=== PATIENT | female | born 1935 | race Caucasian/White ===

== ENCOUNTER 2016-06-12 06:33 | Day surgery (SDC) | payer OTHER, MEDICARE ==
[2016-05-31 13:48] LABS: BASO % 0.4 %; BASO ABS # 0.03 K/uL (0-0.2); COMPLETE YES; EOS % 3.1 %; HEMATOCRIT 34.7 % (37-47); IG% 0.1 %; LYMPH % 22.5 %; LYMPH ABS # 1.58 K/uL (1.2-3.4); MEAN CELL VOLUME 95.1 fL (80-100); MEAN CORPUSCULAR HEMOGLOBIN 30.7 pg (25-34); MEAN CORPUSCULAR HGB CONC 32.3 g/dl (32-36); MEAN PLATELET VOLUME 10.1 fL (7.4-10.4); MONO % 8.8 %; NEUT % 65.1 %; PLATELET COUNT 309 K/uL (130-400); RED BLOOD COUNT 3.65 M/uL (4.2-5.4); WHITE BLOOD COUNT 7.02 K/uL (4.8-10.8)
[2016-05-31 13:53] LABS: URINE APPEARANCE CLOUDY (CLEAR); URINE BILIRUBIN NEG (NEG); URINE COLOR YELLOW; URINE EPITHELIAL CELL AUTO >30 /lpf (0-5); URINE NITRITE NEG (NEG); UROBILINOGEN NEG (NEG)
[2016-05-31 13:59] LABS: MANUAL MICROSCOPIC REQUIRED? NO; REVIEW REQ? YES
[2016-05-31 14:22] LABS: BLOOD UREA NITROGEN 17 mg/dl (7-18); BUN/CREATININE RATIO 12.8 (10-20); CALCIUM 8.7 mg/dl (8.5-10.1); CARBON DIOXIDE 27 mmol/L (21-32); CHLORIDE 104 mmol/L (98-107); GLUCOSE 247 mg/dl (70-99); POTASSIUM 4.9 mmol/L (3.5-5.1); SODIUM 140 mmol/L (136-145)
[2016-06-06 15:55] VITALS: BMI 37.0
[~2016-06-12] VITALS: Ht 160 cm; Wt 96.4 kg
[~2016-06-12 06:33] MED LIST: ADVIN10/60 INH; ALT10 PO; ATOR-26 PO; CIPROFLOXACIN / D5W 400 MG IV SCH; CLOP1TAB15 PO; CYAN1TAB18 PO; DOCU-94 PO; DTRSR4 PO; GABA-112 PO; IBUP-1450 PO; INSDGI SC; LXP/10 PO; METO-551 PO; MONT1TAB3 PO; NVLG INJ; POLY335019 PO; RSTOPS OP; SODIUM CHLORIDE 0.9% 1000ML 1,000 ML IV SCH; ZNTT/150 PO
--- NOTE | 2016-06-12 07:13 | History & Physical Bridge Note ---
H&P Re-Evaluation Bridge Note: I have examined the patient, reviewed the History & Physical and in the interval since the performance of the History & Physical I have noted the following changes of clinical significance: No changes noted
[2016-06-12 07:15] VITALS: BP 168/69; PULSE 67; TEMP 36.4; O2SAT 98; Ht 160 cm; Wt 96.4 kg
[2016-06-12] MEDS ORDERED: ONDANSETRON INJ 2 MG/ML 2 ML VIAL ONE ×2 (07:22→10:15)
[2016-06-12] MEDS ORDERED: FENTANYL CITRATE INJ 50 MCG/1 ML 2 ML VIAL ONE ×2 (07:22→09:12)
[2016-06-12] MEDS ORDERED: LIDOCAINE HCL 2% 2 ML VIAL (20MG/ML) ONE (07:22)
[2016-06-12] MEDS ORDERED: PROPOFOL IV EMULSION 10 MG/ML 20 ML VIAL IV ONE (07:22)
[2016-06-12] MEDS ORDERED: EpHEDrine SULFATE 50MG/5ML SYR ONE (08:52)
[2016-06-12] MEDS ORDERED: OXYC1TAB3 PO (09:45)
[2016-06-12] MEDS ORDERED: CIPR-255 PO (09:45)
--- NOTE | 2016-06-12 09:45 | DIAGNOSTIC IMAGING REPORT ---
Stent placement RETROGRADE INCLUDES [facility] CLINICAL HISTORY: LEFT LASER LITHOTRIPSY STENT stent placement. Laser lithotripsy. TECHNIQUE: Image intensifier COMPARISON STUDY: None FINDINGS: Intraoperative films demonstrate retrograde cannulation of the left ureter followed by laser lithotripsy. These images are utilized for intraoperative surgical planning purposes IMPRESSION: Left upper urinary tracts laser lithotripsy and stent placement Electronically signed by: Phillip Marion M.D. 06/12/2016 9:43 AM Dictated Date/Time: 06/12/2016 9:42 AM
--- NOTE | 2016-06-12 09:47 | Discharge Instructions ---
Discharge Instructions Admission Reason for Admission: Stones Discharge Discharge Diagnosis / Problem: L ureteral stone s/p laser litho Discharge Goals Goal(s): Decrease discomfort, Improve function, Improve disease control, Therapeutic intervention Activity Recommendations Activity Limitations: per Instructions/Follow-up section Lifting Limitations: gradually increase as tolerated Exercise/Sports Limitations: rest today, gradually increase as tolerated May Resume Sexual Activity: when tolerated Shower/Bathe: no limitations Driving or Machine Use: per baseline . Instructions / Follow-Up Instructions / Follow-Up Follow-up in office as planned with [facility] Xray before visit for stent removal Discharge Diet Recommended Diet: Regular Diet (good fluid intake, resume prior diet) Procedures Procedures Performed: Cystoscopy, left ureteral stent exchange, left retrograde pyelography, flexible ureterscopy, laser lithotripsy, left basket stone extraction. Pending Studies Studies pending at discharge: yes List of pending studies: Culture, stone analysis Medical Emergencies . Who to Call and When: Medical Emergencies: If at any time you feel your situation is an emergency, please call 911 immediately. . Non-Emergent Contact Non-Emergency issues call your: Urologist Call Non-Emergent contact if: you have a fever, temperature is above 101, your pain is not controlled, your pain is worsening, your pain is unusual for you, your pain is concerning you, you have any medication questions . . "Provider Documentation" section prepared by Chino Smith. VTE Core Measure Inpt VTE Proph given/why not?: SCD's [place] Drug Monitoring Program Search Results: patient reviewed within database, no issues identified
--- NOTE | 2016-06-12 09:49 | [facility] Post Operative Brief Note ---
Immediate Operative Summary Operative Date Jun 12, 2016. Pre-Operative Diagnosis Left upper ureteral stone, recurrent UTI, indwelling stent Post-Operative Diagnosis Same Procedure(s) Performed Cystoscopy, left ureteral stent exchange, left retrograde pyelography, flexible ureterscopy, laser lithotripsy, left basket stone extraction. Surgeon Dr. Mely Smith District Recruiter Surgeon(s) None Estimated Blood Loss 5 ml Findings Stone fragmented and extracted, no ureteral injury or residual stone, cloudy urine noted Specimens left renal stone for chemical anlysis Bladder urine for C&S Drains 6 fr 26 cm JJ ureteral stent, left Anesthesia [facility] Complication(s) None Disposition Recovery Room / PACU
[2016-06-12] MEDS ORDERED: OXYCODONE/ACETAMINOPHEN 5-325 TAB PO PRN (10:00)
[2016-06-12] MEDS ORDERED: KETOROLAC TROMETHAMINE 30 MG/ML VIAL ONE (10:19)
[2016-06-12] MEDS ORDERED: VASOPRESSIN 20 UNIT/ML VIAL ONE (10:21)
[2016-06-12] MEDS ORDERED: EpHEDrine SULFATE INJ 50 MG/ML AMP IV PRN (10:30)
[2016-06-12] MEDS ORDERED: FENTANYL CITRATE INJ 50 MCG/1 ML 2 ML VIAL IV PRN (10:30)
[2016-06-12] MEDS ORDERED: ONDANSETRON INJ 2 MG/ML 2 ML VIAL IV PRN (10:30)
[2016-06-12] MEDS ORDERED: ATROPINE SULFATE 0.1 MG/ML 5ML SYR IV PRN (10:30)
[2016-06-12] MEDS ORDERED: LABETALOL HCL IV 5 MG/ML 20ML IV PRN (10:30)
[2016-06-12] MEDS ORDERED: MEPERIDINE HCL 25 MG/ML CARP IV PRN (10:30)
[2016-06-12] MEDS ORDERED: HYDROmorphone INJ 1 MG/ML SYR IV PRN (10:30)
--- NOTE | 2016-06-12 10:30 | Anesthesiology Progress Note ---
Anesthesia Post Op Note Date & Time Jun 12, 2016 at 10:31 Vital Signs Pain Intensity: 0 Vital Signs Past 12 Hours Date Time Temp Pulse Resp B/P Pulse Ox O2 Delivery O2 Flow Rate FiO2 06/12/16 09:47 36.1 84 18 162/95 97 Mask 10 06/12/16 07:15 36.4 67 20 168/69 98 Room Air Notes Mental Status: alert / awake / arousable, participated in evaluation Pt Amnestic to Procedure: Yes Nausea / Vomiting: adequately controlled Pain: adequately controlled Airway Patency, RR, SpO2: stable & adequate BP & HR: stable & adequate Hydration State: stable & adequate Anesthetic Complications: no major complications apparent
[2016-06-12] MEDS ORDERED: CONRAY 30% 150ML BOTTLE INSTIL ONE (10:46)
--- NOTE | 2016-06-12 10:47 | OPERATIVE REPORT ---
DATE OF OPERATION: 06/12/2016 PREOPERATIVE DIAGNOSIS: Left upper ureteral stone with indwelling stent, history of urinary tract infection. POSTOPERATIVE DIAGNOSIS: Same. PROCEDURE: Cystoscopy, left ureteral stent exchange, left retrograde pyelography with flexible ureteroscopy, laser lithotripsy and stone extraction. SURGEON: Dr. Chino Smith. AIR CARGO AGENT: None. ANESTHESIA: General anesthesia with laryngeal mask. COMPLICATIONS: None. SPECIMENS SENT TO PATHOLOGY: Bladder urine for culture and sensitivity, left upper ureteral and renal stone fragments for chemical analysis. DRAINS LEFT IN PLACE: Include a 6-Bulgarian 26 cm soft left ureteral double-J stent. FINDINGS: Stone retropulsed into the kidney, fragmented and extracted with no evidence of residual stone fragments or ureteral injury, good stent position on fluoroscopy. ESTIMATED BLOOD LOSS: Minimal. COMPLICATIONS: None. BRIEF HISTORY: Ms. Schultz is a pleasant 80-year-old female here today with her family, with a history of stone disease and urinary tract infection. She underwent acute stenting as an inpatient approximately 2 months ago and was not cleared for shockwave lithotripsy at the outpatient surgical center. She is therefore being brought to the hospital for endoscopic management of her stone. Please see H\T\P for further details. Preoperative urine culture demonstrated contamination with no uropathogens noted. Preoperative coverage with ciprofloxacin provided. Consent reviewed with the family in the chart prior to OR today. PROCEDURE: The patient was properly identified and brought to the operative suite. After identification of appropriate consent on the chart, general anesthesia with laryngeal mask was initiated. The patient was prepped and draped in a standard fashion for this procedure. realtime court reporter-out procedure was followed. A 22-Bulgarian rigid cystoscope was passed into the bladder under direct visualization and the bladder was generously irrigated with cloudy urine being removed and sent for culture and sensitivity. Stent was grasped and brought out to the level of the meatus and followed by a sensor tip wire which was kept as a safety wire until the end of the case. Open ended catheter was passed over the wire first and gentle retrograde pyelography was performed, opacifying the collecting system for anatomic landmarks. After the safety wire was in place, it was followed by a second sensor tip working wire. A 1214, 35 cm ureteral access sheath was advanced up to the level of the mid ureter without resistance or difficulties. This was followed by a fiberoptic ureteroscope. Inflammation and some stenosis of the proximal ureter consistent with the stone location on excellence leader imaging was noted. Using a 200 micron laser fiber, the stone was fragmented into several smaller pieces to allow for basket extraction. Open open-ended basket was used to remove these without excessive resistance at the level of the proximal ureter. After the stone fragments were basketed free, a complete pyeloscopy was repeated demonstrating no further stone fragments or other abnormalities within the kidney. Again, stenosis in the proximal ureter was noted without evidence of injury, ureteral perforation or laceration. Complete exit ureteroscopy was performed including removal of the access sheath demonstrating no occult ureteral injury behind the access sheath. After this was complete, the cystoscope was backloaded over the safety wire and a 6-Bulgarian 26 cm double-J stent was advanced with a full coil present visually within the bladder and a full coil present at the level of the renal pelvis. Hydronephrotic drip was appreciated. Bladder was drained and cystoscope was removed, anesthesia was reversed and the patient was transferred to recovery room in stable condition. FOLLOWUP CARE: The patient will be discharged home with a prescription for ciprofloxacin and narcotic pain medication. She has been tolerating her stent well in the past per her family and no bladder antispasmodics will be provided. Outpatient appointment with [facility] and cysto stent removal is confirmed. The patient is instructed to contact our service should she note any fevers, chills, nausea, vomiting or other significant difficulties in the postoperative period. I attest to the content of the Intraoperative Record and any orders documented therein. Any exceptio ns are noted below.
[2016-06-12 10:50] VITALS: BP 151/87; PULSE 78; TEMP 36.4; O2SAT 93
[2016-06-12 11:10] VITALS: BP 151/70; PULSE 76; O2SAT 94
[2016-06-12 11:50] VITALS: BP 132/73; PULSE 82; TEMP 36.5; O2SAT 97
[2016-06-22] MEDS ORDERED: DFL100 PO (11:24)
[2016-06-22] MEDS ORDERED: INSDGI SC (11:24)
[2016-06-22] MEDS ORDERED: MGNO400 PO (11:24)
[2016-06-22] MEDS ORDERED: CEFU1TAB35 PO (11:24)
[2016-10-08] MEDS ORDERED: RAMI10CA PO (11:59)
[2016-10-08] MEDS ORDERED: CYCL0.052 OP (11:59)
[2016-10-08] MEDS ORDERED: LEVO75TA5 PO (13:33)
[2016-10-08] MEDS ORDERED: NTRGSL/4 UT (13:43)
[2016-10-08] MEDS ORDERED: CYAN1CAP3 PO (13:48)
[2016-10-08] MEDS ORDERED: METO50TA16 PO (13:50)
== END 2016-06-12 11:55 | disposition home or self-care (01) ==
LOC: C.ACU 06:33
PROVIDERS: ATTEND Urology
DX: Z46.6 Encounter for fitting and adjustment of urinary device (principal); N20.1 Calculus of ureter; Z87.440 Personal history of urinary (tract) infections; N39.0 Urinary tract infection, site not specified; R35.0 Frequency of micturition; J45.909 Unspecified asthma, uncomplicated; R15.9 Full incontinence of feces; E11.65 Type 2 diabetes mellitus with hyperglycemia; K21.9 Gastro-esophageal reflux disease without esophagitis; K44.9 Diaphragmatic hernia without obstruction or gangrene; E78.5 Hyperlipidemia, unspecified; E03.9 Hypothyroidism, unspecified; F03.90 Unspecified dementia, unspecified severity, without behavioral disturbance, psychotic disturbance, mood disturbance, and anxiety; G45.9 Transient cerebral ischemic attack, unspecified

== ENCOUNTER 2016-06-17 09:36 | Inpatient (IN) | payer OTHER, MEDICARE ==
[~2016-06-17] VITALS: Ht 160 cm; Wt 97.0 kg
[~2016-06-17 09:36] MED LIST changes: +CIPR-255 PO; -CIPROFLOXACIN / D5W 400 MG IV SCH; +OXYC1TAB3 PO; -SODIUM CHLORIDE 0.9% 1000ML 1,000 ML IV SCH
[2016-06-17] MEDS ORDERED: SODIUM CHLORIDE 0.9% 1000ML 1,000 ML IV ONE (10:15)
[2016-06-17 10:21] LABS: HEMATOCRIT 33.5 % (37-47); MEAN CELL VOLUME 92.5 fL (80-100); MEAN CORPUSCULAR HEMOGLOBIN 31.2 pg (25-34); MEAN CORPUSCULAR HGB CONC 33.7 g/dl (32-36); MEAN PLATELET VOLUME 9.7 fL (7.4-10.4); PLATELET COUNT 217 K/uL (130-400); RED BLOOD COUNT 3.62 M/uL (4.2-5.4); WHITE BLOOD COUNT 12.12 K/uL (4.8-10.8)
[2016-06-17 10:30] LABS: BUN/CREATININE RATIO 13.8 (10-20); CALCIUM 8.2 mg/dl (8.5-10.1); CREATININE 1.4 mg/dl (0.60-1.20); POTASSIUM 3.6 mmol/L (3.5-5.1)
[2016-06-17 10:33] LABS: ALB/GLOB RATIO 0.6 (0.9-2)
[2016-06-17 10:38] LABS: PROTHROMBIN TIME (PATIENT) 10.8 SECONDS (9.0-12.0)
--- NOTE | 2016-06-17 10:43 | DIAGNOSTIC IMAGING REPORT ---
SINGLE VIEW CHEST CLINICAL HISTORY: Generalized weakness. FINDINGS: An AP, portable, upright chest radiograph is compared to study dated 04/12/2016 and correlated with chest CT dated 05/31/2015. The examination is degraded by portable technique, apical lordotic positioning, large body habitus, and patient rotation. The heart is enlarged and there is atherosclerotic calcification of the thoracic aorta. The pulmonary vasculature is noncongested. A hiatal hernia is again noted. There is chronic elevation of the right hemidiaphragm with associated atelectasis. Linear atelectasis is noted in the left lower lung. There is no airspace consolidation typical for pneumonia or pleural effusion. No pneumothorax is seen. The bony thorax is grossly intact. Fusion hardware is noted in the lumbar spine. Postoperative changes seen in the right proximal humerus. IMPRESSION: 1. Chronic parenchymal changes as above with no acute cardiopulmonary abnormality. 2. Cardiomegaly and hiatal hernia. Electronically signed by: Ender Grimaldo M.D. 06/17/2016 10:41 AM Dictated Date/Time: 06/17/2016 10:39 AM
[2016-06-17 10:48] LABS: BASO % 0.2 %; BASO ABS # 0.02 K/uL (0-0.2); COMPLETE YES; EOS % 0.2 %; IG% 0.4 %; LYMPH % 8.5 %; LYMPH ABS # 1.03 K/uL (1.2-3.4); MONO % 9.4 %; NEUT % 81.3 %
--- NOTE | 2016-06-17 10:50 | EMERGENCY ROOM VISIT NOTE ---
History Report prepared by Galo: Dawn Suh Under the Supervision of: Dr. Ronak Sutton M.D. First contact with patient: 09:46 Chief Complaint: NAUSEA Stated Complaint: NAUSEA,WEAKNESS,VOMITING, POST OP 2/6 Nursing Triage Summary: Had a kidney stone "blasted" on sunday. Eating little, "has never seemed to come out of the funk of the anesthesia." Complaining of pain on left flank. Confusion. Vomiting clear liquid. Took a percocet at 0830 History of Present Illness The patient is a 80 year old female who presents to the Emergency Room with complaints of persistent nausea that began Sunday. The patient's daughter notes that that the patient was evaluated in the hospital in April for a kidney infection, which also revealed a large kidney stone in her left kidney. She states that the patient had a stent placed in her left kidney at this time. The patient's daughter states that the patient had lithotripsy on the left kidney on Sunday, and was first felt well enough to get out of bed yesterday. She reports that patient has been very confused since Sunday. The patient's daughter states that the patient vomited this morning and began complaining of "pain up in." The daughter reports that the patient has had adequate fluid intake, but minimal food intake. She states that the patient's blood glucose has been running between 200-300 mg/dL this week. The daughter also states that the patient has been taking Percocet which relieves the pain and ciprofloxacin for an infection. The daughter reports the patient also fell out of bed on Sunday onto her left shoulder causing persistent shoulder pain. Source of History: patient, family (daughter) Onset: Sunday Position: other (global) Quality: other (nausea) Timing: other (persistent) Modifying Factors (Relieving): other (Percocet) Associated Symptoms: + vomiting Note: Associated Symptoms: confusion, pain up in, elevated blood glucose levels. Review of Systems All systems have been listed, reviewed, and are negative other than those previously mentioned. Please see Additional Medical History Sheet. 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 (14) SIRS (systemic inflammatory response syndrome) (15) SPINAL STENOSIS-LUMBAR (16) TIA (transient ischemic attack) Surgical Problems: (1) H/O: hysterectomy (2) History of back surgery (3) History of cataract surgery (4) History of renal stent (5) Hx of cholecystectomy Family History Cancer Diabetes mellitus Gallbladder disease Heart disease Kidney disease Kidney stones Social History Smoking Status: Former Smoker Alcohol Use: none Drug Use: none Marital Status: Housing Status: lives with family Occupation Status: retired Current/Historical Medications Scheduled Atorvastatin (Lipitor), 80 MG PO HS Ciprofloxacin Hcl (Cipro), 500 MG PO BID Clopidogrel (Plavix), 75 MG PO QAM Cyclosporine (Ophth) (Restasis), 1 DROP OP BID Escitalopram Oxalate (Lexapro), 10 MG PO QAM Fluticasone Prop/Salmeterol (Advair Diskus 100/50 60 Dose), 1 PUFF INH BID Gabapentin (Neurontin), 100 MG PO BID Insulin Aspart (Novolog), INJ ACHS Insulin Glargine (Lantus), 20 SC AMPM Levothyroxine Sodium (Levothyroxine Sodium), 75 MCG PO QAM Metoprolol Tartrate (Lopressor), 50 MG PO BID Multiple Vitamin (Multi Vitamin Daily), 1 TAB PO QAM Nitroglycerin (Nitrostat), 0.4 MG UT PRN Ramipril (Ramipril), 1 CAP PO DAILY Tolterodine Tartrate (Detrol LA), 1 CAP PO DAILY Scheduled PRN Docusate Sodium (Colace), 1 CAP PO for Constipation Hydrocortisone (Topical) (Hydrocortisone), 1 APPLN TOP BID PRN for PRN Oxycodone Immediate Rel Tab (Roxicodone Ir), 5 MG PO Q4H PRN for Severe Pain Allergies Coded Allergies: Latex1 -Allergic Contact Dermititis (Verified Allergy, Mild, RASH, 06/17/16 ) Adhesives (Verified Allergy, Unknown, RASH, 06/17/16) Codeine (Verified Adverse Reaction, Unknown, N&V, 06/17/16) Morphine (Verified Adverse Reaction, Unknown, N&V, 06/17/16) Physical Exam Vital Signs Date Time Temp Pulse Resp B/P Pulse Ox O2 Delivery O2 Flow Rate FiO2 06/17/16 12:45 75 18 170/104 98 Room Air 06/17/16 10:54 96 Nasal Cannula 2.0 06/17/16 10:50 89 Room Air 06/17/16 10:35 80 18 179/96 93 Room Air 06/17/16 10:13 84 06/17/16 09:39 36.4 94 18 110/67 93 Room Air Physical Exam GENERAL: Patient appears miserable. SKIN: No erythema, pallor, cyanosis or rash HEENT: Normal head, pupils equal, reactive to light and accommodation. Neck: Without adenopathy, no neck vein distention. LUNGS: Clear to auscultation. No wheezes, no rales, no rhonchi. HEART: No murmurs. No gallops. No rubs ABDOMEN: Obese. No masses, no rebound, no hepatomegaly or splenomegaly. EXTREMITIES: Full range of motion in shoulders, proximal humerus and clavicle are nontender NEUROLOGIC: Cranial nerves II-XII within normal limits. No gross motor sensory function deficits. Medical Decision & Procedures ER Provider Diagnostic Interpretation: X ray results are stated below per my interpretation and the radiologist's interpretation. SINGLE VIEW CHEST CLINICAL HISTORY: Generalized weakness. FINDINGS: An AP, portable, upright chest radiograph is compared to study dated 04/12/2016 and correlated with chest CT dated 05/31/2015. The examination is degraded by portable technique, apical lordotic positioning, large body habitus, and patient rotation. The heart is enlarged and there is atherosclerotic calcification of the thoracic aorta. The pulmonary vasculature is noncongested. A hiatal hernia is again noted. There is chronic elevation of the right hemidiaphragm with associated atelectasis. Linear atelectasis is noted in the left lower lung. There is no airspace consolidation typical for pneumonia or pleural effusion. No pneumothorax is seen. The bony thorax is grossly intact. Fusion hardware is noted in the lumbar spine. Postoperative changes seen in the right proximal humerus. IMPRESSION: 1. Chronic parenchymal changes as above with no acute cardiopulmonary abnormality. 2. Cardiomegaly and hiatal hernia. Electronically signed by: Ender Grimaldo M.D. 06/17/2016 10:41 AM Laboratory Results 06/17/16 09:52 Red Blood Count 3.62, Mean Corpuscular Volume 92.5, Mean Corpuscular Hemoglobin 31.2, Mean Corpuscular Hemoglobin Concent 33.7, Mean Platelet Volume 9.7, Neutrophils (%) (Auto) 81.3, Lymphocytes (%) (Auto) 8.5, Monocytes (%) (Auto) 9.4, Eosinophils (%) (Auto) 0.2, Basophils (%) (Auto) 0.2, Neutrophils # (Auto) 9.85, Lymphocytes # (Auto) 1.03, Monocytes # (Auto) 1.14, Eosinophils # (Auto) 0.03, Basophils # (Auto) 0.02 06/17/16 09:52 Test 06/17/16 09:52 06/17/16 10:11 06/17/16 10:30 White Blood Count 12.12 K/uL (4.8-10.8) Red Blood Count 3.62 M/uL (4.2-5.4) Hemoglobin 11.3 g/dL (12.0-16.0) Hematocrit 33.5 % (37-47) Mean Corpuscular Volume 92.5 fL (80-100) Mean Corpuscular Hemoglobin 31.2 pg (25-34) Mean Corpuscular Hemoglobin Concent 33.7 g/dl (32-36) Platelet Count 217 K/uL (130-400) Mean Platelet Volume 9.7 fL (7.4-10.4) Neutrophils (%) (Auto) 81.3 % Lymphocytes (%) (Auto) 8.5 % Monocytes (%) (Auto) 9.4 % Eosinophils (%) (Auto) 0.2 % Basophils (%) (Auto) 0.2 % Neutrophils # (Auto) 9.85 K/uL (1.4-6.5) Lymphocytes # (Auto) 1.03 K/uL (1.2-3.4) Monocytes # (Auto) 1.14 K/uL (0.11-0.59) Eosinophils # (Auto) 0.03 K/uL (0-0.5) Basophils # (Auto) 0.02 K/uL (0-0.2) RDW Standard Deviation 48.9 fL (36.4-46.3) RDW Coefficient of Variation 14.5 % (11.5-14.5) Immature Granulocyte % (Auto) 0.4 % Immature Granulocyte # (Auto) 0.05 K/uL (0.00-0.02) Prothrombin Time 10.8 SECONDS (9.0-12.0) Prothromb Time International Ratio 1.0 (0.9-1.1) Anion Gap 11.0 mmol/L (3-11) Est Creatinine Clear Calc Drug Dose 36.1 ml/min Estimated GFR () 41.3 Estimated GFR (Non- 35.6 BUN/Creatinine Ratio 13.8 (10-20) Calcium Level 8.2 mg/dl (8.5-10.1) Total Bilirubin 0.6 mg/dl (0.2-1) Aspartate Amino Transf (AST/SGOT) 50 U/L (15-37) Alanine Aminotransferase (ALT/SGPT) 53 U/L (12-78) Alkaline Phosphatase 153 U/L (45-117) Total Protein 6.9 gm/dl (6.4-8.2) Albumin 2.6 gm/dl (3.4-5.0) Globulin 4.3 gm/dl (2.5-4.0) Albumin/Globulin Ratio 0.6 (0.9-2) Bedside Lactic Acid Venous 1.79 mmol/L (0.90-1.70) Urine Color YELLOW Urine Appearance TURBID (CLEAR) Urine pH 5.5 (4.5-7.5) Urine Specific [place] 1.016 (1.000-1.030) Urine Protein 4+ (NEG) Urine Glucose (UA) 1+ (NEG) Urine Ketones TRACE (NEG) Urine Occult Blood 3+ (NEG) Urine Nitrite NEG (NEG) Urine Bilirubin NEG (NEG) Urine Urobilinogen NEG (NEG) Urine Leukocyte Esterase LARGE (NEG) Urine WBC (Auto) >30 /hpf (0-5) Urine RBC (Auto) 5-10 /hpf (0-4) Urine Hyaline Casts (Auto) /lpf (0-5) Urine Epithelial Cells (Auto) 10-20 /lpf (0-5) Urine Bacteria (Auto) NEG (NEG) Urine Pathogenic Casts /lpf (0) Urine Yeast (Auto) BUDDING (NONE PRSENT) Laboratory results as stated above per my review. Medications Administered Medications (Trade) Dose Ordered Sig/Pio Route Start Time Stop Time Status Last Admin Dose Admin Sodium Chloride 1,000 ml @ 1,000 mls/hr Q1H ONCE IV 06/17/16 10:15 06/17/16 11:14 DC 06/17/16 10:15 1,000 MLS/HR Trimethoprim/ Sulfamethoxazole/ Dextrose (Septra 80/16MG/ Ml Inj/D5W 500ml) 525 ml @ 333 mls/hr 1230 IV 06/17/16 12:30 06/17/16 14:05 DC 06/17/16 12:52 333 MLS/HR ED Course 0948: Past medical records reviewed. The patient was evaluated in room B11. A complete history and physical examination was performed. 1015: Sodium Chloride 1000 ml @ 1000 mls/hr IV. 1211: I reevaluated the patient and she is resting comfortably. I discussed the exam findings with her and I discussed the treatment plan. She verbalized complete understanding and agreement. She will be evaluated for further treatment. 1221: I discussed the patients case with KAY Zapata. He is going to evaluate the patient for further treatment. Medical Decision Nurses notes reviewed. Medical history sheet reviewed. Differential diagnosis includes but is not limited to: s/p lithotripsy, kidney stones, UTI, sepsis. The patient had lithotripsy earlier this week. The patient now feels weak and has significant pain. A full workup ensued including multiple labs. Please see above. The patient has significant white cells in her urine consistent with UTI/pyelonephritis. In light of her renal calculi and infection the patient will require admission. I discussed care with the patient and the patient's daughter and with the hospitalist. Consults Time Called: 1218 Consulting Physician: KAY Zapata Returned Call: 1221 I discussed the patients case with KAY Zapata. He is going to evaluate the patient for further treatment. Impression Primary Impression: Urinary tract infection Additional Impression: Kidney stone Scribe Attestation The scribe's documentation has been prepared under my direction and personally reviewed by me in its entirety. I confirm that the note above accurately reflects all work, treatment, procedures, and medical decision making performed by me. Departure Information Dispostion Being Evaluated By Hospitalist Referrals Sae Arthur M.D. (PCP) Problem Qualifiers
[2016-06-17 10:52] LABS: URINE APPEARANCE TURBID (CLEAR); URINE BILIRUBIN NEG (NEG); URINE COLOR YELLOW; URINE NITRITE NEG (NEG); URINE PH 5.5 (4.5-7.5); URINE SPECIFIC GRAVITY 1.016 (1.000-1.030); UROBILINOGEN NEG (NEG); ZZURINE CULT IF INDIC CATH YES
[2016-06-17 10:55] LABS: MANUAL MICROSCOPIC REQUIRED? NO; REVIEW REQ? YES
[2016-06-17] MEDS ORDERED: DTRSR4 PO (11:59)
[2016-06-17] MEDS ORDERED: SULFA IV SCH (12:30)
[2016-06-17] MEDS ORDERED: DEXTROSE 5% IV SCH (12:30)
[2016-06-17] MEDS ORDERED: TRIMETH IV SCH (12:30)
[2016-06-17] MEDS ORDERED: ACETAMINOPHEN 325 MG TAB PO PRN (13:30)
[2016-06-17] MEDS ORDERED: ONDANSETRON INJ 2 MG/ML 2 ML VIAL IV PRN (13:30)
[2016-06-17] MEDS ORDERED: PIPERACILL/TAZOBAC CONSULT ACTIVE PRN (14:00)
--- NOTE | 2016-06-17 14:20 | DIAGNOSTIC IMAGING REPORT ---
LEFT SHOULDER 3 VIEWS CLINICAL HISTORY: Fall with left arm pain. FINDINGS: 3 views of the left shoulder are obtained. No prior studies are available for comparison at the time of dictation. The skeletal structures are osteopenic. No fracture or dislocation is identified. Arthritic change is present at the glenohumeral and acromioclavicular joints. Sclerotic degenerative change is noted in the greater tuberosity of the humeral head. The overlying soft tissues are within normal limits. The heart appears enlarged. Partially imaged left lung parenchyma appears clear. IMPRESSION: Osteopenia and arthritic change as above. No fracture or dislocation is seen in the left shoulder. Electronically signed by: Ender Grimaldo M.D. 06/17/2016 2:19 PM Dictated Date/Time: 06/17/2016 2:17 PM
[2016-06-17 15:00] VITALS: BP 143/71; PULSE 71; TEMP 36.5; O2SAT 98
[2016-06-17] MEDS ORDERED: PIPERACILL/TAZOBAC IV 3.375 GM in DEXTROSE 5% 100ML IV SCH (15:30)
[2016-06-17 15:41] VITALS: BP 133/67; PULSE 68; TEMP 36.5; O2SAT 96
--- NOTE | 2016-06-17 15:45 | History and Physical ---
History & Physical Date & Time of Service: Jun 17, 2016 at 15:30 Chief Complaint: Acute Kidney Injury, Uti Primary Care Physician: Sae Arthur M.D. 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 According to patient and family, she has been confused and lethargic ever since 06/12 (5 days ago). Her appetite has been diminished, generalized aches, low grade temperatures and today she started vomiting. She has been compliant with the Cipro that was prescribed to treat possible UTI. She and family have not noticed any kidney stones that have passed. She has been making urine but less amounts. No hematuria, no dark discoloration. No chest pain or dyspnea or coughing. She admits to a lower abdominal pain but she feels that it comes on prior to moving bowels and improves with moving her bowels. In the ED her vitals were stable, she had signs of UTI on UA, mild leukocytosis and her Cr was elevated at 1.4 compared to prior baseline values closer to 0.8- 0.9. Admission was requested for the confusion and UTI with recent lithotripsy. Past records show that her urine culture from 04/06/16 grew E coli that was pacheco sensitive. Several other urine cultures taken since that time have shown multiple bacteria but all with insignificant numbers. Past Medical/Surgical History Medical Problems: (1) ASTHMA W/O STATUS ASTH, ACT EXACERBATION OR UNSPEC Status: Chronic (2) CHR LYMPHOCYT THYROIDIT Status: Chronic (3) CORON ATHEROSCLER NOS TYPE VESSEL, [place] OR GRAFT Status: Chronic (4) DIAB KOKI WO COMPL, TYPE I [JUVENILE TYPE], NOT UNCNTRLD Status: Chronic (5) DIAB W OPHTHAL MANIFEST TYPE II,OR NOS/NOT UNCONTR Status: Chronic (6) HYPERTENSION NOS Status: Chronic (7) HYPOTHYROIDISM NOS Status: Chronic (8) LUMBOSACRAL SPONDYLOSIS Status: Chronic (9) OBESITY, NOS Status: Chronic (10) OSTEOARTHROS NOS-UNSPEC Status: Chronic (11) POSTLAMINECT SYND-LUMBAR Status: Chronic (12) SPINAL STENOSIS-LUMBAR Status: Chronic (13) TIA (transient ischemic attack) Status: Resolved Surgical Problems: (1) H/O: hysterectomy Status: Resolved (2) History of back surgery Status: Resolved (3) History of cataract surgery Status: Resolved (4) Hx of cholecystectomy Status: Resolved Family History Cancer Diabetes mellitus Gallbladder disease Heart disease Kidney disease Kidney stones Social History Smoking Status: Former Smoker Drug Use: none Marital Status: Housing status: lives with family Occupational Status: retired Immunizations History of Influenza Vaccine: Yes Influenza Vaccine Date: Jun 16, 2011 History of Tetanus Vaccine?: utd Tetanus Immunization Date: Jan 22, 2001 History of Pneumococcal: Yes Pneumococcal Date: Jun 16, 2003 History of Hepatitis B Vaccine: Unknown Multi-Drug Resistant Organisms History of MDRO: No Allergies Coded Allergies: Latex1 -Allergic Contact Dermititis (Verified Allergy, Mild, RASH, 06/17/16 ) Adhesives (Verified Allergy, Unknown, RASH, 06/17/16) Codeine (Verified Adverse Reaction, Unknown, N&V, 06/17/16) Morphine (Verified Adverse Reaction, Unknown, N&V, 06/17/16) Home Medications Scheduled Atorvastatin (Lipitor), 80 MG PO HS Ciprofloxacin Hcl (Cipro), 500 MG PO BID Clopidogrel (Plavix), 75 MG PO QAM Cyclosporine (Ophth) (Restasis), 1 DROP OP BID Escitalopram Oxalate (Lexapro), 10 MG PO QAM Fluticasone Prop/Salmeterol (Advair Diskus 100/50 60 Dose), 1 PUFF INH BID Gabapentin (Neurontin), 100 MG PO BID Insulin Aspart (Novolog), INJ ACHS Insulin Glargine (Lantus), 20 SC AMPM Levothyroxine Sodium (Levothyroxine Sodium), 75 MCG PO QAM Metoprolol Tartrate (Lopressor), 50 MG PO BID Multiple Vitamin (Multi Vitamin Daily), 1 TAB PO QAM Nitroglycerin (Nitrostat), 0.4 MG UT PRN Ramipril (Ramipril), 1 CAP PO DAILY Tolterodine Tartrate (Detrol LA), 1 CAP PO DAILY Scheduled PRN Docusate Sodium (Colace), 1 CAP PO for Constipation Hydrocortisone (Topical) (Hydrocortisone), 1 APPLN TOP BID PRN for PRN Oxycodone Immediate Rel Tab (Roxicodone Ir), 5 MG PO Q4H PRN for Severe Pain Review of Systems Constitutional: + fatigue, + fever, + sweats, + weakness, No chills, No weight loss Eyes: No diplopia, No discharge, No eye pain, No problem reported, No redness, No worsening of vision ENT: No dental problems, No hearing loss, No nasal symptoms, No problem reported, No sore throat, No tinnitus, No trouble swallowing, No unusual epistaxis Respiratory: No cough, No dyspnea at rest, No dyspnea on exertion, No hemoptysis, No problem reported, No shortness of breath, No sputum, No wheezing Cardiovascular: No PND, No chest pain, No claudication, No edema, No orthopnea , No palpitations, No problem reported Abdomen: + nausea, + pain (relieved with bowel movement), + vomiting, No GI bleeding, No constipation, No diarrhea, No problem reported Musculoskeletal: + joint pain (left shoulder, fell out of bed two days ago), No calf pain, No muscle pain, No problem reported, No swelling Genitourinary - Female: No dysuria, No hematuria, No urinary frequency, No urinary retention, No urinary urgency Neurologic: + weakness, No balance problems, No memory loss, No numbness/ tingling, No paralysis, No problem reported, No vertigo Psychiatric: No anhedonism, No anxiety, No depression symptoms, No insomnia, No problem reported, No substance abuse Endocrine: No excessive thirst, No excessive urination, No fatigue, No problem reported Hematologic / Lymphatic: No abnormal bleeding/bruising, No clotting problems, No night sweats, No problem reported, No swollen lymph nodes Allergic / Immunologic: No environmental allergies, No food allergies, No frequent infections, No hives, No pet sensitivities, No poor healing, No problem reported, No prolonged convalescence, No seasonal allergies Physical Exam Vital Signs Date Time Temp Pulse Resp B/P Pulse Ox O2 Delivery O2 Flow Rate FiO2 06/17/16 14:56 72 18 160/68 95 Nasal Cannula 2.0 06/17/16 14:46 70 18 190/91 98 06/17/16 12:45 75 18 170/104 98 Room Air 06/17/16 10:54 96 Nasal Cannula 2.0 06/17/16 10:50 89 Room Air 06/17/16 10:35 80 18 179/96 93 Room Air 06/17/16 10:13 84 06/17/16 09:39 36.4 94 18 110/67 93 Room Air General Appearance: WD/WN, no apparent distress Head: normocephalic, atraumatic Eyes: normal inspection, EOMI, sclerae normal ENT: normal ENT inspection, hearing grossly normal, pharynx normal Neck: supple, no adenopathy, no JVD, trachea midline Respiratory/Chest: chest non-tender, lungs clear, normal breath sounds, no respiratory distress, no accessory muscle use Cardiovascular: regular rate, rhythm, no edema, no gallop, no JVD, no murmur, normal peripheral pulses Abdomen/GI: normal bowel sounds, non tender, soft, no organomegaly Back: normal inspection, no CVA tenderness, no muscle spasm, normal range of motion Extremities/Musculoskelatal: normal inspection, no calf tenderness, normal capillary refill, no pedal edema, normal range of motion Neurologic/Psych: small piece cutter II-XII nml as tested, alert, normal mood/affect, normal reflexes, + motor weakness (generalized) Skin: normal color, warm/dry, no rash Diagnostics Laboratory Results Results Past 24 Hours Test 06/17/16 09:52 06/17/16 10:11 06/17/16 10:30 Range/Units White Blood Count 12.12 4.8-10.8 K/uL Red Blood Count 3.62 4.2-5.4 M/uL Hemoglobin 11.3 12.0-16.0 g/dL Hematocrit 33.5 37-47 % Mean Corpuscular Volume 92.5 80-100 fL Mean Corpuscular Hemoglobin 31.2 25-34 pg Mean Corpuscular Hemoglobin Concent 33.7 32-36 g/dl Platelet Count 217 130-400 K/uL Mean Platelet Volume 9.7 7.4-10.4 fL Neutrophils (%) (Auto) 81.3 % Lymphocytes (%) (Auto) 8.5 % Monocytes (%) (Auto) 9.4 % Eosinophils (%) (Auto) 0.2 % Basophils (%) (Auto) 0.2 % Neutrophils # (Auto) 9.85 1.4-6.5 K/uL Lymphocytes # (Auto) 1.03 1.2-3.4 K/uL Monocytes # (Auto) 1.14 0.11-0.59 K/uL Eosinophils # (Auto) 0.03 0-0.5 K/uL Basophils # (Auto) 0.02 0-0.2 K/uL RDW Standard Deviation 48.9 36.4-46.3 fL RDW Coefficient of Variation 14.5 11.5-14.5 % Immature Granulocyte % (Auto) 0.4 % Immature Granulocyte # (Auto) 0.05 0.00-0.02 K/uL Prothrombin Time 10.8 9.0-12.0 SECONDS Prothromb Time International Ratio 1.0 0.9-1.1 Sodium Level 138 136-145 mmol/L Potassium Level 3.6 3.5-5.1 mmol/L Chloride Level 103 98-107 mmol/L Carbon Dioxide Level 24 21-32 mmol/L Anion Gap 11.0 3-11 mmol/L Blood Urea Nitrogen 19 7-18 mg/dl Creatinine 1.40 0.60-1.20 mg/dl Est Creatinine Clear Calc Drug Dose 36.1 ml/min Estimated GFR () 41.3 Estimated GFR (Non- 35.6 BUN/Creatinine Ratio 13.8 10-20 Random Glucose 213 70-99 mg/dl Calcium Level 8.2 8.5-10.1 mg/dl Total Bilirubin 0.6 0.2-1 mg/dl Aspartate Amino Transf (AST/SGOT) 50 15-37 U/L Alanine Aminotransferase (ALT/SGPT) 53 12-78 U/L Alkaline Phosphatase 153 45-117 U/L Total Protein 6.9 6.4-8.2 gm/dl Albumin 2.6 3.4-5.0 gm/dl Globulin 4.3 2.5-4.0 gm/dl Albumin/Globulin Ratio 0.6 0.9-2 Bedside Lactic Acid Venous 1.79 0.90-1.70 mmol/L Urine Color YELLOW Urine Appearance TURBID CLEAR Urine pH 5.5 4.5-7.5 Urine Specific [place] 1.016 1.000-1.030 Urine Protein 4+ NEG Urine Glucose (UA) 1+ NEG Urine Ketones TRACE NEG Urine Occult Blood 3+ NEG Urine Nitrite NEG NEG Urine Bilirubin NEG NEG Urine Urobilinogen NEG NEG Urine Leukocyte Esterase LARGE NEG Urine WBC (Auto) >30 0-5 /hpf Urine RBC (Auto) 5-10 0-4 /hpf Urine Hyaline Casts (Auto) 0-5 /lpf Urine Epithelial Cells (Auto) 10-20 0-5 /lpf Urine Bacteria (Auto) NEG NEG Urine Pathogenic Casts 0 /lpf Urine Yeast (Auto) BUDDING NONE PRSENT Microbiology Results 06/17/16 Blood Culture, Received Pending 06/17/16 Blood Culture, Received Pending 06/17/16 Urine Culture, Received Pending Diagnostic Radiology Shoulder x-ray: no fractures CXR normal Impression Assessment and Plan 80 yo female with recent history of emphysematous pyelonephritis and renal stones, recent lithotripsy 5 days ago, now with lethargy, confusion, low grade temperatures, vomiting - UTI, possible pyelonephritis: certainly there are signs of UTI on UA and generalized signs of infection, vitals stable, mild leukocytosis no signs of sepsis, admit to medical floor treat with Zosyn IV, she was taking Cipro prior to admission urine and blood cultures, check CT without contrast to assess renal stone and look for signs of pyelonephritis, emphysematous? consult urology due to recent lithotripsy ans stent placement - SERGIO on CKD: Cr up to 1.4, will give NSS and hold nephrotoxins, repeat labs in the AM, follow UO - H/o TIA: continue Plavix - Metabolic encephalopathy: certainly confusion is likely related to concurrent UTI and SERGIO, look for it to improve with treatment check CT head to r/o intracranial pathology - Left shoulder pain from fall: no fractures on x-ray - DM, insulin dependent: recently with hyperglycemia, will use Lantus 20 units BID and Novolog coverage, diabetic diet - Asthma: lungs clear, no wheezing, continue maintenance inhalers - DVT prophylaxis: heparin SC Level of Care Med/Surg Advanced Directives Existing Advance Directive: Yes Existing Power of Funeral Home Assistant: Yes Resuscitation Status FULL RESUSCITATION VTE Prophylaxis VTE Risk Assessment Done? Y/N: Yes Risk Level: High Given or contraindicated: Unfractionated heparin SQ Additional Copies To Sae Arthur M.D.
[2016-06-17] MEDS: RESTASIS - ORDER AWAITING ACTION SCH ×2 (16:00→21:26)
[2016-06-17 16:38] VITALS: BP 143/71; PULSE 71; TEMP 36.5; O2SAT 97; Ht 160 cm; Wt 97.0 kg
--- NOTE | 2016-06-17 17:34 | DIAGNOSTIC IMAGING REPORT ---
CT SCAN OF THE BRAIN WITHOUT IV CONTRAST CLINICAL HISTORY: Change in mental status. COMPARISON STUDY: CT of the brain dated 02/26/2015. TECHNIQUE: Unenhanced axial CT scan of the brain is performed from the vertex to the skull base. 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 There are age-related involutional changes noting moderate patchy subcortical and periventricular microangiopathic change. Small chronic lacunar infarcts are identified in the basal ganglia. There is no hemorrhage, mass effect, or evidence of acute territorial ischemia by CT criteria. Holden-white matter is preserved. No extra-axial fluid collection is seen. Ventricles, sulci, cisterns: Prominent secondary to involutional change. Intracranial vasculature: There is atherosclerotic calcification of the cavernous carotid and vertebral arteries. Calvarium: Unremarkable. Sinuses and mastoids: The visualized paranasal sinuses are clear. The mastoid air cells are well pneumatized. Orbits: The bony orbits are grossly intact. There are bilateral ocular lens implants. IMPRESSION: Senescent changes and remote infarcts as above. There is no hemorrhage, mass effect, or evidence of acute territorial ischemia by CT criteria. Electronically signed by: Ender Grimaldo M.D. 06/17/2016 5:32 PM Dictated Date/Time: 06/17/2016 5:29 PM
--- NOTE | 2016-06-17 17:46 | DIAGNOSTIC IMAGING REPORT ---
CT SCAN OF THE ABDOMEN AND PELVIS WITHOUT IV CONTRAST CLINICAL HISTORY: Change in mental status. Generalized abdominal pain. COMPARISON STUDY: Abdominal CT dated 04/10/2016. Chest CT dated 05/31/2015. TECHNIQUE: CT scan of the abdomen and pelvis is performed from the lung bases to the proximal femora. Images are reviewed in the axial, sagittal, and coronal planes. IV contrast was not administered for this examination as per the referring clinician. Note that the examination was performed in suboptimal fashion without oral and IV contrast. The examination is also degraded by large body habitus and streak artifact from the body wall abutting the CT gantry. Automated dose control exposure was utilized. CT DOSE: 1826.14 mGy.cm FINDINGS: Lung bases: The heart is heart is enlarged and there is a moderate pericardial effusion. The coronary arteries and mitral annulus are densely calcified. There is diminished attenuation of the cardiac blood pool as compared to the myocardium suggesting anemia. The pulmonary trunk is dilated suggesting pulmonary artery hypertension. There are trace pleural effusions with dependent atelectasis. There are numerous pulmonary nodules identified measuring up to 6 mm. The largest is in the lingula as seen on image #15. These are better characterized on the 05/31/[address] A moderate hiatal hernia is observed. Liver: The unenhanced liver is normal in size, contour, and attenuation. There is mild central intrahepatic biliary ductal dilatation. Gallbladder: Not identified and presumed surgically absent. Spleen: Normal in size and attenuation. Pancreas: The unenhanced pancreas is atrophic and grossly unremarkable. Adrenal glands: Unremarkable. Kidneys: The unenhanced kidneys demonstrate cortical atrophy. A left ureteral stent is new from previous and appears to be in appropriate position. There is mild to moderate left-sided hydroureteronephrosis with associated left-sided perinephric and periureteric stranding. No calculi are identified in the left ureter along the course of the stent. A punctate nonobstructing calculus is present in the left lower pole. No right renal calculi are identified and there is no right-sided hydronephrosis. There is no gas within the renal collecting system. Abdominal vasculature: The abdominal aorta is normal in course and caliber noting advanced atherosclerotic calcification. Bowel: There is no bowel obstruction. There is mild to moderate colonic fecal retention. There is moderate to advanced sigmoid diverticulosis without CT evidence of acute diverticulitis. A duodenal diverticulum is noted. The appendix is not clearly identified. Peritoneum: There is no intraperitoneal free air or abdominal ascites. Lymphadenopathy: None. Pelvic viscera: Small foci of gas are present within the bladder lumen. The bladder is otherwise normal in appearance. The uterus is surgically absent. No adnexal lesion is seen. Skeletal structures: The skeletal structures are osteopenic. There is lumbosacral spondylosis. Postoperative changes from laminectomy and posterior fusion are seen from T12 through L5. There has been hardware removal at L4 and L5. No lytic or blastic lesions are seen. IMPRESSION: 1. Suboptimal examination without oral and IV contrast. The examination is also degraded by streak artifact. 2. A left ureteral stent is new from previous. No stone is identified in the left ureter or along the course of the stent. 3. There is mild to moderate left-sided hydronephrosis, with associated left-sided perinephric and periureteric stranding. This could be related to stent dysfunction and/or superimposed urinary tract infection. Clinical correlation will be required and follow-up with urology is recommended. 4. An additional punctate nonobstructing calculus is noted in the left kidney. No right renal calculi are identified. 5. Foci of gas within the bladder lumen may be related to instrumentation. Correlation with clinical findings and urinalysis will be required. The bladder is otherwise normal as imaged. 6. Cardiomegaly with a moderate pericardial effusion. The pericardial effusion is unchanged from previous. 7. There are trace pleural effusions with dependent atelectasis. These have decreased in size from prior studies. 8. There is moderate diverticulosis of the left colon without CT evidence of acute diverticulitis. 9. Pulmonary nodules are identified and measure up to 6 mm. These were better characterized on the 05/31/[address] 10. Moderate hiatal hernia. 11. Additional changes as above. Electronically signed by: Ender Grimaldo M.D. 06/17/2016 5:45 PM Dictated Date/Time: 06/17/2016 5:28 PM
[2016-06-17] MEDS: NSS + 20MEQ KCL 1000ML 1,000 ML IV SCH (18:21)
[2016-06-17] MEDS: INSULIN ASPART 100 UNITS/ML 3 ML PEN SC SCH ×2 (18:33→21:24)
[2016-06-17] MEDS ORDERED: PIPERACILL/TAZOBAC IV 3.375 GM in DEXTROSE 5% 100ML 100 ML IV SCH (20:00)
--- NOTE | 2016-06-17 20:08 | Urology Consultation ---
History General Date of Service: Jun 17, 2016. Primary Care Physician: Sae Arthur M.D. History of Present Illness Patient is a 80-year-old white female who was admitted to the ER with increasing confusion. She underwent ureteroscopy with laser lithotripsy and stent placement on June 12. According to the notes she has had some confusion ever since along with a decrease in appetite is also had some nausea and vomiting earlier today. She denies any flank pain. She also tells me she' s had no fevers or chills although she is somewhat confused are not sure how accurate her information is Laboratory Last Vital Signs Documentation Date Time Temp Pulse Resp B/P Pulse Ox O2 Delivery O2 Flow Rate FiO2 06/17/16 16:38 36.5 71 18 143/71 06/17/16 15:41 96 Room Air 06/17/16 15:00 2.0 Last 24 Hours Test 06/17/16 09:52 06/17/16 10:11 06/17/16 10:30 06/17/16 16:41 White Blood Count 12.12 K/uL Red Blood Count 3.62 M/uL Hemoglobin 11.3 g/dL Hematocrit 33.5 % Mean Corpuscular Volume 92.5 fL Mean Corpuscular Hemoglobin 31.2 pg Mean Corpuscular Hemoglobin Concent 33.7 g/dl Platelet Count 217 K/uL Mean Platelet Volume 9.7 fL Neutrophils (%) (Auto) 81.3 % Lymphocytes (%) (Auto) 8.5 % Monocytes (%) (Auto) 9.4 % Eosinophils (%) (Auto) 0.2 % Basophils (%) (Auto) 0.2 % Neutrophils # (Auto) 9.85 K/uL Lymphocytes # (Auto) 1.03 K/uL Monocytes # (Auto) 1.14 K/uL Eosinophils # (Auto) 0.03 K/uL Basophils # (Auto) 0.02 K/uL RDW Standard Deviation 48.9 fL RDW Coefficient of Variation 14.5 % Immature Granulocyte % (Auto) 0.4 % Immature Granulocyte # (Auto) 0.05 K/uL Prothrombin Time 10.8 SECONDS Prothromb Time International Ratio 1.0 Sodium Level 138 mmol/L Potassium Level 3.6 mmol/L Chloride Level 103 mmol/L Carbon Dioxide Level 24 mmol/L Anion Gap 11.0 mmol/L Blood Urea Nitrogen 19 mg/dl Creatinine 1.40 mg/dl Est Creatinine Clear Calc Drug Dose 36.1 ml/min Estimated GFR () 41.3 Estimated GFR (Non- 35.6 BUN/Creatinine Ratio 13.8 Random Glucose 213 mg/dl Calcium Level 8.2 mg/dl Total Bilirubin 0.6 mg/dl Aspartate Amino Transf (AST/SGOT) 50 U/L Alanine Aminotransferase (ALT/SGPT) 53 U/L Alkaline Phosphatase 153 U/L Total Protein 6.9 gm/dl Albumin 2.6 gm/dl Globulin 4.3 gm/dl Albumin/Globulin Ratio 0.6 Bedside Lactic Acid Venous 1.79 mmol/L Urine Color YELLOW Urine Appearance TURBID Urine pH 5.5 Urine Specific [place] 1.016 Urine Protein 4+ Urine Glucose (UA) 1+ Urine Ketones TRACE Urine Occult Blood 3+ Urine Nitrite NEG Urine Bilirubin NEG Urine Urobilinogen NEG Urine Leukocyte Esterase LARGE Urine WBC (Auto) >30 /hpf Urine RBC (Auto) 5-10 /hpf Urine Hyaline Casts (Auto) /lpf Urine Epithelial Cells (Auto) 10-20 /lpf Urine Bacteria (Auto) NEG Urine Pathogenic Casts /lpf Urine Yeast (Auto) BUDDING Bedside Glucose 214 mg/dl Problem List Medical Problems: (1) Dehydration Status: Acute (2) Hypocalcemia Status: Acute (3) Hypokalemia Status: Acute (4) Hypomagnesemia Status: Acute (5) Kidney stone Status: Acute (6) Prolonged Q-T interval on ECG Status: Acute (7) Urinary tract infection Status: Acute Past History asthma, CVA/TIA/stroke, diabetes, hypertension, hypothyroidism, osteoarthritis, other Past Surgical History: cholecystectomy, hysterectomy, spinal surgery, other Family History Cancer Diabetes mellitus Gallbladder disease Heart disease Kidney disease Kidney stones Social History Hx Tobacco Use In Past Year?: No Smoking: other Drug use: none Marital status: Housing status: lives with family Occupation status: retired Immunizations History of Influenza Vaccine: Yes Influenza Vaccine Date: Jun 16, 2011 History of Tetanus Vaccine?: utd Tetanus Immunization Date: Jan 22, 2001 History of Pneumococcal: Yes Pneumococcal Date: Jun 16, 2003 History of Hepatitis B Vaccine: Unknown History of MDRO No Allergies Coded Allergies: Latex1 -Allergic Contact Dermititis (Verified Allergy, Mild, RASH, 06/17/16 ) Adhesives (Verified Allergy, Unknown, RASH, 06/17/16) Codeine (Verified Adverse Reaction, Unknown, N&V, 06/17/16) Morphine (Verified Adverse Reaction, Unknown, N&V, 06/17/16) Medications Home Medications: Home Meds and Scripts Medications Dose Route/Sig Max Daily Dose Days Date Category Dose Instructions Ramipril 10 Mg Cap 1 Cap PO DAILY 90 06/17/16 Reported Detrol LA (Tolterodine Tartrate) 4 Mg Capcr 1 Cap PO DAILY 90 06/17/16 Reported Restasis (Cyclosporine (Ophth)) 0.05 % Emu 1 Drop OP BID 06/17/16 Reported Roxicodone Ir (Oxycodone HCl) 5 Mg Tab 5 Mg PO Q4H PRN 06/12/16 Rx Cipro (Ciprofloxacin Hcl) 500 Mg Tab 500 Mg PO BID 06/12/16 Rx Nitrostat (Nitroglycerin) 0.4 Mg Tab 0.4 Mg UT PRN 04/27/16 Reported Plavix (Clopidogrel Bisulfate) 75 Mg Tab 75 Mg PO QAM 04/27/16 Reported Novolog (Insulin Aspart) 100 Units/Ml Inj INJ ACHS 04/27/16 Reported SLIDING SCALE Lantus (Insulin Glargine) 100 Unit/Ml Inj 20 SC AMPM 04/27/16 Reported Lopressor (Metoprolol Tartrate) 50 Mg Tab 50 Mg PO BID 04/27/16 Reported Levothyroxine Sodium 75 Mcg Tab 75 Mcg PO QAM 90 04/27/16 Reported Lipitor (Atorvastatin Calcium) 80 Mg Tab 80 Mg PO HS 04/27/16 Reported Hydrocortisone (Hydrocortisone (Topical)) 2.5 % Lot 1 Appln TOP BID PRN 10 04/06/16 Reported Lexapro (Escitalopram Oxalate) 10 Mg Tab 10 Mg PO QAM 02/26/15 Reported Colace (Docusate Sodium) 100 Mg Cap 1 Cap PO PRN 30 02/26/15 Reported Multi Vitamin Daily (Multiple Vitamin) 1 Tab Tab 1 Tab PO QAM 06/08/14 Reported Neurontin (Gabapentin) 100 Mg Cap 100 Mg PO BID 06/08/14 Reported Advair Diskus 100/50 60 Dose (Fluticasone Prop/Salmeterol) 1 Ea Aerp 1 Puff INH BID 06/08/14 Reported Inpatient Medications: Current Inpatient Medications Medications (Trade) Dose Ordered Sig/Pio Route Start Time Stop Time Status Last Admin Dose Admin Acetaminophen (Tylenol Tab) 650 mg Q4H PRN PO 06/17/16 13:30 07/17/16 13:29 Ondansetron HCl 4 mg 4 mg Q6H PRN IV 06/17/16 13:30 07/17/16 13:29 Potassium Chloride/Sodium Chloride (Nss + 20meq KCl 1000ml) 1,000 ml @ 100 mls/hr Q10H IV 06/17/16 15:45 07/17/16 15:44 06/17/16 18:21 100 MLS/HR Atorvastatin Calcium (Lipitor Tab) 80 mg HS PO 06/17/16 21:00 07/17/16 20:59 Clopidogrel Bisulfate (plAVix TAB) 75 mg QAM PO 06/18/16 09:00 07/18/16 08:59 Escitalopram Oxalate (Lexapro Tab) 10 mg QAM PO 06/18/16 09:00 07/18/16 08:59 Salmeterol Xinafoate/ Fluticasone (Advair Diskus 100/50 Inh) 1 puff BID INH 06/17/16 21:00 07/17/16 20:59 Gabapentin (Neurontin Cap) 100 mg BID PO 06/17/16 21:00 07/17/16 20:59 Insulin Glargine (Lantus Solostar Pen) 20 unit BID SC 06/17/16 21:00 07/17/16 20:59 Levothyroxine Sodium (Synthroid Tab) 75 mcg DAILYBB PO 06/18/16 06:00 07/18/16 08:59 Metoprolol Tartrate (Lopressor Tab) 50 mg BID PO 06/17/16 21:00 07/17/16 20:59 Miscellaneous Information (Order Awaiting Action) 1 ea QS N/A 06/17/16 16:00 07/17/16 15:59 Miscellaneous Information (Order Awaiting Action) 1 ea QS N/A 06/17/16 16:00 07/17/16 15:59 Insulin Aspart (novoLOG ASPART) SLIDING SCALE G... ACHS SC 06/17/16 17:15 07/17/16 15:59 06/17/16 18:33 5 UNITS Piperacillin Sod/ Tazobactam Sod 1 ea 1 ea UD PRN N/A 06/17/16 14:00 07/17/16 13:59 Piperacillin Sod/ Tazobactam Sod/ Dextrose (Zosyn Iv/D5 100ml) 115 ml @ 28.75 mls/ hr Q8H IV 06/18/16 02:00 06/27/16 13:59 Review of Systems Review of Systems Additional Comments: Review of systems were evaluated from her ER an admission evaluation paperwork Physical Exam Vital Signs: Vital Signs Past 12 Hours Date Time Temp Pulse Resp B/P Pulse Ox O2 Delivery O2 Flow Rate FiO2 06/17/16 16:38 36.5 71 18 143/71 06/17/16 15:41 36.5 68 18 133/67 96 Room Air 06/17/16 15:00 36.5 71 18 143/71 98 Nasal Cannula 2.0 06/17/16 14:56 72 18 160/68 95 Nasal Cannula 2.0 06/17/16 14:46 70 18 190/91 98 06/17/16 12:45 75 18 170/104 98 Room Air 06/17/16 10:54 96 Nasal Cannula 2.0 06/17/16 10:50 89 Room Air 06/17/16 10:35 80 18 179/96 93 Room Air 06/17/16 10:13 84 06/17/16 09:39 36.4 94 18 110/67 93 Room Air Physical Exam: General Appearance: WD/WN, no apparent distress ENT: hearing grossly normal Respiratory/Chest: chest non-tender, lungs clear, normal breath sounds, no respiratory distress, no accessory muscle use Cardiovascular: regular rate, rhythm Gastrointestinal: Abdomen: normal abdomen Assessment & Plan Assessment & Plan Assessment #1 possible urinary tract infection with change in mental status\ I reviewed the patient's CT that she had stent appears to be in good position I do not see any stones along the course of the stent. She does have a punctate stone in the kidney itself Urine culture and blood cultures are pending Patient does not appear to be septic as she is not febrile she is not tachycardic and her blood pressure is stable At this point I would just continue her on broad-spectrum IV antibiotics pending the culture results along with gentle hydration.
[2016-06-17 21:17] VITALS: BP 150/79; PULSE 73
[2016-06-17] MEDS: FLUTICASONE/SALMETEROL 100/50 (ADVAIR) 14 PUFF/1 INHALER INH SCH (21:19)
[2016-06-17] MEDS: METOPROLOL TARTRATE 50 MG TAB PO SCH (21:19)
[2016-06-17] MEDS: GABAPENTIN 100 MG CAP PO SCH (21:20)
[2016-06-17] MEDS: ATORVASTATIN 40 MG TAB PO SCH (21:20)
[2016-06-17] MEDS: INSULIN GLARGINE SOLOSTAR 100 UNITS/ML 3 ML PEN SC SCH (21:23)
[2016-06-17 23:16] VITALS: BP 154/85; PULSE 68; TEMP 36.7; O2SAT 97
[2016-06-18] MEDS: NSS + 20MEQ KCL 1000ML 1,000 ML IV SCH ×3 (01:37→21:17)
[2016-06-18] MEDS: PIPERACILL/TAZOBAC IV 3.375 GM in DEXTROSE 5% 100ML 100 ML IV SCH ×3 (01:38→18:31)
[2016-06-18] MEDS: LEVOTHYROXINE 75 MCG TAB PO SCH (05:46)
[2016-06-18 06:33] LABS: BASO % 0.3 %; BASO ABS # 0.04 K/uL (0-0.2); COMPLETE YES; EOS % 0.8 %; HEMATOCRIT 29.8 % (37-47); IG% 0.8 %; LYMPH % 12.8 %; LYMPH ABS # 1.53 K/uL (1.2-3.4); MEAN CELL VOLUME 89.5 fL (80-100); MEAN CORPUSCULAR HEMOGLOBIN 30.9 pg (25-34); MEAN CORPUSCULAR HGB CONC 34.6 g/dl (32-36); MEAN PLATELET VOLUME 9.8 fL (7.4-10.4); MONO % 11.3 %; PLATELET COUNT 221 K/uL (130-400); RED BLOOD COUNT 3.33 M/uL (4.2-5.4); WHITE BLOOD COUNT 11.95 K/uL (4.8-10.8)
[2016-06-18 07:11] LABS: BUN/CREATININE RATIO 12.1 (10-20); CALCIUM 7.7 mg/dl (8.5-10.1); MAGNESIUM 1.6 mg/dl (1.8-2.4); POTASSIUM 3.8 mmol/L (3.5-5.1)
[2016-06-18 07:17] VITALS: BP 150/79; PULSE 68; TEMP 36.8; O2SAT 96
[2016-06-18] MEDS: RESTASIS - ORDER AWAITING ACTION SCH (09:01)
[2016-06-18] MEDS: ESCITALOPRAM OXALATE 10 MG TAB PO SCH (09:07)
[2016-06-18] MEDS: FLUTICASONE/SALMETEROL 100/50 (ADVAIR) 14 PUFF/1 INHALER INH SCH ×2 (09:07→21:17)
[2016-06-18] MEDS: GABAPENTIN 100 MG CAP PO SCH ×2 (09:08→21:20)
[2016-06-18] MEDS: CLOPIDOGREL BISULFATE 75 MG TAB PO SCH (09:08)
[2016-06-18] MEDS: MAGNESIUM SULFATE 1GM / D5W 1 GM in PREMIXED IN D5W 100 ML IV SCH ×2 (09:09→11:00)
[2016-06-18 09:11] VITALS: BP 145/82; PULSE 76
[2016-06-18] MEDS: METOPROLOL TARTRATE 50 MG TAB PO SCH ×2 (09:13→21:20)
--- NOTE | 2016-06-18 09:23 | Progress Note ---
Progress Note Patient's afebrile vital signs are stable She has no complaints Urine culture still pending She denies any flank pain Assessment #1 urinary tract infection-continue broad-spectrum antibiotics until sensitivities from the culture are back No need for any urologic intervention at this time
[2016-06-18] MEDS: INSULIN ASPART 100 UNITS/ML 3 ML PEN SC SCH ×4 (09:43→21:29)
[2016-06-18] MEDS: INSULIN GLARGINE SOLOSTAR 100 UNITS/ML 3 ML PEN SC SCH ×2 (09:44→21:29)
--- NOTE | 2016-06-18 12:03 | Progress Note ---
Subjective Date of Service: Jun 18, 2016. Subjective Pt evaluation today including: conversation w/ patient, conversation w/ family (daughter Yi), physical exam, lab review, review of studies, conversation w/ customer sales consultant, review of inpatient medication list Pain: no pain PO Intake: poor appetite Voiding: no voiding problems patient says she is really tired, no appetite still confused, doesn't remember meeting me yesterday knows she is in a hospital, does not know what city or state, cannot name the year she knows her name and her daughter's name updated daughter Yi over phone - CT head and abdomen/pelvis results, labs, plans going forward Problem List Medical Problems: (1) Dehydration Status: Acute (2) Hypocalcemia Status: Acute (3) Hypokalemia Status: Acute (4) Hypomagnesemia Status: Acute (5) Kidney stone Status: Acute (6) Prolonged Q-T interval on ECG Status: Acute (7) Urinary tract infection Status: Acute Review of Systems Constitutional: + fatigue, + weakness Abdomen: + problem reported (poor appetite) Neurologic: + memory loss, + problem reported (confusion) All Other Systems: Reviewed and Negative Medications Current Inpatient Medications Medications (Trade) Dose Ordered Sig/Pio Route Start Time Stop Time Status Last Admin Dose Admin Acetaminophen (Tylenol Tab) 650 mg Q4H PRN PO 06/17/16 13:30 07/17/16 13:29 Ondansetron HCl 4 mg 4 mg Q6H PRN IV 06/17/16 13:30 07/17/16 13:29 Potassium Chloride/Sodium Chloride (Nss + 20meq KCl 1000ml) 1,000 ml @ 100 mls/hr Q10H IV 06/17/16 15:45 07/17/16 15:44 06/18/16 11:41 100 MLS/HR Atorvastatin Calcium (Lipitor Tab) 80 mg HS PO 06/17/16 21:00 07/17/16 20:59 06/17/16 21:20 80 MG Clopidogrel Bisulfate (plAVix TAB) 75 mg QAM PO 06/18/16 09:00 07/18/16 08:59 06/18/16 09:08 75 MG Escitalopram Oxalate (Lexapro Tab) 10 mg QAM PO 06/18/16 09:00 07/18/16 08:59 06/18/16 09:07 10 MG Salmeterol Xinafoate/ Fluticasone (Advair Diskus 100/50 Inh) 1 puff BID INH 06/17/16 21:00 07/17/16 20:59 06/18/16 09:07 1 PUFF Gabapentin (Neurontin Cap) 100 mg BID PO 06/17/16 21:00 07/17/16 20:59 06/18/16 09:08 100 MG Insulin Glargine (Lantus Solostar Pen) 20 unit BID SC 06/17/16 21:00 07/17/16 20:59 06/18/16 09:44 20 UNIT Levothyroxine Sodium (Synthroid Tab) 75 mcg DAILYBB PO 06/18/16 06:00 07/18/16 08:59 06/18/16 05:46 75 MCG Metoprolol Tartrate (Lopressor Tab) 50 mg BID PO 06/17/16 21:00 07/17/16 20:59 06/18/16 09:13 50 MG Miscellaneous Information (Order Awaiting Action) 1 ea QS N/A 06/17/16 16:00 07/17/16 15:59 Miscellaneous Information (Order Awaiting Action) 1 ea QS N/A 06/17/16 16:00 07/17/16 15:59 Insulin Aspart (novoLOG ASPART) SLIDING SCALE G... ACHS SC 06/17/16 17:15 07/17/16 15:59 06/18/16 09:43 2 UNITS Piperacillin Sod/ Tazobactam Sod 1 ea 1 ea UD PRN N/A 06/17/16 14:00 07/17/16 13:59 Piperacillin Sod/ Tazobactam Sod/ Dextrose (Zosyn Iv/D5 100ml) 115 ml @ 28.75 mls/ hr Q8H IV 06/18/16 02:00 06/27/16 13:59 06/18/16 09:48 28.75 MLS/HR Objective Vital Signs Date Time Temp Pulse Resp B/P Pulse Ox O2 Delivery O2 Flow Rate FiO2 06/18/16 09:11 76 145/82 06/18/16 08:00 Room Air 06/18/16 07:17 36.8 68 17 150/79 96 Room Air 2/11/17 23:16 36.7 68 18 154/85 97 Room Air 06/17/16 21:17 73 150/79 06/17/16 20:23 Room Air 06/17/16 16:38 36.5 71 18 143/71 97 Room Air 06/17/16 15:41 36.5 68 18 133/67 96 Room Air 06/17/16 15:00 36.5 71 18 143/71 98 Nasal Cannula 2.0 06/17/16 14:56 72 18 160/68 95 Nasal Cannula 2.0 06/17/16 14:46 70 18 190/91 98 06/17/16 12:45 75 18 170/104 98 Room Air Physical Exam General Appearance: WD/WN, no apparent distress Eyes: normal inspection, EOMI, sclerae normal ENT: normal ENT inspection, hearing grossly normal, pharynx normal Neck: supple, no adenopathy, no JVD, trachea midline Respiratory/Chest: chest non-tender, lungs clear, normal breath sounds, no respiratory distress, no accessory muscle use Cardiovascular: regular rate, rhythm, no edema, no gallop, no JVD, no murmur Abdomen: normal bowel sounds, non tender, soft, no organomegaly Extremities: normal range of motion, non-tender, normal inspection, no pedal edema, no calf tenderness, pelvis stable Neurologic/Psychiatric: crt II-XII nml as tested, alert, normal mood/affect, + motor weakness, + disoriented Skin: normal color, warm/dry, no rash Laboratory Results Last 24 Hours Test 06/17/16 16:41 06/17/16 20:50 06/18/16 05:56 06/18/16 08:01 Bedside Glucose 214 mg/dl 168 mg/dl 128 mg/dl White Blood Count 11.95 K/uL Red Blood Count 3.33 M/uL Hemoglobin 10.3 g/dL Hematocrit 29.8 % Mean Corpuscular Volume 89.5 fL Mean Corpuscular Hemoglobin 30.9 pg Mean Corpuscular Hemoglobin Concent 34.6 g/dl Platelet Count 221 K/uL Mean Platelet Volume 9.8 fL Neutrophils (%) (Auto) 74.0 % Lymphocytes (%) (Auto) 12.8 % Monocytes (%) (Auto) 11.3 % Eosinophils (%) (Auto) 0.8 % Basophils (%) (Auto) 0.3 % Neutrophils # (Auto) 8.84 K/uL Lymphocytes # (Auto) 1.53 K/uL Monocytes # (Auto) 1.35 K/uL Eosinophils # (Auto) 0.10 K/uL Basophils # (Auto) 0.04 K/uL RDW Standard Deviation 47.6 fL RDW Coefficient of Variation 14.4 % Immature Granulocyte % (Auto) 0.8 % Immature Granulocyte # (Auto) 0.09 K/uL Sodium Level 141 mmol/L Potassium Level 3.8 mmol/L Chloride Level 108 mmol/L Carbon Dioxide Level 23 mmol/L Anion Gap 10.0 mmol/L Blood Urea Nitrogen 12 mg/dl Creatinine 1.00 mg/dl Est Creatinine Clear Calc Drug Dose 50.6 ml/min Estimated GFR () 62.1 Estimated GFR (Non- 53.5 BUN/Creatinine Ratio 12.1 Random Glucose 128 mg/dl Calcium Level 7.7 mg/dl Magnesium Level 1.6 mg/dl Test 06/18/16 11:45 Bedside Glucose 182 mg/dl Assessment and Plan 80 yo female with recent history of emphysematous pyelonephritis and renal stones, recent lithotripsy 5 days ago, now with lethargy, confusion, low grade temperatures, vomiting - Left pyelonephritis: evidence on CT (no IV contrast), vitals stable, mild leukocytosis that is improving no signs of sepsis treat with Zosyn IV, she was taking Cipro prior to admission, urine culture no growth thus far, blood cultures pending CT shows that left ureteral stent in good position, no evidence of stone after lithotripsy appreciate urology note, continue antibiotics and fluids - SERGIO on CKD: Cr up to 1.4, will give NSS and hold nephrotoxins, Cr down to 1.0 today, good UO can resume VAUGHN inhibitor tomorrow continue fluids today but hopefully d/c tomorrow if appetite improves - H/o TIA: continue Plavix - Metabolic encephalopathy: certainly confusion is likely related to concurrent UTI and SERGIO, still confused today check CT head - evidence of prior stroke, no signs of new ischemia or bleeding continue fluids and antibiotics, hopefully cognition will improve tomorrow - Left shoulder pain from fall: no fractures on x-ray - DM, insulin dependent: recently with hyperglycemia, will use Lantus 20 units BID and Novolog coverage, diabetic diet - Asthma: lungs clear, no wheezing, continue maintenance inhalers - DVT prophylaxis: heparin SC PT/OT evaluations tomorrow, at baseline she walks with a walker
[2016-06-18 15:18] VITALS: BP 150/86; PULSE 68; TEMP 36.5; O2SAT 96
[2016-06-18 15:30] VITALS: O2SAT 96
[2016-06-18] MEDS ORDERED: HYDROCORTISONE 2.5% CR 30 GM TUBE EXT PRN (18:00)
[2016-06-18] MEDS ORDERED: CycloSPORINE 0.05% 0.4 ML 30 UDV/BOX OPB SCH (21:00)
[2016-06-18 21:13] VITALS: BP 142/61; PULSE 73
[2016-06-18] MEDS: ATORVASTATIN 40 MG TAB PO SCH (21:20)
[2016-06-18] MEDS: CycloSPORINE 0.05% 0.4 ML 30 UDV/BOX OPB SCH (21:21)
[2016-06-18 22:57] VITALS: BP 129/80; PULSE 62; TEMP 36.7; O2SAT 94
[2016-06-19] MEDS: PIPERACILL/TAZOBAC IV 3.375 GM in DEXTROSE 5% 100ML 100 ML IV SCH ×3 (01:47→18:07)
[2016-06-19] MEDS: LEVOTHYROXINE 75 MCG TAB PO SCH (05:55)
[2016-06-19] MEDS: NSS + 20MEQ KCL 1000ML 1,000 ML IV SCH ×2 (05:59→17:09)
[2016-06-19 06:27] LABS: HEMATOCRIT 29.8 % (37-47); MEAN CELL VOLUME 90.3 fL (80-100); MEAN CORPUSCULAR HEMOGLOBIN 30.6 pg (25-34); MEAN CORPUSCULAR HGB CONC 33.9 g/dl (32-36); MEAN PLATELET VOLUME 8.9 fL (7.4-10.4); PLATELET COUNT 252 K/uL (130-400); WHITE BLOOD COUNT 11.47 K/uL (4.8-10.8)
[2016-06-19 06:58] LABS: BASO % 0.3 %; BASO ABS # 0.04 K/uL (0-0.2); COMPLETE YES; ECHINOCYTES 1+; EOS % 1.4 %; IG% 0.3 %; LYMPH % 15.4 %; LYMPH ABS # 1.77 K/uL (1.2-3.4); MONO % 10.1 %; NEUT % 72.5 %
[2016-06-19 07:05] LABS: BUN/CREATININE RATIO 9.3 (10-20); CALCIUM 7.7 mg/dl (8.5-10.1); CREATININE 0.98 mg/dl (0.60-1.20); POTASSIUM 3.6 mmol/L (3.5-5.1)
[2016-06-19 07:52] VITALS: BP 146/84; PULSE 67; TEMP 36.6; O2SAT 97
--- NOTE | 2016-06-19 08:19 | Progress Note ---
Subjective Date of Service: Jun 19, 2016. Subjective Pt evaluation today including: conversation w/ patient, chart review, lab review 80 yo female with worsening confusion s/p left URS on 06-12-16. Pt with baseline dementia. Denies pain today. She cannot remember who did her surgery, and she thinks it is 1972 and she is currently in [place]. White count remains elevated, but stable at 11.47. Cr has normalized. Blood and urine cultures noted to be preliminarily negative. She is currently afebrile. BP is stable. Problem List Medical Problems: (1) Dehydration Status: Acute (2) Hypocalcemia Status: Acute (3) Hypokalemia Status: Acute (4) Hypomagnesemia Status: Acute (5) Kidney stone Status: Acute (6) Prolonged Q-T interval on ECG Status: Acute (7) Urinary tract infection Status: Acute Review of Systems Constitutional: No chills, No fever Respiratory: No shortness of breath Cardiac: No chest pain Abdomen: No nausea, No pain, No vomiting Neurologic: + memory loss Objective Vital Signs Date Time Temp Pulse Resp B/P Pulse Ox O2 Delivery O2 Flow Rate FiO2 06/19/16 07:52 36.6 67 12 146/84 97 Room Air 06/19/16 00:14 Room Air 06/18/16 22:57 36.7 62 18 129/80 94 Room Air 06/18/16 21:13 73 142/61 06/18/16 15:30 96 Room Air 06/18/16 15:18 36.5 68 16 150/86 96 Room Air 06/18/16 09:11 76 145/82 Physical Exam General Appearance: no apparent distress Eyes: normal inspection ENT: hearing grossly normal Neck: no JVD Respiratory/Chest: no respiratory distress, no accessory muscle use Cardiovascular: no JVD Extremities: normal inspection Neurologic/Psychiatric: alert, normal mood/affect, + disoriented Skin: normal color Laboratory Results Last 24 Hours Test 06/18/16 11:45 06/18/16 16:44 06/18/16 20:42 06/19/16 06:05 Bedside Glucose 182 mg/dl 136 mg/dl 179 mg/dl White Blood Count 11.47 K/uL Red Blood Count 3.30 M/uL Hemoglobin 10.1 g/dL Hematocrit 29.8 % Mean Corpuscular Volume 90.3 fL Mean Corpuscular Hemoglobin 30.6 pg Mean Corpuscular Hemoglobin Concent 33.9 g/dl Platelet Count 252 K/uL Mean Platelet Volume 8.9 fL Neutrophils (%) (Auto) 72.5 % Lymphocytes (%) (Auto) 15.4 % Monocytes (%) (Auto) 10.1 % Eosinophils (%) (Auto) 1.4 % Basophils (%) (Auto) 0.3 % Neutrophils # (Auto) 8.30 K/uL Lymphocytes # (Auto) 1.77 K/uL Monocytes # (Auto) 1.16 K/uL Eosinophils # (Auto) 0.16 K/uL Basophils # (Auto) 0.04 K/uL RDW Standard Deviation 48.7 fL RDW Coefficient of Variation 14.6 % Immature Granulocyte % (Auto) 0.3 % Immature Granulocyte # (Auto) 0.04 K/uL Echinocytes 1+ Sodium Level 141 mmol/L Potassium Level 3.6 mmol/L Chloride Level 108 mmol/L Carbon Dioxide Level 22 mmol/L Anion Gap 11.0 mmol/L Blood Urea Nitrogen 9 mg/dl Creatinine 0.98 mg/dl Est Creatinine Clear Calc Drug Dose 51.6 ml/min Estimated GFR () 63.6 Estimated GFR (Non- 54.9 BUN/Creatinine Ratio 9.3 Random Glucose 76 mg/dl Calcium Level 7.7 mg/dl Magnesium Level 2.0 mg/dl Test 06/19/16 07:42 Bedside Glucose 85 mg/dl Assessment and Plan POD #6 s/p left URS Pt with increased confusion. Baseline dementia. ? UTI. Blood and urine cultures preliminarily negative. CT showing ? infection vs stent malfunction. Would recommend continuing IV abx for now. Consider consulting neurology and/or ID for worsening dementia. Will continue to follow along with primary service at this time.
[2016-06-19 08:20] VITALS: O2SAT 97
[2016-06-19] MEDS: METOPROLOL TARTRATE 50 MG TAB PO SCH ×2 (09:00→20:59)
[2016-06-19 09:26] VITALS: BP 100/54; PULSE 71
[2016-06-19] MEDS: FLUTICASONE/SALMETEROL 100/50 (ADVAIR) 14 PUFF/1 INHALER INH SCH ×2 (09:28→20:59)
[2016-06-19] MEDS: GABAPENTIN 100 MG CAP PO SCH ×2 (09:29→20:59)
[2016-06-19] MEDS: CLOPIDOGREL BISULFATE 75 MG TAB PO SCH (09:29)
[2016-06-19] MEDS: ESCITALOPRAM OXALATE 10 MG TAB PO SCH (09:29)
[2016-06-19] MEDS: CycloSPORINE 0.05% 0.4 ML 30 UDV/BOX OPB SCH ×2 (09:29→20:59)
[2016-06-19] MEDS: INSULIN ASPART 100 UNITS/ML 3 ML PEN SC SCH ×4 (09:31→20:52)
[2016-06-19] MEDS: INSULIN GLARGINE SOLOSTAR 100 UNITS/ML 3 ML PEN SC SCH ×2 (09:31→20:58)
--- NOTE | 2016-06-19 10:07 | Progress Note ---
Subjective Date of Service: Jun 19, 2016. Subjective Pt evaluation today including: conversation w/ patient, conversation w/ family , physical exam, chart review, lab review, review of studies, conversation w/ j2ee consultant, review of inpatient medication list Looks tired, chronically ill-looking, but awake and alert and orientated, to name, bd, and place,, patient know son and daughter's name Report not eating well, otherwise no other complaint Problem List Medical Problems: (1) Dehydration Status: Acute (2) Hypocalcemia Status: Acute (3) Hypokalemia Status: Acute (4) Hypomagnesemia Status: Acute (5) Kidney stone Status: Acute (6) Prolonged Q-T interval on ECG Status: Acute (7) Urinary tract infection Status: Acute Review of Systems Constitutional: + fatigue, + weakness, No chills, No fever, No problem reported , No sweats, No weight loss Eyes: No diplopia, No discharge, No eye pain, No redness, No worsening of vision ENT: No dental problems, No hearing loss, No nasal symptoms, No sore throat, No tinnitus, No trouble swallowing, No unusual epistaxis Respiratory: No cough, No dyspnea at rest, No dyspnea on exertion, No hemoptysis, No shortness of breath, No sputum, No wheezing Cardiac: No PND, No chest pain, No claudication, No edema, No orthopnea, No palpitations Abdomen: + problem reported (no appetite), No constipation, No diarrhea, No nausea, No pain, No vomiting Musculoskeletal: No calf pain, No joint pain, No muscle pain, No swelling Female : No abnormal vaginal bleeding, No dysuria, No hematuria, No incontinence, No urinary frequency, No vaginal discharge Neurologic: No balance problems, No memory loss, No numbness/tingling, No paralysis, No vertigo, No weakness Psychiatric: No anhedonism, No anxiety, No depression symptoms, No insomnia, No substance abuse Heme: No abnormal bleeding/bruising, No clotting problems, No night sweats, No swollen lymph nodes Endo: + fatigue, No excessive thirst, No excessive urination Skin: No bleeding, No color change, No itch, No new/changing skin lesions, No rash Objective Vital Signs Date Time Temp Pulse Resp B/P Pulse Ox O2 Delivery O2 Flow Rate FiO2 06/19/16 09:26 71 100/54 06/19/16 08:20 97 Room Air 06/19/16 07:52 36.6 67 12 146/84 97 Room Air 06/19/16 00:14 Room Air 06/18/16 22:57 36.7 62 18 129/80 94 Room Air 06/18/16 21:13 73 142/61 06/18/16 15:30 96 Room Air 06/18/16 15:18 36.5 68 16 150/86 96 Room Air Physical Exam General Appearance: WD/WN, no apparent distress, + obese, + pertinent finding ( frail) Eyes: normal inspection, PERRL, EOMI, sclerae normal ENT: normal ENT inspection, hearing grossly normal, pharynx normal Neck: supple, no adenopathy, thyroid normal, no JVD, no carotid bruits, trachea midline Respiratory/Chest: chest non-tender, normal breath sounds, no respiratory distress, no accessory muscle use, + decreased breath sounds Cardiovascular: regular rate, rhythm, no edema, no gallop, no JVD, no murmur Abdomen: normal bowel sounds, non tender, soft, no organomegaly, no pulsatile mass Extremities: normal range of motion, non-tender, normal inspection, no pedal edema, no calf tenderness, normal capillary refill, pelvis stable Neurologic/Psychiatric: [employer] II-XII nml as tested, no motor/sensory deficits, alert, normal mood/affect, oriented x 3 Skin: normal color, warm/dry, no rash Lymphatic: no adenopathy Laboratory Results Last 24 Hours Test 06/18/16 11:45 06/18/16 16:44 06/18/16 20:42 06/19/16 06:05 Bedside Glucose 182 mg/dl 136 mg/dl 179 mg/dl White Blood Count 11.47 K/uL Red Blood Count 3.30 M/uL Hemoglobin 10.1 g/dL Hematocrit 29.8 % Mean Corpuscular Volume 90.3 fL Mean Corpuscular Hemoglobin 30.6 pg Mean Corpuscular Hemoglobin Concent 33.9 g/dl Platelet Count 252 K/uL Mean Platelet Volume 8.9 fL Neutrophils (%) (Auto) 72.5 % Lymphocytes (%) (Auto) 15.4 % Monocytes (%) (Auto) 10.1 % Eosinophils (%) (Auto) 1.4 % Basophils (%) (Auto) 0.3 % Neutrophils # (Auto) 8.30 K/uL Lymphocytes # (Auto) 1.77 K/uL Monocytes # (Auto) 1.16 K/uL Eosinophils # (Auto) 0.16 K/uL Basophils # (Auto) 0.04 K/uL RDW Standard Deviation 48.7 fL RDW Coefficient of Variation 14.6 % Immature Granulocyte % (Auto) 0.3 % Immature Granulocyte # (Auto) 0.04 K/uL Echinocytes 1+ Sodium Level 141 mmol/L Potassium Level 3.6 mmol/L Chloride Level 108 mmol/L Carbon Dioxide Level 22 mmol/L Anion Gap 11.0 mmol/L Blood Urea Nitrogen 9 mg/dl Creatinine 0.98 mg/dl Est Creatinine Clear Calc Drug Dose 51.6 ml/min Estimated GFR () 63.6 Estimated GFR (Non- 54.9 BUN/Creatinine Ratio 9.3 Random Glucose 76 mg/dl Calcium Level 7.7 mg/dl Magnesium Level 2.0 mg/dl Test 06/19/16 07:42 Bedside Glucose 85 mg/dl Assessment and Plan 80 yo female with recent history of emphysematous pyelonephritis and renal stones, recent lithotripsy 5 days ago prior to admission was admitted on 2016, with lethargy, confusion, low grade temperatures, vomiting, has been improving - UTI, possible pyelonephritis: Continue stable and improving there are signs of UTI on UA and generalized signs of infection, vitals stable, mild leukocytosis no signs of sepsis, treat with Zosyn IV, she was taking Cipro prior to admission urine and blood cultures has no gross up to today consult urology due to recent lithotripsy ans stent placement, input appreciated - SERGIO on CKD: Resolved , Cr up to 1.4, will give NSS and hold nephrotoxins, - H/o TIA: Stable continue Plavix - Metabolic encephalopathy: Was confusion is likely related to concurrent UTI and SERGIO, look for it to improve with treatment Today's awake and alert and orientated 3, believe is in her baseline CT head was done on 06/17/2016 has r/o intracranial pathology - Left shoulder pain from fall: no fractures on x-ray, stable - DM, insulin dependent: recently with hyperglycemia, will use Lantus 20 units BID and Novolog coverage, diabetic diet, continue, HbA1c ordered - Asthma: lungs clear, no wheezing, continue maintenance inhalers - DVT prophylaxis: heparin SC Will have PT OT, rn field case manager for discharge plan, talked to patient's daughter, Celine, who is power of estate attorney as well, recommend a rehabilitation or care home if needed, daughter feel patient possible doing better at home with family support, I agreed, we'll continue current care possible discharge to home in 1-2 days Abdominal and pelvic CT studies which was done 2 days ago results in below: 1. Suboptimal examination without oral and IV contrast. The examination is also degraded by streak artifact. 2. A left ureteral stent is new from previous. No stone is identified in the left ureter or along the course of the stent. 3. There is mild to moderate left-sided hydronephrosis, with associated left-sided perinephric and periureteric stranding. This could be related to stent dysfunction and/or superimposed urinary tract infection. Clinical correlation will be required and follow-up with urology is recommended. 4. An additional punctate nonobstructing calculus is noted in the left kidney. No right renal calculi are identified. 5. Foci of gas within the bladder lumen may be related to instrumentation. Correlation with clinical findings and urinalysis will be required. The bladder is otherwise normal as imaged. 6. Cardiomegaly with a moderate pericardial effusion. The pericardial effusion is unchanged from previous. 7. There are trace pleural effusions with dependent atelectasis. These have decreased in size from prior studies. 8. There is moderate diverticulosis of the left colon without CT evidence of acute diverticulitis. 9. Pulmonary nodules are identified and measure up to 6 mm. These were better characterized on the 05/31/[address] 10. Moderate hiatal hernia. 11. Additional changes as above. Continued [facility] stay due to: multiple IV medications needed Discharge planning: home
--- NOTE | 2016-06-19 12:38 | Clinical Documentation Query ---
LENNOX Erickson : CLINICAL DOCUMENTATION QUERY Patient is a 80 year old female admitted with UTI, possible pyelonephritis, metabolic encephalopathy, and SERGIO. Patient recently underwent ureteral stenting and subsequent lithotripsy. Since her procedure on 06/12, noted to be confused, lethargic, with diminished appetite, generalized aches and low grade temperatures with vomiting starting the day of admission. As clinically appropriate and able, please clarify as suggested below. Thank you. In your clinical opinion is this patient being managed for: ( x) UTI possible secondary to urolithiasis, preceding ureteral stent and lithotripsy VERSUS ( ) UTI secondary to ureteroscopy and/or ureteral stent ( ) Other explanation of clinical findings (Please Explain) ( ) Unable to determine (Please Define) ( ) Need to Discuss ( ) Not Agree The medical record reflects the following clinical findings, treatment, and risk factors. Clinical Indicators: As above Treatment: IV Zosyn, cultures, urology consultation Risk Factors: Age, gender, urologic procedures Please clarify and document your clinical opinion in the progress notes and discharge summary. Terms such as "probable", "suspected", "likely", "questionable", "possible", or "still to be ruled out" are acceptable. IF IN AGREEMENT, YOU MUST DOCUMENT ABOVE DIAGNOSTIC STATEMENT IN DAILY PROGRESS NOTES AND DISCHARGE SUMMARY. This document is not part of the patient's record. Thank You, Bam Simms RN [phone]
[2016-06-19 15:10] VITALS: BP 163/82; PULSE 70; TEMP 36.5; O2SAT 98
[2016-06-19] MEDS: ATORVASTATIN 40 MG TAB PO SCH (20:59)
[2016-06-19 21:04] VITALS: BP 138/81; PULSE 80
[2016-06-19 23:25] VITALS: BP 163/78; PULSE 70; TEMP 36.7; O2SAT 96
[2016-06-20] MEDS: PIPERACILL/TAZOBAC IV 3.375 GM in DEXTROSE 5% 100ML 100 ML IV SCH (02:17)
[2016-06-20] MEDS: NSS + 20MEQ KCL 1000ML 1,000 ML IV SCH (02:18)
[2016-06-20] MEDS: LEVOTHYROXINE 75 MCG TAB PO SCH (05:49)
[2016-06-20 07:21] VITALS: BP 153/82; PULSE 63; TEMP 36.9; O2SAT 98
[2016-06-20 07:35] LABS: CALCIUM 7.7 mg/dl (8.5-10.1); MAGNESIUM 1.7 mg/dl (1.8-2.4); POTASSIUM 3.7 mmol/L (3.5-5.1)
[2016-06-20 07:46] LABS: BUN/CREATININE RATIO 5.7 (10-20); CREATININE 0.89 mg/dl (0.60-1.20)
[2016-06-20 08:13] LABS: ESTIMATED AVERAGE GLUCOSE 174 mg/dl; HA1C FLAG Normal (Normal)
[2016-06-20] MEDS: FLUTICASONE/SALMETEROL 100/50 (ADVAIR) 14 PUFF/1 INHALER INH SCH ×2 (09:14→21:23)
[2016-06-20] MEDS: ESCITALOPRAM OXALATE 10 MG TAB PO SCH (09:15)
[2016-06-20] MEDS: GABAPENTIN 100 MG CAP PO SCH ×2 (09:15→21:28)
[2016-06-20] MEDS: CLOPIDOGREL BISULFATE 75 MG TAB PO SCH (09:15)
[2016-06-20] MEDS: METOPROLOL TARTRATE 50 MG TAB PO SCH ×2 (09:15→21:27)
[2016-06-20] MEDS: CycloSPORINE 0.05% 0.4 ML 30 UDV/BOX OPB SCH ×2 (09:15→21:24)
[2016-06-20] MEDS: INSULIN ASPART 100 UNITS/ML 3 ML PEN SC SCH ×4 (09:25→21:29)
[2016-06-20] MEDS: INSULIN GLARGINE SOLOSTAR 100 UNITS/ML 3 ML PEN SC SCH ×2 (09:26→21:28)
[2016-06-20 09:31] VITALS: BP 159/84; PULSE 69
[2016-06-20] MEDS ORDERED: MAGNESIUM SULFATE 1GM / D5W 1 GM in PREMIXED IN D5W 100 ML IV ONE (09:45)
[2016-06-20] MEDS ORDERED: CIPROFLOXACIN 500 MG TAB PO SCH (10:00)
--- NOTE | 2016-06-20 10:17 | Progress Note ---
Subjective Date of Service: Jun 20, 2016. Subjective Pt evaluation today including: conversation w/ patient, conversation w/ family , physical exam, chart review, lab review, review of studies, review of inpatient medication list Doing well, reported to no complaining, eating /voiding, no constipation Problem List Medical Problems: (1) Dehydration Status: Acute (2) Hypocalcemia Status: Acute (3) Hypokalemia Status: Acute (4) Hypomagnesemia Status: Acute (5) Kidney stone Status: Acute (6) Prolonged Q-T interval on ECG Status: Acute (7) Urinary tract infection Status: Acute Review of Systems Constitutional: + fatigue, + weakness, No chills, No fever, No problem reported , No sweats Eyes: No diplopia, No discharge, No eye pain, No redness, No worsening of vision ENT: No dental problems, No hearing loss, No nasal symptoms, No sore throat, No tinnitus, No trouble swallowing, No unusual epistaxis Respiratory: No cough, No dyspnea at rest, No dyspnea on exertion, No hemoptysis, No shortness of breath, No sputum, No wheezing Cardiac: No PND, No chest pain, No claudication, No edema, No orthopnea, No palpitations Abdomen: No constipation, No diarrhea, No nausea, No pain, No vomiting Musculoskeletal: No calf pain, No joint pain, No muscle pain, No swelling Female : No abnormal vaginal bleeding, No dysuria, No hematuria, No incontinence, No urinary frequency, No vaginal discharge Neurologic: No balance problems, No memory loss, No numbness/tingling, No paralysis, No vertigo, No weakness Psychiatric: No anhedonism, No anxiety, No depression symptoms, No insomnia, No substance abuse Heme: No abnormal bleeding/bruising, No clotting problems, No night sweats, No swollen lymph nodes Endo: No excessive thirst, No excessive urination, No fatigue Skin: No bleeding, No color change, No itch, No new/changing skin lesions, No rash Objective Vital Signs Date Time Temp Pulse Resp B/P Pulse Ox O2 Delivery O2 Flow Rate FiO2 06/20/16 09:31 69 159/84 06/20/16 07:21 36.9 63 16 153/82 98 Room Air 06/20/16 00:47 Room Air 06/19/16 23:25 36.7 70 16 163/78 96 Room Air 06/19/16 21:04 80 138/81 06/19/16 15:25 Room Air 06/19/16 15:10 36.5 70 16 163/82 98 Room Air Physical Exam General Appearance: WD/WN, no apparent distress, + obese, + pertinent finding ( looks tired, but is looks better and more interactive than yesterday) Eyes: normal inspection, PERRL, EOMI, sclerae normal ENT: normal ENT inspection, hearing grossly normal, pharynx normal Neck: supple, no adenopathy, thyroid normal, no JVD, no carotid bruits, trachea midline Respiratory/Chest: chest non-tender, normal breath sounds, no respiratory distress, no accessory muscle use, + decreased breath sounds Cardiovascular: regular rate, rhythm, no edema, no gallop, no JVD, no murmur Abdomen: normal bowel sounds, non tender, soft, no organomegaly, no pulsatile mass Extremities: normal range of motion, non-tender, normal inspection, no pedal edema, no calf tenderness, normal capillary refill, pelvis stable Neurologic/Psychiatric: 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, no motor/sensory deficits, alert, normal mood/affect, oriented x 3 Skin: normal color, warm/dry, no rash Lymphatic: no adenopathy Laboratory Results Last 24 Hours Test 06/19/16 11:58 06/19/16 16:50 06/19/16 20:40 06/20/16 07:00 Bedside Glucose 141 mg/dl 129 mg/dl 117 mg/dl Sodium Level 142 mmol/L Potassium Level 3.7 mmol/L Chloride Level 110 mmol/L Carbon Dioxide Level 22 mmol/L Anion Gap 10.0 mmol/L Blood Urea Nitrogen 5 mg/dl Creatinine 0.89 mg/dl Est Creatinine Clear Calc Drug Dose 56.8 ml/min Estimated GFR () 71.4 Estimated GFR (Non- 61.6 BUN/Creatinine Ratio 5.7 Random Glucose 81 mg/dl Estimated Average Glucose 174 mg/dl Hemoglobin A1c 7.7 % Calcium Level 7.7 mg/dl Magnesium Level 1.7 mg/dl Test 06/20/16 07:55 Bedside Glucose 82 mg/dl Assessment and Plan 80 yo female with recent history of emphysematous pyelonephritis and renal stones, recent lithotripsy 5 days ago prior to admission was admitted on 2016, with lethargy, confusion, low grade temperatures, vomiting, has been improving - UTI, possible pyelonephritis: Continue stable and improving - YEAST NOT ROMERO ALBICANS UTI there are signs of UTI on UA and generalized signs of infection, vitals stable, mild leukocytosis no signs of sepsis, Was treat with Zosyn IV, she was taking Cipro prior to admission, possible Ceftin will be better choice for her urine and blood cultures has no gross up to today consult urology due to recent lithotripsy ans stent placement, input appreciated Has started Diflucan for yeast UTI - SERGIO on CKD: Resolved , Cr up to 1.4 to 0.89 today, restart to ACEI for hypertension - Accelerated hypertension, restart ACEI for hypertension - H/o TIA: Stable continue Plavix - Metabolic encephalopathy: Was confusion is likely related to concurrent UTI and SERGIO, look for it to improve with treatment Has been awake and alert and orientated 3, believe is in her baseline, continue to be stable and improving CT head was done on 06/17/2016 has r/o intracranial pathology - Left shoulder pain from fall: no fractures on x-ray, stable - DM, insulin dependent: recently with hyperglycemia, will use Lantus 20 units BID and Novolog coverage, diabetic diet, continue, HbA1c ordered - Asthma: lungs clear, no wheezing, continue maintenance inhalers - DVT prophylaxis: heparin SC PT recs: "Pt will likely be able to return home with home with 24/7 family support when medically stable" yesterday talked to patient's daughter, Celine, who is power of erisa attorney as well, recommend a rehabilitation or [facility] if needed, daughter feel patient possible doing better at home with family support, I agreed, we'll continue current care possible discharge to home in 1-2 days today, I called to [facility], message left to call me back . Abdominal and pelvic CT studies which was done 2 days ago results in below: 1. Suboptimal examination without oral and IV contrast. The examination is also degraded by streak artifact. 2. A left ureteral stent is new from previous. No stone is identified in the left ureter or along the course of the stent. 3. There is mild to moderate left-sided hydronephrosis, with associated left-sided perinephric and periureteric stranding. This could be related to stent dysfunction and/or superimposed urinary tract infection. Clinical correlation will be required and follow-up with urology is recommended. 4. An additional punctate nonobstructing calculus is noted in the left kidney. No right renal calculi are identified. 5. Foci of gas within the bladder lumen may be related to instrumentation. Correlation with clinical findings and urinalysis will be required. The bladder is otherwise normal as imaged. 6. Cardiomegaly with a moderate pericardial effusion. The pericardial effusion is unchanged from previous. 7. There are trace pleural effusions with dependent atelectasis. These have decreased in size from prior studies. 8. There is moderate diverticulosis of the left colon without CT evidence of acute diverticulitis. 9. Pulmonary nodules are identified and measure up to 6 mm. These were better characterized on the 05/31/[address] 10. Moderate hiatal hernia. 11. Additional changes as above. Continued [facility] stay due to: multiple IV medications needed Discharge planning: home
[2016-06-20 15:40] VITALS: BP 136/78; PULSE 71; TEMP 36.6; O2SAT 96
--- NOTE | 2016-06-20 16:14 | Progress Note ---
Subjective Date of Service: Jun 20, 2016. Subjective Pt evaluation today including: chart review, lab review 80 yo female with mental status changes s/p stent placement. UC&S now final growing yeast, not senthil albicans. Diflucan has been initiated. Problem List Medical Problems: (1) Dehydration Status: Acute (2) Hypocalcemia Status: Acute (3) Hypokalemia Status: Acute (4) Hypomagnesemia Status: Acute (5) Kidney stone Status: Acute (6) Prolonged Q-T interval on ECG Status: Acute (7) Urinary tract infection Status: Acute Review of Systems Pt sleeping this afternoon and not disturbed. Objective Vital Signs Date Time Temp Pulse Resp B/P Pulse Ox O2 Delivery O2 Flow Rate FiO2 06/20/16 09:31 69 159/84 06/20/16 09:00 Room Air 06/20/16 07:21 36.9 63 16 153/82 98 Room Air 06/20/16 00:47 Room Air 06/19/16 23:25 36.7 70 16 163/78 96 Room Air 06/19/16 21:04 80 138/81 Physical Exam General Appearance: no apparent distress Neck: no JVD Respiratory/Chest: no respiratory distress, no accessory muscle use Cardiovascular: no JVD Extremities: normal inspection Neurologic/Psychiatric: + pertinent finding (pt sleeping) Skin: normal color Laboratory Results Last 24 Hours Test 06/19/16 16:50 06/19/16 20:40 06/20/16 07:00 06/20/16 07:55 Bedside Glucose 129 mg/dl 117 mg/dl 82 mg/dl Sodium Level 142 mmol/L Potassium Level 3.7 mmol/L Chloride Level 110 mmol/L Carbon Dioxide Level 22 mmol/L Anion Gap 10.0 mmol/L Blood Urea Nitrogen 5 mg/dl Creatinine 0.89 mg/dl Est Creatinine Clear Calc Drug Dose 56.8 ml/min Estimated GFR () 71.4 Estimated GFR (Non- 61.6 BUN/Creatinine Ratio 5.7 Random Glucose 81 mg/dl Estimated Average Glucose 174 mg/dl Hemoglobin A1c 7.7 % Calcium Level 7.7 mg/dl Magnesium Level 1.7 mg/dl Test 06/20/16 12:12 Bedside Glucose 132 mg/dl Assessment and Plan POD #8 s/p left URS Recommend continuing Diflucan for 10 days of therapy. Would not remove stent until she has been adequately treated. Consider consulting neurology and/or ID for worsening dementia. Will continue to follow along with primary service at this time. Continued [facility] stay due to: multiple IV medications needed Discharge planning: home
[2016-06-20] MEDS: CEFUROXIME AXETIL 500 MG TAB PO SCH (21:25)
[2016-06-20] MEDS: ATORVASTATIN 40 MG TAB PO SCH (21:26)
[2016-06-20] MEDS: MAGNESIUM OXIDE 400 MG TAB PO SCH (21:27)
[2016-06-20 21:35] VITALS: BP 164/75; PULSE 78
[2016-06-20 23:37] VITALS: BP 160/81; PULSE 71; TEMP 37; O2SAT 95
[2016-06-21] VITALS (8 sets, daily range): BP systolic 121–166; BP diastolic 58–80; PULSE 68–79; TEMP 36.4–37.3; O2SAT 94–97
[2016-06-21] MEDS: LEVOTHYROXINE 75 MCG TAB PO SCH (05:42)
--- NOTE | 2016-06-21 07:42 | Progress Note ---
Subjective Date of Service: Jun 21, 2016. Subjective Pt evaluation today including: conversation w/ patient, chart review Voiding: no voiding problems 80 yo female s/p stent placement with stent growing yeast. Pt resting comfortably this morning. I did awaken her. She reports she feels tired. Denies any pain, nausea, dysuria, or hematuria. Problem List Medical Problems: (1) Dehydration Status: Acute (2) Hypocalcemia Status: Acute (3) Hypokalemia Status: Acute (4) Hypomagnesemia Status: Acute (5) Kidney stone Status: Acute (6) Prolonged Q-T interval on ECG Status: Acute (7) Urinary tract infection Status: Acute Review of Systems Constitutional: No chills, No fever Respiratory: No shortness of breath Cardiac: No chest pain Female : No dysuria, No hematuria Heme: No abnormal bleeding/bruising Objective Vital Signs Date Time Temp Pulse Resp B/P Pulse Ox O2 Delivery O2 Flow Rate FiO2 06/20/16 23:37 37.0 71 16 160/81 95 Room Air 06/20/16 23:28 Room Air 06/20/16 21:35 78 164/75 06/20/16 15:40 36.6 71 18 136/78 96 Room Air 06/20/16 15:35 Room Air 06/20/16 09:31 69 159/84 06/20/16 09:00 Room Air Physical Exam General Appearance: no apparent distress, + obese Eyes: normal inspection ENT: hearing grossly normal Neck: no JVD Respiratory/Chest: no respiratory distress, no accessory muscle use Cardiovascular: no JVD Extremities: normal inspection Neurologic/Psychiatric: alert, normal mood/affect Skin: normal color Laboratory Results Last 24 Hours Test 06/20/16 07:55 06/20/16 12:12 06/20/16 17:07 06/20/16 21:09 Bedside Glucose 82 mg/dl 132 mg/dl 165 mg/dl 174 mg/dl Assessment and Plan POD #9 s/p left URS Recommend continuing Diflucan for 10 days of therapy. Discussed with Dr. Smith this morning; recommend the pt have stent removed while on Diflucan. Prefer to remove early next week. Will arrange. No further management at this time. Consider consulting neurology and/or ID for worsening dementia. Recall PRN issues. Continued [facility] stay due to: multiple IV medications needed Discharge planning: home
[2016-06-21] MEDS: CycloSPORINE 0.05% 0.4 ML 30 UDV/BOX OPB SCH ×2 (09:10→21:35)
[2016-06-21] MEDS: FLUTICASONE/SALMETEROL 100/50 (ADVAIR) 14 PUFF/1 INHALER INH SCH ×2 (09:10→21:35)
[2016-06-21] MEDS: FLUCONAZOLE 100 MG TAB PO SCH (09:11)
[2016-06-21] MEDS: CEFUROXIME AXETIL 500 MG TAB PO SCH ×2 (09:11→21:36)
[2016-06-21] MEDS: TOLTERODINE TARTRATE LA 4 MG CAPCR PO SCH (09:11)
[2016-06-21] MEDS: ENALAPRIL MALEATE 10 MG TAB PO SCH (09:11)
[2016-06-21] MEDS: CLOPIDOGREL BISULFATE 75 MG TAB PO SCH (09:12)
[2016-06-21] MEDS: MAGNESIUM OXIDE 400 MG TAB PO SCH ×2 (09:12→21:35)
[2016-06-21] MEDS: GABAPENTIN 100 MG CAP PO SCH ×2 (09:13→21:36)
[2016-06-21] MEDS: INSULIN ASPART 100 UNITS/ML 3 ML PEN SC SCH ×4 (09:20→21:32)
[2016-06-21] MEDS: ESCITALOPRAM OXALATE 10 MG TAB PO SCH (10:32)
[2016-06-21] MEDS: INSULIN GLARGINE SOLOSTAR 100 UNITS/ML 3 ML PEN SC SCH ×2 (10:32→21:33)
[2016-06-21] MEDS: METOPROLOL TARTRATE 50 MG TAB PO SCH ×2 (10:33→21:35)
--- NOTE | 2016-06-21 14:45 | Progress Note ---
Subjective Date of Service: Jun 21, 2016. Subjective Pt evaluation today including: conversation w/ patient, conversation w/ family , chart review, lab review, review of studies, review of inpatient medication list Nurse reported this morning was having hypoglycemic episodes blood glucose at 59 , has been eating drinking fairly, this morning Lantus was hold, When I see her she was awake and alert, orientated, pleasant and conversational , no other complaint, report eating okay Problem List Medical Problems: (1) Dehydration Status: Acute (2) Hypocalcemia Status: Acute (3) Hypokalemia Status: Acute (4) Hypomagnesemia Status: Acute (5) Kidney stone Status: Acute (6) Prolonged Q-T interval on ECG Status: Acute (7) Urinary tract infection Status: Acute Review of Systems Constitutional: No chills, No fatigue, No fever, No problem reported, No sweats , No weakness, No weight loss Eyes: No diplopia, No discharge, No eye pain, No redness, No worsening of vision ENT: No dental problems, No hearing loss, No nasal symptoms, No sore throat, No tinnitus, No trouble swallowing, No unusual epistaxis Respiratory: No cough, No dyspnea at rest, No dyspnea on exertion, No hemoptysis, No shortness of breath, No sputum, No wheezing Cardiac: No PND, No chest pain, No claudication, No edema, No orthopnea, No palpitations Abdomen: No constipation, No diarrhea, No nausea, No pain, No vomiting Musculoskeletal: No calf pain, No joint pain, No muscle pain, No swelling Female : No abnormal vaginal bleeding, No dysuria, No hematuria, No incontinence, No urinary frequency, No vaginal discharge Neurologic: No balance problems, No memory loss, No numbness/tingling, No paralysis, No vertigo, No weakness Psychiatric: No anhedonism, No anxiety, No depression symptoms, No insomnia, No substance abuse Heme: No abnormal bleeding/bruising, No clotting problems, No night sweats, No swollen lymph nodes Endo: No excessive thirst, No excessive urination, No fatigue Skin: No bleeding, No color change, No itch, No new/changing skin lesions, No rash Objective Vital Signs Date Time Temp Pulse Resp B/P Pulse Ox O2 Delivery O2 Flow Rate FiO2 06/21/16 12:25 36.6 70 21 164/73 97 Room Air 06/21/16 10:53 76 06/21/16 10:33 75 149/80 06/21/16 10:10 97 Room Air 06/21/16 08:36 36.4 70 18 166/73 97 Room Air 06/21/16 08:00 Room Air 06/20/16 23:37 37.0 71 16 160/81 95 Room Air 06/20/16 23:28 Room Air 06/20/16 21:35 78 164/75 06/20/16 15:40 36.6 71 18 136/78 96 Room Air 06/20/16 15:35 Room Air Physical Exam General Appearance: WD/WN, no apparent distress Eyes: normal inspection, PERRL, EOMI, sclerae normal ENT: normal ENT inspection, hearing grossly normal, pharynx normal Neck: supple, no adenopathy, thyroid normal, no JVD, no carotid bruits, trachea midline Respiratory/Chest: chest non-tender, lungs clear, normal breath sounds, no respiratory distress, no accessory muscle use Cardiovascular: regular rate, rhythm, no edema, no gallop, no JVD, no murmur Abdomen: normal bowel sounds, non tender, soft, no organomegaly, no pulsatile mass Extremities: normal range of motion, non-tender, normal inspection, no pedal edema, no calf tenderness, normal capillary refill, pelvis stable Neurologic/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, no motor/sensory deficits, alert, normal mood/affect, oriented x 3 Skin: normal color, warm/dry, no rash Lymphatic: no adenopathy Laboratory Results Last 24 Hours Test 06/20/16 17:07 06/20/16 21:09 06/21/16 07:53 06/21/16 08:22 Bedside Glucose 165 mg/dl 174 mg/dl 59 mg/dl 78 mg/dl Test 06/21/16 11:40 Bedside Glucose 176 mg/dl Assessment and Plan 80 yo female with recent history of emphysematous pyelonephritis and renal stones, recent lithotripsy 5 days ago prior to admission was admitted on 2016, with lethargy, confusion, low grade temperatures, vomiting, has been improving - UTI, possible pyelonephritis: Continue stable and improving - YEAST NOT ROMERO ALBICANS UTI there are signs of UTI on UA and generalized signs of infection, vitals stable, mild leukocytosis no signs of sepsis, Was treat with Zosyn IV, she was taking Cipro prior to admission, possible Ceftin will be better choice for her, antibiotic 4/ 10 days because of possible pyelonephritis, continue Ceftin consult urology due to recent lithotripsy ans stent placement, input appreciated Will continue Diflucan for total 10 days, Urology on the case, per note, Dr. Smith recommend the pt have stent removed while on Diflucan. Prefer to remove early next week. Urology will arrange. No follow-up appointment - Hypoglycemic episodes with uncontrolled DM, insulin dependent: HbA1c was 7.7 will decrease to Lantus to 10 units subcutaneous twice a day - SERGIO on CKD: Resolved , Cr up to 1.4 to 0.89 today, restart to ACEI for hypertension - Accelerated hypertension, still high, has restart ed ACEI for hypertension - H/o TIA: Stable continue Plavix - Metabolic encephalopathy: Was confusion is likely related to concurrent UTI and SERGIO, look for it to improve with treatment Has been awake and alert and orientated 3, believe is in her baseline, continue to be stable and improving CT head was done on 06/17/2016 has r/o intracranial pathology - Left shoulder pain from fall: no fractures on x-ray, stable - Asthma: lungs clear, no wheezing, continue maintenance inhalers - DVT prophylaxis: heparin SC PT recs: "Pt will likely be able to return home with home with 24/7 family support when medically stable" yesterday talked to patient's daughter, Celine, who is power of admitted attorneys as well, recommend a rehabilitation or intermediate if needed, daughter feel patient possible doing better at home with family support, I agreed, we'll continue current care Planning to discharge tomorrow Abdominal and pelvic CT studies which was done 2 days ago results in below: 1. Suboptimal examination without oral and IV contrast. The examination is also degraded by streak artifact. 2. A left ureteral stent is new from previous. No stone is identified in the left ureter or along the course of the stent. 3. There is mild to moderate left-sided hydronephrosis, with associated left-sided perinephric and periureteric stranding. This could be related to stent dysfunction and/or superimposed urinary tract infection. Clinical correlation will be required and follow-up with urology is recommended. 4. An additional punctate nonobstructing calculus is noted in the left kidney. No right renal calculi are identified. 5. Foci of gas within the bladder lumen may be related to instrumentation. Correlation with clinical findings and urinalysis will be required. The bladder is otherwise normal as imaged. 6. Cardiomegaly with a moderate pericardial effusion. The pericardial effusion is unchanged from previous. 7. There are trace pleural effusions with dependent atelectasis. These have decreased in size from prior studies. 8. There is moderate diverticulosis of the left colon without CT evidence of acute diverticulitis. 9. Pulmonary nodules are identified and measure up to 6 mm. These were better characterized on the 05/31/[address] 10. Moderate hiatal hernia. 11. Additional changes as above. Continued [facility] stay due to: multiple IV medications needed Discharge planning: home
[2016-06-21] MEDS: ATORVASTATIN 40 MG TAB PO SCH (21:36)
[2016-06-22] MEDS: LEVOTHYROXINE 75 MCG TAB PO SCH (05:39)
[2016-06-22 07:20] VITALS: BP 137/76; PULSE 71; TEMP 36.8; O2SAT 94
[2016-06-22] MEDS: FLUTICASONE/SALMETEROL 100/50 (ADVAIR) 14 PUFF/1 INHALER INH SCH (08:50)
[2016-06-22] MEDS: ENALAPRIL MALEATE 10 MG TAB PO SCH (08:50)
[2016-06-22] MEDS: CLOPIDOGREL BISULFATE 75 MG TAB PO SCH (08:50)
[2016-06-22] MEDS: ESCITALOPRAM OXALATE 10 MG TAB PO SCH (08:50)
[2016-06-22] MEDS: METOPROLOL TARTRATE 50 MG TAB PO SCH (08:50)
[2016-06-22] MEDS: GABAPENTIN 100 MG CAP PO SCH (08:51)
[2016-06-22] MEDS: TOLTERODINE TARTRATE LA 4 MG CAPCR PO SCH (08:51)
[2016-06-22] MEDS: FLUCONAZOLE 100 MG TAB PO SCH (08:51)
[2016-06-22] MEDS: CEFUROXIME AXETIL 500 MG TAB PO SCH (08:51)
[2016-06-22] MEDS: MAGNESIUM OXIDE 400 MG TAB PO SCH (08:52)
[2016-06-22] MEDS: CycloSPORINE 0.05% 0.4 ML 30 UDV/BOX OPB SCH (08:52)
[2016-06-22] MEDS: INSULIN ASPART 100 UNITS/ML 3 ML PEN SC SCH ×2 (09:04→13:42)
[2016-06-22] MEDS: INSULIN GLARGINE SOLOSTAR 100 UNITS/ML 3 ML PEN SC SCH (09:05)
[2016-06-22] MEDS ORDERED: MGNO400 PO (11:24)
[2016-06-22] MEDS ORDERED: DFL100 PO (11:24)
[2016-06-22] MEDS ORDERED: CEFU1TAB35 PO (11:24)
[2016-06-22] MEDS ORDERED: INSDGI SC (11:24)
--- NOTE | 2016-06-22 11:25 | Discharge Instructions ---
Discharge Instructions Admission Reason for Admission: Acute Kidney Injury, Uti Discharge Discharge Diagnosis / Problem: UTI, possible pyelonephritis, yeast UTI Discharge Goals Goal(s): Decrease discomfort, Improve function, Increase independence, Improve disease control, Improve nutritional status, Learn about illness, Diagnostic testing, Therapeutic intervention, Prevent Disease Progression, Specific goals Activity Recommendations Activity Limitations: resume your previous activity (fall precaution) . Instructions / Follow-Up Instructions / Follow-Up you have possible pyelonephritis: you have YEAST UTI, You need to continue antibiotics as instructed You need to follow up with Dr. Smith he recommend you have stent removed while on Diflucan. Prefer to remove early next week. Urology will arrange. You have Hypoglycemic episodes with uncontrolled DM, insulin dependent: HbA1c was 7.7 I have decreased to Lantus to 10 units subcutaneous twice a day, you need to follow-up with PCP to adjust insulin dose You need to be home with 27/11 family support I talked to your daughter about this, you need to call to your primary care physician if have any questions or if you need any help - you need to follow up with your primary care physician in 1 week, - take medication as instructed, never overdose or any misuse, or take with alcohol, because misuse of medicine may cause organ damage or , call your primary care physician if have questions of medicaitons. - call your primary care physician OR go to local emergency room if has any fever/chill, chest pain, shortness of breathing, nausea/vomiting/abdominal pain , facial droop/slurry speech/local weakness, or if has any questions. - fall precaution - diet as instructed - you need to follow up with your subspecialist - you should understand that it is important to follow up the above instruction , and "not following the above instruction" may cause delayed or missed care of your medical conditions which may cause permanent organ damage and even . Current Hospital Diet Patient's current hospital diet: Diabetes Type 2 Diet, AHA Diet (Heart Healthy) Discharge Diet Recommended Diet: Diabetes Type 2 Diet Pending Studies Studies pending at discharge: no Laboratory Results Hemoglobin A1c Test 06/20/16 07:00 Range/Units Estimated Average Glucose 174 mg/dl Hemoglobin A1c 7.7 H 4.5-5.6 % Medical Emergencies . Who to Call and When: Medical Emergencies: If at any time you feel your situation is an emergency, please call 911 immediately. . Non-Emergent Contact Non-Emergency issues call your: Primary Care Provider, Urologist . . "Provider Documentation" section prepared by Jefferson Courtney. VTE Core Measure Inpt VTE Proph given/why not?: Unfractionated heparin SQ
--- NOTE | 2016-06-22 11:51 | Progress Note ---
Subjective Date of Service: Jun 22, 2016. Subjective Pt evaluation today including: conversation w/ patient, physical exam, chart review, lab review, review of studies Pt alert and feeling better . Planning to go home today Problem List Medical Problems: (1) Dehydration Status: Acute (2) Hypocalcemia Status: Acute (3) Hypokalemia Status: Acute (4) Hypomagnesemia Status: Acute (5) Kidney stone Status: Acute (6) Prolonged Q-T interval on ECG Status: Acute (7) Urinary tract infection Status: Acute Objective Vital Signs Date Time Temp Pulse Resp B/P Pulse Ox O2 Delivery O2 Flow Rate FiO2 06/22/16 07:20 36.8 71 16 137/76 94 Room Air 06/21/16 23:24 Room Air 06/21/16 23:00 36.9 72 16 137/58 94 Room Air 06/21/16 20:08 37.3 79 16 121/73 95 Room Air 06/21/16 15:30 36.9 68 16 148/76 97 Room Air 06/21/16 15:25 Room Air 06/21/16 12:25 36.6 70 21 164/73 97 Room Air Laboratory Results Last 24 Hours Test 06/21/16 16:51 06/21/16 20:02 06/22/16 08:14 Bedside Glucose 127 mg/dl 165 mg/dl 131 mg/dl Assessment and Plan pt to be discharged today . She is to stay on diflucan and will have her stent removed in our office jun 28 at 4 pm Continued [facility] stay due to: multiple IV medications needed Discharge planning: home
--- NOTE | 2016-06-22 12:16 | Discharge Summary ---
Discharge Summary Admission Date: Jun 17, 2016 at 13:33 Discharge Date: Jun 22, 2016 Discharge Disposition: Home with services Principal Diagnosis: possible pyelonephritis: Problems/Secondary Diagnoses: possible pyelonephritis: YEAST UTI, Immunizations: Have You Had Influenza Vaccine: Yes Influenza Vaccine Date: Jun 16, 2011 History of Tetanus Vaccine?: utd Tetanus Immunization Date: Jan 22, 2001 History of Pneumococcal: Yes Pneumococcal Date: Jun 16, 2003 History of Hepatitis B Vaccine: Unknown Procedures: No Consultations: Urologist Medication Reconciliation New Medications: Cefuroxime Axetil (Cefuroxime Axetil) 500 Mg Tab 500 MG PO Q12 for 5 Days, #10 TAB Fluconazole (Fluconazole) 100 Mg Tab 100 MG PO QAM for 7 Days, #7 TAB Magnesium Oxide (Magnesium-Oxide) 400 Mg Tab 400 MG PO BID for 7 Days, #14 TAB Changed Medications: Insulin Glargine (Lantus) 100 Unit/Ml Inj 10 UNIT SC AMPM, #1 VIAL (Changed from: 20 ) this is just med recs Continued Medications: Atorvastatin (Lipitor) 80 Mg Tab 80 MG PO HS, TAB Clopidogrel (Plavix) 75 Mg Tab 75 MG PO QAM, TAB Cyclosporine (Ophth) (Restasis) 0.05 % Emu 1 DROP OP BID, BTL Docusate Sodium (Colace) 100 Mg Cap 1 CAP PO PRN for Constipation for 30 Days, #60 CAP Escitalopram Oxalate (Lexapro) 10 Mg Tab 10 MG PO QAM, TAB Fluticasone Prop/Salmeterol (Advair Diskus 100/50 60 Dose) 1 Ea Aerp 1 PUFF INH BID, #180 Gabapentin (Neurontin) 100 Mg Cap 100 MG PO BID, CAP Hydrocortisone (Topical) (Hydrocortisone) 2.5 % Lot 1 APPLN TOP BID PRN for PRN for 10 Days, #60 ML Insulin Aspart (Novolog) 100 Units/Ml Inj INJ ACHS SLIDING SCALE Levothyroxine Sodium (Levothyroxine Sodium) 75 Mcg Tab 75 MCG PO QAM for 90 Days, #90 TAB 3 Refills Metoprolol Tartrate (Lopressor) 50 Mg Tab 50 MG PO BID, TAB Multiple Vitamin (Multi Vitamin Daily) 1 Tab Tab 1 TAB PO QAM Nitroglycerin (Nitrostat) 0.4 Mg Tab 0.4 MG UT PRN, BTL Oxycodone Immediate Rel Tab (Roxicodone Ir) 5 Mg Tab 5 MG PO Q4H PRN for Severe Pain, #15 TAB Ramipril (Ramipril) 10 Mg Cap 1 CAP PO DAILY for 90 Days, #90 CAP 3 Refills Tolterodine Tartrate (Detrol LA) 4 Mg Capcr 1 CAP PO DAILY for 90 Days, #90 CAP 3 Refills Discontinued Medications: Ciprofloxacin Hcl (Cipro) 500 Mg Tab 500 MG PO BID, #10 TAB Discharge Exam Sitting up to chair, eating drinking, pleasant, blood glucose at 130, no other complaint Review of Systems: Constitutional: + weakness, No chills, No fatigue, No fever, No problem reported, No sweats, No weight loss Eyes: No diplopia, No discharge, No eye pain, No problem reported, No redness, No worsening of vision ENT: No dental problems, No hearing loss, No nasal symptoms, No problem reported, No sore throat, No tinnitus, No trouble swallowing, No unusual epistaxis Respiratory: No cough, No dyspnea at rest, No dyspnea on exertion, No hemoptysis, No problem reported, No shortness of breath, No sputum, No wheezing Cardiovascular: No PND, No chest pain, No claudication, No edema, No orthopnea, No palpitations, No problem reported Abdomen: No GI bleeding, No constipation, No diarrhea, No nausea, No pain, No problem reported, No vomiting Musculoskeletal: No calf pain, No joint pain, No muscle pain, No problem reported, No swelling Genitourinary - Female: No dysmenorrhea, No dysuria, No hematuria, No menorrhagia, No metrorrhagia, No , No problem reported, No rash, No urinary frequency, No urinary incontinence, No urinary retention, No urinary urgency, No vaginal bleeding, No vaginal discharge, No vaginal itching, No vulvodynia Neurologic: No balance problems, No memory loss, No numbness/tingling, No paralysis, No problem reported, No vertigo, No weakness Psychiatric: No anhedonism, No anxiety, No depression symptoms, No insomnia , No problem reported, No substance abuse Endocrine: No excessive thirst, No excessive urination, No fatigue, No problem reported Hematologic / Lymphatic: No abnormal bleeding/bruising, No clotting problems , No night sweats, No problem reported, No swollen lymph nodes Integumentary: No bleeding, No color change, No itch, No new/changing skin lesions, No problem reported, No rash Physical Exam: General Appearance: WD/WN, no apparent distress, + pertinent finding (the same as yesterday) Eyes: normal inspection, PERRL ENT: normal ENT inspection, hearing grossly normal Neck: supple, no adenopathy, thyroid normal Respiratory/Chest: chest non-tender, normal breath sounds, no respiratory distress, no accessory muscle use, + decreased breath sounds Cardiovascular: regular rate, rhythm, no edema, no gallop, no JVD, no murmur Abdomen / GI: normal bowel sounds, non tender, soft, no organomegaly, no pulsatile mass Extremities: normal inspection, no calf tenderness, normal capillary refill Neurologic/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, no motor/sensory deficits , alert, normal mood/affect, normal reflexes Skin: normal color, warm/dry Hospital Course 80 yo female with recent history of emphysematous, pyelonephritis and renal stones, recent lithotripsy 5 days ago prior to admission was admitted on 2016, with lethargy, confusion, low grade temperatures, vomiting, has been improving - UTI, pyelonephritis: Continue stable and improving - YEAST NOT ROMERO ALBICANS UTI there are signs of UTI on UA and generalized signs of infection, vitals stable, mild leukocytosis no signs of sepsis, Was treat with Zosyn IV, she was taking Cipro prior to admission, possible Ceftin will be better choice for her, antibiotic 5/ 10 days because of possible pyelonephritis, continue Ceftin, to complete for course of antibiotic treatment consult urology due to recent lithotripsy and stent placement, input appreciated Will continue Diflucan for total 10 days, Urology on the case, per note, Dr. Smith recommend the pt have stent removed while on Diflucan. Prefer to remove early next week. Urology has arrange on of the appointment - Hypoglycemic episodes with uncontrolled DM, insulin dependent: HbA1c was 7.7 will decrease to Lantus to 10 units subcutaneous twice a day, blood glucose in the range of 130 to 150 so far, PCP please adjust the insulin dose - SERGIO on CKD: Resolved , Cr up to 1.4 to 0.89 today, restart to ACEI for hypertension - Accelerated hypertension, still high, has restart ed ACEI for hypertension, PCP please follow up - H/o TIA: Stable continue Plavix - Metabolic encephalopathy: Was confusion is likely related to concurrent UTI and SERGIO, look for it to improve with treatment Has been awake and alert and orientated 3, believe is in her baseline, continue to be stable and improving CT head was done on 06/17/2016 has r/o intracranial pathology - Left shoulder pain from fall: no fractures on x-ray, stable - Asthma: lungs clear, no wheezing, continue maintenance inhalers - DVT prophylaxis: heparin SC Physical therapist recs: "Pt will likely be able to return home with home with 27/11 family support when medically stable" yesterday talked to patient's daughter, Celine, who is power of poolroom table attendant as well, recommend a rehabilitation or long-term if needed, daughter feel patient possible doing better at home with family support, I agreed, we'll continue current care Planning to discharge today Abdominal and pelvic CT studies which was done 2 days ago results in below: 1. Suboptimal examination without oral and IV contrast. The examination is also degraded by streak artifact. 2. A left ureteral stent is new from previous. No stone is identified in the left ureter or along the course of the stent. 3. There is mild to moderate left-sided hydronephrosis, with associated left-sided perinephric and periureteric stranding. This could be related to stent dysfunction and/or superimposed urinary tract infection. Clinical correlation will be required and follow-up with urology is recommended. 4. An additional punctate nonobstructing calculus is noted in the left kidney. No right renal calculi are identified. 5. Foci of gas within the bladder lumen may be related to instrumentation. Correlation with clinical findings and urinalysis will be required. The bladder is otherwise normal as imaged. 6. Cardiomegaly with a moderate pericardial effusion. The pericardial effusion is unchanged from previous. 7. There are trace pleural effusions with dependent atelectasis. These have decreased in size from prior studies. 8. There is moderate diverticulosis of the left colon without CT evidence of acute diverticulitis. 9. Pulmonary nodules are identified and measure up to 6 mm. These were better characterized on the 05/31/[address] 10. Moderate hiatal hernia. 11. Additional changes as above. Instructions / Follow-Up you have possible pyelonephritis: you have YEAST UTI, You need to continue antibiotics as instructed You need to follow up with Dr. Smith he recommend you have stent removed while on Diflucan. Prefer to remove early next week. Urology will arrange. You have Hypoglycemic episodes with uncontrolled DM, insulin dependent: HbA1c was 7.7 I have decreased to Lantus to 10 units subcutaneous twice a day, you need to follow-up with PCP to adjust insulin dose You need to be home with 27/11 family support I talked to your daughter about this, you need to call to your primary care physician if have any questions or if you need any help - you need to follow up with your primary care physician in 1 week, - take medication as instructed, never overdose or any misuse, or take with alcohol, because misuse of medicine may cause organ damage or , call your primary care physician if have questions of medicaitons. - call your primary care physician OR go to local emergency room if has any fever/chill, chest pain, shortness of breathing, nausea/vomiting/abdominal pain , facial droop/slurry speech/local weakness, or if has any questions. - fall precaution - diet as instructed - you need to follow up with your subspecialist - you should understand that it is important to follow up the above instruction , and "not following the above instruction" may cause delayed or missed care of your medical conditions which may cause permanent organ damage and even . Total Time Spent: Greater than 30 minutes This includes examination of the patient, discharge planning, medication reconciliation, and communication with other providers. Discharge Instructions Please refer to the electronic Patient Visit Report (Discharge Instructions) for additional information. Additional Copies To Sae Arthur M.D.
[2016-06-22 14:11] VITALS: BP 137/76; PULSE 71; TEMP 36.8; O2SAT 94
[2016-10-08] MEDS ORDERED: CYCL0.052 OP (11:59)
[2016-10-08] MEDS ORDERED: RAMI10CA PO (11:59)
[2016-10-08] MEDS ORDERED: LEVO75TA5 PO (13:33)
[2016-10-08] MEDS ORDERED: NTRGSL/4 UT (13:43)
[2016-10-08] MEDS ORDERED: CYAN1CAP3 PO (13:48)
[2016-10-08] MEDS ORDERED: METO50TA16 PO (13:50)
== END 2016-06-22 15:25 | disposition home health service (06) | DRG 682 ==
LOC: ENRESERVDT → ENRESERVTM → C.EDB 09:38 → C.MSW 13:33
PROVIDERS: ADMIT Internal Medicine; ATTEND Hospitalist
DX: N17.9 Acute kidney failure, unspecified (principal); N12 Tubulo-interstitial nephritis, not specified as acute or chronic; G93.41 Metabolic encephalopathy; B37.49 Other urogenital candidiasis; I31.3 Pericardial effusion (noninflammatory); R11.2 Nausea with vomiting, unspecified; J45.909 Unspecified asthma, uncomplicated; E06.3 Autoimmune thyroiditis; E10.39 Type 1 diabetes mellitus with other diabetic ophthalmic complication; E66.9 Obesity, unspecified; Z86.73 Personal history of transient ischemic attack (TIA), and cerebral infarction without residual deficits; I25.10 Atherosclerotic heart disease of native coronary artery without angina pectoris; E03.9 Hypothyroidism, unspecified; M48.06 Spinal stenosis, lumbar region; Z83.3 Family history of diabetes mellitus; Z87.891 Personal history of nicotine dependence; Z91.040 Latex allergy status; N18.9 Chronic kidney disease, unspecified; E10.65 Type 1 diabetes mellitus with hyperglycemia; E10.649 Type 1 diabetes mellitus with hypoglycemia without coma; N13.2 Hydronephrosis with renal and ureteral calculous obstruction; E86.0 Dehydration; I12.9 Hypertensive chronic kidney disease with stage 1 through stage 4 chronic kidney disease, or unspecified chronic kidney disease; E83.51 Hypocalcemia; E83.42 Hypomagnesemia; E87.6 Hypokalemia; F03.90 Unspecified dementia, unspecified severity, without behavioral disturbance, psychotic disturbance, mood disturbance, and anxiety; E10.21 Type 1 diabetes mellitus with diabetic nephropathy

== ENCOUNTER → 2016-06-30 | Outpatient (CLI) | payer OTHER, MEDICARE ==
[~2016-06-30] MED LIST changes: +ADVIN25/60 INH; -ALT10 PO; +ASPEC81 PO; +ASPI81TA28 PO; +ATOR-24 PO; +CEFU1TAB35 PO; -CIPR-255 PO; +CPR500 PO; +CYAN1CAP3 PO; -CYAN1TAB18 PO; +CYCL0.052 OP; +DFL100 PO; +DIAZ5TAB3 PO; +HYDR2.5L TOP; -IBUP-1450 PO; +INSDGIPEN SC; +LEVO75TA5 PO; +LPT40 PO; +LSX20 PO; +LXP10 PO; +METO50TA16 PO; +MGNO400 PO; -MONT1TAB3 PO; +MONT1TAB5 PO; +MULT-884 PO; +NRN100 PO; +NTRGSL/4 UT; +NVLGI/PEN SC; +ONDA4TAB10 SL; +PLV75 PO; -POLY335019 PO; +POTA-65 PO; +POTA20TA16 PO; +RAMI10CA PO; -RSTOPS OP; +SNG10 PO; +SULF800T23 PO; +TOLT1CAP3 PO; +VNTHFA/IN INH
--- NOTE | 2016-06-30 08:27 | DIAGNOSTIC IMAGING REPORT ---
KUB CLINICAL HISTORY: NEPHROLITHIASIS nephrocalcinosis COMPARISON STUDY: 04/11/2016 FINDINGS: Left ureteral stent in good position calcification previous described adjacent to the stent is not appreciated. Visibility of the renal shadows, mild due to overlying bowel content. Several pelvic vascular calcifications are unchanged. Nonobstructive bowel pattern. IMPRESSION: 1. Left ureteral stent in good position. 2. A 4 mm calcification previously described adjacent to the proximal stent is not seen currently. Electronically signed by: Phillip Marion M.D. 06/30/2016 8:25 AM Dictated Date/Time: 06/30/2016 8:24 AM
== END | disposition home or self-care (01) ==
LOC: C.RAD 07:49
PROVIDERS: ATTEND Urology
DX: N20.0 Calculus of kidney (principal)

== ENCOUNTER 2016-07-06 19:27 | Inpatient (IN) | payer OTHER, MEDICARE ==
[~2016-07-06] VITALS: Ht 167.6 cm; Wt 96.7 kg
[~2016-07-06 19:27] MED LIST changes: -ADVIN25/60 INH; -ASPEC81 PO; -ASPI81TA28 PO; -ATOR-24 PO; -CPR500 PO; -CYAN1CAP3 PO; -CYCL0.052 OP; -DIAZ5TAB3 PO; -HYDR2.5L TOP; -INSDGIPEN SC; -LEVO75TA5 PO; -LPT40 PO; -LSX20 PO; -LXP10 PO; -METO50TA16 PO; -MONT1TAB5 PO; -MULT-884 PO; -NRN100 PO; -NTRGSL/4 UT; -NVLGI/PEN SC; -ONDA4TAB10 SL; -PLV75 PO; -POTA-65 PO; -POTA20TA16 PO; -RAMI10CA PO; -SNG10 PO; -SULF800T23 PO; -TOLT1CAP3 PO; -VNTHFA/IN INH; -ZNTT/150 PO
[2016-07-06 20:19] LABS: BASO % 0.4 %; BASO ABS # 0.03 K/uL (0-0.2); COMPLETE YES; EOS % 2.2 %; HEMATOCRIT 34.7 % (37-47); IG% 0.4 %; LYMPH % 34.8 %; MEAN CELL VOLUME 94.3 fL (80-100); MEAN CORPUSCULAR HEMOGLOBIN 31.3 pg (25-34); MEAN CORPUSCULAR HGB CONC 33.1 g/dl (32-36); MEAN PLATELET VOLUME 9.7 fL (7.4-10.4); MONO % 10.1 %; NEUT % 52.1 %; PLATELET COUNT 364 K/uL (130-400); RED BLOOD COUNT 3.68 M/uL (4.2-5.4); WHITE BLOOD COUNT 7.76 K/uL (4.8-10.8)
[2016-07-06 20:27] LABS: BUN/CREATININE RATIO 16.6 (10-20); CALCIUM 8.3 mg/dl (8.5-10.1); CREATININE 1.2 mg/dl (0.60-1.20); POTASSIUM 4.4 mmol/L (3.5-5.1)
[2016-07-06 20:41] LABS: ALB/GLOB RATIO 0.7 (0.9-2); CKMB/CK RATIO 1.9 (0-3.0); THYROID STIMULATING HORMONE 4.75 uIu/ml (0.300-4.500)
--- NOTE | 2016-07-06 21:02 | DIAGNOSTIC IMAGING REPORT ---
SINGLE VIEW CHEST CLINICAL HISTORY: Generalized weakness. Confusion. FINDINGS: An AP, portable, upright chest radiograph is compared to study dated 06/17/2016 and correlated with chest CT dated 05/31/2015. The examination is degraded by portable technique, apical lordotic positioning, large body habitus, and patient rotation. The heart is enlarged and there is atherosclerotic calcification of the thoracic aorta. The pulmonary vasculature is noncongested. A hiatal hernia is again noted. There are low lung volumes with chronic elevation of the right hemidiaphragm and associated atelectasis. Linear atelectasis versus scar is noted in the left lower lung. There is no airspace consolidation typical for pneumonia or large pleural effusion. No pneumothorax is seen. The bony thorax is grossly intact. Fusion hardware is partially imaged in the lumbar spine. Posterior matter deformity and postoperative change is seen in the right proximal humerus. IMPRESSION: 1. Low lung volumes and chronic parenchymal changes as above. No acute cardiopulmonary abnormality is seen. There has been no significant change from 06/17/2016. 2. Cardiomegaly and hiatal hernia. Electronically signed by: Ender Grimaldo M.D. 07/06/2016 9:00 PM Dictated Date/Time: 07/06/2016 8:59 PM
[2016-07-06] MEDS ORDERED: INSDGI SC (21:08)
[2016-07-06] MEDS ORDERED: SODIUM CHLORIDE 0.9% 250ML 250 ML IV STA (21:20)
[2016-07-06] MEDS ORDERED: SODIUM CHLORIDE 0.9% 1000ML 1,000 ML IV STA (21:20)
--- NOTE | 2016-07-06 21:33 | EMERGENCY ROOM VISIT NOTE ---
History First contact with patient: 21:15 Chief Complaint: WEAKNESS Stated Complaint: CONFUSED/WEAKNESS Nursing Triage Summary: patient brought in by ems patient at daughter's house and had change in mental status with no control of right hand patient BSG 77 given juice,BSG 83,then BSG 102 patient reports decrease in insulin,patient blood glucose going up lately patient reports hx of diabetes and stroke History of Present Illness The patient is a 80 year old female who presents to the Emergency Room with complaints of confusion and weakness. The patient has been feeling weaker, generalized weakness, for about one week's timeframe. There has been no fever or coughing or congestion. No sore throat or chest pain. She's not had vomiting or diarrhea. Today, she was eating when she had some difficulty with function of her right arm. Her family states that she was slurring her words and confused and not herself. This whole episode lasted for about one hour and has since resolved, the patient now is back to baseline. She did present by ambulance. The patient has a history of stroke, the family was concerned that she had had a stroke today. The patient's episode occurred a few hours ago, she almost choked on her food when she began to slur her words. Review of Systems ROS: Please see HPI. At least 10 systems in total were reviewed and otherwise negative. 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 (16) SIRS (systemic inflammatory response syndrome) (17) SPINAL STENOSIS-LUMBAR (18) TIA (transient ischemic attack) Surgical Problems: (1) H/O: hysterectomy (2) History of back surgery (3) History of cataract surgery (4) History of renal stent (5) Hx of cholecystectomy Family History Cancer Diabetes mellitus Gallbladder disease Heart disease Kidney disease Kidney stones Social History Smoking Status: Never Smoker Alcohol Use: none Drug Use: none Marital Status: Housing Status: lives with family Occupation Status: retired Current/Historical Medications Scheduled Atorvastatin (Lipitor), 80 MG PO HS Clopidogrel (Plavix), 75 MG PO QAM Cyclosporine (Ophth) (Restasis), 1 DROP OP BID Escitalopram Oxalate (Lexapro), 10 MG PO QAM Fluticasone Prop/Salmeterol (Advair Diskus 100/50 60 Dose), 1 PUFF INH BID Gabapentin (Neurontin), 100 MG PO BID Insulin Aspart (Novolog), INJ ACHS Insulin Glargine (Lantus), 20 SC AMPM Levothyroxine Sodium (Levothyroxine Sodium), 75 MCG PO QAM Magnesium Oxide (Magnesium-Oxide), 400 MG PO BID Multiple Vitamin (Multi Vitamin Daily), 1 TAB PO QAM Nitroglycerin (Nitrostat), 0.4 MG UT PRN Ramipril (Ramipril), 1 CAP PO DAILY Tolterodine Tartrate (Detrol LA), 1 CAP PO DAILY Scheduled PRN Docusate Sodium (Colace), 1 CAP PO for Constipation Hydrocortisone (Topical) (Hydrocortisone), 1 APPLN TOP BID PRN for PRN Allergies Coded Allergies: Latex1 -Allergic Contact Dermititis (Verified Allergy, Mild, RASH, 06/17/16 ) Adhesives (Verified Allergy, Unknown, RASH, 06/17/16) Codeine (Verified Adverse Reaction, Unknown, N&V, 06/17/16) Morphine (Verified Adverse Reaction, Unknown, N&V, 06/17/16) Physical Exam Vital Signs Date Time Temp Pulse Resp B/P Pulse Ox O2 Delivery O2 Flow Rate FiO2 07/07/16 00:23 36.6 61 18 126/81 97 07/07/16 00:08 61 18 126/81 97 Room Air 07/06/16 22:57 67 18 97 07/06/16 22:27 71 13 07/06/16 22:15 126/71 07/06/16 22:15 72 16 126/71 98 Room Air 07/06/16 21:27 71 12 98 07/06/16 20:57 70 12 98 07/06/16 20:27 70 17 98 07/06/16 19:57 73 18 07/06/16 19:38 74 07/06/16 19:37 36.6 75 18 133/67 97 Room Air 07/06/16 19:32 133/67 Physical Exam GENERAL: Patient is in no acute distress. HEENT: No acute trauma, normocephalic atraumatic, mucous membranes dry, no nasal congestion, no scleral icterus. NECK: No stridor, no adenopathy, no meningismus, trachea is midline. LUNGS: Clear to auscultation bilaterally, no wheeze, no rhonchi, breath sounds equal. HEART: Without murmurs gallops or rubs, regular rate and rhythm. ABDOMEN: Soft, nontender, bowel sounds positive, no hernias, no peritonitis. EXTREMITIES: No cyanosis or edema, full range of motion of all the joints without pain or difficulty, no signs for acute trauma. NEUROLOGIC: Oriented x 3, no acute motor or sensory deficits, no focal weakness. No pronator drift or cerebellar deficits. No speech slurring. No facial droop. SKIN: No rash, no jaundice, no diaphoresis. Medical Decision & Procedures ER Provider Diagnostic Interpretation: EKG shows a normal sinus rhythm with a rate of 68. There is no acute ischemia, there is no ectopy. Chest x-ray: IMPRESSION: 1. Low lung volumes and chronic parenchymal changes as above. No acute cardiopulmonary abnormality is seen. There has been no significant change from 06/17/2016. 2. Cardiomegaly and hiatal hernia. Brain CT: IMPRESSION: Senescent changes and remote infarcts as above. There is no hemorrhage, mass effect, or evidence of acute territorial ischemia by CT criteria. There has been no significant change from 06/17/2016 Laboratory Results 07/06/16 19:04 Red Blood Count 3.68, Mean Corpuscular Volume 94.3, Mean Corpuscular Hemoglobin 31.3, Mean Corpuscular Hemoglobin Concent 33.1, Mean Platelet Volume 9.7, Neutrophils (%) (Auto) 52.1, Lymphocytes (%) (Auto) 34.8, Monocytes (%) (Auto) 10.1, Eosinophils (%) (Auto) 2.2, Basophils (%) (Auto) 0.4, Neutrophils # (Auto ) 4.05, Lymphocytes # (Auto) 2.70, Monocytes # (Auto) 0.78, Eosinophils # (Auto ) 0.17, Basophils # (Auto) 0.03 07/06/16 19:04 Test 07/06/16 19:04 07/06/16 19:55 07/06/16 22:26 White Blood Count 7.76 K/uL (4.8-10.8) Red Blood Count 3.68 M/uL (4.2-5.4) Hemoglobin 11.5 g/dL (12.0-16.0) Hematocrit 34.7 % (37-47) Mean Corpuscular Volume 94.3 fL (80-100) Mean Corpuscular Hemoglobin 31.3 pg (25-34) Mean Corpuscular Hemoglobin Concent 33.1 g/dl (32-36) Platelet Count 364 K/uL (130-400) Mean Platelet Volume 9.7 fL (7.4-10.4) Neutrophils (%) (Auto) 52.1 % Lymphocytes (%) (Auto) 34.8 % Monocytes (%) (Auto) 10.1 % Eosinophils (%) (Auto) 2.2 % Basophils (%) (Auto) 0.4 % Neutrophils # (Auto) 4.05 K/uL (1.4-6.5) Lymphocytes # (Auto) 2.70 K/uL (1.2-3.4) Monocytes # (Auto) 0.78 K/uL (0.11-0.59) Eosinophils # (Auto) 0.17 K/uL (0-0.5) Basophils # (Auto) 0.03 K/uL (0-0.2) RDW Standard Deviation 50.9 fL (36.4-46.3) RDW Coefficient of Variation 14.9 % (11.5-14.5) Immature Granulocyte % (Auto) 0.4 % Immature Granulocyte # (Auto) 0.03 K/uL (0.00-0.02) Anion Gap 10.0 mmol/L (3-11) Est Creatinine Clear Calc Drug Dose 46.0 ml/min Estimated GFR () 49.8 Estimated GFR (Non- 43.0 BUN/Creatinine Ratio 16.6 (10-20) Calcium Level 8.3 mg/dl (8.5-10.1) Total Bilirubin 0.2 mg/dl (0.2-1) Aspartate Amino Transf (AST/SGOT) 13 U/L (15-37) Alanine Aminotransferase (ALT/SGPT) 22 U/L (12-78) Alkaline Phosphatase 107 U/L (45-117) Total Creatine Kinase 43 U/L (26-192) Creatine Kinase MB 0.8 ng/ml (0.5-3.6) Creatine Kinase MB Ratio 1.9 (0-3.0) Troponin I 0.058 ng/ml (0-0.045) Total Protein 7.6 gm/dl (6.4-8.2) Albumin 3.2 gm/dl (3.4-5.0) Globulin 4.4 gm/dl (2.5-4.0) Albumin/Globulin Ratio 0.7 (0.9-2) Thyroid Stimulating Hormone (TSH) 4.750 uIu/ml (0.300-4.500) Bedside Glucose 132 mg/dl (70-90) Urine Color YELLOW Urine Appearance CLEAR (CLEAR) Urine pH 5.0 (4.5-7.5) Urine Specific [place] 1.018 (1.000-1.030) Urine Protein NEG (NEG) Urine Glucose (UA) TRACE (NEG) Urine Ketones TRACE (NEG) Urine Occult Blood NEG (NEG) Urine Nitrite NEG (NEG) Urine Bilirubin NEG (NEG) Urine Urobilinogen NEG (NEG) Urine Leukocyte Esterase SMALL (NEG) Urine WBC (Auto) 10-30 /hpf (0-5) Urine RBC (Auto) 0-4 /hpf (0-4) Urine Hyaline Casts (Auto) 5-10 /lpf (0-5) Urine Epithelial Cells (Auto) >30 /lpf (0-5) Urine Bacteria (Auto) NEG (NEG) Urine Renal Epithelial Cells 0-5 /lpf (0-5) Medications Administered Medications (Trade) Dose Ordered Sig/Pio Route Start Time Stop Time Status Last Admin Dose Admin Sodium Chloride 250 ml @ 999 mls/hr Q16M STAT IV 07/06/16 21:20 07/06/16 21:35 DC 07/06/16 22:18 999 MLS/HR Sodium Chloride (Nss 1000ml) 1,000 ml @ 125 mls/hr Q8H STAT IV 07/06/16 21:20 07/07/16 05:19 07/06/16 22:47 125 MLS/HR Medical Decision The patient presents with strokelike symptoms which have resolved. Differential diagnosis includes TIA, CVA, intracranial bleeding, UTI, infection , dehydration, electrolyte imbalance and anemia. Dysrhythmia was considered possible as well. There is no leukocytosis or concerning anemia. No significant electrolyte abnormality, kidney failure or hepatitis. EKG shows a normal sinus rhythm, no acute ischemia. Cardiac enzyme testing times one does show a very mild elevation to the cardiac troponin-this may be consistent with cardiac injury or strain, the patient has had some elevated troponin values in the past. Chest x- ray does not show pneumonia or CHF. Brain CT shows no acute bleed or mass effect. Urinalysis shows contamination, no obvious infection. On my exam, the patient had no focal neurologic deficits. There was no speech slur, she was resting comfortably. The patient received IV saline, she has done well in the emergency room. She has had no recurrence of symptoms. Given her history, given her confusion and deficits earlier, admission/observation was felt warranted. Further workup is required. The patient appears to have suffered a TIA. I did speak with the family, I talked with case management. The on-call hospitalist was consulted. Impression Primary Impression: TIA (transient ischemic attack) Additional Impression: Stroke-like symptoms Departure Information Dispostion Being Evaluated By Hospitalist (Dr. Suresh) Referrals Sae Arthur M.D. (PCP) Patient Instructions My [facility] Problem Qualifiers
--- NOTE | 2016-07-06 21:49 | DIAGNOSTIC IMAGING REPORT ---
CT SCAN OF THE BRAIN WITHOUT IV CONTRAST CLINICAL HISTORY: Change in mental status. COMPARISON STUDY: CT of the brain dated 06/17/16. TECHNIQUE: Unenhanced axial CT scan of the brain is performed from the vertex to the skull base. CT DOSE: 537.48 mGy.cm FINDINGS: Brain parenchyma: There are chronic bifrontal and right occipital infarcts. There are age-related involutional changes noting moderate to advanced subcortical and periventricular microangiopathic change. Small chronic lacunar infarcts are identified in the basal ganglia and the cerebellar hemispheres. There is no hemorrhage, mass effect, or evidence of acute territorial ischemia by CT criteria. Holden-white matter is preserved. No extra-axial fluid collection is seen. Ventricles, sulci, cisterns: Prominent secondary to involutional change. Intracranial vasculature: There is atherosclerotic calcification of the cavernous carotid and vertebral arteries. Calvarium: Unremarkable. Sinuses and mastoids: Trace mucosal thickening is present in the sphenoid sinuses. The remaining visualized paranasal sinuses are clear. The mastoid air cells are well pneumatized. Orbits: The bony orbits are grossly intact. There are bilateral ocular lens implants. IMPRESSION: Senescent changes and remote infarcts as above. There is no hemorrhage, mass effect, or evidence of acute territorial ischemia by CT criteria. There has been no significant change from 06/17/2016. Electronically signed by: Ender Grimaldo M.D. 07/06/2016 9:48 PM Dictated Date/Time: 07/06/2016 9:45 PM
[2016-07-06 23:00] LABS: URINE APPEARANCE CLEAR (CLEAR); URINE BILIRUBIN NEG (NEG); URINE COLOR YELLOW; URINE EPITHELIAL CELL AUTO >30 /lpf (0-5); URINE NITRITE NEG (NEG); URINE SPECIFIC GRAVITY 1.018 (1.000-1.030); UROBILINOGEN NEG (NEG)
[2016-07-06 23:03] LABS: MANUAL MICROSCOPIC REQUIRED? NO; REVIEW REQ? YES
[2016-07-07] VITALS (8 sets, daily range): BP systolic 110–157; BP diastolic 50–84; PULSE 68–94; TEMP 36.4–36.8; O2SAT 94–99; BMI 33.8
[2016-07-07] MEDS ORDERED: NITROGLYCERIN 0.4 MG SL PER TAB CHARGE UT SCH
[2016-07-07] MEDS ORDERED: ACETAMINOPHEN 325 MG TAB PO PRN
[2016-07-07] MEDS ORDERED: DOCUSATE SODIUM 100 MG CAP PO PRN
[2016-07-07] MEDS ORDERED: HYDROCORTISONE 2.5% CR 30 GM TUBE EXT PRN
[2016-07-07] MEDS ORDERED: DEXTROSE 50% 50 ML SYR IV PRN
[2016-07-07] MEDS ORDERED: GLUCOSE 10 TABS/TUBE PO PRN
[2016-07-07] MEDS ORDERED: GLUCAGON FOR INJ 1 MG VIAL SQ PRN
[2016-07-07] MEDS ORDERED: GLUCOSE 40% GEL 15 GM TUBE PO PRN
--- NOTE | 2016-07-07 00:38 | History and Physical ---
History & Physical Date & Time of Service: Jul 06, 2016 at 22:53 Chief Complaint: Confused/Weakness Primary Care Physician: Sae Arthur M.D. History of Present Illness Source: patient, family, clinic records, hospital records Mrs Schultz is a pleasant 80 year old female with Hx of CVA, diabetes and hypertension who at around 6:15pm had sudden onset confusion, right limb weakness and stiffness and slurring of speech.She apparently was well the day leading up to this event although she had been sweating profusely while wearing an outdoor jacket in the car. She remembers sitting down for her meal and then is unsure exactly what happened next. As per her daughter who was there at that time she notes her right arm was stiff and she was unable to lift up her fork to her mouth, she was slurring her words and unable to follow commands. The patient also notes blurring of her vision (no curtain or vision loss) at that time. Her speech and right arm were improving when the ambulance arrived approximately half an hour later and then by the time she arrived in the ER they had resolved. Of note she is also having some vertigo which is still present but improving at the time I saw her. She notes this is a chronic intermittent issue but is unsure of a formal diagnosis of this and is unsure when her last episode was. She currently denies any extremity or leg weakness, her family feel her speech has completely resolved. She has walked a short distance from the commode to bed and reports no problems with this. In the ER she received a CT head which did not show anything acute and was given IV fluids. No neurological pathology was noted on examination. 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 (15) Pericardial Effusion (16) Pyelonephritis (17) Vocal cord paralysis Surgical Problems: (1) H/O: hysterectomy (2) History of back surgery (3) History of cataract surgery (4) Hx of cholecystectomy Family History Cancer Diabetes mellitus Gallbladder disease Heart disease Kidney disease Kidney stones Social History Smoking Status: Never Smoker Drug Use: none Marital Status: Housing status: lives with family Occupational Status: retired Immunizations History of Influenza Vaccine: Yes Influenza Vaccine Date: Jun 16, 2011 History of Tetanus Vaccine?: utd Tetanus Immunization Date: Jan 22, 2001 History of Pneumococcal: Yes Pneumococcal Date: Jun 16, 2003 History of Hepatitis B Vaccine: Unknown Multi-Drug Resistant Organisms History of MDRO: No Allergies Coded Allergies: Latex1 -Allergic Contact Dermititis (Verified Allergy, Mild, RASH, 06/17/16 ) Adhesives (Verified Allergy, Unknown, RASH, 06/17/16) Codeine (Verified Adverse Reaction, Unknown, N&V, 06/17/16) Morphine (Verified Adverse Reaction, Unknown, N&V, 06/17/16) Home Medications Scheduled Atorvastatin (Lipitor), 80 MG PO HS Clopidogrel (Plavix), 75 MG PO QAM Cyclosporine (Ophth) (Restasis), 1 DROP OP BID Escitalopram Oxalate (Lexapro), 10 MG PO QAM Fluticasone Prop/Salmeterol (Advair Diskus 100/50 60 Dose), 1 PUFF INH BID Gabapentin (Neurontin), 100 MG PO BID Insulin Aspart (Novolog), INJ ACHS Insulin Glargine (Lantus), 20 SC AMPM Levothyroxine Sodium (Levothyroxine Sodium), 75 MCG PO QAM Magnesium Oxide (Magnesium-Oxide), 400 MG PO BID Multiple Vitamin (Multi Vitamin Daily), 1 TAB PO QAM Nitroglycerin (Nitrostat), 0.4 MG UT PRN Ramipril (Ramipril), 1 CAP PO DAILY Tolterodine Tartrate (Detrol LA), 1 CAP PO DAILY Scheduled PRN Docusate Sodium (Colace), 1 CAP PO for Constipation Hydrocortisone (Topical) (Hydrocortisone), 1 APPLN TOP BID PRN for PRN Review of Systems Constitutional: No chills, No fever, No sweats, No weight loss Eyes: + worsening of vision (blurring of vision during episode now resolved) ENT: No hearing loss Respiratory: No cough, No dyspnea at rest, No dyspnea on exertion, No hemoptysis, No shortness of breath, No sputum, No wheezing Cardiovascular: No PND, No chest pain, No claudication, No edema, No orthopnea , No palpitations Abdomen: + nausea (mild with vertigo), No constipation, No diarrhea, No pain, No vomiting Musculoskeletal: No joint pain, No muscle pain Genitourinary - Female: + urinary incontinence, No dysuria, No urinary frequency, No urinary retention, No urinary urgency Neurologic: + vertigo (as per HPI), + weakness (right arm during episode now resolved), No balance problems, No memory loss, No numbness/tingling, No paralysis Endocrine: No excessive thirst, No excessive urination Hematologic / Lymphatic: No abnormal bleeding/bruising Integumentary: No itch, No rash Physical Exam Vital Signs Date Time Temp Pulse Resp B/P Pulse Ox O2 Delivery O2 Flow Rate FiO2 07/06/16 22:15 72 16 126/71 98 Room Air 07/06/16 19:38 74 07/06/16 19:37 36.6 75 18 133/67 97 Room Air General Appearance: no apparent distress, + obese Head: normocephalic, atraumatic Eyes: normal inspection, PERRL, EOMI ENT: normal ENT inspection, hearing grossly normal, pharynx normal Neck: supple, no adenopathy, thyroid normal, no JVD, trachea midline, + pertinent finding (carotid bruits b/l) Respiratory/Chest: chest non-tender, lungs clear, no respiratory distress, no accessory muscle use, + decreased breath sounds (throughout, poor inspiratory effort) Cardiovascular: regular rate, rhythm, no JVD, no murmur, normal peripheral pulses Abdomen/GI: normal bowel sounds, non tender, soft Back: no CVA tenderness Extremities/Musculoskelatal: no calf tenderness, + pedal edema (trace b/l equal ) Neurologic/Psych: security team lead II-XII nml as tested, no motor/sensory deficits (no pronator drift, upper and lower limb power 5/5 throughout but has more trouble entacting directions on her left side, left sided past pointing present, no numbness/tingling, downgoing plantars b/l), alert, normal mood/affect, normal reflexes, + abnormal cerebellar tests (left sided past pointing positive), + disoriented (orientated to place and person, not time, unable to tell me her date of (likely due to time as appears tired ; 11:30pm)), + pertinent finding (speech testing within normal limits, no dysphonia, dysarthria or dysphasia) Skin: normal color, warm/dry, no rash Diagnostics Laboratory Results Results Past 24 Hours Test 07/06/16 19:04 07/06/16 19:55 07/06/16 22:26 Range/Units White Blood Count 7.76 4.8-10.8 K/uL Red Blood Count 3.68 4.2-5.4 M/uL Hemoglobin 11.5 12.0-16.0 g/dL Hematocrit 34.7 37-47 % Mean Corpuscular Volume 94.3 80-100 fL Mean Corpuscular Hemoglobin 31.3 25-34 pg Mean Corpuscular Hemoglobin Concent 33.1 32-36 g/dl Platelet Count 364 130-400 K/uL Mean Platelet Volume 9.7 7.4-10.4 fL Neutrophils (%) (Auto) 52.1 % Lymphocytes (%) (Auto) 34.8 % Monocytes (%) (Auto) 10.1 % Eosinophils (%) (Auto) 2.2 % Basophils (%) (Auto) 0.4 % Neutrophils # (Auto) 4.05 1.4-6.5 K/uL Lymphocytes # (Auto) 2.70 1.2-3.4 K/uL Monocytes # (Auto) 0.78 0.11-0.59 K/uL Eosinophils # (Auto) 0.17 0-0.5 K/uL Basophils # (Auto) 0.03 0-0.2 K/uL RDW Standard Deviation 50.9 36.4-46.3 fL RDW Coefficient of Variation 14.9 11.5-14.5 % Immature Granulocyte % (Auto) 0.4 % Immature Granulocyte # (Auto) 0.03 0.00-0.02 K/uL Sodium Level 141 136-145 mmol/L Potassium Level 4.4 3.5-5.1 mmol/L Chloride Level 106 98-107 mmol/L Carbon Dioxide Level 25 21-32 mmol/L Anion Gap 10.0 3-11 mmol/L Blood Urea Nitrogen 20 7-18 mg/dl Creatinine 1.20 0.60-1.20 mg/dl Est Creatinine Clear Calc Drug Dose 46.0 ml/min Estimated GFR () 49.8 Estimated GFR (Non- 43.0 BUN/Creatinine Ratio 16.6 10-20 Random Glucose 117 70-99 mg/dl Calcium Level 8.3 8.5-10.1 mg/dl Total Bilirubin 0.2 0.2-1 mg/dl Aspartate Amino Transf (AST/SGOT) 13 15-37 U/L Alanine Aminotransferase (ALT/SGPT) 22 12-78 U/L Alkaline Phosphatase 107 45-117 U/L Total Creatine Kinase 43 26-192 U/L Creatine Kinase MB 0.8 0.5-3.6 ng/ml Creatine Kinase MB Ratio 1.9 0-3.0 Troponin I 0.058 0-0.045 ng/ml Total Protein 7.6 6.4-8.2 gm/dl Albumin 3.2 3.4-5.0 gm/dl Globulin 4.4 2.5-4.0 gm/dl Albumin/Globulin Ratio 0.7 0.9-2 Thyroid Stimulating Hormone (TSH) 4.750 0.300-4.500 uIu/ml Bedside Glucose 132 70-90 mg/dl Microbiology Results 07/06/16 Blood Culture, Received Pending 07/06/16 Blood Culture, Received Pending 07/06/16 Urine Culture, Received Pending Diagnostic Radiology CT SCAN OF THE BRAIN WITHOUT IV CONTRAST CLINICAL HISTORY: Change in mental status. COMPARISON STUDY: CT of the brain dated 06/17/16. TECHNIQUE: Unenhanced axial CT scan of the brain is performed from the vertex to the skull base. CT DOSE: 537.48 mGy.cm FINDINGS: Brain parenchyma: There are chronic bifrontal and right occipital infarcts. There are age-related involutional changes noting moderate to advanced subcortical and periventricular microangiopathic change. Small chronic lacunar infarcts are identified in the basal ganglia and the cerebellar hemispheres. There is no hemorrhage, mass effect, or evidence of acute territorial ischemia by CT criteria. Holden-white matter is preserved. No extra-axial fluid collection is seen. Ventricles, sulci, cisterns: Prominent secondary to involutional change. Intracranial vasculature: There is atherosclerotic calcification of the cavernous carotid and vertebral arteries. Calvarium: Unremarkable. Sinuses and mastoids: Trace mucosal thickening is present in the sphenoid sinuses. The remaining visualized paranasal sinuses are clear. The mastoid air cells are well pneumatized. Orbits: The bony orbits are grossly intact. There are bilateral ocular lens implants. IMPRESSION: Senescent changes and remote infarcts as above. There is no hemorrhage, mass effect, or evidence of acute territorial ischemia by CT criteria. There has been no significant change from 06/17/2016. Electronically signed by: Ender Grimaldo M.D. 07/06/2016 9:48 PM Dictated Date/Time: 07/06/2016 9:45 PM SINGLE VIEW CHEST CLINICAL HISTORY: Generalized weakness. Confusion. FINDINGS: An AP, portable, upright chest radiograph is compared to study dated 06/17/2016 and correlated with chest CT dated 05/31/2015. The examination is degraded by portable technique, apical lordotic positioning, large body habitus, and patient rotation. The heart is enlarged and there is atherosclerotic calcification of the thoracic aorta. The pulmonary vasculature is noncongested. A hiatal hernia is again noted. There are low lung volumes with chronic elevation of the right hemidiaphragm and associated atelectasis. Linear atelectasis versus scar is noted in the left lower lung. There is no airspace consolidation typical for pneumonia or large pleural effusion. No pneumothorax is seen. The bony thorax is grossly intact. Fusion hardware is partially imaged in the lumbar spine. Posterior matter deformity and postoperative change is seen in the right proximal humerus. IMPRESSION: 1. Low lung volumes and chronic parenchymal changes as above. No acute cardiopulmonary abnormality is seen. There has been no significant change from 06/17/2016. 2. Cardiomegaly and hiatal hernia. Electronically signed by: Ender Grimaldo M.D. 07/06/2016 9:00 PM Dictated Date/Time: 07/06/2016 8:59 PM Normal EKG Impression Assessment and Plan 71 yo female with PMHx of T2DM, HTN and multiple CVAs and TIAs presents to the ER with an episode of altered mental state, right arm weakness and slurred speech. Her BSG at that time was 77 therefore I suspect this was not a hypoglycemia episode although the EMS notes no stroke symptoms and mild diaphoresis. Given her risk factors and history from the family appears likely this episode was a TIA. TIA - ABCD2 score of 5. 2 day stroke risk 4.1%, 7 day stroke risk 5.9%, 90 day stroke risk 9.8%. - Carotid Doppler - last one in 2014 showed no hemodynamic compromise but carotid plaques present, will repeat to assess progression - recent echo in Dec was without contrast, however I will defer to neurology whether repeating this would be deemed beneficial - Add ASA to Plavix and atorvastatin - Consult neurology (previously seen by Dr Beaulieu and Dr Hayes (no outpatient follow up notes seen however) - nursing swallow eval to assess for pills taking - speech consult in the morning - Brain MRI tomorrow. - PT/OT/Discharge planning T2DM - Q6H BSGs while NPO except meds - Usually takes lantus 20 units BID, will reduce this to 17 units BID given lower BSGs and concern for hypoglycemia before admission - Usually just has correction factor for novolog (recently needing large doses; 18 units/meal as per her daughter). Will convert her over to carb coverage with tight control given TIA but not critically unwell aim glucose 110-140, Hypertension - On ramipril 10 mg at home. Daughter to bring in medication tomorrow morning, otherwise we can substitute it for lisinopril. Miscellaneous - Chronic medical issues Asthma - continue advair, albuterol PRN Hypothyroidism - continue levothyroxine, TSH high, added free T4 Chronic Pain - continue gabapentin Vocal cord paralysis - speech consult as above for swallowing VTE Prophylaxis Lovenox 40 mg SQ daily SCDs, TEDs Code DNR as discussed with the patient and family Disposition - telemetry to assess for arrhythmias Level of Care Telemetry Advanced Directives Existing Advance Directive: Yes Existing Living Will: Yes Existing Power of Sap Bods Developer: Yes (son and daughter) Resuscitation Status DO NOT RESUSCITATE VTE Prophylaxis Given or contraindicated: Unfractionated heparin SQ, T.E.D. Stockings, SCD's Resident Tracking Resident Involvement: Resident Care Provided Care Provided: Adult Hospital Medicine
[2016-07-07] MEDS ORDERED: ASPIRIN 81 MG CHEW PO STA (02:41)
[2016-07-07] MEDS ORDERED: MECLIZINE HCL 12.5 MG TAB PO STA (02:49)
[2016-07-07] MEDS ORDERED: INSULIN GLARGINE SOLOSTAR 100 UNITS/ML 3 ML PEN SC ONE (03:00)
[2016-07-07] MEDS ORDERED: INSULIN GLARGINE SOLOSTAR 100 UNITS/ML 3 ML PEN SC STA (03:39)
[2016-07-07] MEDS ORDERED: INSULIN ASPART 100 UNITS/ML 3 ML PEN SC SCH (06:00)
[2016-07-07] MEDS: LEVOTHYROXINE 75 MCG TAB PO SCH (06:12)
--- NOTE | 2016-07-07 07:04 | DIAGNOSTIC IMAGING REPORT ---
ULTRASOUND OF THE CAROTID ARTERIES CLINICAL HISTORY: TIA, high risk for stroke COMPARISON STUDY: 02/26/2015 TECHNIQUE: Real-time, grayscale, and color Doppler sonography of the carotid arteries was performed. Imaging reviewed in the transverse and longitudinal planes. NASCET criteria was utilized for stenosis calcification. FINDINGS: There is extensive shadowing atherosclerotic plaque present bilaterally, but most pronounced at the level of the right carotid bulb.. The peak systolic velocity within the right internal carotid artery is 78 cm/sec. The systolic velocity ratio of right internal to common carotid artery is 1.8. The peak systolic velocity within the left internal carotid artery is 84 cm/sec. The systolic velocity ratio left internal to common carotid artery is 1.2. Antegrade flow is seen in the vertebral arteries. The external carotid arteries are patent. Blood pressure in the right arm measured 157 mm/Hg. Blood pressure in the left arm measured 128 mm/Hg. IMPRESSION: 1. Study limited secondary to extensive shadowing atheromatous plaque 2. No evidence of hemodynamically significant stenosis by velocity criteria 3. Differential subclavian systolic pressures measure 157 mmHg in the right and 120 mmHg on the left. Electronically signed by: Isaac Gan M.D. 07/07/2016 7:03 AM Dictated Date/Time: 07/07/2016 7:00 AM
[2016-07-07 07:42] LABS: HEMATOCRIT 32.3 % (37-47); MEAN CELL VOLUME 94.2 fL (80-100); MEAN CORPUSCULAR HEMOGLOBIN 30.3 pg (25-34); MEAN CORPUSCULAR HGB CONC 32.2 g/dl (32-36); MEAN PLATELET VOLUME 9.3 fL (7.4-10.4); PLATELET COUNT 281 K/uL (130-400); RED BLOOD COUNT 3.43 M/uL (4.2-5.4); WHITE BLOOD COUNT 6.49 K/uL (4.8-10.8)
[2016-07-07 07:51] LABS: PROTHROMBIN TIME (PATIENT) 10.8 SECONDS (9.0-12.0)
[2016-07-07] MEDS: FLUTICASONE/SALMETEROL 100/50 (ADVAIR) 14 PUFF/1 INHALER INH SCH ×2 (07:52→20:41)
[2016-07-07] MEDS: ESCITALOPRAM OXALATE 10 MG TAB PO SCH (07:53)
[2016-07-07] MEDS: ASPIRIN 81 MG ECTAB PO SCH (07:53)
[2016-07-07] MEDS: TOLTERODINE TARTRATE LA 4 MG CAPCR PO SCH (07:53)
[2016-07-07] MEDS: MAGNESIUM OXIDE 400 MG TAB PO SCH ×2 (07:54→20:44)
[2016-07-07] MEDS: MULTIVITAMIN TAB PO SCH (07:54)
[2016-07-07] MEDS: ENOXAPARIN 40 MG/0.4 ML SYR SQ SCH (07:55)
[2016-07-07] MEDS: GABAPENTIN 100 MG CAP PO SCH ×2 (07:55→20:44)
[2016-07-07] MEDS: CLOPIDOGREL BISULFATE 75 MG TAB PO SCH (07:55)
[2016-07-07] MEDS ORDERED: INFLUENZA ADMINISTRATION CHARGE ONE (08:00)
[2016-07-07] MEDS ORDERED: INFLUENZA VIRUS QUAD VACCINE 0.5 ML SYR IM. ONE (08:00)
[2016-07-07 08:10] LABS: BUN/CREATININE RATIO 17.8 (10-20); CALCIUM 8.2 mg/dl (8.5-10.1)
--- NOTE | 2016-07-07 08:11 | Medical Student: [facility] ---
Med Student History & Physical Date & Time of Service: Jul 07, 2016 at 08:02 Chief Complaint: At High Risk For Stroke,Diabetes Mellitus,Tia Primary Care Physician: Sae Arthur M.D. History of Present Illness Source: patient, hospital records Pt is 80 yo female with a history of CVA, HTN and DM who presented to the ED vis EMS yesterday following an episode of AMS, slurred speech, weakness of the right arm and episode of trouble swallowing with some choking, Pt does not recall the incident but does remember being in the ED and notes that her daughter was the one that called the ambulance. Per ED and hospitalist records sxs were beginning to resolve in the ambulance and were fully resolved upon ED physician examination. She was admitted for further work-up, Pt currently denies chest pain, shortness of breath, numbness, weakness or trouble swallowing. She notes that she is "feeling better than yesterday" and states she has not experienced any new episodes of AMS or FND since admission.There has been no evidence of atrial fibrillation while monitored on telemetry. Past Medical/Surgical History Medical Problems: (1) Dehydration Status: Acute (2) Hypocalcemia Status: Acute (3) Hypokalemia Status: Acute (4) Hypomagnesemia Status: Acute (5) Kidney stone Status: Acute (6) Prolonged Q-T interval on ECG Status: Acute (7) Stroke-like symptoms Status: Acute (8) TIA (transient ischemic attack) Status: Acute Social History Smoking Status: Unknown if Ever Smoked Drug Use: none Marital Status: Housing status: lives with family Occupational Status: retired Immunizations History of Influenza Vaccine: Yes Influenza Vaccine Date: Jun 16, 2011 History of Tetanus Vaccine?: utd Tetanus Immunization Date: Jan 22, 2001 History of Pneumococcal: Yes Pneumococcal Date: Jun 16, 2003 History of Hepatitis B Vaccine: Unknown Allergies Coded Allergies: Latex1 -Allergic Contact Dermititis (Verified Allergy, Mild, RASH, 06/17/16 ) Adhesives (Verified Allergy, Unknown, RASH, 06/17/16) Codeine (Verified Adverse Reaction, Unknown, N&V, 06/17/16) Morphine (Verified Adverse Reaction, Unknown, N&V, 06/17/16) Medications Atorvastatin (Lipitor), 80 MG PO HS Clopidogrel (Plavix), 75 MG PO QAM Cyclosporine (Ophth) (Restasis), 1 DROP OP BID Docusate Sodium (Colace), 1 CAP PO for Constipation Escitalopram Oxalate (Lexapro), 10 MG PO QAM Fluticasone Prop/Salmeterol (Advair Diskus 100/50 60 Dose), 1 PUFF INH BID Gabapentin (Neurontin), 100 MG PO BID Hydrocortisone (Topical) (Hydrocortisone), 1 APPLN TOP BID PRN for PRN Insulin Aspart (Novolog), INJ ACHS Insulin Glargine (Lantus), 20 SC AMPM Levothyroxine Sodium (Levothyroxine Sodium), 75 MCG PO QAM Magnesium Oxide (Magnesium-Oxide), 400 MG PO BID Multiple Vitamin (Multi Vitamin Daily), 1 TAB PO QAM Nitroglycerin (Nitrostat), 0.4 MG UT PRN Ramipril (Ramipril), 1 CAP PO DAILY Tolterodine Tartrate (Detrol LA), 1 CAP PO DAILY Review of Systems Constitutional: No weakness Eyes: No diplopia, No worsening of vision ENT: No hearing loss, No trouble swallowing Respiratory: No cough, No shortness of breath Cardiovascular: No chest pain, No palpitations Abdomen: No diarrhea, No nausea, No vomiting Neurologic: No numbness/tingling, No vertigo Physical Exam Vital Signs (24 Hours) Date Time Temp Pulse Resp B/P Pulse Ox O2 Delivery O2 Flow Rate FiO2 07/07/16 03:30 Room Air 07/07/16 03:30 36.6 70 15 110/77 94 Room Air 07/07/16 01:30 36.6 68 18 136/75 99 Room Air 07/07/16 00:23 36.6 61 18 126/81 97 07/07/16 00:08 61 18 126/81 97 Room Air 07/06/16 22:57 67 18 97 07/06/16 22:27 71 13 07/06/16 22:15 126/71 07/06/16 22:15 72 16 126/71 98 Room Air 07/06/16 21:27 71 12 98 07/06/16 20:57 70 12 98 07/06/16 20:27 70 17 98 07/06/16 19:57 73 18 07/06/16 19:38 74 07/06/16 19:37 36.6 75 18 133/67 97 Room Air 07/06/16 19:32 133/67 General Appearance: WD/WN, no apparent distress Head: normocephalic, atraumatic Neck: no carotid bruits Respiratory/Chest: lungs clear, normal breath sounds Cardiovascular: regular rate, rhythm, no JVD, no murmur Neurologic/Psych: alert, normal mood/affect, oriented x 3, + pertinent finding (poor historian, slow to respond to questions, avoids answering some questions) Neuro Exam cont'd: summer clerk I: not tested II: 20/200 vision bilaterally. Pupils equal, round and reactive to light. III, IV, : EOM intact, no nystagmus V: sensation intact bilaterally in V1, V2, V3. VII: facial movements symmetric without droop. VIII: hearing grossly intact. IX, X: soft palate raises symmetrically XI: SCM strength intact. normal strength with shoulder shrug XII: Normal strength, tongue midline No ataxia noted on FN and heel to [place] testing. Accuracy is compromised dt vision with left hand FN testing. No pronator drift. Strength is 5/5 bilaterally. Interossei, elbow flexion and extension, should abduction, straight leg raise, plantar flexion and dorsiflexion were tested. Normal sensation in distal upper and lower extremities. Proprioception intact bilateral second fingers and Right first toe. Left first toe exhibited lack of accurate proprioception. Tremor of 2nd right finger noted on proprioception exam. Reflexes 2+ patellar, brachioradialis and biceps bilaterally. Diagnostics Laboratory Results Results Past 24 Hours Test 07/06/16 19:04 07/06/16 19:55 07/06/16 22:26 07/07/16 03:21 Range/Units White Blood Count 7.76 4.8-10.8 K/uL Red Blood Count 3.68 4.2-5.4 M/uL Hemoglobin 11.5 12.0-16.0 g/dL Hematocrit 34.7 37-47 % Mean Corpuscular Volume 94.3 80-100 fL Mean Corpuscular Hemoglobin 31.3 25-34 pg Mean Corpuscular Hemoglobin Concent 33.1 32-36 g/dl Platelet Count 364 130-400 K/uL Mean Platelet Volume 9.7 7.4-10.4 fL Neutrophils (%) (Auto) 52.1 % Lymphocytes (%) (Auto) 34.8 % Monocytes (%) (Auto) 10.1 % Eosinophils (%) (Auto) 2.2 % Basophils (%) (Auto) 0.4 % Neutrophils # (Auto) 4.05 1.4-6.5 K/uL Lymphocytes # (Auto) 2.70 1.2-3.4 K/uL Monocytes # (Auto) 0.78 0.11-0.59 K/uL Eosinophils # (Auto) 0.17 0-0.5 K/uL Basophils # (Auto) 0.03 0-0.2 K/uL RDW Standard Deviation 50.9 36.4-46.3 fL RDW Coefficient of Variation 14.9 11.5-14.5 % Immature Granulocyte % (Auto) 0.4 % Immature Granulocyte # (Auto) 0.03 0.00-0.02 K/uL Sodium Level 141 136-145 mmol/L Potassium Level 4.4 3.5-5.1 mmol/L Chloride Level 106 98-107 mmol/L Carbon Dioxide Level 25 21-32 mmol/L Anion Gap 10.0 3-11 mmol/L Blood Urea Nitrogen 20 7-18 mg/dl Creatinine 1.20 0.60-1.20 mg/dl Est Creatinine Clear Calc Drug Dose 46.0 ml/min Estimated GFR () 49.8 Estimated GFR (Non- 43.0 BUN/Creatinine Ratio 16.6 10-20 Random Glucose 117 70-99 mg/dl Calcium Level 8.3 8.5-10.1 mg/dl Total Bilirubin 0.2 0.2-1 mg/dl Aspartate Amino Transf (AST/SGOT) 13 15-37 U/L Alanine Aminotransferase (ALT/SGPT) 22 12-78 U/L Alkaline Phosphatase 107 45-117 U/L Total Creatine Kinase 43 26-192 U/L Creatine Kinase MB 0.8 0.5-3.6 ng/ml Creatine Kinase MB Ratio 1.9 0-3.0 Troponin I 0.058 0-0.045 ng/ml Total Protein 7.6 6.4-8.2 gm/dl Albumin 3.2 3.4-5.0 gm/dl Globulin 4.4 2.5-4.0 gm/dl Albumin/Globulin Ratio 0.7 0.9-2 Thyroid Stimulating Hormone (TSH) 4.750 0.300-4.500 uIu/ml Free Thyroxine 1.08 0.80-1.60 ng/dl Bedside Glucose 132 119 70-90 mg/dl Urine Color YELLOW Urine Appearance CLEAR CLEAR Urine pH 5.0 4.5-7.5 Urine Specific [place] 1.018 1.000-1.030 Urine Protein NEG NEG Urine Glucose (UA) TRACE NEG Urine Ketones TRACE NEG Urine Occult Blood NEG NEG Urine Nitrite NEG NEG Urine Bilirubin NEG NEG Urine Urobilinogen NEG NEG Urine Leukocyte Esterase SMALL NEG Urine WBC (Auto) 10-30 0-5 /hpf Urine RBC (Auto) 0-4 0-4 /hpf Urine Hyaline Casts (Auto) 5-10 0-5 /lpf Urine Epithelial Cells (Auto) >30 0-5 /lpf Urine Bacteria (Auto) NEG NEG Urine Renal Epithelial Cells 0-5 0-5 /lpf Test 07/07/16 06:24 07/07/16 07:35 Range/Units Bedside Glucose 130 70-90 mg/dl White Blood Count 6.49 4.8-10.8 K/uL Red Blood Count 3.43 4.2-5.4 M/uL Hemoglobin 10.4 12.0-16.0 g/dL Hematocrit 32.3 37-47 % Mean Corpuscular Volume 94.2 80-100 fL Mean Corpuscular Hemoglobin 30.3 25-34 pg Mean Corpuscular Hemoglobin Concent 32.2 32-36 g/dl RDW Standard Deviation 51.3 36.4-46.3 fL RDW Coefficient of Variation 15.1 11.5-14.5 % Platelet Count 281 130-400 K/uL Mean Platelet Volume 9.3 7.4-10.4 fL Prothrombin Time 10.8 9.0-12.0 SECONDS Prothromb Time International Ratio 1.0 0.9-1.1 Activated Partial Thromboplast Time 24.8 21.0-31.0 SECONDS Partial Thromboplastin Ratio 1.0 Microbiology Results 07/06/16 Blood Culture, Received Pending 07/06/16 Blood Culture, Received Pending 07/06/16 Urine Culture, Received Pending Diagnostic Radiology SINGLE VIEW CHEST CLINICAL HISTORY: Generalized weakness. Confusion. FINDINGS: An AP, portable, upright chest radiograph is compared to study dated 06/17/2016 and correlated with chest CT dated 05/31/2015. The examination is degraded by portable technique, apical lordotic positioning, large body habitus, and patient rotation. The heart is enlarged and there is atherosclerotic calcification of the thoracic aorta. The pulmonary vasculature is noncongested. A hiatal hernia is again noted. There are low lung volumes with chronic elevation of the right hemidiaphragm and associated atelectasis. Linear atelectasis versus scar is noted in the left lower lung. There is no airspace consolidation typical for pneumonia or large pleural effusion. No pneumothorax is seen. The bony thorax is grossly intact. Fusion hardware is partially imaged in the lumbar spine. Posterior matter deformity and postoperative change is seen in the right proximal humerus. IMPRESSION: 1. Low lung volumes and chronic parenchymal changes as above. No acute cardiopulmonary abnormality is seen. There has been no significant change from 06/17/2016. 2. Cardiomegaly and hiatal hernia. Electronically signed by: Ender Grimaldo M.D. 07/06/2016 9:[address] SCAN OF THE BRAIN WITHOUT IV CONTRAST CLINICAL HISTORY: Change in mental status. COMPARISON STUDY: CT of the brain dated 06/17/16. TECHNIQUE: Unenhanced axial CT scan of the brain is performed from the vertex to the skull base. CT DOSE: 537.48 mGy.cm FINDINGS: Brain parenchyma: There are chronic bifrontal and right occipital infarcts. There are age-related involutional changes noting moderate to advanced subcortical and periventricular microangiopathic change. Small chronic lacunar infarcts are identified in the basal ganglia and the cerebellar hemispheres. There is no hemorrhage, mass effect, or evidence of acute territorial ischemia by CT criteria. Holden-white matter is preserved. No extra-axial fluid collection is seen. Ventricles, sulci, cisterns: Prominent secondary to involutional change. Intracranial vasculature: There is atherosclerotic calcification of the cavernous carotid and vertebral arteries. Calvarium: Unremarkable. Sinuses and mastoids: Trace mucosal thickening is present in the sphenoid sinuses. The remaining visualized paranasal sinuses are clear. The mastoid air cells are well pneumatized. Orbits: The bony orbits are grossly intact. There are bilateral ocular lens implants. IMPRESSION: Senescent changes and remote infarcts as above. There is no hemorrhage, mass effect, or evidence of acute territorial ischemia by CT criteria. There has been no significant change from 06/17/2016. Electronically signed by: Ender Grimaldo M.D. 07/06/2016 9:48 PM ULTRASOUND OF THE CAROTID ARTERIES CLINICAL HISTORY: TIA, high risk for stroke COMPARISON STUDY: 02/26/2015 TECHNIQUE: Real-time, grayscale, and color Doppler sonography of the carotid arteries was performed. Imaging reviewed in the transverse and longitudinal planes. NASCET criteria was utilized for stenosis calcification. FINDINGS: There is extensive shadowing atherosclerotic plaque present bilaterally, but most pronounced at the level of the right carotid bulb.. The peak systolic velocity within the right internal carotid artery is 78 cm/sec. The systolic velocity ratio of right internal to common carotid artery is 1.8. The peak systolic velocity within the left internal carotid artery is 84 cm/sec. The systolic velocity ratio left internal to common carotid artery is 1.2. Antegrade flow is seen in the vertebral arteries. The external carotid arteries are patent. Blood pressure in the right arm measured 157 mm/Hg. Blood pressure in the left arm measured 128 mm/Hg. IMPRESSION: 1. Study limited secondary to extensive shadowing atheromatous plaque 2. No evidence of hemodynamically significant stenosis by velocity criteria 3. Differential subclavian systolic pressures measure 157 mmHg in the right and 120 mmHg on the left. Electronically signed by: Isaac Gan M.D. 07/07/2016 7:03 AM Impression Assessment and Plan Pt is 80 yo female with PMH of CVA, DM, and HTN who presented yesterday with acute difficulty swallowing, slurred speech, AMS and right hand weakness that resolved within approximately 60 mins. Possible etiologies include TIA vs focal seizure vs hypoglycemia. Acute neurologic changes and AMS * TIA vs focal seizure vs hypoglycemia. * Hypoglycemia unlikely as FND were reported. BS in ED was 77. * Focal seizure is possible etiology as previous CVA in 02/2015 affected right side as well. * TIA is possible etiology as AMS and FND present, and resolved within an hour. Has hx of CVA. * CT Head show no acute intracranial findings - however evidence of previous infarcts and age related changes. * Carotid US - difficult to fully image dt shadowing. * MRI of head - pending. * Recommend the following: * Echocardiogram - to r/o possibility of cardioembolic etiology of sxs. * MRA of head and neck as Carotid US was inconclusive and to further evaluate intracranial vasculature. * EEG to determine if focal seizures present. * Outpt cardiac Holter monitoring to r/u arrhythmia as possible etiology. * Speech therapy to evaluate swallowing. * PT/OT evaluation * Continue to manage risk factors * tight blood pressure control. * tight blood sugar control * continue statin therapy * continue Plavix, add aspirin to mitigate risk in the short term. Neurology attending addendum: Patient was seen and evaluated with medical student. Please see my separate neurology consult note for full evaluation and recommendations. -Susanna Beaulieu, DO Level of Care Telemetry Advanced Directives Existing Advance Directive: Yes Resuscitation Status DO NOT RESUSCITATE DVT Prophylaxis enoxaparin (Lovenox) SQ
--- NOTE | 2016-07-07 08:16 | Medical Student: [facility] ---
Med Student History & Physical Date & Time of Service: Jul 07, 2016 at 08:05 Chief Complaint: At High Risk For Stroke,Diabetes Mellitus,Tia Primary Care Physician: Sae Arthur M.D. History of Present Illness Source: patient, hospital records Mrs. Schultz is a 80yo female who presented to the ED via ambulance on the evening of 07/06/16 after sudden onset of right arm weakness, confusion and slurring of speech. The patient does not remember what happened. Her family reported that this incident occurred during supper time. She was suddenly unable to feed herself or respond to their questions which prompted them to bring her to the ED. By the time of arrival to the ED 1 hour later, the patient's symptoms had resolved. She was given IV fluids in the ED and a CT head was performed which was negative for acute changes. BSG was noted to be 77 in the ED and juice was given which normalized BSG. She has a history of diabetes on insulin, coronary artery disease and CVA a little over 1 year ago which presented with similar right upper extremity weakness, confusion and slurring of speech. Extensive workup was negative for a definitive cause and she was placed on plavix at that time. Today, Mrs. Schultz reports feeling better, though "not fully herself." She denies any subsequent confusion or focal neurologic deficits since yesterday. She is on telemetry with no afib overnight. Denies cp, sob, headache, dizziness, numbness, weakness or slurred speech. Past Medical/Surgical History Medical Problems: (1) Dehydration Status: Acute (2) Hypocalcemia Status: Acute (3) Hypokalemia Status: Acute (4) Hypomagnesemia Status: Acute (5) Kidney stone Status: Acute (6) Prolonged Q-T interval on ECG Status: Acute (7) Stroke-like symptoms Status: Acute (8) TIA (transient ischemic attack) Status: Acute Family History Family history of cancer, diabetes mellitus, coronary artery disease Social History She lives with her daughter in [place]. 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 Smoking Status: Never Smoker Smokeless Tobacco Use: No Alcohol Use: occasionally Drug Use: none Marital Status: Housing status: lives with family Occupational Status: retired Immunizations History of Influenza Vaccine: Yes Influenza Vaccine Date: Jun 16, 2011 History of Tetanus Vaccine?: utd Tetanus Immunization Date: Jan 22, 2001 History of Pneumococcal: Yes Pneumococcal Date: Jun 16, 2003 History of Hepatitis B Vaccine: Unknown Allergies Coded Allergies: Latex1 -Allergic Contact Dermititis (Verified Allergy, Mild, RASH, 06/17/16 ) Adhesives (Verified Allergy, Unknown, RASH, 06/17/16) Codeine (Verified Adverse Reaction, Unknown, N&V, 06/17/16) Morphine (Verified Adverse Reaction, Unknown, N&V, 06/17/16) Medications Atorvastatin (Lipitor), 80 MG PO HS Clopidogrel (Plavix), 75 MG PO QAM Cyclosporine (Ophth) (Restasis), 1 DROP OP BID Docusate Sodium (Colace), 1 CAP PO for Constipation Escitalopram Oxalate (Lexapro), 10 MG PO QAM Fluticasone Prop/Salmeterol (Advair Diskus 100/50 60 Dose), 1 PUFF INH BID Gabapentin (Neurontin), 100 MG PO BID Hydrocortisone (Topical) (Hydrocortisone), 1 APPLN TOP BID PRN for PRN Insulin Aspart (Novolog), INJ ACHS Insulin Glargine (Lantus), 20 SC AMPM Levothyroxine Sodium (Levothyroxine Sodium), 75 MCG PO QAM Magnesium Oxide (Magnesium-Oxide), 400 MG PO BID Multiple Vitamin (Multi Vitamin Daily), 1 TAB PO QAM Nitroglycerin (Nitrostat), 0.4 MG UT PRN Ramipril (Ramipril), 1 CAP PO DAILY Tolterodine Tartrate (Detrol LA), 1 CAP PO DAILY Review of Systems Constitutional: No chills, No fever, No weakness Eyes: No diplopia, No worsening of vision ENT: No sore throat, No tinnitus, No trouble swallowing Respiratory: No shortness of breath, No wheezing Cardiovascular: No chest pain, No palpitations Abdomen: No constipation, No diarrhea, No nausea, No pain, No vomiting Musculoskeletal: No calf pain, No swelling Genitourinary - Female: No dysuria, No hematuria Neurologic: No numbness/tingling, No paralysis, No weakness Physical Exam Vital Signs (24 Hours) Date Time Temp Pulse Resp B/P Pulse Ox O2 Delivery O2 Flow Rate FiO2 07/07/16 03:30 Room Air 07/07/16 03:30 36.6 70 15 110/77 94 Room Air 07/07/16 01:30 36.6 68 18 136/75 99 Room Air 07/07/16 00:23 36.6 61 18 126/81 97 07/07/16 00:08 61 18 126/81 97 Room Air 07/06/16 22:57 67 18 97 07/06/16 22:27 71 13 07/06/16 22:15 126/71 07/06/16 22:15 72 16 126/71 98 Room Air 07/06/16 21:27 71 12 98 07/06/16 20:57 70 12 98 07/06/16 20:27 70 17 98 07/06/16 19:57 73 18 07/06/16 19:38 74 07/06/16 19:37 36.6 75 18 133/67 97 Room Air 07/06/16 19:32 133/67 General Appearance: WD/WN, + obese, + pertinent finding (anxious, globally hypoactive with movement, slow to respond to some questions though overall cooperative, signs of poor historian or residual AMS) Head: normocephalic, atraumatic Eyes: normal inspection, PERRL, EOMI ENT: normal ENT inspection, hearing grossly normal, pharynx normal Neck: supple, no adenopathy, no carotid bruits Respiratory/Chest: lungs clear, normal breath sounds, no respiratory distress, no accessory muscle use Cardiovascular: regular rate, rhythm, no gallop, no JVD, no murmur, normal peripheral pulses Abdomen/GI: normal bowel sounds, non tender, soft, no organomegaly Extremities/Musculoskelatal: normal inspection, no calf tenderness Neurologic/Psych: alert, oriented x 3 crystal gazer I: not tested II: PERRLA, vision is quite poor only able to read largest letter on Snellen card, visual saavedra globally reduced--most likely to poor vision III, IV, : EOMI, no nystagmus V: sensation at V1, V2, V3 intact bilaterally VII: facial movements symmetrical and with appropriate strength, no facial droop , no slurring of speech VIII: hearing grossly intact bilaterally IX, X: palate elevates symmetrically in the midline, no uvular deviation XI: 5/5 strength in the SCM, 5/5 shoulder shrug XII: tongue protrudes in the midline Sensation: normal sensation BUE and BLE. Decreased proprioception in left great toe. Proprioception intact bilateral 2nd fingers and right great toe. Strength: 5/5 bilaterally in the interossei, biceps, triceps, deltoids, hip flexors, in foot plantar flexion and dorsiflexion. Quadriceps strength not tested as patient did not want to get out of bed. Reflexes 2+ patellar, brachioradialis, biceps bilaterally. Achilles reflex not tested. Babinski is downgoing bilaterally. Cerebellar: fine resting tremor right 2nd finger that disappears with activity. Slow but deliberate finger to nose, heel to [place] and rapid alternating movements with no ataxia. Likely due to poor vision than cerebellar deficit. No pronator drift. Proprioception intact bilateral second fingers and Right first toe. Left first toe exhibited lack of accurate proprioception. Tremor of 2nd right finger noted on proprioception exam. Diagnostics Laboratory Results Results Past 24 Hours Test 07/06/16 19:04 07/06/16 19:55 07/06/16 22:26 07/07/16 03:21 Range/Units White Blood Count 7.76 4.8-10.8 K/uL Red Blood Count 3.68 4.2-5.4 M/uL Hemoglobin 11.5 12.0-16.0 g/dL Hematocrit 34.7 37-47 % Mean Corpuscular Volume 94.3 80-100 fL Mean Corpuscular Hemoglobin 31.3 25-34 pg Mean Corpuscular Hemoglobin Concent 33.1 32-36 g/dl Platelet Count 364 130-400 K/uL Mean Platelet Volume 9.7 7.4-10.4 fL Neutrophils (%) (Auto) 52.1 % Lymphocytes (%) (Auto) 34.8 % Monocytes (%) (Auto) 10.1 % Eosinophils (%) (Auto) 2.2 % Basophils (%) (Auto) 0.4 % Neutrophils # (Auto) 4.05 1.4-6.5 K/uL Lymphocytes # (Auto) 2.70 1.2-3.4 K/uL Monocytes # (Auto) 0.78 0.11-0.59 K/uL Eosinophils # (Auto) 0.17 0-0.5 K/uL Basophils # (Auto) 0.03 0-0.2 K/uL RDW Standard Deviation 50.9 36.4-46.3 fL RDW Coefficient of Variation 14.9 11.5-14.5 % Immature Granulocyte % (Auto) 0.4 % Immature Granulocyte # (Auto) 0.03 0.00-0.02 K/uL Sodium Level 141 136-145 mmol/L Potassium Level 4.4 3.5-5.1 mmol/L Chloride Level 106 98-107 mmol/L Carbon Dioxide Level 25 21-32 mmol/L Anion Gap 10.0 3-11 mmol/L Blood Urea Nitrogen 20 7-18 mg/dl Creatinine 1.20 0.60-1.20 mg/dl Est Creatinine Clear Calc Drug Dose 46.0 ml/min Estimated GFR () 49.8 Estimated GFR (Non- 43.0 BUN/Creatinine Ratio 16.6 10-20 Random Glucose 117 70-99 mg/dl Calcium Level 8.3 8.5-10.1 mg/dl Total Bilirubin 0.2 0.2-1 mg/dl Aspartate Amino Transf (AST/SGOT) 13 15-37 U/L Alanine Aminotransferase (ALT/SGPT) 22 12-78 U/L Alkaline Phosphatase 107 45-117 U/L Total Creatine Kinase 43 26-192 U/L Creatine Kinase MB 0.8 0.5-3.6 ng/ml Creatine Kinase MB Ratio 1.9 0-3.0 Troponin I 0.058 0-0.045 ng/ml Total Protein 7.6 6.4-8.2 gm/dl Albumin 3.2 3.4-5.0 gm/dl Globulin 4.4 2.5-4.0 gm/dl Albumin/Globulin Ratio 0.7 0.9-2 Thyroid Stimulating Hormone (TSH) 4.750 0.300-4.500 uIu/ml Free Thyroxine 1.08 0.80-1.60 ng/dl Bedside Glucose 132 119 70-90 mg/dl Urine Color YELLOW Urine Appearance CLEAR CLEAR Urine pH 5.0 4.5-7.5 Urine Specific [place] 1.018 1.000-1.030 Urine Protein NEG NEG Urine Glucose (UA) TRACE NEG Urine Ketones TRACE NEG Urine Occult Blood NEG NEG Urine Nitrite NEG NEG Urine Bilirubin NEG NEG Urine Urobilinogen NEG NEG Urine Leukocyte Esterase SMALL NEG Urine WBC (Auto) 10-30 0-5 /hpf Urine RBC (Auto) 0-4 0-4 /hpf Urine Hyaline Casts (Auto) 5-10 0-5 /lpf Urine Epithelial Cells (Auto) >30 0-5 /lpf Urine Bacteria (Auto) NEG NEG Urine Renal Epithelial Cells 0-5 0-5 /lpf Test 07/07/16 06:24 07/07/16 07:35 Range/Units Bedside Glucose 130 70-90 mg/dl White Blood Count 6.49 4.8-10.8 K/uL Red Blood Count 3.43 4.2-5.4 M/uL Hemoglobin 10.4 12.0-16.0 g/dL Hematocrit 32.3 37-47 % Mean Corpuscular Volume 94.2 80-100 fL Mean Corpuscular Hemoglobin 30.3 25-34 pg Mean Corpuscular Hemoglobin Concent 32.2 32-36 g/dl RDW Standard Deviation 51.3 36.4-46.3 fL RDW Coefficient of Variation 15.1 11.5-14.5 % Platelet Count 281 130-400 K/uL Mean Platelet Volume 9.3 7.4-10.4 fL Prothrombin Time 10.8 9.0-12.0 SECONDS Prothromb Time International Ratio 1.0 0.9-1.1 Activated Partial Thromboplast Time 24.8 21.0-31.0 SECONDS Partial Thromboplastin Ratio 1.0 Microbiology Results 07/06/16 Blood Culture, Received Pending 07/06/16 Blood Culture, Received Pending 07/06/16 Urine Culture, Received Pending Diagnostic Radiology SINGLE VIEW CHEST CLINICAL HISTORY: Generalized weakness. Confusion. FINDINGS: An AP, portable, upright chest radiograph is compared to study dated 06/17/2016 and correlated with chest CT dated 05/31/2015. The examination is degraded by portable technique, apical lordotic positioning, large body habitus, and patient rotation. The heart is enlarged and there is atherosclerotic calcification of the thoracic aorta. The pulmonary vasculature is noncongested. A hiatal hernia is again noted. There are low lung volumes with chronic elevation of the right hemidiaphragm and associated atelectasis. Linear atelectasis versus scar is noted in the left lower lung. There is no airspace consolidation typical for pneumonia or large pleural effusion. No pneumothorax is seen. The bony thorax is grossly intact. Fusion hardware is partially imaged in the lumbar spine. Posterior matter deformity and postoperative change is seen in the right proximal humerus. IMPRESSION: 1. Low lung volumes and chronic parenchymal changes as above. No acute cardiopulmonary abnormality is seen. There has been no significant change from 06/17/2016. 2. Cardiomegaly and hiatal hernia. Electronically signed by: Ender Grimaldo M.D. 07/06/2016 9:[address] SCAN OF THE BRAIN WITHOUT IV CONTRAST CLINICAL HISTORY: Change in mental status. COMPARISON STUDY: CT of the brain dated 06/17/16. TECHNIQUE: Unenhanced axial CT scan of the brain is performed from the vertex to the skull base. CT DOSE: 537.48 mGy.cm FINDINGS: Brain parenchyma: There are chronic bifrontal and right occipital infarcts. There are age-related involutional changes noting moderate to advanced subcortical and periventricular microangiopathic change. Small chronic lacunar infarcts are identified in the basal ganglia and the cerebellar hemispheres. There is no hemorrhage, mass effect, or evidence of acute territorial ischemia by CT criteria. Holden-white matter is preserved. No extra-axial fluid collection is seen. Ventricles, sulci, cisterns: Prominent secondary to involutional change. Intracranial vasculature: There is atherosclerotic calcification of the cavernous carotid and vertebral arteries. Calvarium: Unremarkable. Sinuses and mastoids: Trace mucosal thickening is present in the sphenoid sinuses. The remaining visualized paranasal sinuses are clear. The mastoid air cells are well pneumatized. Orbits: The bony orbits are grossly intact. There are bilateral ocular lens implants. IMPRESSION: Senescent changes and remote infarcts as above. There is no hemorrhage, mass effect, or evidence of acute territorial ischemia by CT criteria. There has been no significant change from 06/17/2016. Electronically signed by: Ender Grimaldo M.D. 07/06/2016 9:48 PM ULTRASOUND OF THE CAROTID ARTERIES CLINICAL HISTORY: TIA, high risk for stroke COMPARISON STUDY: 02/26/2015 TECHNIQUE: Real-time, grayscale, and color Doppler sonography of the carotid arteries was performed. Imaging reviewed in the transverse and longitudinal planes. NASCET criteria was utilized for stenosis calcification. FINDINGS: There is extensive shadowing atherosclerotic plaque present bilaterally, but most pronounced at the level of the right carotid bulb.. The peak systolic velocity within the right internal carotid artery is 78 cm/sec. The systolic velocity ratio of right internal to common carotid artery is 1.8. The peak systolic velocity within the left internal carotid artery is 84 cm/sec. The systolic velocity ratio left internal to common carotid artery is 1.2. Antegrade flow is seen in the vertebral arteries. The external carotid arteries are patent. Blood pressure in the right arm measured 157 mm/Hg. Blood pressure in the left arm measured 128 mm/Hg. IMPRESSION: 1. Study limited secondary to extensive shadowing atheromatous plaque 2. No evidence of hemodynamically significant stenosis by velocity criteria 3. Differential subclavian systolic pressures measure 157 mmHg in the right and 120 mmHg on the left. Electronically signed by: Isaac Gan M.D. 07/07/2016 7:03 AM Impression Assessment and Plan Assessment: This is a 80yo female with a history of CVA, DM and CAD who presented to the ED on 07/06/16 with AMS, right arm weakness and slurred speech which resolved in about 60 minutes. Today she is returned to baseline. Possible etiologies include TIA, CVA, focal seizure, hypoglycemia and UTI. ABCD2 score: 5 points with 2-day risk 4.1%, 7-day risk 5.9%, 90-day risk 9.8% Plan: AMS and acute neurologic symptoms: TIA, CVA, focal seizure, UTI and hypoglycemia are all possible. * UTI is possible as patient had trace leukocyte esterase on UA. Patient denies dysuria or constitutional symptoms. * Hypoglycemia is less likely as BSG was 77 in ED and there was FND during this episode. * Focal seizure is possible as patient had a previous CVA on the same (right) side in 2014. * CVA is possible though initial CT in ED was negative for acute changes. However, there were signs of previous infarcts. No afib on telemetry overnight. Carotid doppler reported difficult study due to shadowing. * TIA is most likely at this point given the brief (1 hour) duration of her symptoms and lack of evidence for CVA on imaging thus far. Recommendations: Brain MRI--pending Echocardiogram to r/o cardioembolic source--pending EEG to look for focal seizure activity given hx of CVA on same side of brain MRA of head and neck to further characterize the nature of her arteries, especially given inconclusive carotid doppler study PT/OT evaluation Speech therapy to evaluation dysphagia Continued management of CVA risk factors: * Tight blood sugar and blood pressure control. Patient will need review of medications and lantus insulin. * Add PO aspirin in addition to patient's plavix * Continue atorvastatin 80mg Cardiology f/u as outpatient for placement of Holter monitor to r/o arrhythmias Neurology attending addendum: Patient was seen and evaluated with medical student. Please see my separate neurology consult note for full evaluation and recommendations. -Susanna Beaulieu, DO Level of Care Telemetry Advanced Directives Existing Advance Directive: Yes Resuscitation Status DO NOT RESUSCITATE DVT Prophylaxis enoxaparin (Lovenox) SQ Social Service Consult None Apply
[2016-07-07 08:23] LABS: ALB/GLOB RATIO 0.7 (0.9-2); CHOLESTEROL/HDL RATIO 2.1
[2016-07-07] MEDS ORDERED: INSULIN GLARGINE SOLOSTAR 100 UNITS/ML 3 ML PEN SC SCH (09:00)
[2016-07-07 09:30] LABS: ESTIMATED AVERAGE GLUCOSE 180 mg/dl; HA1C FLAG Normal (Normal)
--- NOTE | 2016-07-07 09:32 | Neurology Consultation ---
Neurology Consultation Date of Consultation: Jul 07, 2016. Attending Physician: Freddy Suresh MD Primary Care Physician: Sae Arthur M.D. Reason for Consultation: Consultation for TIA History of Present Illness Source: patient, hospital records This is a 80-year-old right-handed female who presents with acute episode of confusion, and reports of right upper extremity weakness, stiffness, and slurred speech. Reportedly similar to her "stroke" in 2014. Upon review of records from that time, the patient was seen by myself and Dr. Hayes in hospital consultation. Her TIA/stroke workup was unremarkable and it was believed that her acute encephalopathy was likely secondary to UTI and hospital delirium with no signs of acute stroke. Of focal deficits of right upper extremity weakness and facial droop had been seen in the past and was likely indicative of old stroke symptoms made worse by UTI. At that time the patient also did have a EFRAIN that was unremarkable except for some aortic valve calcified plaque. The patient was switched to Plavix for secondary stroke prevention. This morning the patient reports that she doesn't quite feel right in the head, but otherwise has difficulty giving her own history in detail. History is somewhat limited due to her mental status. When I saw her in 2014 I did note residual cognitive deficits and mixed aphasia. Patient reports that she had a headache yesterday but denies any headache today. She also reports feeling lightheaded yesterday like she might pass out. Patient denies any new numbness or weakness. Denies any new loss of vision. Family is not present this morning to confirm history. According to previous notes family believes that she was back to her baseline upon admission. Most of her cholesterol panel is pending, but total cholesterol did come back at 99, and triglycerides is 113. LDL and HDL are pending. Hemoglobin A1c is pending. Ultrasound of the carotids had some technical difficulty MRI of the brain is pending Past Medical/Surgical History Medical Problems: (1) Dehydration Status: Acute (2) Hypocalcemia Status: Acute (3) Hypokalemia Status: Acute (4) Hypomagnesemia Status: Acute (5) Kidney stone Status: Acute (6) Prolonged Q-T interval on ECG Status: Acute (7) Stroke-like symptoms Status: Acute (8) TIA (transient ischemic attack) Status: Acute Hypertension Diabetes, on insulin Hypothyroidism with a chronic lymphocytic thyroiditis. She is post-left thyroidectomy for a large goiter in February 2011 Chronic lumbar spondylosis resulting in spinal stenosis post 4 lumbar spine procedures as listed above Coronary artery disease Asthma Osteoarthritis Diabetic foot ulcer of the left third toe requiring hyperbaric oxygen treatment , 2014 Previous evidence of multiple ischemic territory strokes on MRI in 2014 with a history of right facial droop and arm weakness, and residual cognitive (likely vascular dementia) and mixed aphasia. Post-tonsillectomy, hysterectomy, cataract surgery, cholecystectomy, and right knee arthroscopically for torn medial meniscus Patient had a right laser cordotomy for vocal cord paralysis in November 2011 Family History Patient's mother age 77 of heart problems. Patient's father somewhere in his 70s for heart problems as well Social History Remote history of smoking. No alcohol use. Lives with her daughter. Smoking Status: Former smoker Drug Use: none Marital Status: Housing Status: lives with family Occupation Status: retired Allergies Coded Allergies: Latex1 -Allergic Contact Dermititis (Verified Allergy, Mild, RASH, 06/17/16 ) Adhesives (Verified Allergy, Unknown, RASH, 06/17/16) Codeine (Verified Adverse Reaction, Unknown, N&V, 06/17/16) Morphine (Verified Adverse Reaction, Unknown, N&V, 06/17/16) Current Inpatient Medications Current Inpatient Medications Medications (Trade) Dose Ordered Sig/Pio Route Start Time Stop Time Status Last Admin Dose Admin Acetaminophen (Tylenol Tab) 650 mg Q4H PRN PO 07/07/16 00:00 08/06/16 00:00 Glucose (Glucose 40% Gel) 15-30 GRAMS 15 GRAMS... UD PRN PO 07/07/16 00:00 08/06/16 00:00 Glucose (Glucose Chew Tab) 4-8 Tablets 4 Tabl... UD PRN PO 07/07/16 00:00 08/06/16 00:00 Dextrose (Dextrose 50% 50ML Syringe) 25-50ML OF 50% DW IV FOR... UD PRN IV 07/07/16 00:00 08/06/16 00:00 Glucagon (Glucagon Inj) 1 mg UD PRN SQ 07/07/16 00:00 08/06/16 00:00 Atorvastatin Calcium (Lipitor Tab) 80 mg HS PO 07/07/16 21:00 08/06/16 20:59 Clopidogrel Bisulfate (plAVix TAB) 75 mg QAM PO 07/07/16 09:00 08/06/16 08:59 07/07/16 07:55 75 MG Docusate Sodium (coLACE CAP) 100 mg BID PRN PO 07/07/16 00:00 08/06/16 00:00 Escitalopram Oxalate (Lexapro Tab) 10 mg QAM PO 07/07/16 09:00 08/06/16 08:59 07/07/16 07:53 10 MG Salmeterol Xinafoate/ Fluticasone (Advair Diskus 100/50 Inh) 1 puff BID INH 07/07/16 09:00 08/06/16 08:59 07/07/16 07:52 1 PUFF Gabapentin (Neurontin Cap) 100 mg BID PO 07/07/16 09:00 08/06/16 08:59 07/07/16 07:55 100 MG Levothyroxine Sodium (Synthroid Tab) 75 mcg DAILYBB PO 07/07/16 06:00 08/06/16 05:59 07/07/16 06:12 75 MCG Magnesium Oxide (Mag-Ox Tab) 400 mg BID PO 07/07/16 09:00 08/06/16 08:59 07/07/16 07:54 400 MG Multivitamins (Multivitamin Tab) 1 tab QAM PO 07/07/16 09:00 08/06/16 08:59 07/07/16 07:54 1 TAB Nitroglycerin (Nitrostat Tab) 0.4 mg PRN UT 07/07/16 00:00 08/06/16 00:00 Tolterodine Tartrate (Detrol LA Cap) 4 mg DAILY PO 07/07/16 09:00 08/06/16 08:59 07/07/16 07:53 4 MG Miscellaneous Information (Order Awaiting Action) 1 ea QS N/A 07/07/16 08:00 08/06/16 07:59 Hydrocortisone (Hydrocortisone 2.5% Crm) 1 appln BID PRN EXT 07/07/16 00:00 08/06/16 00:00 Insulin Aspart (novoLOG ASPART) SLIDING SCALE G... Q6H SC 07/07/16 06:00 08/06/16 05:59 Aspirin (Ecotrin Tab) 81 mg QAM PO 07/07/16 09:00 08/06/16 08:59 07/07/16 07:53 81 MG Enoxaparin Sodium (Lovenox Inj) 40 mg QAM SQ 07/07/16 09:00 08/06/16 08:59 07/07/16 07:55 40 MG Insulin Glargine (Lantus Solostar Pen) 17 unit BID SC 07/07/16 21:00 08/06/16 20:59 Review of Systems Complete review of systems is otherwise negative except for the above noted in history of present illness Physical Exam Vital Signs (Past 24 Hrs): Date Time Temp Pulse Resp B/P Pulse Ox O2 Delivery O2 Flow Rate FiO2 07/07/16 08:00 Room Air 07/07/16 08:00 36.7 68 18 138/76 99 Room Air 07/07/16 03:30 Room Air 07/07/16 03:30 36.6 70 15 110/77 94 Room Air 07/07/16 01:30 36.6 68 18 136/75 99 Room Air 07/07/16 00:23 36.6 61 18 126/81 97 07/07/16 00:08 61 18 126/81 97 Room Air 07/06/16 22:57 67 18 97 07/06/16 22:27 71 13 07/06/16 22:15 126/71 07/06/16 22:15 72 16 126/71 98 Room Air 07/06/16 21:27 71 12 98 07/06/16 20:57 70 12 98 07/06/16 20:27 70 17 98 07/06/16 19:57 73 18 07/06/16 19:38 74 07/06/16 19:37 36.6 75 18 133/67 97 Room Air 07/06/16 19:32 133/67 Gen.: Patient is alert and oriented in no acute distress lying in bed Heart: Regular rate and rhythm Extremities: No gross deformities or rashes noted Neurological examination: Mental status: Patient is alert and oriented to person and place. Attention concentration normal for the situation. History of limited Speech is fluent without any dysarthria or aphasia noted. Speech is sparse and patient appears mildly confused. Cranial nerves: Funduscopic examination was difficult to visualize but no papilledema seen. Visual field testing was inconsistent with counting, but grossly appeared to be intact. Pupils equally round and reactive to light. Extraocular muscles intact without nystagmus. No facial asymmetry noted. Facial sensation intact. Tongue midline. Good palatal elevation. Good shoulder shrug bilaterally. Hearing grossly intact voice. Strength: 5/5 both proximal and distal in all extremities .Tone is normal. Sensation: Grossly intact to light touch in all extremities. No sensory extinction Deep tendon reflexes: +1 in bilateral biceps and patellar. Toes are downgoing to plantar stimulation bilaterally Coordination: Patient has good finger to nose without dysmetria Station within the bed is normal. Laboratory Results Past 24 Hours: 07/07/16 07:35 07/07/16 07:35 Test 07/06/16 19:04 07/06/16 22:26 07/07/16 06:24 07/07/16 07:35 Immature Granulocyte % (Auto) 0.4 % White Blood Count 7.76 K/uL (4.8-10.8) Red Blood Count 3.68 M/uL (4.2-5.4) 3.43 M/uL (4.2-5.4) Hemoglobin 11.5 g/dL (12.0-16.0) Hematocrit 34.7 % (37-47) Mean Corpuscular Volume 94.3 fL (80-100) 94.2 fL (80-100) Mean Corpuscular Hemoglobin 31.3 pg (25-34) 30.3 pg (25-34) Mean Corpuscular Hemoglobin Concent 33.1 g/dl (32-36) 32.2 g/dl (32-36) Platelet Count 364 K/uL (130-400) Mean Platelet Volume 9.7 fL (7.4-10.4) 9.3 fL (7.4-10.4) Neutrophils (%) (Auto) 52.1 % Lymphocytes (%) (Auto) 34.8 % Monocytes (%) (Auto) 10.1 % Eosinophils (%) (Auto) 2.2 % Basophils (%) (Auto) 0.4 % Neutrophils # (Auto) 4.05 K/uL (1.4-6.5) Lymphocytes # (Auto) 2.70 K/uL (1.2-3.4) Monocytes # (Auto) 0.78 K/uL (0.11-0.59) Eosinophils # (Auto) 0.17 K/uL (0-0.5) Basophils # (Auto) 0.03 K/uL (0-0.2) Immature Granulocyte # (Auto) 0.03 K/uL (0.00-0.02) Total Creatine Kinase 43 U/L (26-192) Creatine Kinase MB 0.8 ng/ml (0.5-3.6) Creatine Kinase MB Ratio 1.9 (0-3.0) Thyroid Stimulating Hormone (TSH) 4.750 uIu/ml (0.300-4.500) Free Thyroxine 1.08 ng/dl (0.80-1.60) Urine Color YELLOW Urine Appearance CLEAR (CLEAR) Urine pH 5.0 (4.5-7.5) Urine Specific [place] 1.018 (1.000-1.030) Urine Protein NEG (NEG) Urine Glucose (UA) TRACE (NEG) Urine Ketones TRACE (NEG) Urine Occult Blood NEG (NEG) Urine Nitrite NEG (NEG) Urine Bilirubin NEG (NEG) Urine Urobilinogen NEG (NEG) Urine Leukocyte Esterase SMALL (NEG) Urine WBC (Auto) 10-30 /hpf (0-5) Urine RBC (Auto) 0-4 /hpf (0-4) Urine Hyaline Casts (Auto) 5-10 /lpf (0-5) Urine Epithelial Cells (Auto) >30 /lpf (0-5) Urine Bacteria (Auto) NEG (NEG) Urine Renal Epithelial Cells 0-5 /lpf (0-5) Bedside Glucose 130 mg/dl (70-90) RDW Standard Deviation 51.3 fL (36.4-46.3) RDW Coefficient of Variation 15.1 % (11.5-14.5) Prothrombin Time 10.8 SECONDS (9.0-12.0) Prothromb Time International Ratio 1.0 (0.9-1.1) Activated Partial Thromboplast Time 24.8 SECONDS (21.0-31.0) Partial Thromboplastin Ratio 1.0 Anion Gap 10.0 mmol/L (3-11) Est Creatinine Clear Calc Drug Dose 52.9 ml/min Estimated GFR () 62.1 Estimated GFR (Non- 53.5 BUN/Creatinine Ratio 17.8 (10-20) Calcium Level 8.2 mg/dl (8.5-10.1) Total Bilirubin 0.4 mg/dl (0.2-1) Aspartate Amino Transf (AST/SGOT) 12 U/L (15-37) Alanine Aminotransferase (ALT/SGPT) 18 U/L (12-78) Alkaline Phosphatase 100 U/L (45-117) Troponin I 0.064 ng/ml (0-0.045) Total Protein 6.7 gm/dl (6.4-8.2) Albumin 2.8 gm/dl (3.4-5.0) Globulin 3.9 gm/dl (2.5-4.0) Albumin/Globulin Ratio 0.7 (0.9-2) Triglycerides Level 113 mg/dl (0-150) Cholesterol Level 99 mg/dl (0-200) HDL Cholesterol 47 mg/dl LDL Cholesterol, Calculated 29 mg/dl VLDL Cholesterol, Calculated 23 mg/dl Cholesterol/HDL Ratio 2.1 Impression 80-year-old female who presents with reported episodes of acute confusion, right upper extremity weakness and stiffening, slurred speech, reportedly similar to her episode in 2015 which was felt to be acute encephalopathy/ delirium secondary to UTI. Differential diagnosis for current episode includes new ischemic stroke versus focal seizure versus acute encephalopathy from other medical causes (like metabolic derangements, infection or dehydration). Known stroke risk factor includes multi ischemic territory strokes in the past ( with residual history of right facial and upper extremity weakness, vascular dementia, mixed aphasia), diabetes on insulin, and hypertension. Although the patient is on a statin currently it is not clear to me if she has primary dyslipidemia versus being on a statin for stroke and heart attack prevention. Plan Since there is a concern for possible TIA, recommend a repeat TIA/stroke workup. Agree with addition of aspirin to Plavix for now I have added on MRA of the head and neck to rule out critical stenosis in addition to the patient's already ordered MRI of the brain I have ordered echocardiogram for further TIA/stroke workup for cardioembolic sources of stroke Follow-up hemoglobin A1c and lipid profile for stroke risk factor modifications I've ordered an EEG for further evaluation of possible seizure etiology to acute encephalopathy Agree with speech therapy. In addition patient also needs PT and OT ordered. permissive hypertension for now. Avoid dehydration Neurological recommendations for stroke risk factor modifications: Total cholesterol goal 100-200, and LDL goal less than 100 (avoid lowering total cholesterol less than 100 as this can increase risk for intracranial hemorrhage.) Hemoglobin A1c goal less than 7 Encourage regular cardiovascular exercise at least 30 minutes 3 times per week Patient will need follow-up in neurology clinic in approximately 1 month. If Hospital workup is unremarkable, may need to consider a Holter monitor as an outpatient for further evaluation of cardiac arrhythmias versus A. fib. Thank you for allowing me to participate in this patient's care. If there is any questions or concerns, feel free to call/page me
--- NOTE | 2016-07-07 11:07 | EEG Procedure Note ---
EEG Procedure Note Date of Service Jul 07, 2016. Start / End Times Start Time: 9:30 AM End Time: 9:51 AM Referring Physician Susanna Beaulieu History This is a 80-year-old female who presents with acute encephalopathy and reports of slurred speech and right upper extremity weakness. EEG for further evaluation of possible seizure etiology. Home Medication List Scheduled Atorvastatin (Lipitor), 80 MG PO HS Clopidogrel (Plavix), 75 MG PO QAM Cyclosporine (Ophth) (Restasis), 1 DROP OP BID Escitalopram Oxalate (Lexapro), 10 MG PO QAM Fluticasone Prop/Salmeterol (Advair Diskus 100/50 60 Dose), 1 PUFF INH BID Gabapentin (Neurontin), 100 MG PO BID Insulin Aspart (Novolog), INJ ACHS Insulin Glargine (Lantus), 20 SC AMPM Levothyroxine Sodium (Levothyroxine Sodium), 75 MCG PO QAM Magnesium Oxide (Magnesium-Oxide), 400 MG PO BID Multiple Vitamin (Multi Vitamin Daily), 1 TAB PO QAM Nitroglycerin (Nitrostat), 0.4 MG UT PRN Ramipril (Ramipril), 1 CAP PO DAILY Tolterodine Tartrate (Detrol LA), 1 CAP PO DAILY Scheduled PRN Docusate Sodium (Colace), 1 CAP PO for Constipation Hydrocortisone (Topical) (Hydrocortisone), 1 APPLN TOP BID PRN for PRN Inpatient Medication List Current Inpatient Medications Medications (Trade) Dose Ordered Sig/Pio Route Start Time Stop Time Status Last Admin Dose Admin Acetaminophen (Tylenol Tab) 650 mg Q4H PRN PO 07/07/16 00:00 08/06/16 00:00 Glucose (Glucose 40% Gel) 15-30 GRAMS 15 GRAMS... UD PRN PO 07/07/16 00:00 08/06/16 00:00 Glucose (Glucose Chew Tab) 4-8 Tablets 4 Tabl... UD PRN PO 07/07/16 00:00 08/06/16 00:00 Dextrose (Dextrose 50% 50ML Syringe) 25-50ML OF 50% DW IV FOR... UD PRN IV 07/07/16 00:00 08/06/16 00:00 Glucagon (Glucagon Inj) 1 mg UD PRN SQ 07/07/16 00:00 08/06/16 00:00 Atorvastatin Calcium (Lipitor Tab) 80 mg HS PO 07/07/16 21:00 08/06/16 20:59 Clopidogrel Bisulfate (plAVix TAB) 75 mg QAM PO 07/07/16 09:00 08/06/16 08:59 07/07/16 07:55 75 MG Docusate Sodium (coLACE CAP) 100 mg BID PRN PO 07/07/16 00:00 08/06/16 00:00 Escitalopram Oxalate (Lexapro Tab) 10 mg QAM PO 07/07/16 09:00 08/06/16 08:59 07/07/16 07:53 10 MG Salmeterol Xinafoate/ Fluticasone (Advair Diskus 100/50 Inh) 1 puff BID INH 07/07/16 09:00 08/06/16 08:59 07/07/16 07:52 1 PUFF Gabapentin (Neurontin Cap) 100 mg BID PO 07/07/16 09:00 08/06/16 08:59 07/07/16 07:55 100 MG Levothyroxine Sodium (Synthroid Tab) 75 mcg DAILYBB PO 07/07/16 06:00 08/06/16 05:59 07/07/16 06:12 75 MCG Magnesium Oxide (Mag-Ox Tab) 400 mg BID PO 07/07/16 09:00 08/06/16 08:59 07/07/16 07:54 400 MG Multivitamins (Multivitamin Tab) 1 tab QAM PO 07/07/16 09:00 08/06/16 08:59 07/07/16 07:54 1 TAB Nitroglycerin (Nitrostat Tab) 0.4 mg PRN UT 07/07/16 00:00 08/06/16 00:00 Tolterodine Tartrate (Detrol LA Cap) 4 mg DAILY PO 07/07/16 09:00 08/06/16 08:59 07/07/16 07:53 4 MG Miscellaneous Information (Order Awaiting Action) 1 ea QS N/A 07/07/16 08:00 08/06/16 07:59 Hydrocortisone (Hydrocortisone 2.5% Crm) 1 appln BID PRN EXT 07/07/16 00:00 08/06/16 00:00 Insulin Aspart (novoLOG ASPART) SLIDING SCALE G... Q6H SC 07/07/16 06:00 08/06/16 05:59 Aspirin (Ecotrin Tab) 81 mg QAM PO 07/07/16 09:00 08/06/16 08:59 07/07/16 07:53 81 MG Enoxaparin Sodium (Lovenox Inj) 40 mg QAM SQ 07/07/16 09:00 08/06/16 08:59 07/07/16 07:55 40 MG Insulin Glargine (Lantus Solostar Pen) 17 unit BID SC 07/07/16 21:00 08/06/16 20:59 Description This is a 21 electrode EEG with a single channel dedicated to limited EKG. The electrodes were placed in accordance with the International 10-20 system. At the start of the recording the patient was in an awake state. Background was poorly organized with a poorly formed anterior to posterior gradient. Background was composed of symmetric moderate amplitude predominantly 6-7 Hz theta frequencies with intermixed alpha and beta frequencies. Hyperventilation was not done. Intermittent photic stimulation at various frequencies produced no abnormalities. Sleep was indicated by symmetric sleep spindles. Interpretation This is an abnormal routine EEG secondary to mild to moderate background disorganization and slowing. There was no electrographic seizures or epileptiform discharges. Clinical Correlation This EEG indicates a mild to moderate diffuse encephalopathy of nonspecific etiology.
[2016-07-07] MEDS ORDERED: NURSING VERBAL MED ORDER ONE (11:15)
[2016-07-07] MEDS: INSULIN ASPART 100 UNITS/ML 3 ML PEN SC SCH ×3 (12:13→20:40)
[2016-07-07] MEDS ORDERED: GADAVIST IV PRN (16:45)
--- NOTE | 2016-07-07 16:45 | DIAGNOSTIC IMAGING REPORT ---
MR ANGIOGRAM OF THE BRAIN CLINICAL HISTORY: Transient ischemic attack. COMPARISON STUDY: MRI of the brain performed concurrently on 07/07/2016. TECHNIQUE: 3-D [id number] MR angiography of the intracranial circulation is performed. 3-D tumble views are created and assessed. IV contrast was not administered for this examination. The examination is modestly degraded by motion artifact. FINDINGS: There is origin of the right posterior cerebral artery. The right A1 segment is diminutive. The internal carotid arteries are widely patent bilaterally, as are the anterior and middle cerebral arteries. The vertebrobasilar system and posterior cerebral arteries are widely patent. The left vertebral artery is dominant. There is no aneurysm, high-grade stenosis, or focal vessel cutoff seen throughout the intracranial circulation. Chronic bilateral infarcts are noted. IMPRESSION: Unremarkable MR angiogram of the brain. Electronically signed by: Ender Grimaldo M.D. 07/07/2016 4:43 PM Dictated Date/Time: 07/07/2016 4:41 PM
--- NOTE | 2016-07-07 17:03 | DIAGNOSTIC IMAGING REPORT ---
MRI OF THE BRAIN WITHOUT AND WITH IV CONTRAST CLINICAL HISTORY: TIA, ?new infarcts mental status change COMPARISON STUDY: No previous studies for comparison. TECHNIQUE: Utilizing a 1.5 [place] magnet and dedicated coil, multiplanar, multiecho imaging of the brain was performed pre and postcontrast administration. IV administration of 10.5 mL of Gadavist contrast was uneventful. FINDINGS: 1. No evidence for an acute ischemic event. Generalized cerebellar as well as cerebral atrophy. Multifocal old parenchymal infarct. Considerable chronic small vessel change of aging. No significant postcontrast enhancement. IMPRESSION: 1. No acute ischemic process. 2. Considerable chronic small vessel change, multiple old infarcts bilaterally. Electronically signed by: Phillip Marion M.D. 07/07/2016 5:02 PM Dictated Date/Time: 07/07/2016 5:00 PM
--- NOTE | 2016-07-07 17:06 | DIAGNOSTIC IMAGING REPORT ---
NECK MRA HISTORY: Mental status change TIA TECHNIQUE: [id number] and gadolinium-enhanced MRA of the neck was performed both before and after the intravenous administration of contrast. All measurements were calculated based on NASCET criteria. COMPARISON STUDY: None. FINDINGS: The aortic arch and proximal great vessels are widely patent. R significant plaque formation throughout the carotid systems bilaterally. A significant and/or high-grade stenotic process is not seen. Vertebral basilar system shows no significant stenotic process. IMPRESSION: 1. Considerable atherosclerotic change throughout the carotid and to lesser extent vertebral basilar systems. 2. No evidence for significant or high-grade stenotic process. Electronically signed by: Phillip Marion M.D. 07/07/2016 5:05 PM Dictated Date/Time: 07/07/2016 5:03 PM
--- NOTE | 2016-07-07 17:38 | Family Medicine Progress Note ---
Progress Note Date of Service Jul 07, 2016. Subjective Pt evaluation today including: conversation w/ patient, physical exam, lab review Pain: Denies Patient was seen at the bedside. She was resting comfortably on the bed. She was able to tell where she is, which hospital, her full name and date of . Couldn't the month or the year. She couldn't recall the event from yesterday. She denied any weakness or numbness of the extremities. Denies SOB, chest pain, headache, dizziness, lightheadedness, nausea, vomiting, dysphagia, slurred speech or any other additional complaints. Later in the afternoon when I visited her again, her daughter was present in the room. She states that at home she usually waxes and weans. Whenever there is big gathering of people, she gets confused. Constitutional: No fever, No weakness, No weight loss Respiratory: No cough, No dyspnea at rest, No dyspnea on exertion, No shortness of breath, No sputum, No wheezing Cardiovascular: No chest pain, No edema Abdomen: No diarrhea, No nausea, No pain, No vomiting Female : No dysuria Neurologic: + memory loss (she couldn't recall the event from yesterday), No numbness/tingling, No paralysis, No vertigo, No weakness Skin: No rash Medications Current Inpatient Medications Medications (Trade) Dose Ordered Sig/Pio Route Start Time Stop Time Status Last Admin Dose Admin Acetaminophen (Tylenol Tab) 650 mg Q4H PRN PO 07/07/16 00:00 08/06/16 00:00 Glucose (Glucose 40% Gel) 15-30 GRAMS 15 GRAMS... UD PRN PO 07/07/16 00:00 08/06/16 00:00 Glucose (Glucose Chew Tab) 4-8 Tablets 4 Tabl... UD PRN PO 07/07/16 00:00 08/06/16 00:00 Dextrose (Dextrose 50% 50ML Syringe) 25-50ML OF 50% DW IV FOR... UD PRN IV 07/07/16 00:00 08/06/16 00:00 Glucagon (Glucagon Inj) 1 mg UD PRN SQ 07/07/16 00:00 08/06/16 00:00 Atorvastatin Calcium (Lipitor Tab) 80 mg HS PO 07/07/16 21:00 08/06/16 20:59 Clopidogrel Bisulfate (plAVix TAB) 75 mg QAM PO 07/07/16 09:00 08/06/16 08:59 07/07/16 07:55 75 MG Docusate Sodium (coLACE CAP) 100 mg BID PRN PO 07/07/16 00:00 08/06/16 00:00 Escitalopram Oxalate (Lexapro Tab) 10 mg QAM PO 07/07/16 09:00 08/06/16 08:59 07/07/16 07:53 10 MG Salmeterol Xinafoate/ Fluticasone (Advair Diskus 100/50 Inh) 1 puff BID INH 07/07/16 09:00 08/06/16 08:59 07/07/16 07:52 1 PUFF Gabapentin (Neurontin Cap) 100 mg BID PO 07/07/16 09:00 08/06/16 08:59 07/07/16 07:55 100 MG Levothyroxine Sodium (Synthroid Tab) 75 mcg DAILYBB PO 07/07/16 06:00 08/06/16 05:59 07/07/16 06:12 75 MCG Magnesium Oxide (Mag-Ox Tab) 400 mg BID PO 07/07/16 09:00 08/06/16 08:59 07/07/16 07:54 400 MG Multivitamins (Multivitamin Tab) 1 tab QAM PO 07/07/16 09:00 08/06/16 08:59 07/07/16 07:54 1 TAB Nitroglycerin (Nitrostat Tab) 0.4 mg PRN UT 07/07/16 00:00 08/06/16 00:00 Tolterodine Tartrate (Detrol LA Cap) 4 mg DAILY PO 07/07/16 09:00 08/06/16 08:59 07/07/16 07:53 4 MG Hydrocortisone (Hydrocortisone 2.5% Crm) 1 appln BID PRN EXT 07/07/16 00:00 08/06/16 00:00 Aspirin (Ecotrin Tab) 81 mg QAM PO 07/07/16 09:00 08/06/16 08:59 07/07/16 07:53 81 MG Enoxaparin Sodium (Lovenox Inj) 40 mg QAM SQ 07/07/16 09:00 08/06/16 08:59 07/07/16 07:55 40 MG Insulin Glargine (Lantus Solostar Pen) 17 unit BID SC 07/07/16 21:00 08/06/16 20:59 Insulin Aspart (novoLOG ASPART) SLIDING SCALE G... ACHS SC 07/07/16 11:30 08/06/16 11:29 07/07/16 12:13 3 UNITS Cyclosporine (Restasis) 1 drops BID OP 07/07/16 21:00 08/06/16 20:59 Gadobutrol (Gadavist) 9.5 mmol UD PRN IV 07/07/16 16:45 07/11/16 16:44 UNV Objective Vital Signs Date Time Temp Pulse Resp B/P Pulse Ox O2 Delivery O2 Flow Rate FiO2 07/07/16 15:05 71 98 07/07/16 12:00 Room Air 07/07/16 11:47 36.4 72 16 149/83 97 Room Air 07/07/16 08:00 Room Air 07/07/16 08:00 36.7 68 18 138/76 99 Room Air 07/07/16 03:30 Room Air 07/07/16 03:30 36.6 70 15 110/77 94 Room Air 07/07/16 01:30 36.6 68 18 136/75 99 Room Air 07/07/16 00:23 36.6 61 18 126/81 97 07/07/16 00:08 61 18 126/81 97 Room Air 07/06/16 22:57 67 18 97 07/06/16 22:27 71 13 07/06/16 22:15 126/71 07/06/16 22:15 72 16 126/71 98 Room Air 07/06/16 21:27 71 12 98 07/06/16 20:57 70 12 98 07/06/16 20:27 70 17 98 07/06/16 19:57 73 18 07/06/16 19:38 74 07/06/16 19:37 36.6 75 18 133/67 97 Room Air 07/06/16 19:32 133/67 Physical Exam General Appearance: WD/WN, no apparent distress Neck: supple, trachea midline, + pertinent finding (carotid bruit noted b/l) Respiratory/Chest: chest non-tender, no respiratory distress, no accessory muscle use, + decreased breath sounds Cardiovascular: regular rate, rhythm, no edema, no murmur Abdomen: normal bowel sounds, non tender, soft Extremities: non-tender, no pedal edema, no calf tenderness Neurologic/Psychiatric: alert, normal mood/affect, + pertinent finding ( patient was able to tell where she is, her full name and , couldn't tell the month and year) Skin: normal color, warm/dry Laboratory Results Results Past 24 Hours Test 07/06/16 19:04 07/06/16 19:55 07/06/16 22:26 07/07/16 03:21 Range/Units White Blood Count 7.76 4.8-10.8 K/uL Red Blood Count 3.68 4.2-5.4 M/uL Hemoglobin 11.5 12.0-16.0 g/dL Hematocrit 34.7 37-47 % Mean Corpuscular Volume 94.3 80-100 fL Mean Corpuscular Hemoglobin 31.3 25-34 pg Mean Corpuscular Hemoglobin Concent 33.1 32-36 g/dl Platelet Count 364 130-400 K/uL Mean Platelet Volume 9.7 7.4-10.4 fL Neutrophils (%) (Auto) 52.1 % Lymphocytes (%) (Auto) 34.8 % Monocytes (%) (Auto) 10.1 % Eosinophils (%) (Auto) 2.2 % Basophils (%) (Auto) 0.4 % Neutrophils # (Auto) 4.05 1.4-6.5 K/uL Lymphocytes # (Auto) 2.70 1.2-3.4 K/uL Monocytes # (Auto) 0.78 0.11-0.59 K/uL Eosinophils # (Auto) 0.17 0-0.5 K/uL Basophils # (Auto) 0.03 0-0.2 K/uL RDW Standard Deviation 50.9 36.4-46.3 fL RDW Coefficient of Variation 14.9 11.5-14.5 % Immature Granulocyte % (Auto) 0.4 % Immature Granulocyte # (Auto) 0.03 0.00-0.02 K/uL Sodium Level 141 136-145 mmol/L Potassium Level 4.4 3.5-5.1 mmol/L Chloride Level 106 98-107 mmol/L Carbon Dioxide Level 25 21-32 mmol/L Anion Gap 10.0 3-11 mmol/L Blood Urea Nitrogen 20 7-18 mg/dl Creatinine 1.20 0.60-1.20 mg/dl Est Creatinine Clear Calc Drug Dose 46.0 ml/min Estimated GFR () 49.8 Estimated GFR (Non- 43.0 BUN/Creatinine Ratio 16.6 10-20 Random Glucose 117 70-99 mg/dl Calcium Level 8.3 8.5-10.1 mg/dl Total Bilirubin 0.2 0.2-1 mg/dl Aspartate Amino Transf (AST/SGOT) 13 15-37 U/L Alanine Aminotransferase (ALT/SGPT) 22 12-78 U/L Alkaline Phosphatase 107 45-117 U/L Total Creatine Kinase 43 26-192 U/L Creatine Kinase MB 0.8 0.5-3.6 ng/ml Creatine Kinase MB Ratio 1.9 0-3.0 Troponin I 0.058 0-0.045 ng/ml Total Protein 7.6 6.4-8.2 gm/dl Albumin 3.2 3.4-5.0 gm/dl Globulin 4.4 2.5-4.0 gm/dl Albumin/Globulin Ratio 0.7 0.9-2 Thyroid Stimulating Hormone (TSH) 4.750 0.300-4.500 uIu/ml Free Thyroxine 1.08 0.80-1.60 ng/dl Bedside Glucose 132 119 70-90 mg/dl Urine Color YELLOW Urine Appearance CLEAR CLEAR Urine pH 5.0 4.5-7.5 Urine Specific [place] 1.018 1.000-1.030 Urine Protein NEG NEG Urine Glucose (UA) TRACE NEG Urine Ketones TRACE NEG Urine Occult Blood NEG NEG Urine Nitrite NEG NEG Urine Bilirubin NEG NEG Urine Urobilinogen NEG NEG Urine Leukocyte Esterase SMALL NEG Urine WBC (Auto) 10-30 0-5 /hpf Urine RBC (Auto) 0-4 0-4 /hpf Urine Hyaline Casts (Auto) 5-10 0-5 /lpf Urine Epithelial Cells (Auto) >30 0-5 /lpf Urine Bacteria (Auto) NEG NEG Urine Renal Epithelial Cells 0-5 0-5 /lpf Test 07/07/16 06:24 07/07/16 07:35 07/07/16 11:18 Range/Units Bedside Glucose 130 132 70-90 mg/dl White Blood Count 6.49 4.8-10.8 K/uL Red Blood Count 3.43 4.2-5.4 M/uL Hemoglobin 10.4 12.0-16.0 g/dL Hematocrit 32.3 37-47 % Mean Corpuscular Volume 94.2 80-100 fL Mean Corpuscular Hemoglobin 30.3 25-34 pg Mean Corpuscular Hemoglobin Concent 32.2 32-36 g/dl RDW Standard Deviation 51.3 36.4-46.3 fL RDW Coefficient of Variation 15.1 11.5-14.5 % Platelet Count 281 130-400 K/uL Mean Platelet Volume 9.3 7.4-10.4 fL Prothrombin Time 10.8 9.0-12.0 SECONDS Prothromb Time International Ratio 1.0 0.9-1.1 Activated Partial Thromboplast Time 24.8 21.0-31.0 SECONDS Partial Thromboplastin Ratio 1.0 Sodium Level 141 136-145 mmol/L Potassium Level 4.0 3.5-5.1 mmol/L Chloride Level 106 98-107 mmol/L Carbon Dioxide Level 25 21-32 mmol/L Anion Gap 10.0 3-11 mmol/L Blood Urea Nitrogen 18 7-18 mg/dl Creatinine 1.00 0.60-1.20 mg/dl Est Creatinine Clear Calc Drug Dose 52.9 ml/min Estimated GFR () 62.1 Estimated GFR (Non- 53.5 BUN/Creatinine Ratio 17.8 10-20 Random Glucose 128 70-99 mg/dl Estimated Average Glucose 180 mg/dl Hemoglobin A1c 7.9 4.5-5.6 % Calcium Level 8.2 8.5-10.1 mg/dl Total Bilirubin 0.4 0.2-1 mg/dl Aspartate Amino Transf (AST/SGOT) 12 15-37 U/L Alanine Aminotransferase (ALT/SGPT) 18 12-78 U/L Alkaline Phosphatase 100 45-117 U/L Troponin I 0.064 0-0.045 ng/ml Total Protein 6.7 6.4-8.2 gm/dl Albumin 2.8 3.4-5.0 gm/dl Globulin 3.9 2.5-4.0 gm/dl Albumin/Globulin Ratio 0.7 0.9-2 Triglycerides Level 113 0-150 mg/dl Cholesterol Level 99 0-200 mg/dl HDL Cholesterol 47 mg/dl LDL Cholesterol, Calculated 29 mg/dl VLDL Cholesterol, Calculated 23 mg/dl Cholesterol/HDL Ratio 2.1 Microbiology Results 07/06/16 Blood Culture, Received Pending 07/06/16 Blood Culture, Received Pending 07/06/16 Urine Culture - Preliminary, Resulted NO GROWTH - LESS THAN 1,000 COLONIES/... Assessment and Plan This is a 71yo female with PMHx of T2DM, HTN and multiple CVAs and TIAs presents to the ER with an episode of altered mental state, right arm weakness and slurred speech. 1. Possible TIA - Given her history and multiple episodes of CVAs in the past, this was most likely another episode of TIA. Her BSG at that time was 77 therefore it is not very less it was 2/2 hypoglycemia. - ABCD2 score of 5. 2 day stroke risk 4.1%, 7 day stroke risk 5.9%, 90 day stroke risk 9.8%. - Head CT (07/06): Senescent changes and remote infarcts as above. There is no hemorrhage, mass effect, or evidence of acute territorial ischemia by CT criteria. There has been no significant change from 06/17/2016 - Carotid Doppler - last one in 2014 showed no hemodynamic compromise but carotid plaques present - Repeat Carotid Doppler (07/07) showed: 1) Study limited secondary to extensive shadowing atheromatous plaque 2) No evidence of hemodynamically significant stenosis by velocity criteria 3) Differential subclavian systolic pressures measure 157 mmHg in the right and 120 mmHg on the left. - C/w ASA to Plavix and atorvastatin - Lipid profile is normal, Hgb A1c is high (7.9) - Patient passed the dysphagia test at the bedside - Evaluated by speech and recommended to resume diet (mechanical soft) - Order Brain MRI - pending - PT/OT ordered - Consult neurology and seen by Dr Beaulieu. She recommended a repeat workups for stroke (MRA of head and neck, MRI of the brain, Echo). Ordered EEG for evaluation of possible seizure etiology to acute encephalopathy. Further management will be based on the findings. - Neurology recommendation as follows: 1) Permissive hypertension for now, avoid dehydration 2) Total cholesterol goal 100-200, and LDL goal less than 100 (avoid lowering total cholesterol less than 100 as this can increase risk for intracranial hemorrhage.) 3) Hemoglobin A1c goal less than 7 4) Encourage regular cardiovascular exercise at least 30 minutes 3 times per week - Continue to monitor in tele for any arrhythmias 2. DM type 2 - C/w 17 units of Lantus BID for now and adjust accordingly given concern for hypoglycemia before admission (she usually takes 20 units). Aim glucose 110- 140 - C/w sliding scale with glucose am 110-140, last she needed 3 units. - Continue to monitor glucose (132-->119-->130-->132) 3. Hypertension - Patient's daughter didn't bring in the ramipril 10 mg. - Will start lisinopril 10mg - Continue to monitor her BP 4. Asthma - continue advair, albuterol PRN 5. Hypothyroidism - continue levothyroxine, - TSH high, free T4 is normal 6. Chronic Pain - continue gabapentin 7. Vocal cord paralysis - She was evaluated by speech and recommendation as follows: 1) Continue mechanical soft diet 2) General aspiration precautions: fully upright, straws okay, alternate consistencies during meal 8. DVT Prophylaxis - Lovenox 40 mg SQ daily - SCDs, TEDs 9. Code - DNR as discussed with the patient and family Resident Physician Supervision Note: I was present with Dr. Edwards during the history and exam. I discussed the case with the resident and agree with the findings and plan as documented in the note. Any exceptions or clarifications are listed here: 1. Possible TIA Appreciate neurology input PT and OT consults pending Decrease atorvastatin from 80 mg to 40 mg, with recent recognition that LDL goals of less than 100 can actually provided increased risk for intracranial hemorrhage. 2. Hypertension Recently well-controlled in this setting Continue to monitor 3. Hypothyroidism Await free T4 Documented By: Delroy Becerra
[2016-07-07] MEDS: CycloSPORINE 0.05% 0.4 ML 30 UDV/BOX OP SCH (20:42)
[2016-07-07] MEDS: ATORVASTATIN 40 MG TAB PO SCH (20:45)
[2016-07-07] MEDS: INSULIN GLARGINE SOLOSTAR 100 UNITS/ML 3 ML PEN SC SCH (20:48)
[2016-07-07] MEDS ORDERED: ATORVASTATIN 40 MG TAB PO SCH (21:00)
[2016-07-08] VITALS (7 sets, daily range): BP systolic 104–168; BP diastolic 57–90; PULSE 76–86; TEMP 36.6–36.8; O2SAT 94–98
[2016-07-08] MEDS: LEVOTHYROXINE 75 MCG TAB PO SCH (05:55)
[2016-07-08 06:32] LABS: HEMATOCRIT 33.3 % (37-47); MEAN CORPUSCULAR HEMOGLOBIN 30.4 pg (25-34); MEAN CORPUSCULAR HGB CONC 32.7 g/dl (32-36); MEAN PLATELET VOLUME 9.5 fL (7.4-10.4); PLATELET COUNT 270 K/uL (130-400); RED BLOOD COUNT 3.58 M/uL (4.2-5.4); WHITE BLOOD COUNT 6.68 K/uL (4.8-10.8)
[2016-07-08 07:11] LABS: BUN/CREATININE RATIO 14.6 (10-20); CALCIUM 8.4 mg/dl (8.5-10.1); CREATININE 1.1 mg/dl (0.60-1.20)
[2016-07-08] MEDS: INSULIN ASPART 100 UNITS/ML 3 ML PEN SC SCH ×4 (07:57→20:50)
[2016-07-08] MEDS ORDERED: PERFLUTREN LIPID MICROSPHERE (DEFINITY) IV ONE (09:05)
[2016-07-08] MEDS: ASPIRIN 81 MG ECTAB PO SCH (09:56)
[2016-07-08] MEDS: CLOPIDOGREL BISULFATE 75 MG TAB PO SCH (09:57)
[2016-07-08] MEDS: ESCITALOPRAM OXALATE 10 MG TAB PO SCH (09:57)
[2016-07-08] MEDS: FLUTICASONE/SALMETEROL 100/50 (ADVAIR) 14 PUFF/1 INHALER INH SCH ×2 (09:58→19:37)
[2016-07-08] MEDS: LISINOPRIL 10 MG TAB PO SCH (09:59)
[2016-07-08] MEDS: TOLTERODINE TARTRATE LA 4 MG CAPCR PO SCH (09:59)
[2016-07-08] MEDS: MULTIVITAMIN TAB PO SCH (09:59)
[2016-07-08] MEDS: GABAPENTIN 100 MG CAP PO SCH ×2 (10:00→19:37)
[2016-07-08] MEDS: CycloSPORINE 0.05% 0.4 ML 30 UDV/BOX OP SCH ×2 (10:00→19:38)
[2016-07-08] MEDS: MAGNESIUM OXIDE 400 MG TAB PO SCH ×2 (10:00→19:37)
[2016-07-08] MEDS: ENOXAPARIN 40 MG/0.4 ML SYR SQ SCH (10:01)
[2016-07-08] MEDS: INSULIN GLARGINE SOLOSTAR 100 UNITS/ML 3 ML PEN SC SCH ×2 (10:02→20:00)
--- NOTE | 2016-07-08 12:37 | Neurology Progress Notes ---
Neurology Progress Note Date of Service Jul 08, 2016. Subjective Patient does not have any complaints this morning. Feels mostly back to normal. MRI of the brain report and images reviewed by myself and no acute changes. No acute strokes. Noted old multi-territory strokes. MRA of the head and neck showed atherosclerotic plaques, but no critical stenosis Echocardiogram results are pending Hemoglobin A1c noted to be 7.9 Total cholesterol 99, LDL 29, HDL 47, triglycerides 113 Troponin noted to be mildly elevated Objective Date Time Temp Pulse Resp B/P Pulse Ox O2 Delivery O2 Flow Rate FiO2 07/08/16 11:59 36.8 84 20 120/57 96 Room Air 07/08/16 08:01 36.6 79 20 142/80 94 Room Air 07/08/16 08:00 Room Air 07/08/16 03:51 36.7 80 20 168/90 98 Room Air 07/08/16 03:30 Room Air 07/07/16 23:34 36.8 80 18 157/84 95 Room Air 07/07/16 23:30 Room Air 07/07/16 19:34 36.5 78 18 131/50 98 Room Air 07/07/16 19:30 Room Air 07/07/16 16:00 Room Air 07/07/16 16:00 36.8 94 16 121/79 99 Room Air 07/07/16 15:05 71 98 Last 24 Hours Test 07/07/16 17:23 07/07/16 20:39 07/08/16 05:49 07/08/16 06:49 Bedside Glucose 138 mg/dl 136 mg/dl 150 mg/dl White Blood Count 6.68 K/uL Red Blood Count 3.58 M/uL Hemoglobin 10.9 g/dL Hematocrit 33.3 % Mean Corpuscular Volume 93.0 fL Mean Corpuscular Hemoglobin 30.4 pg Mean Corpuscular Hemoglobin Concent 32.7 g/dl RDW Standard Deviation 51.0 fL RDW Coefficient of Variation 14.9 % Platelet Count 270 K/uL Mean Platelet Volume 9.5 fL Sodium Level 141 mmol/L Potassium Level 4.0 mmol/L Chloride Level 105 mmol/L Carbon Dioxide Level 27 mmol/L Anion Gap 9.0 mmol/L Blood Urea Nitrogen 16 mg/dl Creatinine 1.10 mg/dl Est Creatinine Clear Calc Drug Dose 48.6 ml/min Estimated GFR () 55.3 Estimated GFR (Non- 47.7 BUN/Creatinine Ratio 14.6 Random Glucose 134 mg/dl Calcium Level 8.4 mg/dl Troponin I 0.078 ng/ml Test 07/08/16 11:03 Bedside Glucose 226 mg/dl Exam: Gen.: Patient is alert and oriented in no acute distress lying in bed Heart: Regular rate and rhythm Extremities: No gross deformities or rashes noted Neurological examination: Mental status: Patient is alert and oriented to person and place. Attention concentration normal for the situation. History of limited Speech is fluent without any dysarthria or aphasia noted. Speech is sparse and patient appears mildly confused. Face appears symmetric. Hearing grossly intact Moving all extremities equally and antigravity Station within the bed is normal. Current Inpatient Medications Medications (Trade) Dose Ordered Sig/Pio Route Start Time Stop Time Status Last Admin Dose Admin Acetaminophen (Tylenol Tab) 650 mg Q4H PRN PO 07/07/16 00:00 08/06/16 00:00 Glucose (Glucose 40% Gel) 15-30 GRAMS 15 GRAMS... UD PRN PO 07/07/16 00:00 08/06/16 00:00 Glucose (Glucose Chew Tab) 4-8 Tablets 4 Tabl... UD PRN PO 07/07/16 00:00 08/06/16 00:00 Dextrose (Dextrose 50% 50ML Syringe) 25-50ML OF 50% DW IV FOR... UD PRN IV 07/07/16 00:00 08/06/16 00:00 Glucagon (Glucagon Inj) 1 mg UD PRN SQ 07/07/16 00:00 08/06/16 00:00 Clopidogrel Bisulfate (plAVix TAB) 75 mg QAM PO 07/07/16 09:00 08/06/16 08:59 07/08/16 09:57 75 MG Docusate Sodium (coLACE CAP) 100 mg BID PRN PO 07/07/16 00:00 08/06/16 00:00 Escitalopram Oxalate (Lexapro Tab) 10 mg QAM PO 07/07/16 09:00 08/06/16 08:59 07/08/16 09:57 10 MG Salmeterol Xinafoate/ Fluticasone (Advair Diskus 100/50 Inh) 1 puff BID INH 07/07/16 09:00 08/06/16 08:59 07/08/16 09:58 1 PUFF Gabapentin (Neurontin Cap) 100 mg BID PO 07/07/16 09:00 08/06/16 08:59 07/08/16 10:00 100 MG Levothyroxine Sodium (Synthroid Tab) 75 mcg DAILYBB PO 07/07/16 06:00 08/06/16 05:59 07/08/16 05:55 75 MCG Magnesium Oxide (Mag-Ox Tab) 400 mg BID PO 07/07/16 09:00 08/06/16 08:59 07/08/16 10:00 400 MG Multivitamins (Multivitamin Tab) 1 tab QAM PO 07/07/16 09:00 08/06/16 08:59 07/08/16 09:59 1 TAB Nitroglycerin (Nitrostat Tab) 0.4 mg PRN UT 07/07/16 00:00 08/06/16 00:00 Tolterodine Tartrate (Detrol LA Cap) 4 mg DAILY PO 07/07/16 09:00 08/06/16 08:59 07/08/16 09:59 4 MG Hydrocortisone (Hydrocortisone 2.5% Crm) 1 appln BID PRN EXT 07/07/16 00:00 08/06/16 00:00 Aspirin (Ecotrin Tab) 81 mg QAM PO 07/07/16 09:00 08/06/16 08:59 07/08/16 09:56 81 MG Enoxaparin Sodium (Lovenox Inj) 40 mg QAM SQ 07/07/16 09:00 08/06/16 08:59 07/08/16 10:01 40 MG Insulin Glargine (Lantus Solostar Pen) 17 unit BID SC 07/07/16 21:00 08/06/16 20:59 07/08/16 10:02 17 UNIT Insulin Aspart (novoLOG ASPART) SLIDING SCALE G... ACHS SC 07/07/16 11:30 08/06/16 11:29 07/08/16 12:22 7 UNITS Cyclosporine (Restasis) 1 drops BID OP 07/07/16 21:00 08/06/16 20:59 07/08/16 10:00 1 DROPS Gadobutrol (Gadavist) 9.5 mmol UD PRN IV 07/07/16 16:45 07/11/16 16:44 Lisinopril (Zestril Tab) 10 mg QAM PO 07/08/16 09:00 08/07/16 08:59 07/08/16 09:59 10 MG Atorvastatin Calcium (Lipitor Tab) 40 mg HS PO 07/07/16 21:00 08/06/16 20:59 07/07/16 20:45 40 MG Impression 80-year-old female who presents with reported episodes of acute confusion, right upper extremity weakness and stiffening, slurred speech, reportedly similar to her episode in 2015 which was felt to be acute encephalopathy/ delirium secondary to UTI. Differential diagnosis for current episode includes new ischemic stroke versus focal seizure versus acute encephalopathy from other medical causes (like cardiac, metabolic derangements, infection or dehydration). Known stroke risk factor includes multi ischemic territory strokes in the past ( with residual history of right facial and upper extremity weakness, vascular dementia, mixed aphasia), diabetes on insulin, and hypertension. Although the patient is on a statin currently it is not clear to me if she has primary dyslipidemia versus being on a statin for stroke and heart attack prevention. Plan Continue aspirin to Plavix for now. May consider discontinuation of aspirin as an outpatient. Follow-up echocardiogram results Follow-up PT/OT and speech therapy for discharge planning Recommended normotensive blood pressure Avoid dehydration Neurological recommendations for stroke risk factor modifications: Total cholesterol goal 100-200, and LDL goal less than 100 (avoid lowering total cholesterol less than 100 as this can increase risk for intracranial hemorrhage.) Hemoglobin A1c goal less than 7 Encourage regular cardiovascular exercise at least 30 minutes 3 times per week Troponins per hospitalist Patient will need hospital follow-up in neurology clinic in approximately 1 month. If Hospital workup is unremarkable, may need to consider a Holter monitor as an outpatient for further evaluation of cardiac arrhythmias versus A. fib. No additional neurological recommendations at this time. Thank you for allowing me to participate in this patient's care. If there is any questions or concerns , feel free to call/page me
--- NOTE | 2016-07-08 14:06 | ECHOCARDIOGRAM REPORT ---
*NOTICE TO RECEIVING [employer] This information is strictly Confidential and protected under [place] law. [place] law prohibits you from making any further disclosure of this information unless further disclosure is expressly permitted by the written consent of the person to whom it pertains or is authorized by law. A general authorization for the release of medical or other information is not sufficient for this purpose. Hospital accepts no responsibility if the information is made available to any other person, INCLUDING THE PATIENT. Interpretation Summary * Name: NINI CLAIRE Study Date: 07/08/2016 09:43 AM BP: 142/80 mmHg * Patient Location: C.2T\S\S233\S\1 HR: 79 * : 1935 (M/d/yyyy) Gender: Female Height: 66 in * Age: 80 yrs Ethnicity: [place] Weight: 209 lb * Ordering Physician: Susanna Beaulieu * Performed By: Myranda Smith * * Reason For Study: TIA * BSA: 2.0 m2 * -- Conclusions -- * Left ventricular systolic function is normal. * No regional wall motion abnormalities noted. * Ejection Fraction = 60-65%. * There is moderate concentric left ventricular hypertrophy. * Grade I diastolic dysfunction, (abnormal relaxation pattern). * Small pericardial effusion. Procedure Details * A complete two-dimensional transthoracic echocardiogram was performed (2D, M-mode, Doppler and color flow Doppler). * The study was technically difficult. * There were technical limitations due to patient's inability to cooperate and poor positioning * A contrast injection of Definity was performed to improve assessment of LV function. * Contrast was injected into an intravenous site in the right arm. * One vial of Definity ultrasound contrast was diluted in normal saline to a total volume of 10 ml. A total of '2' ml of solution was administered during imaging. * Lot # [id number] of Definity utilized for procedure. * Expiration date 05/24. * The attending nurse who injected the contrast agent was Ángel Porter RN. Left Ventricle * The left ventricular cavity is small. * There is moderate concentric left ventricular hypertrophy. * Ejection Fraction = 60-65%. * Left ventricular systolic function is normal. * No regional wall motion abnormalities noted. Right Ventricle * The right ventricle is normal in size and function. Atria * The left atrium is moderately dilated. * Right atrium not well visualized. * No ASD detected; PFO is not assessed. Mitral Valve * The mitral valve is grossly normal. * No significant mitral valve stenosis. * Significant mitral regurgitation is absent. Tricuspid Valve * The tricuspid valve is not well visualized, but is grossly normal. * Significant tricuspid regurgitation is absent. Aortic Valve * The aortic valve is not well visualized. * The aortic valve opens well. * No hemodynamically significant valvular aortic stenosis. * There is no significant aortic regurgitation. Pulmonic Valve * The pulmonary valve is not well seen, but the Doppler examination is normal without significant regurgitation or stenosis. Great Vessels * The aortic root is normal size. Pericardium/Pleural * Small pericardial effusion. Great Vessels * IVC not well seen. Left Ventricular Diastolic Function * Grade I diastolic dysfunction, (abnormal relaxation pattern). MMode 2D Measurements and Calculations IVSd 1.3 cm IVSs 1.8 cm LVIDd 3.7 cm LVIDs 2.5 cm LVPWd 1.0 cm LVPWs 1.6 cm IVS/LVPW 1.3 FS 32.9 % EDV(Teich) 57.7 ml ESV(Teich) 21.7 ml EF(Teich) 62.3 % EDV(cubed) 50.2 ml ESV(cubed) 15.1 ml EF(cubed) 69.8 % % IVS thick 34.8 % % LVPW thick 60.6 % LV mass(C)d 139.0 grams LV mass(C)dI 68.2 grams/m\S\2 LV mass(C)s 155.0 grams LV mass(C)sI 76.1 grams/m\S\2 SV(Teich) 35.9 ml SI(Teich) 17.6 ml/m\S\2 SV(cubed) 35.0 ml SI(cubed) 17.2 ml/m\S\2 ACS 0.91 cm asc Aorta Diam 3.4 cm LVOT diam 1.9 cm LVOT area 2.8 cm\S\2 LVAd ap4 24.1 cm\S\2 LVLd ap4 7.0 cm EDV(MOD-sp4) 67.2 ml EDV(sp4-el) 70.7 ml LVAs ap4 12.8 cm\S\2 LVLs ap4 5.6 cm ESV(MOD-sp4) 24.3 ml ESV(sp4-el) 24.7 ml EF(MOD-sp4) 63.8 % EF(sp4-el) 65.0 % SV(MOD-sp4) 42.9 ml SI(MOD-sp4) 21.1 ml/m\S\2 SV(sp4-el) 46.0 ml SI(sp4-el) 22.6 ml/m\S\2 Doppler Measurements and Calculations MV E max price 99.0 cm/sec MV A max price 179.8 cm/sec MV E/A 0.55 MV V2 max 203.2 cm/sec MV max PG 16.5 mmHg MV V2 mean 100.7 cm/sec MV mean PG 5.0 mmHg MV V2 VTI 48.9 cm MV dec time 0.38 sec Ao V2 max 98.5 cm/sec Ao max PG 3.9 mmHg PA V2 max 90.6 cm/sec PA max PG 3.3 mmHg PI end-d price 113.6 cm/sec
--- NOTE | 2016-07-08 15:12 | Family Medicine Progress Note ---
Progress Note Date of Service Jul 08, 2016. Subjective Pt evaluation today including: conversation w/ patient, physical exam, chart review, lab review, review of studies Voiding: no voiding problems Patient is a 80 year old female that presented Th night with a TIA. Patient appears to have underlying dementia and does not respond to questions appropriately. Patient appears alert. Additional Comments: Patient has underlying dementia and is not responsive to questioning. Makes eye contact for brief periods but answers are incomprehensible. Medications Current Inpatient Medications Medications (Trade) Dose Ordered Sig/Pio Route Start Time Stop Time Status Last Admin Dose Admin Acetaminophen (Tylenol Tab) 650 mg Q4H PRN PO 07/07/16 00:00 08/06/16 00:00 Glucose (Glucose 40% Gel) 15-30 GRAMS 15 GRAMS... UD PRN PO 07/07/16 00:00 08/06/16 00:00 Glucose (Glucose Chew Tab) 4-8 Tablets 4 Tabl... UD PRN PO 07/07/16 00:00 08/06/16 00:00 Dextrose (Dextrose 50% 50ML Syringe) 25-50ML OF 50% DW IV FOR... UD PRN IV 07/07/16 00:00 08/06/16 00:00 Glucagon (Glucagon Inj) 1 mg UD PRN SQ 07/07/16 00:00 08/06/16 00:00 Clopidogrel Bisulfate (plAVix TAB) 75 mg QAM PO 07/07/16 09:00 08/06/16 08:59 07/08/16 09:57 75 MG Docusate Sodium (coLACE CAP) 100 mg BID PRN PO 07/07/16 00:00 08/06/16 00:00 Escitalopram Oxalate (Lexapro Tab) 10 mg QAM PO 07/07/16 09:00 08/06/16 08:59 07/08/16 09:57 10 MG Salmeterol Xinafoate/ Fluticasone (Advair Diskus 100/50 Inh) 1 puff BID INH 07/07/16 09:00 08/06/16 08:59 07/08/16 09:58 1 PUFF Gabapentin (Neurontin Cap) 100 mg BID PO 07/07/16 09:00 08/06/16 08:59 07/08/16 10:00 100 MG Levothyroxine Sodium (Synthroid Tab) 75 mcg DAILYBB PO 07/07/16 06:00 08/06/16 05:59 07/08/16 05:55 75 MCG Magnesium Oxide (Mag-Ox Tab) 400 mg BID PO 07/07/16 09:00 08/06/16 08:59 07/08/16 10:00 400 MG Multivitamins (Multivitamin Tab) 1 tab QAM PO 07/07/16 09:00 08/06/16 08:59 07/08/16 09:59 1 TAB Nitroglycerin (Nitrostat Tab) 0.4 mg PRN UT 07/07/16 00:00 08/06/16 00:00 Tolterodine Tartrate (Detrol LA Cap) 4 mg DAILY PO 07/07/16 09:00 08/06/16 08:59 07/08/16 09:59 4 MG Hydrocortisone (Hydrocortisone 2.5% Crm) 1 appln BID PRN EXT 07/07/16 00:00 08/06/16 00:00 Aspirin (Ecotrin Tab) 81 mg QAM PO 07/07/16 09:00 08/06/16 08:59 07/08/16 09:56 81 MG Enoxaparin Sodium (Lovenox Inj) 40 mg QAM SQ 07/07/16 09:00 08/06/16 08:59 07/08/16 10:01 40 MG Insulin Glargine (Lantus Solostar Pen) 17 unit BID SC 07/07/16 21:00 08/06/16 20:59 07/08/16 10:02 17 UNIT Insulin Aspart (novoLOG ASPART) SLIDING SCALE G... ACHS SC 07/07/16 11:30 08/06/16 11:29 07/08/16 12:22 7 UNITS Cyclosporine (Restasis) 1 drops BID OP 07/07/16 21:00 08/06/16 20:59 07/08/16 10:00 1 DROPS Gadobutrol (Gadavist) 9.5 mmol UD PRN IV 07/07/16 16:45 07/11/16 16:44 Lisinopril (Zestril Tab) 10 mg QAM PO 07/08/16 09:00 08/07/16 08:59 07/08/16 09:59 10 MG Atorvastatin Calcium (Lipitor Tab) 40 mg HS PO 07/07/16 21:00 08/06/16 20:59 07/07/16 20:45 40 MG Objective Vital Signs Date Time Temp Pulse Resp B/P Pulse Ox O2 Delivery O2 Flow Rate FiO2 07/08/16 12:00 Room Air 07/08/16 11:59 36.8 84 20 120/57 96 Room Air 07/08/16 08:01 36.6 79 20 142/80 94 Room Air 07/08/16 08:00 Room Air 07/08/16 03:51 36.7 80 20 168/90 98 Room Air 07/08/16 03:30 Room Air 07/07/16 23:34 36.8 80 18 157/84 95 Room Air 07/07/16 23:30 Room Air 07/07/16 19:34 36.5 78 18 131/50 98 Room Air 07/07/16 19:30 Room Air 07/07/16 16:00 Room Air 07/07/16 16:00 36.8 94 16 121/79 99 Room Air 07/07/16 15:05 71 98 Physical Exam Respiratory/Chest: chest non-tender, lungs clear, normal breath sounds Cardiovascular: regular rate, rhythm, no edema, no gallop Abdomen: normal bowel sounds, non tender, soft Neurologic/Psychiatric: alert, + disoriented, + pertinent finding (dementia) Laboratory Results Results Past 24 Hours Test 07/07/16 17:23 07/07/16 20:39 07/08/16 05:49 07/08/16 06:49 Range/Units Bedside Glucose 138 136 150 70-90 mg/dl White Blood Count 6.68 4.8-10.8 K/uL Red Blood Count 3.58 4.2-5.4 M/uL Hemoglobin 10.9 12.0-16.0 g/dL Hematocrit 33.3 37-47 % Mean Corpuscular Volume 93.0 80-100 fL Mean Corpuscular Hemoglobin 30.4 25-34 pg Mean Corpuscular Hemoglobin Concent 32.7 32-36 g/dl RDW Standard Deviation 51.0 36.4-46.3 fL RDW Coefficient of Variation 14.9 11.5-14.5 % Platelet Count 270 130-400 K/uL Mean Platelet Volume 9.5 7.4-10.4 fL Sodium Level 141 136-145 mmol/L Potassium Level 4.0 3.5-5.1 mmol/L Chloride Level 105 98-107 mmol/L Carbon Dioxide Level 27 21-32 mmol/L Anion Gap 9.0 3-11 mmol/L Blood Urea Nitrogen 16 7-18 mg/dl Creatinine 1.10 0.60-1.20 mg/dl Est Creatinine Clear Calc Drug Dose 48.6 ml/min Estimated GFR () 55.3 Estimated GFR (Non- 47.7 BUN/Creatinine Ratio 14.6 10-20 Random Glucose 134 70-99 mg/dl Calcium Level 8.4 8.5-10.1 mg/dl Troponin I 0.078 0-0.045 ng/ml Test 07/08/16 11:03 Range/Units Bedside Glucose 226 70-90 mg/dl Assessment and Plan Patient is a 80 year old female with a pmh of CVA, DM, and HTN that presented to [facility] on 07/06/16 with spontaneous resolution of symptoms 2/2 TIA 1) TIA - Resolved on arrival to ED, previous history of multiple TIAs - Neuro on board - Aspirin + Plavix - Baseline Dementia - Nurse only able to obtain NIH of 1 due to confusion - Head CT: No significant change from 06/17/2016 - Carotid Doppler: No significant stenosis - ECHO - EF 60-65%, LV Systolic Function Normal, No regional wall abnormality, Moderate Concentric LVH, Grade 1 Diastolic Dysfunction, Small Pericardial Effusion - Brain MRI - No acute ischemic process, Considerable chronic small vessel change, multiple old infarcts bilaterally. - Neck MRA - Considerable atherosclerotic change throughout the carotid and to lesser extent vertebral basilar systems, No evidence for significant or high- grade stenotic process. - Head MRA - Unremarkable MR angiogram of the brain - EEG - EEG indicates a mild to moderate diffuse encephalopathy of nonspecific etiology - PT/OT 2) Speech Therapy Consult - Able to tolerate regular diet 3) Hypertension - Lisinopril 10mg 4) Diabetes - Lantus 17 unit BID - Novolog Sliding Scale Coverage 5) Home Medications - HLD - Lipitor 40mg qHS - Depression - Lexapro 10mg qAM - Hypomagnesemia - Mag Oxide 400mg BID - Urinary Incontinence - Detrol 4mg PO Daily - Hypothyroidism - Synthroid 40mg qAM - Chronic Pain - Gabapentin 100mg BID - Asthma - Advair 1 puff BID 6) DVT - Lovenox 40mg SQ qAM 7) Code Status - DNR Resident Physician Supervision Note: I was present with Dr. Byrd during the history and exam. I discussed the case with the resident and agree with the findings and plan as documented in the note. Any exceptions or clarifications are listed here: Family visited for most of the afternoon and patient seems to be at her baseline. Will move to F. Discuss with PT options of inpatient vs home PT. She has been on telemetry for >24 hours without dysrhythmia, so outpatient Holter unlikely to yield new information. Documented By: Delroy Becerra
[2016-07-08] MEDS ORDERED: PHARMACIST DISCHARGE MED REC CONSULT PRN (18:30)
[2016-07-08] MEDS: ATORVASTATIN 40 MG TAB PO SCH (19:38)
[2016-07-09] MEDS: LEVOTHYROXINE 75 MCG TAB PO SCH (05:55)
[2016-07-09] MEDS: INSULIN ASPART 100 UNITS/ML 3 ML PEN SC SCH ×4 (06:30→20:45)
[2016-07-09 07:17] VITALS: BP 107/73; PULSE 80; TEMP 36.7; O2SAT 98
[2016-07-09] MEDS: CycloSPORINE 0.05% 0.4 ML 30 UDV/BOX OP SCH ×2 (08:00→20:32)
[2016-07-09] MEDS: ASPIRIN 81 MG ECTAB PO SCH (08:00)
[2016-07-09] MEDS: FLUTICASONE/SALMETEROL 100/50 (ADVAIR) 14 PUFF/1 INHALER INH SCH ×2 (08:45→20:31)
[2016-07-09] MEDS: TOLTERODINE TARTRATE LA 4 MG CAPCR PO SCH (08:51)
[2016-07-09] MEDS: ESCITALOPRAM OXALATE 10 MG TAB PO SCH (08:51)
[2016-07-09] MEDS: MAGNESIUM OXIDE 400 MG TAB PO SCH ×2 (08:52→20:34)
[2016-07-09] MEDS: MULTIVITAMIN TAB PO SCH (08:52)
[2016-07-09] MEDS: CLOPIDOGREL BISULFATE 75 MG TAB PO SCH (08:52)
[2016-07-09] MEDS: GABAPENTIN 100 MG CAP PO SCH ×2 (08:53→20:34)
[2016-07-09] MEDS: LISINOPRIL 10 MG TAB PO SCH (08:53)
[2016-07-09] MEDS: ENOXAPARIN 40 MG/0.4 ML SYR SQ SCH (08:54)
[2016-07-09] MEDS: INSULIN GLARGINE SOLOSTAR 100 UNITS/ML 3 ML PEN SC SCH ×2 (08:59→20:44)
[2016-07-09 14:55] VITALS: BP 91/61; PULSE 90; TEMP 36.8; O2SAT 96
--- NOTE | 2016-07-09 15:22 | Family Medicine Progress Note ---
Progress Note Date of Service Jul 09, 2016. Subjective Pt evaluation today including: conversation w/ patient, physical exam, chart review, lab review, review of studies Pain: No pain reported this morning Voiding: no voiding problems Patient alert and oriented to person, place, and time this morning. Answering questions appropriately and has no acute complaints overnight. Denies any fevers , chills, nausea, vomiting, or pain. Constitutional: No chills, No fever, No sweats, No weight loss Respiratory: No cough, No shortness of breath, No sputum, No wheezing Cardiovascular: No chest pain, No edema, No orthopnea Abdomen: No nausea, No pain, No vomiting Female : No dysuria Medications Current Inpatient Medications Medications (Trade) Dose Ordered Sig/Pio Route Start Time Stop Time Status Last Admin Dose Admin Acetaminophen (Tylenol Tab) 650 mg Q4H PRN PO 07/07/16 00:00 08/06/16 00:00 Glucose (Glucose 40% Gel) 15-30 GRAMS 15 GRAMS... UD PRN PO 07/07/16 00:00 08/06/16 00:00 Glucose (Glucose Chew Tab) 4-8 Tablets 4 Tabl... UD PRN PO 07/07/16 00:00 08/06/16 00:00 Dextrose (Dextrose 50% 50ML Syringe) 25-50ML OF 50% DW IV FOR... UD PRN IV 07/07/16 00:00 08/06/16 00:00 Glucagon (Glucagon Inj) 1 mg UD PRN SQ 07/07/16 00:00 08/06/16 00:00 Clopidogrel Bisulfate (plAVix TAB) 75 mg QAM PO 07/07/16 09:00 08/06/16 08:59 07/09/16 08:52 75 MG Docusate Sodium (coLACE CAP) 100 mg BID PRN PO 07/07/16 00:00 08/06/16 00:00 Escitalopram Oxalate (Lexapro Tab) 10 mg QAM PO 07/07/16 09:00 08/06/16 08:59 07/09/16 08:51 10 MG Salmeterol Xinafoate/ Fluticasone (Advair Diskus 100/50 Inh) 1 puff BID INH 07/07/16 09:00 08/06/16 08:59 07/09/16 08:45 1 PUFF Gabapentin (Neurontin Cap) 100 mg BID PO 07/07/16 09:00 08/06/16 08:59 07/09/16 08:53 100 MG Levothyroxine Sodium (Synthroid Tab) 75 mcg DAILYBB PO 07/07/16 06:00 08/06/16 05:59 07/09/16 05:55 75 MCG Magnesium Oxide (Mag-Ox Tab) 400 mg BID PO 07/07/16 09:00 08/06/16 08:59 07/09/16 08:52 400 MG Multivitamins (Multivitamin Tab) 1 tab QAM PO 07/07/16 09:00 08/06/16 08:59 07/09/16 08:52 1 TAB Nitroglycerin (Nitrostat Tab) 0.4 mg PRN UT 07/07/16 00:00 08/06/16 00:00 Tolterodine Tartrate (Detrol LA Cap) 4 mg DAILY PO 07/07/16 09:00 08/06/16 08:59 07/09/16 08:51 4 MG Hydrocortisone (Hydrocortisone 2.5% Crm) 1 appln BID PRN EXT 07/07/16 00:00 08/06/16 00:00 Aspirin (Ecotrin Tab) 81 mg QAM PO 07/07/16 09:00 08/06/16 08:59 07/09/16 08:00 81 MG Enoxaparin Sodium (Lovenox Inj) 40 mg QAM SQ 07/07/16 09:00 08/06/16 08:59 07/09/16 08:54 40 MG Insulin Glargine (Lantus Solostar Pen) 17 unit BID SC 07/07/16 21:00 08/06/16 20:59 07/09/16 08:59 17 UNIT Insulin Aspart (novoLOG ASPART) SLIDING SCALE G... ACHS SC 07/07/16 11:30 08/06/16 11:29 07/09/16 11:00 11 UNITS Cyclosporine (Restasis) 1 drops BID OP 07/07/16 21:00 08/06/16 20:59 07/09/16 08:00 1 DROPS Gadobutrol (Gadavist) 9.5 mmol UD PRN IV 07/07/16 16:45 07/11/16 16:44 Lisinopril (Zestril Tab) 10 mg QAM PO 07/08/16 09:00 08/07/16 08:59 07/09/16 08:53 10 MG Atorvastatin Calcium (Lipitor Tab) 40 mg HS PO 07/07/16 21:00 08/06/16 20:59 07/08/16 19:38 40 MG Miscellaneous Information (Pharmacist Discharge Med Rec Consult) 1 ea UD PRN N/A 07/08/16 18:30 08/07/16 18:29 Objective Vital Signs Date Time Temp Pulse Resp B/P Pulse Ox O2 Delivery O2 Flow Rate FiO2 07/09/16 14:55 36.8 90 20 91/61 96 Room Air 07/09/16 08:20 Room Air 07/09/16 07:17 36.7 80 18 107/73 98 Room Air 07/09/16 00:00 Room Air 07/08/16 23:22 36.7 76 16 104/68 95 Room Air 07/08/16 20:00 Room Air 07/08/16 19:29 36.7 82 14 113/65 94 Room Air 07/08/16 19:04 36.8 86 16 95 07/08/16 16:15 Room Air 07/08/16 15:33 36.8 86 16 107/72 95 Room Air Physical Exam General Appearance: WD/WN, no apparent distress Respiratory/Chest: chest non-tender, lungs clear, normal breath sounds Cardiovascular: regular rate, rhythm, no edema, no gallop, no JVD, no murmur Abdomen: normal bowel sounds, non tender, soft Extremities: no pedal edema, no calf tenderness Neurologic/Psychiatric: alert, normal mood/affect, oriented x 3 Skin: no rash Laboratory Results Results Past 24 Hours Test 07/08/16 16:11 07/08/16 20:17 07/09/16 08:43 07/09/16 11:41 Range/Units Bedside Glucose 112 193 155 191 70-90 mg/dl Assessment and Plan Patient is a 80 year old female with a pmh of CVA, DM, and HTN that presented to [facility] on 07/06/16 with spontaneous resolution of symptoms 2/2 TIA 1) TIA - Baseline of dementia with history of waxing and waning as per family. Patient A&O x 3 today and no neurological deficits. - Resolved on arrival to ED, previous history of multiple TIAs - Neuro on board - Aspirin + Plavix - Head CT: No significant change from 06/17/2016 - Carotid Doppler: No significant stenosis - ECHO - EF 60-65%, LV Systolic Function Normal, No regional wall abnormality, Moderate Concentric LVH, Grade 1 Diastolic Dysfunction, Small Pericardial Effusion - Brain MRI - No acute ischemic process, Considerable chronic small vessel change, multiple old infarcts bilaterally. - Neck MRA - Considerable atherosclerotic change throughout the carotid and to lesser extent vertebral basilar systems, No evidence for significant or high- grade stenotic process. - Head MRA - Unremarkable MR angiogram of the brain - EEG - EEG indicates a mild to moderate diffuse encephalopathy of nonspecific etiology - PT/OT - Awaiting evaluation and decision of family to do physical therapy at home or at a SNF. Discuss with case management. 2) Speech Therapy Consult - Able to tolerate regular diet 3) Hypertension - Lisinopril 10mg 4) Diabetes - Lantus 17 unit BID - Novolog Sliding Scale Coverage 5) Home Medications - HLD - Lipitor 40mg qHS - Depression - Lexapro 10mg qAM - Hypomagnesemia - Mag Oxide 400mg BID - Urinary Incontinence - Detrol 4mg PO Daily - Hypothyroidism - Synthroid 40mg qAM - Chronic Pain - Gabapentin 100mg BID - Asthma - Advair 1 puff BID 6) DVT - Lovenox 40mg SQ qAM 7) Code Status - DNR Resident Physician Supervision Note: I was present with Dr. Byrd during the history and exam. I discussed the case with the resident and agree with the findings and plan as documented in the note. Any exceptions or clarifications are listed here: [None] TIA Baseline dementia, I suspect patient is at her baseline now Neurology consult appreciated. Continue aspirin plus Plavix. Reduced atorvastatin from 80 mg to 40 mg as previously discussed. Disposition depends physical therapy consult, inpatient rehabilitation versus home physical therapy. Hypertension: Lisinopril 10mg Diabetes: Lantus + Novolog Sliding Scale Coverage Hypothyroidism: Would continue home dose despite slightly elevated TSH. Depression: Lexapro 10mg qAM Hypomagnesemia: Mag Oxide 400mg BID Urinary Incontinence: Detrol 4mg PO Daily Chronic Pain: Gabapentin 100mg BID Asthma: Advair 1 puff BID
[2016-07-09] MEDS: ATORVASTATIN 40 MG TAB PO SCH (20:39)
[2016-07-09 23:46] VITALS: BP 108/70; PULSE 77; TEMP 36.6; O2SAT 96
[2016-07-10] MEDS: LEVOTHYROXINE 75 MCG TAB PO SCH (06:12)
[2016-07-10 07:21] VITALS: BP 105/66; PULSE 75; TEMP 36.7; O2SAT 95
[2016-07-10 07:29] LABS: HEMATOCRIT 30.7 % (37-47); MEAN CELL VOLUME 93.6 fL (80-100); MEAN CORPUSCULAR HEMOGLOBIN 31.1 pg (25-34); MEAN CORPUSCULAR HGB CONC 33.2 g/dl (32-36); MEAN PLATELET VOLUME 9.7 fL (7.4-10.4); PLATELET COUNT 236 K/uL (130-400); RED BLOOD COUNT 3.28 M/uL (4.2-5.4); WHITE BLOOD COUNT 5.86 K/uL (4.8-10.8)
[2016-07-10 08:00] LABS: BUN/CREATININE RATIO 16.3 (10-20); CALCIUM 8.3 mg/dl (8.5-10.1); CREATININE 1.4 mg/dl (0.60-1.20); POTASSIUM 4.1 mmol/L (3.5-5.1)
[2016-07-10] MEDS: ESCITALOPRAM OXALATE 10 MG TAB PO SCH (08:00)
[2016-07-10] MEDS: ASPIRIN 81 MG ECTAB PO SCH (08:00)
[2016-07-10] MEDS: LISINOPRIL 10 MG TAB PO SCH (08:00)
[2016-07-10] MEDS: MULTIVITAMIN TAB PO SCH (08:00)
[2016-07-10] MEDS: TOLTERODINE TARTRATE LA 4 MG CAPCR PO SCH (08:00)
[2016-07-10] MEDS: CLOPIDOGREL BISULFATE 75 MG TAB PO SCH (08:00)
[2016-07-10] MEDS: GABAPENTIN 100 MG CAP PO SCH (08:00)
[2016-07-10] MEDS: MAGNESIUM OXIDE 400 MG TAB PO SCH (08:00)
[2016-07-10] MEDS: ENOXAPARIN 40 MG/0.4 ML SYR SQ SCH (08:00)
[2016-07-10] MEDS: CycloSPORINE 0.05% 0.4 ML 30 UDV/BOX OP SCH (08:01)
[2016-07-10] MEDS: FLUTICASONE/SALMETEROL 100/50 (ADVAIR) 14 PUFF/1 INHALER INH SCH (08:01)
[2016-07-10] MEDS: INSULIN GLARGINE SOLOSTAR 100 UNITS/ML 3 ML PEN SC SCH (08:41)
[2016-07-10] MEDS: INSULIN ASPART 100 UNITS/ML 3 ML PEN SC SCH (08:41)
[2016-07-10] MEDS ORDERED: ASPEC81 PO (10:58)
[2016-07-10] MEDS ORDERED: LPT40 PO (10:58)
--- NOTE | 2016-07-10 11:05 | Discharge Instructions ---
Discharge Instructions Date of Service Jul 10, 2016. Admission Reason for Admission: At High Risk For Stroke,Diabetes Mellitus,Tia Discharge Discharge Diagnosis / Problem: Transient ischemic attack Discharge Goals Goal(s): Decrease discomfort, Increase independence, Therapeutic intervention Activity Recommendations Activity Limitations: resume your previous activity . Instructions / Follow-Up Instructions / Follow-Up - You were admitted to the hospital for transient ischemic attack. Multiple workups for stroke were performed and they were not significant. Blood culture was negative. Neurology was consulted also. - You will be discharge home with [facility]. - Reduced atorvastatin from 80 mg to 40 mg - Prescribed aspirin 81mg daily, please take it as instructed. Current Hospital Diet Patient's current hospital diet: Diabetes Type 2 Diet, AHA Diet (Heart Healthy) , Renal Diet Discharge Diet Recommended Diet: AHA Diet (Heart Healthy), Diabetes Type 2 Diet Pending Studies Studies pending at discharge: no Laboratory Results Hemoglobin A1c Test 07/07/16 07:35 Range/Units Estimated Average Glucose 180 mg/dl Hemoglobin A1c 7.9 H 4.5-5.6 % Lipid Panel Test 07/07/16 07:35 Range/Units Triglycerides Level 113 0-150 mg/dl Cholesterol Level 99 0-200 mg/dl HDL Cholesterol 47 mg/dl Cholesterol/HDL Ratio 2.1 LDL Cholesterol, Calculated 29 mg/dl Medical Emergencies . Who to Call and When: Medical Emergencies: If at any time you feel your situation is an emergency, please call 911 immediately. . Non-Emergent Contact Non-Emergency issues call your: Primary Care Provider . . "Provider Documentation" section prepared by Ruslan Edwards. VTE Core Measure Inpt VTE Proph given/why not?: Unfractionated heparin SHERLY, T.ECary. Bibiana, SCD 's
[2016-07-10 11:25] VITALS: BP 105/66; PULSE 75; TEMP 36.7; O2SAT 95
[2016-07-10 11:45] VITALS: Ht 167.6 cm; Wt 96.7 kg
--- NOTE | 2016-07-10 12:28 | Pharmacy Progress Note ---
Pharmacist Stroke Counseling Date of Service Jul 10, 2016. Scope Pharmacy has been consulted to provide medication discharge counseling for this patient admitted with ischemic stroke/hemorrhagic stroke/ transient ischemic attack as per the Pharmacist Discharge Counseling for Stroke Patients Protocol. Medications on Discharge New Medications: Aspirin (Aspirin EC Low Dose) 81 Mg Ectab 81 MG PO QAM for 30 Days Atorvastatin (Atorvastatin Calcium) 40 Mg Tab 40 MG PO HS for 30 Days, TAB Continued Medications: Clopidogrel (Plavix) 75 Mg Tab 75 MG PO QAM, TAB Cyclosporine (Ophth) (Restasis) 0.05 % Emu 1 DROP OP BID, BTL Docusate Sodium (Colace) 100 Mg Cap 1 CAP PO PRN for Constipation for 30 Days, #60 CAP Escitalopram Oxalate (Lexapro) 10 Mg Tab 10 MG PO QAM, TAB Fluticasone Prop/Salmeterol (Advair Diskus 100/50 60 Dose) 1 Ea Aerp 1 PUFF INH BID, #180 Gabapentin (Neurontin) 100 Mg Cap 100 MG PO BID, CAP Hydrocortisone (Topical) (Hydrocortisone) 2.5 % Lot 1 APPLN TOP BID PRN for PRN for 10 Days, #60 ML Insulin Aspart (Novolog) 100 Units/Ml Inj INJ ACHS SLIDING SCALE Insulin Glargine (Lantus) 100 Unit/Ml Inj 20 SC AMPM, VIAL Levothyroxine Sodium (Levothyroxine Sodium) 75 Mcg Tab 75 MCG PO QAM for 90 Days, #90 TAB 3 Refills Magnesium Oxide (Magnesium-Oxide) 400 Mg Tab 400 MG PO BID for 7 Days, #14 TAB Multiple Vitamin (Multi Vitamin Daily) 1 Tab Tab 1 TAB PO QAM Nitroglycerin (Nitrostat) 0.4 Mg Tab 0.4 MG UT PRN, BTL Ramipril (Ramipril) 10 Mg Cap 1 CAP PO DAILY for 90 Days, #90 CAP 3 Refills Tolterodine Tartrate (Detrol LA) 4 Mg Capcr 1 CAP PO DAILY for 90 Days, #90 CAP 3 Refills Discontinued Medications: Atorvastatin (Lipitor) 80 Mg Tab 80 MG PO HS, TAB Action The above medications, specifically ones for stroke treatment/prophylaxis, have been reviewed in detail with the patient and/or patient airline security representative(s) prior to discharge. This includes indication, common adverse reactions, drug interactions, and medication administration. Medication counseling has been employed using the teach-back method to ensure understanding. Outcome The patient and/or patient airline security representative(s) have demonstrated understanding of the medications. Please note, they are aware that the pharmacist will call them within 72 hours post-discharge to confirm that the appropriate medications are being taken and answer any further medication related questions the patient might have at that time. Contact information Individual to be contacted: Yi Relationship to patient (if applicable): lubna Phone number: [phone] Best time to call: M-F after 14:30 Thank you for allowing pharmacy to be involved in the care of this patient. Please call [phone] or [phone] with any additional questions
--- NOTE | 2016-07-10 17:28 | Discharge Summary ---
Discharge Summary Date of Service Jul 10, 2016. (Ruslan Edwards MD) Discharge Summary Admission Date: Jul 06, 2016 at 23:53 Discharge Date: Jul 10, 2016 Discharge Disposition: Home with services Principal Diagnosis: Transient ischemic attack Immunizations: Have You Had Influenza Vaccine: Yes Influenza Vaccine Date: Jun 16, 2011 History of Tetanus Vaccine?: utd Tetanus Immunization Date: Jan 22, 2001 History of Pneumococcal: Yes Pneumococcal Date: Jun 16, 2003 History of Hepatitis B Vaccine: Unknown Procedures: Patient Name: NINI CLAIRE Unit Number: [id number] Dictated: 07/07/161640 Transcribed: 07/07/161640 EV Printed Date/Time: [~ rep prt dt]/[~ rep prt tm] [~ rep ct labl] - [~ rep ct ivnm] [facility] [place] [address] Dictated: 07/07/161640 Transcribed: 07/07/161640 EV Printed Date/Time: [~ rep prt dt]/[~ rep prt tm] [~ rep ct labl] - [~ rep ct ivnm] MR ANGIOGRAM OF THE BRAIN CLINICAL HISTORY: Transient ischemic attack. COMPARISON STUDY: MRI of the brain performed concurrently on 07/07/2016. TECHNIQUE: 3-D [id number] MR angiography of the intracranial circulation is performed. 3-D tumble views are created and assessed. IV contrast was not administered for this examination. The examination is modestly degraded by motion artifact. FINDINGS: There is origin of the right posterior cerebral artery. The right A1 segment is diminutive. The internal carotid arteries are widely patent bilaterally, as are the anterior and middle cerebral arteries. The vertebrobasilar system and posterior cerebral arteries are widely patent. The left vertebral artery is dominant. There is no aneurysm, high-grade stenosis, or focal vessel cutoff seen throughout the intracranial circulation. Chronic bilateral infarcts are noted. IMPRESSION: Unremarkable MR angiogram of the brain. Electronically signed by: Ender Grimaldo M.D. 07/07/2016 4:43 PM Dictated Date/Time: 07/07/2016 4:41 PM The status of this report is Signed. Draft = Not yet reviewed or approved by Radiologist. Signed = Reviewed and approved by Radiologist. <AttendingPhy>Freddy Suresh MD</AttendingPhy> <FamilyPhy>Sae Arthur M.D.</ FamilyPhy> <PrimaryPhy>Sae Arthur M.D.</PrimaryPhy> <UnitNumber>[id number]</ UnitNumber> <VisitNumber>[id number]</VisitNumber> <PatientName>NINI CLAIRE</ PatientName> <DateOfBirth>1935</DateOfBirth> <Location>C.2T</Location> < ServiceDate>07/06/16</ServiceDate> <MNE>ESINDI</MNE> <OrderingPhy>Susanna Beaulieu D.O.</OrderingPhy> <OrderingPhyMNE>f rep ord dr johnson</OrderingPhyMNE> < DictatingPhyMNE>f rep dict dr johnson</DictatingPhyMNE> <CCListMNE>f rep ct mne</ CCListMNE> <AdmittingPhyMNE>f pt admit dr johnson</AdmittingPhyMNE> <AttendingPhyMNE >f pt attend dr johnson</AttendingPhyMNE> <ConsultingPhyMNE>f pt consult dr johnson</ConsultingPhyMNE> <FamilyPhyMNE>f pt fam dr johnson</FamilyPhyMNE> <OtherPhyMNE>f pt other dr johnson</OtherPhyMNE> < PrimaryPhyMNE>f pt prim care dr johnson</PrimaryPhyMNE> <ReferringPhyMNE>f pt referring dr johnson</ReferringPhyMNE> Patient Name: NINI CLAIRE Unit Number: [id number] Dictated: 07/07/161702 Transcribed: 07/07/161702 MS Printed Date/Time: [~ rep prt dt]/[~ rep prt tm] [~ rep ct labl] - [~ rep ct ivnm] [facility] Radiology Department [place], [place] [id number] Dictated: 07/07/161702 Transcribed: 07/07/161702 MS Printed Date/Time: [~ rep prt dt]/[~ rep prt tm] [~ rep ct labl] - [~ rep ct ivnm] NECK MRA HISTORY: Mental status change TIA TECHNIQUE: Lbhu-xs-gmqkuc and gadolinium-enhanced MRA of the neck was performed both before and after the intravenous administration of contrast. All measurements were calculated based on NASCET criteria. COMPARISON STUDY: None. FINDINGS: The aortic arch and proximal great vessels are widely patent. R significant plaque formation throughout the carotid systems bilaterally. A significant and/or high-grade stenotic process is not seen. Vertebral basilar system shows no significant stenotic process. IMPRESSION: 1. Considerable atherosclerotic change throughout the carotid and to lesser extent vertebral basilar systems. 2. No evidence for significant or high-grade stenotic process. Electronically signed by: Phillip Marion M.D. 07/07/2016 5:05 PM Dictated Date/Time: 07/07/2016 5:03 PM The status of this report is Signed. Draft = Not yet reviewed or approved by Radiologist. Signed = Reviewed and approved by Radiologist. <AttendingPhy>Freddy Suresh MD</AttendingPhy> <FamilyPhy>Sae Arthur M.D.</ FamilyPhy> <PrimaryPhy>Sae Arthur M.D.</PrimaryPhy> <UnitNumber>[id number]</ UnitNumber> <VisitNumber>[id number]</VisitNumber> <PatientName>NINI CLAIRE</ PatientName> <DateOfBirth>1935</DateOfBirth> <Location>C.2T</Location> < ServiceDate>07/06/16</ServiceDate> <MNE>ESINDI</MNE> <OrderingPhy>Susanna Beaulieu D.O.</OrderingPhy> <OrderingPhyMNE>f rep ord dr johnson</OrderingPhyMNE> < DictatingPhyMNE>f rep dict dr johnson</DictatingPhyMNE> <CCListMNE>f rep ct mne</ CCListMNE> <AdmittingPhyMNE>f pt admit dr johnson</AdmittingPhyMNE> <AttendingPhyMNE >f pt attend dr johnson</AttendingPhyMNE> <ConsultingPhyMNE>f pt consult dr johnson</ConsultingPhyMNE> <FamilyPhyMNE>f pt fam dr johnson</FamilyPhyMNE> <OtherPhyMNE>f pt other dr johnson</OtherPhyMNE> < PrimaryPhyMNE>f pt prim care dr johnson</PrimaryPhyMNE> <ReferringPhyMNE>f pt referring dr johnson</ReferringPhyMNE> Patient Name: NINI CLAIRE Unit Number: [id number] Dictated: 07/07/161699 Transcribed: 07/07/161699 MS Printed Date/Time: [~ rep prt dt]/[~ rep prt tm] [~ rep ct labl] - [~ rep ct ivnm] [facility] Radiology Department [place] [id number] Dictated: 07/07/161699 Transcribed: 07/07/161699 MS Printed Date/Time: [~ rep prt dt]/[~ rep prt tm] [~ rep ct labl] - [~ rep ct ivnm] MRI OF THE BRAIN WITHOUT AND WITH IV CONTRAST CLINICAL HISTORY: TIA, ?new infarcts mental status change COMPARISON STUDY: No previous studies for comparison. TECHNIQUE: Utilizing a 1.5 [place] magnet and dedicated coil, multiplanar, multiecho imaging of the brain was performed pre and postcontrast administration. IV administration of 10.5 mL of Gadavist contrast was uneventful. FINDINGS: 1. No evidence for an acute ischemic event. Generalized cerebellar as well as cerebral atrophy. Multifocal old parenchymal infarct. Considerable chronic small vessel change of aging. No significant postcontrast enhancement. IMPRESSION: 1. No acute ischemic process. 2. Considerable chronic small vessel change, multiple old infarcts bilaterally. Electronically signed by: Phillip Marion M.D. 07/07/2016 5:02 PM Dictated Date/Time: 07/07/2016 5:00 PM The status of this report is Signed. Draft = Not yet reviewed or approved by Radiologist. Signed = Reviewed and approved by Radiologist. <AttendingPhy>Freddy Suresh MD</AttendingPhy> <FamilyPhy>Sae Arthur M.D.</ FamilyPhy> <PrimaryPhy>Sae Arthur M.D.</PrimaryPhy> <UnitNumber>[id number]</ UnitNumber> <VisitNumber>[id number]</VisitNumber> <PatientName>NINI CLAIRE</ PatientName> <DateOfBirth>1935</DateOfBirth> <Location>C.2T</Location> < ServiceDate>07/06/16</ServiceDate> <MNE>ESINDI</MNE> <OrderingPhy>Hemal Beltrán MD</OrderingPhy> <OrderingPhyMNE>f rep ord dr johnson</OrderingPhyMNE> < DictatingPhyMNE>f rep dict dr johnson</DictatingPhyMNE> <CCListMNE>f rep ct mne</ CCListMNE> <AdmittingPhyMNE>f pt admit dr johnson</AdmittingPhyMNE> <AttendingPhyMNE >f pt attend dr johnson</AttendingPhyMNE> <ConsultingPhyMNE>f pt consult dr johnson</ConsultingPhyMNE> <FamilyPhyMNE>f pt fam dr johnson</FamilyPhyMNE> <OtherPhyMNE>f pt other dr johnson</OtherPhyMNE> < PrimaryPhyMNE>f pt prim care dr johnson</PrimaryPhyMNE> <ReferringPhyMNE>f pt referring dr johnson</ReferringPhyMNE> Patient Name: NINI CLAIRE Unit Number: [id number] Dictated: 07/07/16699 Transcribed: 07/07/16699 ARG Printed Date/Time: [~ rep prt dt]/[~ rep prt tm] [~ rep ct labl] - [~ rep ct ivnm] [facility] Radiology Department [place], [place] [id number] Dictated: 07/07/16699 Transcribed: 07/07/16699 ARG Printed Date/Time: [~ rep prt dt]/[~ rep prt tm] [~ rep ct labl] - [~ rep ct ivnm] ULTRASOUND OF THE CAROTID ARTERIES CLINICAL HISTORY: TIA, high risk for stroke COMPARISON STUDY: 02/26/2015 TECHNIQUE: Real-time, grayscale, and color Doppler sonography of the carotid arteries was performed. Imaging reviewed in the transverse and longitudinal planes. NASCET criteria was utilized for stenosis calcification. FINDINGS: There is extensive shadowing atherosclerotic plaque present bilaterally, but most pronounced at the level of the right carotid bulb.. The peak systolic velocity within the right internal carotid artery is 78 cm/sec. The systolic velocity ratio of right internal to common carotid artery is 1.8. The peak systolic velocity within the left internal carotid artery is 84 cm/sec. The systolic velocity ratio left internal to common carotid artery is 1.2. Antegrade flow is seen in the vertebral arteries. The external carotid arteries are patent. Blood pressure in the right arm measured 157 mm/Hg. Blood pressure in the left arm measured 128 mm/Hg. IMPRESSION: 1. Study limited secondary to extensive shadowing atheromatous plaque 2. No evidence of hemodynamically significant stenosis by velocity criteria 3. Differential subclavian systolic pressures measure 157 mmHg in the right and 120 mmHg on the left. Electronically signed by: Isaac Gan M.D. 07/07/2016 7:03 AM Dictated Date/Time: 07/07/2016 7:00 AM The status of this report is Signed. Draft = Not yet reviewed or approved by Radiologist. Signed = Reviewed and approved by Radiologist. <AttendingPhy>Freddy Suresh MD</AttendingPhy> <FamilyPhy>Sae Arthur M.D.</ FamilyPhy> <PrimaryPhy>Sae Arthur M.D.</PrimaryPhy> <UnitNumber>[id number]</ UnitNumber> <VisitNumber>[id number]</VisitNumber> <PatientName>NINI CLAIRE</ PatientName> <DateOfBirth>1935</DateOfBirth> <Location>C.2T</Location> < ServiceDate>07/06/16</ServiceDate> <MNE>ESINDI</MNE> <OrderingPhy>Hemal Beltrán MD</OrderingPhy> <OrderingPhyMNE>f rep ord dr johnson</OrderingPhyMNE> < DictatingPhyMNE>f rep dict dr johnson</DictatingPhyMNE> <CCListMNE>f rep ct mne</ CCListMNE> <AdmittingPhyMNE>f pt admit dr johnson</AdmittingPhyMNE> <AttendingPhyMNE >f pt attend dr johnson</AttendingPhyMNE> <ConsultingPhyMNE>f pt consult dr johnson</ConsultingPhyMNE> <FamilyPhyMNE>f pt fam dr johnson</FamilyPhyMNE> <OtherPhyMNE>f pt other dr johnson</OtherPhyMNE> < PrimaryPhyMNE>f pt prim care dr johnson</PrimaryPhyMNE> <ReferringPhyMNE>f pt referring dr johnson</ReferringPhyMNE> Patient Name: NINI CLAIRE Unit Number: [id number] Dictated: 07/06/162144 Transcribed: 07/06/162144 EV Printed Date/Time: [~ rep prt dt]/[~ rep prt tm] [~ rep ct labl] - [~ rep ct ivnm] [facility] [place] [address] Dictated: 07/06/162144 Transcribed: 07/06/162144 EV Printed Date/Time: [~ rep prt dt]/[~ rep prt tm] [~ rep ct labl] - [~ rep ct ivnm] CT SCAN OF THE BRAIN WITHOUT IV CONTRAST CLINICAL HISTORY: Change in mental status. COMPARISON STUDY: CT of the brain dated 06/17/16. TECHNIQUE: Unenhanced axial CT scan of the brain is performed from the vertex to the skull base. CT DOSE: 537.48 mGy.cm FINDINGS: Brain parenchyma: There are chronic bifrontal and right occipital infarcts. There are age-related involutional changes noting moderate to advanced subcortical and periventricular microangiopathic change. Small chronic lacunar infarcts are identified in the basal ganglia and the cerebellar hemispheres. There is no hemorrhage, mass effect, or evidence of acute territorial ischemia by CT criteria. Holden-white matter is preserved. No extra-axial fluid collection is seen. Ventricles, sulci, cisterns: Prominent secondary to involutional change. Intracranial vasculature: There is atherosclerotic calcification of the cavernous carotid and vertebral arteries. Calvarium: Unremarkable. Sinuses and mastoids: Trace mucosal thickening is present in the sphenoid sinuses. The remaining visualized paranasal sinuses are clear. The mastoid air cells are well pneumatized. Orbits: The bony orbits are grossly intact. There are bilateral ocular lens implants. IMPRESSION: Senescent changes and remote infarcts as above. There is no hemorrhage, mass effect, or evidence of acute territorial ischemia by CT criteria. There has been no significant change from 06/17/2016. Electronically signed by: Ender Grimaldo M.D. 07/06/2016 9:48 PM Dictated Date/Time: 07/06/2016 9:45 PM The status of this report is Signed. Draft = Not yet reviewed or approved by Radiologist. Signed = Reviewed and approved by Radiologist. <AttendingPhy></AttendingPhy> <FamilyPhy>Sae Arthur M.D.</FamilyPhy> < PrimaryPhy>Sae Arthur M.D.</PrimaryPhy> <UnitNumber>[id number]</UnitNumber> <VisitNumber>[id number]</VisitNumber> <PatientName>NINI CLAIRE</PatientName> <DateOfBirth>1935</DateOfBirth> <Location>[facility]</Location> <ServiceDate></ServiceDate> <MNE>ESINDI</MNE> <OrderingPhy>Ender Gunter M.D.</ OrderingPhy> <OrderingPhyMNE>f rep ord dr johnson</OrderingPhyMNE> <DictatingPhyMNE> f rep dict dr johnson</DictatingPhyMNE> <CCListMNE>f rep ct noame</CCListMNE> < AdmittingPhyMNE>f pt admit dr johnson</AdmittingPhyMNE> <AttendingPhyMNE>f pt attend dr johnson</AttendingPhyMNE> <ConsultingPhyMNE>f pt consult dr johnson</ConsultingPhyMNE> <FamilyPhyMNE>f pt fam dr johnson</FamilyPhyMNE> <OtherPhyMNE>f pt other dr johnson</OtherPhyMNE> < PrimaryPhyMNE>f pt prim care dr johnson</PrimaryPhyMNE> <ReferringPhyMNE>f pt referring dr johnson</ReferringPhyMNE> (Ruslan Edwards MD) Medication Reconciliation New Medications: Aspirin (Aspirin EC Low Dose) 81 Mg Ectab 81 MG PO QAM for 30 Days Atorvastatin (Atorvastatin Calcium) 40 Mg Tab 40 MG PO HS for 30 Days, TAB Continued Medications: Clopidogrel (Plavix) 75 Mg Tab 75 MG PO QAM, TAB Cyclosporine (Ophth) (Restasis) 0.05 % Emu 1 DROP OP BID, BTL Docusate Sodium (Colace) 100 Mg Cap 1 CAP PO PRN for Constipation for 30 Days, #60 CAP Escitalopram Oxalate (Lexapro) 10 Mg Tab 10 MG PO QAM, TAB Fluticasone Prop/Salmeterol (Advair Diskus 100/50 60 Dose) 1 Ea Aerp 1 PUFF INH BID, #180 Gabapentin (Neurontin) 100 Mg Cap 100 MG PO BID, CAP Hydrocortisone (Topical) (Hydrocortisone) 2.5 % Lot 1 APPLN TOP BID PRN for PRN for 10 Days, #60 ML Insulin Aspart (Novolog) 100 Units/Ml Inj INJ ACHS SLIDING SCALE Insulin Glargine (Lantus) 100 Unit/Ml Inj 20 SC AMPM, VIAL Levothyroxine Sodium (Levothyroxine Sodium) 75 Mcg Tab 75 MCG PO QAM for 90 Days, #90 TAB 3 Refills Magnesium Oxide (Magnesium-Oxide) 400 Mg Tab 400 MG PO BID for 7 Days, #14 TAB Multiple Vitamin (Multi Vitamin Daily) 1 Tab Tab 1 TAB PO QAM Nitroglycerin (Nitrostat) 0.4 Mg Tab 0.4 MG UT PRN, BTL Ramipril (Ramipril) 10 Mg Cap 1 CAP PO DAILY for 90 Days, #90 CAP 3 Refills Tolterodine Tartrate (Detrol LA) 4 Mg Capcr 1 CAP PO DAILY for 90 Days, #90 CAP 3 Refills Discontinued Medications: Atorvastatin (Lipitor) 80 Mg Tab 80 MG PO HS, TAB Discharge Exam Patient was seen at the bedside during discharge. Patient alert and oriented to person and place. She was able to tell where she is, her full name and . She is tolerating food well. PT/OT evaluated her and PT recommended to discharge home with home PT. Denied any complaints today. Review of Systems: Constitutional: No fever, No weakness, No weight loss Respiratory: No cough, No dyspnea at rest, No dyspnea on exertion, No shortness of breath, No sputum, No wheezing Abdomen: No constipation, No diarrhea, No nausea, No pain, No vomiting Musculoskeletal: No muscle pain Genitourinary - Female: No dysuria Neurologic: No balance problems, No numbness/tingling, No paralysis, No weakness Integumentary: No rash Physical Exam: General Appearance: WD/WN, no apparent distress Neck: supple, trachea midline Respiratory/Chest: chest non-tender, lungs clear, normal breath sounds, no respiratory distress Cardiovascular: regular rate, rhythm, no edema, no murmur Abdomen / GI: normal bowel sounds, non tender, soft Extremities: normal inspection, no calf tenderness, no pedal edema Neurologic/Psychiatric: no motor/sensory deficits, alert, normal mood/affect , + pertinent finding (patient was oriented to person and place, no motor weakness, ) Skin: normal color, warm/dry, no rash (Ruslan Edwards MD) Review of Systems: Constitutional: No fever Respiratory: No shortness of breath Cardiovascular: No chest pain Neurologic: No numbness/tingling, No weakness Endocrine: No fatigue Physical Exam: General Appearance: no apparent distress Respiratory/Chest: lungs clear, no respiratory distress Cardiovascular: regular rate, rhythm Neurologic/Psychiatric: no motor/sensory deficits, alert, normal mood/affect , oriented x 3 Skin: warm/dry (Zoë Head M.D.) Hospital Course Patient is a 80 year old female with a of CVA, DM, and HTN that presented to [facility] on 07/06/16 with spontaneous resolution of symptoms 2/2 TIA. According to the daughter patient has baseline of dementia with history of waxing and waning. 1. TIA - Given her history and multiple episodes of CVAs in the past, this was most likely another episode of TIA. Her BSG at that time was 77 therefore it is not very less it was 2/2 hypoglycemia. - Head CT (07/06): Senescent changes and remote infarcts. There is no hemorrhage, mass effect, or evidence of acute territorial ischemia by CT criteria. There has been no significant change from 06/17/2016 - Carotid Doppler (07/07): No evidence of significant stenosis by velocity criteria - Brain MRI (07/07) - No acute ischemic process, Considerable chronic small vessel change, multiple old infarcts bilaterally. - Neck MRA (07/07) - Considerable atherosclerotic change throughout the carotid and to lesser extent vertebral basilar systems, No evidence for significant or high-grade stenotic process. - Head MRA (07/07) - Unremarkable MR angiogram of the brain - EEG (07/07) - indicates a mild to moderate diffuse encephalopathy of nonspecific etiology - Echo (07/08): EF 60-65%, LV Systolic Function Normal, No regional wall abnormality, Moderate Concentric LVH, Grade 1 Diastolic Dysfunction, Small Pericardial Effusion - Lipid profile is normal with LDL <100, Hgb A1c is high (7.9) - Patient was evaluated by speech and recommended to resume diet ( mechanical soft) - Consult neurology and seen by Dr Beaulieu. - Neurology recommendation as follows: Total cholesterol goal 100-200, and LDL goal less than 100 (avoid lowering total cholesterol less than 100 as this can increase risk for intracranial hemorrhage. Hemoglobin A1c goal less than 7 - Decrease atorvastatin from 80 mg to 40 mg, since patient LDL was <100 - Evaluated by PT/OT and recommended discharge with home PT - Continued ASA 81mg and Plavix 75mg on discharged Patient was discharged to home with [facility]. Total Time Spent: Greater than 30 minutes This includes examination of the patient, discharge planning, medication reconciliation, and communication with other providers. (Ruslan Edwards MD) I have reviewed the medical record and performed a history and physical examination of this patient today. I have discussed the case with Dr. Edwards. The above note reflects my findings, conclusions, and recommendations. Total Time Spent: Greater than 30 minutes (Zoë Head M.D.) Discharge Instructions Please refer to the electronic Patient Visit Report (Discharge Instructions) for additional information. (Ruslan Edwards MD) Additional Copies To Sae Arthur M.D.
--- NOTE | 2016-07-13 15:55 | Pharmacy Progress Note ---
Pharmacist Post D/C Phone Note Date of phone call: Jul 13, 2016. Individual with whom pharmacist spoke to: Yi (daughter) The following questions were reviewed during the phone call with responses listed below each: Can you tell me the medications that you are currently taking as well as when and how you take each medication? - New Medications: Aspirin (Aspirin EC Low Dose) 81 Mg Ectab 81 MG PO QAM for 30 Days Atorvastatin (Atorvastatin Calcium) 40 Mg Tab 40 MG PO HS for 30 Days, TAB Continued Medications: Clopidogrel (Plavix) 75 Mg Tab 75 MG PO QAM, TAB Cyclosporine (Ophth) (Restasis) 0.05 % Emu 1 DROP OP BID, BTL Docusate Sodium (Colace) 100 Mg Cap 1 CAP PO PRN for Constipation for 30 Days, #60 CAP Escitalopram Oxalate (Lexapro) 10 Mg Tab 10 MG PO QAM, TAB Fluticasone Prop/Salmeterol (Advair Diskus 100/50 60 Dose) 1 Ea Aerp 1 PUFF INH BID, #180 Gabapentin (Neurontin) 100 Mg Cap 100 MG PO BID, CAP Hydrocortisone (Topical) (Hydrocortisone) 2.5 % Lot 1 APPLN TOP BID PRN for PRN for 10 Days, #60 ML Insulin Aspart (Novolog) 100 Units/Ml Inj INJ ACHS SLIDING SCALE Insulin Glargine (Lantus) 100 Unit/Ml Inj 20 SC AMPM, VIAL Levothyroxine Sodium (Levothyroxine Sodium) 75 Mcg Tab 75 MCG PO QAM for 90 Days, #90 TAB 3 Refills Magnesium Oxide (Magnesium-Oxide) 400 Mg Tab 400 MG PO BID for 7 Days, #14 TAB Multiple Vitamin (Multi Vitamin Daily) 1 Tab Tab 1 TAB PO QAM Nitroglycerin (Nitrostat) 0.4 Mg Tab 0.4 MG UT PRN, BTL Ramipril (Ramipril) 10 Mg Cap 1 CAP PO DAILY for 90 Days, #90 CAP 3 Refills Tolterodine Tartrate (Detrol LA) 4 Mg Capcr 1 CAP PO DAILY for 90 Days, #90 CAP 3 Refills Discontinued Medications: Atorvastatin (Lipitor) 80 Mg Tab 80 MG PO HS, TAB When have you missed any doses of your medications? - No What side effects are you having from your medications? - None What questions do you have about your medications? - None What problems are you having obtaining your medications? - None When is your next appointment with your primary care doctor? - August 15 Additional comments: - N/A As per the Pharmacist Discharge Counseling for Stroke Patients Protocol, this phone call has been completed within 72 hours of discharge. Thank you for allowing us to be involved in the care of this patient.
[2016-10-08] MEDS ORDERED: CYCL0.052 OP (11:59)
[2016-10-08] MEDS ORDERED: RAMI10CA PO (11:59)
[2016-10-08] MEDS ORDERED: LEVO75TA5 PO (13:33)
[2016-10-08] MEDS ORDERED: NTRGSL/4 UT (13:43)
[2016-10-08] MEDS ORDERED: CYAN1CAP3 PO (13:48)
[2016-10-08] MEDS ORDERED: METO50TA16 PO (13:50)
== END 2016-07-10 12:45 | disposition home health service (06) | DRG 69 ==
LOC: ENRESERVDT → ENRESERVTM → EDBD 19:27 → C.EDC 19:29 → C.2T 23:53 → C.MS4W 07-08 18:59
PROVIDERS: ADMIT Internal Medicine; ATTEND Family Medicine
DX: G45.9 Transient cerebral ischemic attack, unspecified (principal); E83.42 Hypomagnesemia; I10 Essential (primary) hypertension; J45.909 Unspecified asthma, uncomplicated; E11.319 Type 2 diabetes mellitus with unspecified diabetic retinopathy without macular edema; E03.9 Hypothyroidism, unspecified; E06.3 Autoimmune thyroiditis; E78.5 Hyperlipidemia, unspecified; G89.29 Other chronic pain; I69.939 Monoplegia of upper limb following unspecified cerebrovascular disease affecting unspecified side; J38.00 Paralysis of vocal cords and larynx, unspecified; I69.392 Facial weakness following cerebral infarction; I69.320 Aphasia following cerebral infarction; I69.319 Unspecified symptoms and signs involving cognitive functions following cerebral infarction; F01.50 Vascular dementia, unspecified severity, without behavioral disturbance, psychotic disturbance, mood disturbance, and anxiety; R32 Unspecified urinary incontinence; I25.10 Atherosclerotic heart disease of native coronary artery without angina pectoris; M19.90 Unspecified osteoarthritis, unspecified site; F32.9 Major depressive disorder, single episode, unspecified; E66.9 Obesity, unspecified; Z68.34 Body mass index [BMI] 34.0-34.9, adult; Z66 Do not resuscitate; Z79.02 Long term (current) use of antithrombotics/antiplatelets; Z79.4 Long term (current) use of insulin; Z79.51 Long term (current) use of inhaled steroids; Z79.899 Other long term (current) drug therapy; Z87.891 Personal history of nicotine dependence

== ENCOUNTER → 2016-08-02 | Outpatient (CLI) | payer OTHER, MEDICARE ==
[~2016-08-02] MED LIST changes: +ADVIN25/60 INH; +ASPEC81 PO; +ASPI81TA28 PO; +ATOR-24 PO; -CEFU1TAB35 PO; +CPR500 PO; +CYAN1CAP3 PO; +CYCL0.052 OP; -DFL100 PO; +DIAZ5TAB3 PO; +HYDR2.5L TOP; +INSDGIPEN SC; +LEVO75TA5 PO; +LPT40 PO; +LSX20 PO; +LXP10 PO; -METO-551 PO; +METO50TA16 PO; +MONT1TAB5 PO; +MULT-884 PO; +NRN100 PO; +NTRGSL/4 UT; +NVLGI/PEN SC; +ONDA4TAB10 SL; -OXYC1TAB3 PO; +PLV75 PO; +POTA-65 PO; +POTA20TA16 PO; +RAMI10CA PO; +SNG10 PO; +SULF800T23 PO; +TOLT1CAP3 PO; +VNTHFA/IN INH; +ZNTT/150 PO
== END | disposition home or self-care (01) ==
LOC: C.LABSPEC 10:36
PROVIDERS: ATTEND Urology
DX: N39.0 Urinary tract infection, site not specified (principal)

== ENCOUNTER 2016-08-29 13:06 | Inpatient (IN) | payer OTHER, MEDICARE ==
[~2016-08-29] VITALS: Ht 157.5 cm; Wt 98.5 kg
[~2016-08-29 13:06] MED LIST changes: -ADVIN25/60 INH; -ASPI81TA28 PO; -ATOR-24 PO; -ATOR-26 PO; -CPR500 PO; -CYAN1CAP3 PO; -CYCL0.052 OP; -DIAZ5TAB3 PO; -HYDR2.5L TOP; -INSDGIPEN SC; -LEVO75TA5 PO; -LSX20 PO; -LXP10 PO; -METO50TA16 PO; -MONT1TAB5 PO; -MULT-884 PO; -NRN100 PO; -NTRGSL/4 UT; -NVLGI/PEN SC; -ONDA4TAB10 SL; -PLV75 PO; -POTA-65 PO; -POTA20TA16 PO; -RAMI10CA PO; -SNG10 PO; -SULF800T23 PO; -TOLT1CAP3 PO; -VNTHFA/IN INH; -ZNTT/150 PO
[2016-08-29] MEDS ORDERED: SODIUM CHLORIDE 0.9% 1000ML 1,000 ML IV SCH ×2 (13:25→16:05)
[2016-08-29] MEDS ORDERED: ONDANSETRON INJ 2 MG/ML 2 ML VIAL IV STA (13:25)
[2016-08-29] MEDS ORDERED: POTA20TA16 PO (13:49)
[2016-08-29] MEDS ORDERED: ZNTT/150 PO (13:50)
[2016-08-29] MEDS ORDERED: MONT1TAB5 PO (13:51)
[2016-08-29 14:02] LABS: BASO % 0.4 %; BASO ABS # 0.03 K/uL (0-0.2); COMPLETE YES; EOS % 1.9 %; HEMATOCRIT 34.1 % (37-47); IG% 0.1 %; LYMPH % 27.7 %; LYMPH ABS # 2.08 K/uL (1.2-3.4); MEAN CORPUSCULAR HEMOGLOBIN 31.2 pg (25-34); MEAN CORPUSCULAR HGB CONC 32.8 g/dl (32-36); MEAN PLATELET VOLUME 9.2 fL (7.4-10.4); MONO % 7.2 %; NEUT % 62.7 %; PLATELET COUNT 283 K/uL (130-400); RED BLOOD COUNT 3.59 M/uL (4.2-5.4); WHITE BLOOD COUNT 7.52 K/uL (4.8-10.8)
[2016-08-29 14:19] LABS: BUN/CREATININE RATIO 16.7 (10-20); CALCIUM 8.6 mg/dl (8.5-10.1); CREATININE 0.95 mg/dl (0.60-1.20)
--- NOTE | 2016-08-29 14:23 | DIAGNOSTIC IMAGING REPORT ---
CT HEAD WITHOUT CONTRAST (CT) CLINICAL HISTORY: Stroke COMPARISON STUDY: 3-17 TECHNIQUE: Axial CT of the brain is performed from the vertex to the skull base. IV contrast was not administered for this examination. CT DOSE: 729.78 mGycm FINDINGS: No intra or extra-axial mass lesions are visualized. There is no CT evidence of acute cortical infarction. There is no evidence of midline shift. There is no acute hemorrhage. No calvarial fractures are visualized. There are patchy white matter hypodensities likely on a small vessel basis. There are old bifrontal infarcts. There is an old right occipital lobe infarct. There is no evidence of pathologic ventricular dilatation. There are bilateral maxillary sinus air-fluid levels. There is opacification of several ethmoid air cells. There is mild frontal sinus mucosal thickening. IMPRESSION: 1. No acute intracranial findings 2. Multiple old bilateral infarcts 3. Inflammatory changes within the paranasal sinuses with bilateral maxillary sinus air-fluid levels Electronically signed by: Isaac Gan M.D. 08/29/2016 2:21 PM Dictated Date/Time: 08/29/2016 2:19 PM
[2016-08-29 14:27] LABS: CKMB/CK RATIO 1.4 (0-3.0)
--- NOTE | 2016-08-29 14:54 | DIAGNOSTIC IMAGING REPORT ---
SINGLE VIEW CHEST CLINICAL HISTORY: Dizziness. FINDINGS: An AP, portable, upright chest radiograph is compared to study dated 07/06/2016 and correlated with chest CT dated 05/31/2015. The examination is degraded by portable technique, large body habitus, and patient rotation. The heart is enlarged and there is atherosclerotic calcification of the thoracic aorta. The pulmonary vasculature is noncongested. A hiatal hernia is identified. There is chronic elevation of the right hemidiaphragm and bibasilar atelectasis. No airspace consolidation is seen typical for pneumonia and there is no large pleural effusion. No pneumothorax is seen. The skeletal structures are osteopenic. Advanced degenerative changes noted in the thoracic spine. Fusion hardware is partially imaged in the upper lumbar region. Chronic posttraumatic deformity and postoperative change is noted in the right proximal humerus. IMPRESSION: 1. Cardiomegaly without radiographic evidence of congestive failure. 2. There is no airspace consolidation or large pleural effusion. 3. Hiatal hernia. Electronically signed by: Ender Grimaldo M.D. 08/29/2016 2:52 PM Dictated Date/Time: 08/29/2016 2:50 PM
[2016-08-29 15:08] LABS: PARTIAL THROMBOPLASTIN RATIO 1.1; PROTHROMBIN TIME (PATIENT) 10.8 SECONDS (9.0-12.0)
[2016-08-29] MEDS ORDERED: MAGNESIUM HYDROXIDE SUSP 30 ML UDC PO PRN (16:15)
[2016-08-29] MEDS ORDERED: ONDANSETRON INJ 2 MG/ML 2 ML VIAL IV PRN (16:15)
[2016-08-29] MEDS ORDERED: ACETAMINOPHEN 325 MG TAB PO PRN (16:15)
[2016-08-29] MEDS ORDERED: PHARMACIST DISCHARGE MED REC CONSULT PRN (16:15)
[2016-08-29] MEDS ORDERED: ALUMINUM/MAGNESIUM/SIMETH (MAALOX MAX) 30 ML UDC PO PRN (16:15)
[2016-08-29] MEDS ORDERED: POLYETHYLENE (MIRALAX) 17 GM PACK PO PRN (16:15)
[2016-08-29] MEDS ORDERED: ACETAMINOPHEN 325 MG TAB PO STA (16:27)
[2016-08-29 16:39] VITALS: O2SAT 98; BMI 40.0
--- NOTE | 2016-08-29 16:41 | History and Physical ---
History & Physical Date & Time of Service: Aug 29, 2016 at 16:26 Chief Complaint: Dizzy,Nausea,Diarrhea Primary Care Physician: Sae Arthur M.D. History of Present Illness Source: patient, family, hospital records 80-year-old female with past medical history of stroke in 2014, TIA 07/21, hypertension, hypothyroidism, diabetes , asthma, spinal stenosis present at the ER with complaints of worsening dizziness which started last night. She complains of headache on the top of her head, with no radiation, dull in nature and also complains of nausea and photophobia. Denies any stiffness in the neck, fevers/chills. Denies any motor weakness, numbness or tingling, diplopia or blurriness of vision, dysarthria, dysphagia, gait disturbances. Denies any hearing loss, tinnitus or pain in the ears. Per family the patient has had diarrhea all weekend which was nonbloody and she has had decreased oral intake since then. The patient denied any abdominal pain, sick contacts, vomiting. She was recently admitted in July 2016 for TIA and started on Plavix and aspirin Past Medical/Surgical History Medical Problems: (1) ASTHMA W/O STATUS ASTH, ACT EXACERBATION OR UNSPEC Status: Chronic (2) CHR LYMPHOCYT THYROIDIT Status: Chronic (3) CORON ATHEROSCLER NOS TYPE VESSEL, [place] OR GRAFT Status: Chronic (4) DIAB KOKI WO COMPL, TYPE I [JUVENILE TYPE], NOT UNCNTRLD Status: Chronic (5) DIAB W OPHTHAL MANIFEST TYPE II,OR NOS/NOT UNCONTR Status: Chronic (6) HYPERTENSION NOS Status: Chronic (7) HYPOTHYROIDISM NOS Status: Chronic (8) LUMBOSACRAL SPONDYLOSIS Status: Chronic (9) OBESITY, NOS Status: Chronic (10) OSTEOARTHROS NOS-UNSPEC Status: Chronic (11) POSTLAMINECT SYND-LUMBAR Status: Chronic (12) SPINAL STENOSIS-LUMBAR Status: Chronic (13) TIA (transient ischemic attack) Status: Resolved Surgical Problems: (1) H/O: hysterectomy Status: Resolved (2) History of back surgery Status: Resolved (3) History of cataract surgery Status: Resolved (4) Hx of cholecystectomy Status: Resolved Family History Cancer Diabetes mellitus Gallbladder disease Heart disease Kidney disease Kidney stones Social History Smoking Status: Never Smoker Drug Use: none Marital Status: Housing status: lives with family Occupational Status: retired Immunizations History of Influenza Vaccine: Yes Influenza Vaccine Date: Jun 16, 2011 History of Tetanus Vaccine?: utd Tetanus Immunization Date: Jan 22, 2001 History of Pneumococcal: Yes Pneumococcal Date: Jun 16, 2003 History of Hepatitis B Vaccine: Unknown Multi-Drug Resistant Organisms History of MDRO: No Allergies Coded Allergies: Latex1 -Allergic Contact Dermititis (Verified Allergy, Mild, RASH, 08/29/16 ) Adhesives (Verified Allergy, Unknown, RASH, 08/29/16) Codeine (Verified Adverse Reaction, Unknown, N&V, 08/29/16) Morphine (Verified Adverse Reaction, Unknown, N&V, 08/29/16) Home Medications Scheduled Aspirin (Aspirin EC Low Dose), 81 MG PO QAM Atorvastatin (Atorvastatin Calcium), 40 MG PO HS Clopidogrel (Plavix), 75 MG PO QAM Cyanocobalamin (B-12), 1,000 MCG PO DAILY Cyclosporine (Ophth) (Restasis), 1 DROP OP BID Escitalopram Oxalate (Lexapro), 10 MG PO QAM Fluticasone Prop/Salmeterol (Advair Diskus 100/50 60 Dose), 1 PUFF INH BID Gabapentin (Neurontin), 100 MG PO BID Insulin Aspart (Novolog), INJ ACHS Insulin Glargine (Lantus), 20 SC AMPM Levothyroxine Sodium (Levothyroxine Sodium), 75 MCG PO QAM Metoprolol Tartrate (Lopressor) (Lopressor), 50 MG PO BID Montelukast Sodium (Montelukast Sodium), 1 TAB PO HS Multiple Vitamin (Multi Vitamin Daily), 1 TAB PO QAM Nitroglycerin (Nitrostat), 0.4 MG UT PRN Potassium Ext Rel (Klor-Con), 20 MEQ PO DAILY Ramipril (Ramipril), 1 CAP PO DAILY Ranitidine (Zantac), 150 MG PO BID Tolterodine Tartrate (Detrol LA), 1 CAP PO DAILY Scheduled PRN Hydrocortisone (Topical) (Hydrocortisone), 1 APPLN TOP BID PRN for PRN Review of Systems Constitutional: + problem reported (lightheadedness), No chills, No fever Eyes: No diplopia, No worsening of vision ENT: No hearing loss Respiratory: No cough, No sputum Cardiovascular: No chest pain Abdomen: + diarrhea, + nausea, No pain, No vomiting Musculoskeletal: No joint pain Genitourinary - Female: No dysuria, No urinary frequency, No urinary urgency Neurologic: + memory loss, + vertigo, No balance problems, No numbness/tingling , No paralysis, No weakness Psychiatric: No depression symptoms Endocrine: No fatigue Hematologic / Lymphatic: No abnormal bleeding/bruising Integumentary: No rash Physical Exam Vital Signs Date Time Temp Pulse Resp B/P Pulse Ox O2 Delivery O2 Flow Rate FiO2 08/29/16 15:30 62 98 08/29/16 15:26 141/77 08/29/16 15:00 75 20 149/75 96 Room Air 08/29/16 14:57 141/65 08/29/16 14:06 74 20 08/29/16 14:01 75 15 164/136 08/29/16 13:50 73 20 146/93 96 Room Air 08/29/16 13:40 146/93 08/29/16 13:39 73 182/103 75 146/93 08/29/16 13:35 95 Room Air 08/29/16 13:09 36.4 74 20 130/83 95 Room Air General Appearance: WD/WN, no apparent distress, + obese Head: normocephalic ENT: normal ENT inspection, hearing grossly normal Neck: supple Respiratory/Chest: chest non-tender, lungs clear, normal breath sounds, no respiratory distress, no accessory muscle use Cardiovascular: regular rate, rhythm, no murmur Abdomen/GI: normal bowel sounds, non tender, soft Back: normal inspection Extremities/Musculoskelatal: no calf tenderness, no pedal edema 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, alert, normal mood/affect, oriented x 3 Skin: normal color Diagnostics Laboratory Results Results Past 24 Hours Test 08/29/16 13:34 08/29/16 13:49 08/29/16 14:29 08/29/16 14:40 Range/Units Bedside Glucose 112 70-90 mg/dl White Blood Count 7.52 4.8-10.8 K/uL Red Blood Count 3.59 4.2-5.4 M/uL Hemoglobin 11.2 12.0-16.0 g/dL Hematocrit 34.1 37-47 % Mean Corpuscular Volume 95.0 80-100 fL Mean Corpuscular Hemoglobin 31.2 25-34 pg Mean Corpuscular Hemoglobin Concent 32.8 32-36 g/dl Platelet Count 283 130-400 K/uL Mean Platelet Volume 9.2 7.4-10.4 fL Neutrophils (%) (Auto) 62.7 % Lymphocytes (%) (Auto) 27.7 % Monocytes (%) (Auto) 7.2 % Eosinophils (%) (Auto) 1.9 % Basophils (%) (Auto) 0.4 % Neutrophils # (Auto) 4.72 1.4-6.5 K/uL Lymphocytes # (Auto) 2.08 1.2-3.4 K/uL Monocytes # (Auto) 0.54 0.11-0.59 K/uL Eosinophils # (Auto) 0.14 0-0.5 K/uL Basophils # (Auto) 0.03 0-0.2 K/uL RDW Standard Deviation 48.0 36.4-46.3 fL RDW Coefficient of Variation 13.8 11.5-14.5 % Immature Granulocyte % (Auto) 0.1 % Immature Granulocyte # (Auto) 0.01 0.00-0.02 K/uL Sodium Level 142 136-145 mmol/L Potassium Level 4.0 3.5-5.1 mmol/L Chloride Level 108 98-107 mmol/L Carbon Dioxide Level 28 21-32 mmol/L Anion Gap 6.0 3-11 mmol/L Blood Urea Nitrogen 16 7-18 mg/dl Creatinine 0.95 0.60-1.20 mg/dl Est Creatinine Clear Calc Drug Dose 52.8 ml/min Estimated GFR () 66.0 Estimated GFR (Non- 57.0 BUN/Creatinine Ratio 16.7 10-20 Random Glucose 108 70-99 mg/dl Calcium Level 8.6 8.5-10.1 mg/dl Total Creatine Kinase 83 26-192 U/L Creatine Kinase MB 1.2 0.5-3.6 ng/ml Creatine Kinase MB Ratio 1.4 0-3.0 Troponin I 0.059 0-0.045 ng/ml Bedside Prothrombin Time INR 1.1 0.9-1.1 Prothrombin Time 10.8 9.0-12.0 SECONDS Prothromb Time International Ratio 1.0 0.9-1.1 Activated Partial Thromboplast Time 28.2 21.0-31.0 SECONDS Partial Thromboplastin Ratio 1.1 Test 08/29/16 16:05 Range/Units Diagnostic Radiology [~ rep ct add3]] CT HEAD WITHOUT CONTRAST (CT) CLINICAL HISTORY: Stroke COMPARISON STUDY: 07-21 TECHNIQUE: Axial CT of the brain is performed from the vertex to the skull base. IV contrast was not administered for this examination. CT DOSE: 729.78 mGycm FINDINGS: No intra or extra-axial mass lesions are visualized. There is no CT evidence of acute cortical infarction. There is no evidence of midline shift. There is no acute hemorrhage. No calvarial fractures are visualized. There are patchy white matter hypodensities likely on a small vessel basis. There are old bifrontal infarcts. There is an old right occipital lobe infarct. There is no evidence of pathologic ventricular dilatation. There are bilateral maxillary sinus air-fluid levels. There is opacification of several ethmoid air cells. There is mild frontal sinus mucosal thickening. IMPRESSION: 1. No acute intracranial findings 2. Multiple old bilateral infarcts 3. Inflammatory changes within the paranasal sinuses with bilateral maxillary sinus air-fluid levels Electronically signed by: Isaac Gan M.D. 08/29/2016 2:21 PM Dictated Date/Time: 08/29/2016 2:19 PM [~ rep ct add3]] SINGLE VIEW CHEST CLINICAL HISTORY: Dizziness. FINDINGS: An AP, portable, upright chest radiograph is compared to study dated 07/06/2016 and correlated with chest CT dated 05/31/2015. The examination is degraded by portable technique, large body habitus, and patient rotation. The heart is enlarged and there is atherosclerotic calcification of the thoracic aorta. The pulmonary vasculature is noncongested. A hiatal hernia is identified. There is chronic elevation of the right hemidiaphragm and bibasilar atelectasis. No airspace consolidation is seen typical for pneumonia and there is no large pleural effusion. No pneumothorax is seen. The skeletal structures are osteopenic. Advanced degenerative changes noted in the thoracic spine. Fusion hardware is partially imaged in the upper lumbar region. Chronic posttraumatic deformity and postoperative change is noted in the right proximal humerus. IMPRESSION: 1. Cardiomegaly without radiographic evidence of congestive failure. 2. There is no airspace consolidation or large pleural effusion. 3. Hiatal hernia. Electronically signed by: Ender Grimaldo M.D. EKG Normal sinus rhythm Left axis deviation Left anterior fascicular block Poor R wave progression, consider anterior UT vs. lead placement vs. LVH Abnormal ECG When compared with ECG of 06-JUL-2016 20:22, No significant change was found Confirmed by Dariel Esqueda ([id number]) on 08/29/2016 2:32:38 PM Impression Assessment and Plan 80-year-old female with past medical history of stroke in 2014, TIA 07/21, hypertension, hypothyroidism, diabetes , asthma, spinal stenosis present at the ER with complaints of worsening dizziness which started last night. The patient has had a history of stroke and TIA as recently as July 2016 and her symptoms are concerning for TIA. She has also had diarrhea over the weekend and decreased oral intake which could also contribute to her dizziness or lightheadedness. TIA: - Head CT: IMPRESSION: 1. No acute intracranial findings 2. Multiple old bilateral infarcts 3. Inflammatory changes within the paranasal sinuses with bilateral maxillary sinus air-fluid levels - MRI brain ordered - Imaging from recent admission: - Head CT (07/06/16): Senescent changes and remote infarcts. There is no hemorrhage, mass effect, or evidence of acute territorial ischemia by CT criteria. There has been no significant change from 06/17/2016 - Carotid Doppler (07/07/16): No evidence of significant stenosis by velocity criteria - Brain MRI (07/07/16) - No acute ischemic process, Considerable chronic small vessel change, multiple old infarcts bilaterally. - Neck MRA (07/07/16) - Considerable atherosclerotic change throughout the carotid and to lesser extent vertebral basilar systems, No evidence for significant or high-grade stenotic process. - Head MRA (07/07/16) - Unremarkable MR angiogram of the brain - EEG (07/07/16) - indicates a mild to moderate diffuse encephalopathy of nonspecific etiology - Echo (07/08/16): EF 60-65%, LV Systolic Function Normal, No regional wall abnormality, Moderate Concentric LVH, Grade 1 Diastolic Dysfunction, Small Pericardial Effusion - Speech eval - PT/OT - Neurology consult - Continue aspirin, Plavix, statin Elevated troponins: - EKG: Normal sinus rhythm, Left axis deviation, Left anterior fascicular block Poor R wave progression, consider anterior UT vs. lead placement vs. LVH, No change since last EKG - Initial troponin: 0.059, trend every 8 hours - Echo (07/08/16): EF 60-65%, LV Systolic Function Normal, No regional wall abnormality, Moderate Concentric LVH, Grade 1 Diastolic Dysfunction, Small Pericardial Effusion Diarrhea: -C. difficile pending - Continue hydration with IV fluids Intertrigo: - Nystatin powder Hypertension: - Continue ramipril, metoprolol Depression: - Continue Lexapro Neuropathy: - Continue gabapentin Hypothyroidism: - TSH ordered - Continue Synthroid Diabetes type 2: - Hemoglobin A1c ordered - Insulin sliding scale Hyperlipidemia: - Continue statin - Fasting lipids ordered DVT prophylaxis: - Heparin subcutaneous DO NOT RESUSCITATE Disposition: Admitted to telemetry Resident Physician Supervision Note: I was present with Dr. Davenport during the history and exam. I discussed the case with the resident and agree with the findings and plan as documented in the note. Any exceptions or clarifications are listed here: Upon my examination, the patient continues to complain of dizziness, headache ( improved), and some degree of photophobia. The daughter present in the room explains that the dizziness and headache or symptoms consistent with her previous TIA. There is a noted history of loose stools over the last several days, but is difficult to determine the exact frequency. The patient states that she's had 2 bowel movements per day but they have been loose; family reports that there is been some fecal incontinence secondary to the loose stool. Agreement with above plan including MRI brain (combo), neurology consult, testing for C. difficile, gentle IV fluids, serial troponin, and telemetry monitoring. There have been some suggestion regarding prefer Holter monitor to rule out cardiac dysrhythmia; as such, we can monitor her while she is in-house. Documented By: Delroy Becerra Level of Care Telemetry Resuscitation Status DO NOT RESUSCITATE VTE Prophylaxis VTE Risk Assessment Done? Y/N: Yes Risk Level: Moderate Given or contraindicated: Unfractionated heparin SQ Resident Tracking Resident Involvement: Resident Care Provided Care Provided: Adult Hospital Medicine
[2016-08-29] MEDS ORDERED: NITROGLYCERIN 0.4 MG SL PER TAB CHARGE UT PRN (17:00)
--- NOTE | 2016-08-29 17:43 | EMERGENCY ROOM VISIT NOTE ---
History Report prepared by Galo: Alonzo Johnson Under the Supervision of: Dr. Ruben Naranjo M.D. First contact with patient: 13:15 Chief Complaint: FLU LIKE SX Stated Complaint: DIZZY,NAUSEA,DIARRHEA History of Present Illness The patient is a 80 year old female who presents to the Emergency Room with complaints of worsening dizziness that started last night. She says that she overall just does not feel well, and is nauseous and lightheaded. She feels like the room is spinning. The patient's dizziness is noted to be worsened when moving her head. Per the patient's sister, the patient had diarrhea about 3 days ago, but the patient says that the diarrhea stopped yesterday. The patient also started getting a persistent non-productive cough around 3 days ago. Per the patient's family, the patient has not eaten or drank anything since last night. The patient had a TIA in July, and had symptoms which included slurred speech, right hand weakness, and vertigo. The patient says that her current dizziness reminds her a bit of her a bit of the vertigo during the TIA. 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 The patient is noted to be normally unsteady, which has not worsened today. The patient denies any shortness of breath, vomiting, chest pain, abdominal pain, weakness or numbness to one side of body, speech difficulties, swallowing difficulties, vision changes, hearing changes, melena, or hematochezia. Source of History: patient, family Onset: Last night Position: other (global - dizziness) Quality: other (feels like room is spinning) Timing: worsening Modifying Factors (Worsening): other (when moving head) Associated Symptoms: + cough, + diarrhea (may have stopped yesterday), + nausea, No SOB, No abdominal pain, No chest pain, No hematochezia, No melena, No numbness, No vomiting, No weakness Note: Associated symptoms: Lightheaded. Denies speech difficulties, swallowing difficulties, vision changes, hearing changes. Review of Systems See HPI for pertinent positives & negatives. A total of 10 systems reviewed and were otherwise negative. 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 (16) SIRS (systemic inflammatory response syndrome) (17) SPINAL STENOSIS-LUMBAR (18) TIA (transient ischemic attack) Surgical Problems: (1) H/O: hysterectomy (2) History of back surgery (3) History of cataract surgery (4) History of renal stent (5) Hx of cholecystectomy Family History Cancer Diabetes mellitus Gallbladder disease Heart disease Kidney disease Kidney stones Social History Smoking Status: Never Smoker Alcohol Use: none Drug Use: none Marital Status: Housing Status: lives with family Occupation Status: retired Current/Historical Medications Scheduled Aspirin (Aspirin EC Low Dose), 81 MG PO QAM Atorvastatin (Atorvastatin Calcium), 40 MG PO HS Clopidogrel (Plavix), 75 MG PO QAM Cyanocobalamin (B-12), 1,000 MCG PO DAILY Cyclosporine (Ophth) (Restasis), 1 DROP OP BID Escitalopram Oxalate (Lexapro), 10 MG PO QAM Fluticasone Prop/Salmeterol (Advair Diskus 100/50 60 Dose), 1 PUFF INH BID Gabapentin (Neurontin), 100 MG PO BID Insulin Aspart (Novolog), INJ ACHS Insulin Glargine (Lantus), 20 SC AMPM Levothyroxine Sodium (Levothyroxine Sodium), 75 MCG PO QAM Metoprolol Tartrate (Lopressor) (Lopressor), 50 MG PO BID Montelukast Sodium (Montelukast Sodium), 1 TAB PO HS Multiple Vitamin (Multi Vitamin Daily), 1 TAB PO QAM Nitroglycerin (Nitrostat), 0.4 MG UT PRN Potassium Ext Rel (Klor-Con), 20 MEQ PO DAILY Ramipril (Ramipril), 1 CAP PO DAILY Ranitidine (Zantac), 150 MG PO BID Tolterodine Tartrate (Detrol LA), 1 CAP PO DAILY Scheduled PRN Hydrocortisone (Topical) (Hydrocortisone), 1 APPLN TOP BID PRN for PRN Allergies Coded Allergies: Latex1 -Allergic Contact Dermititis (Verified Allergy, Mild, RASH, 08/29/16 ) Adhesives (Verified Allergy, Unknown, RASH, 08/29/16) Codeine (Verified Adverse Reaction, Unknown, N&V, 08/29/16) Morphine (Verified Adverse Reaction, Unknown, N&V, 08/29/16) Physical Exam Vital Signs Date Time Temp Pulse Resp B/P Pulse Ox O2 Delivery O2 Flow Rate FiO2 08/29/16 17:10 66 94 08/29/16 17:05 66 94 08/29/16 17:00 67 135/84 96 08/29/16 16:55 66 95 08/29/16 16:50 67 94 08/29/16 16:45 67 94 08/29/16 16:40 68 96 08/29/16 16:39 98 Room Air 08/29/16 16:35 67 96 08/29/16 16:30 67 149/84 97 08/29/16 16:25 68 96 08/29/16 16:20 65 95 08/29/16 16:15 67 96 08/29/16 16:10 67 96 08/29/16 16:05 71 97 08/29/16 16:01 153/61 08/29/16 16:00 69 97 08/29/16 15:55 67 98 08/29/16 15:50 68 96 08/29/16 15:45 64 97 08/29/16 15:40 64 96 08/29/16 15:35 69 96 08/29/16 15:30 62 98 08/29/16 15:26 141/77 08/29/16 15:00 75 20 149/75 96 Room Air 08/29/16 14:57 141/65 08/29/16 14:06 74 20 08/29/16 14:01 75 15 164/136 08/29/16 13:50 73 20 146/93 96 Room Air 08/29/16 13:40 146/93 08/29/16 13:39 73 182/103 75 146/93 08/29/16 13:35 95 Room Air 08/29/16 13:09 36.4 74 20 130/83 95 Room Air Physical Exam Constitutional: Vital signs reviewed. Eyes: Pupils are equal round reactive to light. Conjunctiva are noninjected. ENT: Pharynx is clear without erythema or exudate. Mucous membranes are moist. Neck supple without meningeal signs. Respiratory: Clear to auscultation bilaterally. Breath sounds are equal bilaterally. Cardiovascular: Regular rate and rhythm. No rubs or gallops. GI: Soft, nondistended and nontender. Bowel sounds are present. Musculoskeletal: No peripheral edema. No lower extremity tenderness. Integumentary: No cyanosis. Neurological: The patient is awake and alert. Cranial nerves II-XII are intact. Motor is 5 out of 5 all extremities. Sensation is intact to light touch all extremities. Normal speech. No pronator drift. No dysdiadochokinesis. No limb ataxia. Psychiatric: Normal affect. Medical Decision & Procedures ER Provider Diagnostic Interpretation: Radiology results as stated below per my review and the radiologist's interpretation: CT HEAD WITHOUT CONTRAST (CT) CLINICAL HISTORY: Stroke COMPARISON STUDY: 07-21 TECHNIQUE: Axial CT of the brain is performed from the vertex to the skull base. IV contrast was not administered for this examination. CT DOSE: 729.78 mGycm FINDINGS: No intra or extra-axial mass lesions are visualized. There is no CT evidence of acute cortical infarction. There is no evidence of midline shift. There is no acute hemorrhage. No calvarial fractures are visualized. There are patchy white matter hypodensities likely on a small vessel basis. There are old bifrontal infarcts. There is an old right occipital lobe infarct. There is no evidence of pathologic ventricular dilatation. There are bilateral maxillary sinus air-fluid levels. There is opacification of several ethmoid air cells. There is mild frontal sinus mucosal thickening. IMPRESSION: 1. No acute intracranial findings 2. Multiple old bilateral infarcts 3. Inflammatory changes within the paranasal sinuses with bilateral maxillary sinus air-fluid levels Electronically signed by: Isaac Gan M.D. 08/29/2016 2:21 PM Dictated Date/Time: 08/29/2016 2:19 PM SINGLE VIEW CHEST CLINICAL HISTORY: Dizziness. FINDINGS: An AP, portable, upright chest radiograph is compared to study dated 07/06/2016 and correlated with chest CT dated 05/31/2015. The examination is degraded by portable technique, large body habitus, and patient rotation. The heart is enlarged and there is atherosclerotic calcification of the thoracic aorta. The pulmonary vasculature is noncongested. A hiatal hernia is identified. There is chronic elevation of the right hemidiaphragm and bibasilar atelectasis. No airspace consolidation is seen typical for pneumonia and there is no large pleural effusion. No pneumothorax is seen. The skeletal structures are osteopenic. Advanced degenerative changes noted in the thoracic spine. Fusion hardware is partially imaged in the upper lumbar region. Chronic posttraumatic deformity and postoperative change is noted in the right proximal humerus. IMPRESSION: 1. Cardiomegaly without radiographic evidence of congestive failure. 2. There is no airspace consolidation or large pleural effusion. 3. Hiatal hernia. Electronically signed by: Ender Grimaldo M.D. 08/29/2016 2:52 PM Dictated Date/Time: 08/29/2016 2:50 PM Laboratory Results 08/29/16 13:49 Red Blood Count 3.59, Mean Corpuscular Volume 95.0, Mean Corpuscular Hemoglobin 31.2, Mean Corpuscular Hemoglobin Concent 32.8, Mean Platelet Volume 9.2, Neutrophils (%) (Auto) 62.7, Lymphocytes (%) (Auto) 27.7, Monocytes (%) (Auto) 7.2, Eosinophils (%) (Auto) 1.9, Basophils (%) (Auto) 0.4, Neutrophils # (Auto) 4.72, Lymphocytes # (Auto) 2.08, Monocytes # (Auto) 0.54, Eosinophils # (Auto) 0.14, Basophils # (Auto) 0.03 08/29/16 13:49 Test 08/29/16 13:34 08/29/16 13:49 08/29/16 14:29 08/29/16 14:40 Bedside Glucose 112 mg/dl (70-90) White Blood Count 7.52 K/uL (4.8-10.8) Red Blood Count 3.59 M/uL (4.2-5.4) Hemoglobin 11.2 g/dL (12.0-16.0) Hematocrit 34.1 % (37-47) Mean Corpuscular Volume 95.0 fL (80-100) Mean Corpuscular Hemoglobin 31.2 pg (25-34) Mean Corpuscular Hemoglobin Concent 32.8 g/dl (32-36) Platelet Count 283 K/uL (130-400) Mean Platelet Volume 9.2 fL (7.4-10.4) Neutrophils (%) (Auto) 62.7 % Lymphocytes (%) (Auto) 27.7 % Monocytes (%) (Auto) 7.2 % Eosinophils (%) (Auto) 1.9 % Basophils (%) (Auto) 0.4 % Neutrophils # (Auto) 4.72 K/uL (1.4-6.5) Lymphocytes # (Auto) 2.08 K/uL (1.2-3.4) Monocytes # (Auto) 0.54 K/uL (0.11-0.59) Eosinophils # (Auto) 0.14 K/uL (0-0.5) Basophils # (Auto) 0.03 K/uL (0-0.2) RDW Standard Deviation 48.0 fL (36.4-46.3) RDW Coefficient of Variation 13.8 % (11.5-14.5) Immature Granulocyte % (Auto) 0.1 % Immature Granulocyte # (Auto) 0.01 K/uL (0.00-0.02) Anion Gap 6.0 mmol/L (3-11) Est Creatinine Clear Calc Drug Dose 52.8 ml/min Estimated GFR () 66.0 Estimated GFR (Non- 57.0 BUN/Creatinine Ratio 16.7 (10-20) Calcium Level 8.6 mg/dl (8.5-10.1) Total Creatine Kinase 83 U/L (26-192) Creatine Kinase MB 1.2 ng/ml (0.5-3.6) Creatine Kinase MB Ratio 1.4 (0-3.0) Troponin I 0.059 ng/ml (0-0.045) Thyroid Stimulating Hormone (TSH) 2.580 uIu/ml (0.300-4.500) Bedside Prothrombin Time INR 1.1 (0.9-1.1) Prothrombin Time 10.8 SECONDS (9.0-12.0) Prothromb Time International Ratio 1.0 (0.9-1.1) Activated Partial Thromboplast Time 28.2 SECONDS (21.0-31.0) Partial Thromboplastin Ratio 1.1 Laboratory results as reviewed by me. Medications Administered Medications (Trade) Dose Ordered Sig/Pio Route Start Time Stop Time Status Last Admin Dose Admin Sodium Chloride (Nss 1000ml) 1,000 ml @ 50 mls/hr Q20H IV 08/29/16 13:25 09/28/16 13:24 08/29/16 13:25 50 MLS/HR Ondansetron HCl (Zofran Inj) 4 mg NOW STAT IV 08/29/16 13:25 08/29/16 13:27 DC 08/29/16 13:54 4 MG ECG Indication: nausea Rate (beats per minute): 70 Rhythm: normal sinus Findings: no acute ischemic change, no ectopy ED Course 1317: The patient was evaluated in room B10. A complete history and physical exam was performed. 1325: Ordered Zofran Inj 4 mg IV, NSS 1000 ml @ 50 mls/hr IV. 1450: I reevaluated the patient and she is still quite dizzy. I discussed the test results with her and her daughter, and recommended hospitalization for further workup. The patient verbally expressed understanding and agreement of the treatment plan. The patient will be evaluated for further treatment. 1452: I discussed the patient with Dr. Rolly Mehta water conservationist - he will evaluate the patient for further treatment. Medical Decision This is a 80-year-old female presents with dizziness and cough. Differential diagnosis includes dehydration, electrolyte abnormality, viral syndrome, pneumonia, metabolic derangement, TIA, CVA, cardiac. I did perform a limited focused review of portions of the patient's old chart on the electronic medical record. The patient was admitted in July for a TIA. MRA demonstrated considerable arthrosclerotic change throughout carotid and vertebral basilar systems. MRI of the brain showed multiple old infarcts but nothing acute. An ultrasound of carotids showed no hemodynamically significant stenosis. I did evaluate the patient as noted above. The patient is presenting with vertigo and weakness starting last night. She is a prior history of TIA and CVA with MRAs demonstrating atherosclerotic plaque in the vertebrobasilar systems. I was concerned about the possibility of a posterior circulation CVA. She did have diarrhea but that resolved about a day ago. She denies any abdominal pain. She does have vomiting. On exam she is neurologically intact. IV access was established. The patient was placed on a continuous matlab developer. I did treat her with Zofran and normal saline IV. I did order and personally review the patient's 12-lead EKG and chest x-ray as described above. I did order and review the patient's blood work as noted in the electronic medical record. Her troponin is slightly elevated but the patient denies any chest pain. Her twelve-lead EKG does not demonstrate acute ischemia. I did order a CT of the head. I did review the images myself as well as the radiology report as described above. There is no evidence of infarct. I did reevaluate the patient. She still feels dizzy. I did recommend hospitalization for further workup of her symptoms and repeat cardiac enzymes. I did discuss case with the hospitalist and caseworker intake. Consults Time Called: 0059 Consulting Physician: Dr. Rolly Mehta water conservationist Returned Call: [phone] I discussed the patient with Dr. Rolly Mehta water conservationist - he will evaluate the patient for further treatment. Impression Primary Impression: Dizziness Additional Impressions: Elevated troponin Anemia, unspecified Scribe Attestation The scribe's documentation has been prepared under my direct and personally reviewed by me in its entirety. I confirm that the note above accurately reflects all work, treatment, procedures, and medical decision making performed by me. Departure Information Dispostion Being Evaluated By Hospitalist Referrals Sae Arthur M.D. (PCP) Patient Instructions My [facility] Problem Qualifiers
[2016-08-29 18:23] VITALS: BP 166/92; PULSE 73; TEMP 36.6; O2SAT 95
[2016-08-29] MEDS: SODIUM CHLORIDE 0.9% 1000ML 1,000 ML IV SCH (18:40)
[2016-08-29] MEDS: RANITIDINE HCL 150 MG TAB PO SCH (20:34)
[2016-08-29] MEDS: GABAPENTIN 100 MG CAP PO SCH (20:34)
[2016-08-29] MEDS: FLUTICASONE/SALMETEROL 100/50 (ADVAIR) 14 PUFF/1 INHALER INH SCH (20:35)
[2016-08-29] MEDS: METOPROLOL TARTRATE 50 MG TAB PO SCH (20:35)
[2016-08-29] MEDS: NYSTATIN POWDER 15GM BTL EXT SCH (20:36)
[2016-08-29] MEDS: INSULIN ASPART 100 UNITS/ML 3 ML PEN SC SCH (20:40)
[2016-08-29] MEDS: INSULIN GLARGINE SOLOSTAR 100 UNITS/ML 3 ML PEN SC SCH (20:41)
[2016-08-29] MEDS: HEPARIN SOD 5000 UNIT/0.5 ML CARP SQ SCH (20:42)
[2016-08-29] MEDS ORDERED: MONTELUKAST SOD 10 MG TAB PO SCH (21:00)
[2016-08-29] MEDS ORDERED: ATORVASTATIN 40 MG TAB PO SCH (21:00)
[2016-08-29] MEDS ORDERED: GADAVIST IV PRN (22:15)
--- NOTE | 2016-08-29 22:26 | DIAGNOSTIC IMAGING REPORT ---
MRI OF THE BRAIN WITHOUT AND WITH IV CONTRAST CLINICAL HISTORY: Transient ischemic attack. Dizziness and nausea. COMPARISON STUDY: MRI of the brain July 07, [address] August 29, 2016. TECHNIQUE: Utilizing a 1.5 [place] magnet and dedicated coil, multiplanar, multiecho imaging of the brain was performed pre and postcontrast administration. IV administration of 10 mL of Gadavist contrast was uneventful. FINDINGS: There are no areas of restricted diffusion to suggest acute infarct. No acute intracranial hemorrhage, midline shift or mass effect is present. Ventricular system is stable. Basilar cisterns are patent. There are no extra-axial collections. There are numerous old infarcts which are similar to MRI of July 07, 2016. Extensive white matter T2 hyperintensity is similar to prior exam as well. This suggest extensive small vessel disease. The appearance of the brain is unchanged. Postcontrast images are suboptimal due to motion artifact but no intracranial mass or pathologic enhancement is present. There is moderate mucosal thickening of the sinuses with a small air-fluid level within the right maxillary sinus. IMPRESSION: 1. No acute intracranial findings. 2. No change in appearance of the brain since MRI of July 07, 2016 with numerous old infarcts and extensive small vessel disease. 3. Moderate sinus mucosal thickening. An air-fluid level within the right maxillary sinus suggests acute sinusitis. Electronically signed by: Jacinto Grant M.D. 08/29/2016 10:24 PM Dictated Date/Time: 08/29/2016 10:18 PM
[2016-08-29 23:40] VITALS: O2SAT 95
[2016-08-29 23:57] VITALS: BP 126/67; PULSE 77; TEMP 36.6; O2SAT 96
[2016-08-30 00:24] LABS: BENZODIAZEPINE, URINE NEG (NEG); COCAINE,URINE NEG (NEG); PHENCYCLIDINE, URINE NEG (NEG)
[2016-08-30 04:00] VITALS: O2SAT 95
[2016-08-30 04:33] VITALS: BP 143/84; PULSE 59; TEMP 36.4; O2SAT 97
[2016-08-30] MEDS: HEPARIN SOD 5000 UNIT/0.5 ML CARP SQ SCH (05:37)
[2016-08-30] MEDS: INSULIN ASPART 100 UNITS/ML 3 ML PEN SC SCH ×2 (06:30→12:39)
[2016-08-30] MEDS ORDERED: LEVOTHYROXINE 75 MCG TAB PO SCH (06:30)
[2016-08-30 06:42] LABS: ESTIMATED AVERAGE GLUCOSE 163 mg/dl; HA1C FLAG Normal (Normal)
[2016-08-30 06:46] LABS: BASO % 0.5 %; BASO ABS # 0.04 K/uL (0-0.2); EOS % 1.7 %; HEMATOCRIT 35.5 % (37-47); IG% 0.5 %; LYMPH % 20.8 %; LYMPH ABS # 1.56 K/uL (1.2-3.4); MEAN CELL VOLUME 94.9 fL (80-100); MEAN CORPUSCULAR HEMOGLOBIN 31.6 pg (25-34); MEAN CORPUSCULAR HGB CONC 33.2 g/dl (32-36); MEAN PLATELET VOLUME 9.3 fL (7.4-10.4); MONO % 10.4 %; NEUT % 66.1 %; PLATELET COUNT 266 K/uL (130-400); RED BLOOD COUNT 3.74 M/uL (4.2-5.4); WHITE BLOOD COUNT 7.49 K/uL (4.8-10.8)
[2016-08-30 07:02] LABS: BUN/CREATININE RATIO 15.6 (10-20); CHOLESTEROL/HDL RATIO 1.9; CREATININE 0.98 mg/dl (0.60-1.20); POTASSIUM 3.7 mmol/L (3.5-5.1)
[2016-08-30 07:16] LABS: CALCIUM 8.6 mg/dl (8.5-10.1)
[2016-08-30 07:21] VITALS: BP 162/84; PULSE 65; TEMP 36.4; O2SAT 94
[2016-08-30 08:00] VITALS: O2SAT 94
[2016-08-30] MEDS: INSULIN GLARGINE SOLOSTAR 100 UNITS/ML 3 ML PEN SC SCH (08:09)
[2016-08-30] MEDS: NYSTATIN POWDER 15GM BTL EXT SCH ×2 (08:15→12:00)
[2016-08-30] MEDS: FLUTICASONE/SALMETEROL 100/50 (ADVAIR) 14 PUFF/1 INHALER INH SCH (08:16)
[2016-08-30] MEDS: METOPROLOL TARTRATE 50 MG TAB PO SCH (08:18)
[2016-08-30] MEDS: GABAPENTIN 100 MG CAP PO SCH (08:19)
[2016-08-30] MEDS: RANITIDINE HCL 150 MG TAB PO SCH (08:20)
[2016-08-30] MEDS: SODIUM CHLORIDE 0.9% 1000ML 1,000 ML IV SCH (08:23)
[2016-08-30] MEDS ORDERED: CYANOCOBALAMIN 500 MCG TAB (VIT B-12) PO SCH (09:00)
[2016-08-30] MEDS ORDERED: MULTIVITAMIN TAB PO SCH (09:00)
[2016-08-30] MEDS ORDERED: ENALAPRIL MALEATE 10 MG TAB PO SCH (09:00)
[2016-08-30] MEDS ORDERED: ASPIRIN 81 MG ECTAB PO SCH (09:00)
[2016-08-30] MEDS ORDERED: ESCITALOPRAM OXALATE 10 MG TAB PO SCH (09:00)
[2016-08-30] MEDS ORDERED: POTASSIUM CHLORIDE 20 MEQ TABCR PO SCH (09:00)
[2016-08-30] MEDS ORDERED: CLOPIDOGREL BISULFATE 75 MG TAB PO SCH (09:00)
[2016-08-30] MEDS ORDERED: TOLTERODINE TARTRATE LA 4 MG CAPCR PO SCH (09:00)
--- NOTE | 2016-08-30 09:44 | Neurology Consultation ---
Neurology Consultation Date of Consultation: Aug 30, 2016. Attending Physician: Delroy Becerra D.O. Primary Care Physician: Sae Arthur M.D. Reason for Consultation: Consultation for dizziness and concern for possible TIA History of Present Illness Source: patient, hospital records This is a 80-year-old female who presents with worsening dizziness with family reporting a recent history of diarrhea and decreased oral intake over the weekend. History is somewhat limited from the patient as she does have vascular dementia. She denies that she was feeling that 6. On requestioning she does admit to feeling sick and dizzy/lightheaded intermittently for the last 2 days. She says that she may have questionably had a fever 1 or 2 days ago. She denies any new numbness or weakness. Denies any vision loss or acute changes. Denies any changes with her speech or walking. She does admit to some cognitive issues which are not new. Patient reports since she is feeling pretty much back to her normal self this morning. She reports that she is eating and drinking okay. She denies any current diarrhea. She denies any abdominal pain. No chest pain or shortness of breath. No heart palpitations. I did see the patient previously in hospital consultation last month in July for a presumed TIA with transient right upper extremity weakness/stiffness and acute confusion. At that time the patient had an EEG that showed some generalized slowing but no epileptiform discharges. MRI noted multiple old strokes and ischemic changes in the subcortical white matter. MRA showed atherosclerotic disease but no critical stenosis. Patient was placed on aspirin and Plavix at that time. MRI of the brain report and images for this admission was reviewed by myself. There was no new ischemic strokes. Patient does have extensive diffuse small vessel ischemic changes. Upon reviewing labs troponin was also noted to be mildly elevated at 0.059. TSH was within normal limits. Past Medical/Surgical History Medical Problems: (1) Anemia, unspecified Status: Acute (2) Dehydration Status: Acute (3) Dizziness Status: Acute (4) Elevated troponin Status: Acute (5) Hypocalcemia Status: Acute (6) Hypokalemia Status: Acute (7) Hypomagnesemia Status: Acute (8) Kidney stone Status: Acute (9) Prolonged Q-T interval on ECG Status: Acute (10) Stroke-like symptoms Status: Acute Hypertension Diabetes, on insulin Hypothyroidism with a chronic lymphocytic thyroiditis. She is post-left thyroidectomy for a large goiter in February 2011 Chronic lumbar spondylosis resulting in spinal stenosis post 4 lumbar spine procedures as listed above Coronary artery disease Asthma Osteoarthritis Diabetic foot ulcer of the left third toe requiring hyperbaric oxygen treatment , 2014 Previous evidence of multiple ischemic territory strokes on MRI in 2014 with a history of right facial droop and arm weakness, and residual cognitive (likely vascular dementia) and mixed aphasia. Post-tonsillectomy, hysterectomy, cataract surgery, cholecystectomy, and right knee arthroscopically for torn medial meniscus Patient had a right laser cordotomy for vocal cord paralysis in November 2011 Family History Patient's mother age 77 of heart problems. Patient's father somewhere in his 70s for heart problems as well Social History Remote history of smoking. No alcohol use. Lives with her daughter. Smoking Status: Former smoker Drug Use: none Marital Status: Housing Status: lives with family Occupation Status: retired Allergies Coded Allergies: Latex1 -Allergic Contact Dermititis (Verified Allergy, Mild, RASH, 08/29/16 ) Adhesives (Verified Allergy, Unknown, RASH, 08/29/16) Codeine (Verified Adverse Reaction, Unknown, N&V, 08/29/16) Morphine (Verified Adverse Reaction, Unknown, N&V, 08/29/16) Current Inpatient Medications Current Inpatient Medications Medications (Trade) Dose Ordered Sig/Pio Route Start Time Stop Time Status Last Admin Dose Admin Miscellaneous Information (Pharmacist Discharge Med Rec Consult) 1 ea UD PRN N/A 08/29/16 16:15 09/28/16 16:14 Heparin Sodium (Porcine) (Heparin Sq 5000 Unit/0.5ml) 5,000 unit Q8 SQ 08/29/16 22:00 09/28/16 21:59 08/30/16 05:37 5,000 UNIT Acetaminophen (Tylenol Tab) 650 mg Q4H PRN PO 08/29/16 16:15 09/28/16 16:14 Al Hydrox/Mg Hydrox/Simethicone (Maalox Max Susp) 15 ml Q4H PRN PO 08/29/16 16:15 09/28/16 16:14 Magnesium Hydroxide (Milk Of Magnesia Susp) 30 ml Q12H PRN PO 08/29/16 16:15 09/28/16 16:14 Ondansetron HCl (Zofran Inj) 4 mg Q6H PRN IV 08/29/16 16:15 09/28/16 16:14 Polyethylene (Miralax Powder Packet) 17 gm DAILY PRN PO 08/29/16 16:15 09/28/16 16:14 Aspirin (Ecotrin Tab) 81 mg QAM PO 08/30/16 09:00 09/29/16 08:59 08/30/16 08:17 81 MG Atorvastatin Calcium (Lipitor Tab) 40 mg HS PO 08/29/16 21:00 09/28/16 20:59 08/29/16 20:33 40 MG Clopidogrel Bisulfate (plAVix TAB) 75 mg QAM PO 08/30/16 09:00 09/29/16 08:59 08/30/16 08:19 75 MG Escitalopram Oxalate (Lexapro Tab) 10 mg QAM PO 08/30/16 09:00 09/29/16 08:59 08/30/16 08:18 10 MG Salmeterol Xinafoate/ Fluticasone (Advair Diskus 100/50 Inh) 1 puff BID INH 08/29/16 21:00 09/28/16 20:59 08/30/16 08:16 1 PUFF Gabapentin (Neurontin Cap) 100 mg BID PO 08/29/16 21:00 09/28/16 20:59 08/30/16 08:19 100 MG Levothyroxine Sodium (Synthroid Tab) 75 mcg DAILYBB PO 08/30/16 06:30 09/29/16 06:29 08/30/16 05:38 75 MCG Metoprolol Tartrate (Lopressor Tab) 50 mg BID PO 08/29/16 21:00 09/28/16 20:59 08/30/16 08:18 50 MG Montelukast Sodium (Singulair Tab) 10 mg HS PO 08/29/16 21:00 09/28/16 20:59 08/29/16 20:34 10 MG Multivitamins (Multivitamin Tab) 1 tab QAM PO 08/30/16 09:00 09/29/16 08:59 08/30/16 08:19 1 TAB Nitroglycerin (Nitrostat Tab) 0.4 mg UD PRN UT 08/29/16 17:00 09/28/16 16:59 Potassium Chloride (Klor-Con Tab) 20 meq DAILY PO 08/30/16 09:00 09/29/16 08:59 08/30/16 08:17 20 MEQ Ranitidine HCl (zANTac TAB) 150 mg BID PO 08/29/16 21:00 09/28/16 20:59 08/30/16 08:20 150 MG Tolterodine Tartrate (Detrol LA Cap) 4 mg DAILY PO 08/30/16 09:00 09/29/16 08:59 08/30/16 08:16 4 MG Cyanocobalamin (Vitamin B-12 Tab) 1,000 mcg DAILY PO 08/30/16 09:00 09/29/16 08:59 08/30/16 08:20 1,000 MCG Enalapril Maleate (Vasotec Tab) 40 mg DAILY PO 08/30/16 09:00 09/29/16 08:59 08/30/16 08:19 40 MG Nystatin (Mycostatin Powder) 1 appln [id number] EXT 08/30/16 08:00 09/29/16 07:59 08/30/16 08:15 1 APPLN Insulin Glargine (Lantus Solostar Pen) 20 unit BID SC 08/29/16 21:00 09/28/16 20:59 08/29/16 20:41 20 UNIT Insulin Aspart SLIDING SCALE G... ACHS SC 08/29/16 21:00 09/28/16 20:59 08/29/16 20:40 2 UNITS Sodium Chloride (Nss 1000ml) 1,000 ml @ 75 mls/hr [id number] IV 08/29/16 18:30 09/28/16 18:29 08/30/16 08:23 75 MLS/HR Gadobutrol (Gadavist) 10 mmol UD PRN IV 08/29/16 22:15 09/02/16 22:14 Review of Systems Complete review of systems is otherwise negative except for the above noted in history of present illness Physical Exam Vital Signs (Past 24 Hrs): Date Time Temp Pulse Resp B/P Pulse Ox O2 Delivery O2 Flow Rate FiO2 08/30/16 07:21 36.4 65 16 162/84 94 Room Air 08/30/16 04:33 36.4 59 16 143/84 97 Room Air 08/30/16 04:00 95 Room Air 08/29/16 23:57 36.6 77 18 126/67 96 Room Air 08/29/16 23:40 95 Room Air 08/29/16 20:10 Room Air 08/29/16 18:23 36.6 73 20 166/92 95 Room Air 08/29/16 17:53 36.4 66 20 135/84 94 08/29/16 17:10 66 94 08/29/16 17:05 66 94 08/29/16 17:00 67 135/84 96 08/29/16 16:55 66 95 08/29/16 16:50 67 94 08/29/16 16:45 67 94 08/29/16 16:40 68 96 08/29/16 16:39 98 Room Air 08/29/16 16:35 67 96 08/29/16 16:30 67 149/84 97 08/29/16 16:25 68 96 08/29/16 16:20 65 95 08/29/16 16:15 67 96 08/29/16 16:10 67 96 08/29/16 16:05 71 97 08/29/16 16:01 153/61 08/29/16 16:00 69 97 08/29/16 15:55 67 98 08/29/16 15:50 68 96 08/29/16 15:45 64 97 08/29/16 15:40 64 96 08/29/16 15:35 69 96 08/29/16 15:30 62 98 08/29/16 15:26 141/77 08/29/16 15:00 75 20 149/75 96 Room Air 08/29/16 14:57 141/65 08/29/16 14:06 74 20 08/29/16 14:01 75 15 164/136 08/29/16 13:50 73 20 146/93 96 Room Air 08/29/16 13:40 146/93 08/29/16 13:39 73 182/103 75 146/93 08/29/16 13:35 95 Room Air 08/29/16 13:09 36.4 74 20 130/83 95 Room Air Gen.: Patient is alert and oriented in no acute distress lying in bed Heart: Regular rate and rhythm Extremities: No gross deformities or rashes noted Neurological examination: Mental status: Patient is alert and oriented to person and place. Attention concentration normal for the situation. History of limited Speech is fluent without any dysarthria or aphasia noted. Speech is sparse and patient appears mildly confused. Cranial nerves: Funduscopic examination was difficult to visualize but no papilledema seen. Visual field testing was inconsistent with counting, but grossly appeared to be intact. Pupils equally round and reactive to light. Extraocular muscles intact without nystagmus. No facial asymmetry noted. Facial sensation intact. Tongue midline. Good palatal elevation. Good shoulder shrug bilaterally. Hearing grossly intact voice. Strength: 5/5 both proximal and distal in all extremities .Tone is normal. Sensation: Grossly intact to light touch in all extremities. No sensory extinction Deep tendon reflexes: +1 in bilateral biceps and patellar. Toes are downgoing to plantar stimulation bilaterally Coordination: Patient has good finger to nose without dysmetria Station within the bed is normal. Laboratory Results Past 24 Hours: 08/30/16 06:16 Red Blood Count 3.74, Mean Corpuscular Volume 94.9, Mean Corpuscular Hemoglobin 31.6, Mean Corpuscular Hemoglobin Concent 33.2, Mean Platelet Volume 9.3, Neutrophils (%) (Auto) 66.1, Lymphocytes (%) (Auto) 20.8, Monocytes (%) (Auto) 10.4, Eosinophils (%) (Auto) 1.7, Basophils (%) (Auto) 0.5, Neutrophils # (Auto ) 4.94, Lymphocytes # (Auto) 1.56, Monocytes # (Auto) 0.78, Eosinophils # (Auto ) 0.13, Basophils # (Auto) 0.04 08/30/16 06:16 Test 08/29/16 13:49 08/29/16 14:29 08/29/16 14:40 08/29/16 22:35 Estimated Average Glucose 163 mg/dl Hemoglobin A1c 7.3 % (4.5-5.6) Total Creatine Kinase 83 U/L (26-192) Creatine Kinase MB 1.2 ng/ml (0.5-3.6) Creatine Kinase MB Ratio 1.4 (0-3.0) Thyroid Stimulating Hormone (TSH) 2.580 uIu/ml (0.300-4.500) Bedside Prothrombin Time INR 1.1 (0.9-1.1) Prothrombin Time 10.8 SECONDS (9.0-12.0) Prothromb Time International Ratio 1.0 (0.9-1.1) Activated Partial Thromboplast Time 28.2 SECONDS (21.0-31.0) Partial Thromboplastin Ratio 1.1 Urine Opiates Screen NEG (NEG) Urine Methadone, Qualitative NEG (NEG) Urine Barbiturates NEG (NEG) Urine Phencyclidine (PCP) Level NEG (NEG) Ur Amphetamine/Methamphetamine NEG (NEG) MDMA (Ecstasy) Screen NEG (NEG) Urine Benzodiazepines Screen NEG (NEG) Urine Cocaine Metabolite NEG (NEG) Urine Marijuana (THC) NEG (NEG) Test 08/30/16 06:16 08/30/16 08:12 White Blood Count 7.49 K/uL (4.8-10.8) Red Blood Count 3.74 M/uL (4.2-5.4) Hemoglobin 11.8 g/dL (12.0-16.0) Hematocrit 35.5 % (37-47) Mean Corpuscular Volume 94.9 fL (80-100) Mean Corpuscular Hemoglobin 31.6 pg (25-34) Mean Corpuscular Hemoglobin Concent 33.2 g/dl (32-36) Platelet Count 266 K/uL (130-400) Mean Platelet Volume 9.3 fL (7.4-10.4) Neutrophils (%) (Auto) 66.1 % Lymphocytes (%) (Auto) 20.8 % Monocytes (%) (Auto) 10.4 % Eosinophils (%) (Auto) 1.7 % Basophils (%) (Auto) 0.5 % Neutrophils # (Auto) 4.94 K/uL (1.4-6.5) Lymphocytes # (Auto) 1.56 K/uL (1.2-3.4) Monocytes # (Auto) 0.78 K/uL (0.11-0.59) Eosinophils # (Auto) 0.13 K/uL (0-0.5) Basophils # (Auto) 0.04 K/uL (0-0.2) RDW Standard Deviation 47.7 fL (36.4-46.3) RDW Coefficient of Variation 13.7 % (11.5-14.5) Immature Granulocyte % (Auto) 0.5 % Immature Granulocyte # (Auto) 0.04 K/uL (0.00-0.02) Anion Gap 6.0 mmol/L (3-11) Est Creatinine Clear Calc Drug Dose 51.0 ml/min Estimated GFR () 63.6 Estimated GFR (Non- 54.9 BUN/Creatinine Ratio 15.6 (10-20) Calcium Level 8.6 mg/dl (8.5-10.1) Troponin I 0.058 ng/ml (0-0.045) Triglycerides Level 73 mg/dl (0-150) Cholesterol Level 109 mg/dl (0-200) HDL Cholesterol 56 mg/dl LDL Cholesterol, Calculated 38 mg/dl VLDL Cholesterol, Calculated 15 mg/dl Cholesterol/HDL Ratio 1.9 Bedside Glucose 90 mg/dl (70-90) Imaging As noted above in history of present illness Impression This is a 80-year-old female with what sounds like to be a GI viral illness over the weekend with diarrhea, decreased oral intake, and orthostatic dizziness. No signs or symptoms highly concerning for TIA or stroke. MRI of the brain does not show any new strokes. Patient does have known stroke risk factors including evidence of multi territory old ischemic strokes and MRI, hypertension, and diabetes on insulin. Plan Treat symptomatically for viral illness. Keep well hydrated and avoid dehydration. Would continue aspirin and Plavix for the next 1-2 months. After which aspirin could reasonably be discontinued and patient could remain on Plavix monotherapy. There is no good evidence that dual antiplatelet therapy with aspirin and Plavix is significantly helpful for secondary stroke prevention after 3 months compared to Plavix monotherapy. Recommend Holter monitor as an outpatient to rule out paroxysmal A. fib, as this would change the patient's medical management if she was found to have paroxysmal A. fib. Follow-up PT/OT and speech therapies for discharge planning. Stroke risk factor modifications and recommendations: Blood pressure recommendations 130/80-110/70 Total cholesterol goal 100- 200 and LDL goal less than 100 Hemoglobin A1c goal less than 7 Encourage cardiovascular exercise at least 3 times a week for 30 minutes. Follow-up in neurology clinic for post stroke/TIA follow-up from July hospital admission. Thank you for allowing me to participate in this patient's care. If there is any questions or concerns, feel free to call/page me.
[2016-08-30 10:31] VITALS: Ht 157.5 cm; Wt 98.5 kg
[2016-08-30 12:00] VITALS: O2SAT 94
--- NOTE | 2016-08-30 13:25 | Discharge Instructions ---
Discharge Instructions Date of Service Aug 30, 2016. Admission Reason for Admission: TIA Discharge Discharge Diagnosis / Problem: strokelike symptoms, viral illness Discharge Goals Goal(s): Decrease discomfort, Improve function, Increase independence Activity Recommendations Activity Limitations: resume your previous activity . Instructions / Follow-Up Instructions / Follow-Up You were admitted for symptoms concerning for stroke. CT head and MRI brain were negative for any acute changes suggestive of stroke. Recommendations: Viral illness/diarrhea: - Continue to stay hydrated - If diarrhea persists please follow-up with your family doctor History of stroke or TIA: - Continue to use aspirin and Plavix for the next 1-2 months and then switch over to aspirin only - Continue to use statin Hypertension: - Continue ramipril, metoprolol Depression: - Continue Lexapro Neuropathy: - Continue gabapentin Hypothyroidism: - Continue Synthroid Diabetes type 2: - Continue insulin Hyperlipidemia: - Continue statin Risk Factors for Stroke: You can reduce your chances of stroke by working with your medical provider to adopt a healthy lifestyle. Some specific ways to lower your chance of stroke are: * If you are a smoker, now is the time to stop smoking cigarettes * If you are diabetic, improve the control of your blood sugars * Avoid excessive amounts of alcohol * Control high blood pressure * Lose weight if you are overweight * Be sure to lead an active lifestyle * Eat a healthy diet low in salt, cholesterol and fat You should know about other risk factors for stroke that you are unable to control. These include: * Age 55 years or older * Male gender * Certain racial groups: , or / * Family History of Stroke, Mini stroke or Heart Attack * Sickle Cell Disease Follow Up: It is important for you to keep your follow up appointments with your medical provider. Please follow-up with your primary care doctor in 2-3 days - Please follow-up with neurology in about a month Current Hospital Diet Patient's current hospital diet: Diabetes Type 2 Diet Discharge Diet Recommended Diet: Regular Diet Procedures Procedures Performed: CT head, MRA brain Pending Studies Studies pending at discharge: no Laboratory Results Hemoglobin A1c Test 08/29/16 13:49 Range/Units Estimated Average Glucose 163 mg/dl Hemoglobin A1c 7.3 H 4.5-5.6 % Lipid Panel Test 08/30/16 06:16 Range/Units Triglycerides Level 73 0-150 mg/dl Cholesterol Level 109 0-200 mg/dl HDL Cholesterol 56 mg/dl Cholesterol/HDL Ratio 1.9 LDL Cholesterol, Calculated 38 mg/dl MRI OF THE BRAIN WITHOUT AND WITH IV CONTRAST CLINICAL HISTORY: Transient ischemic attack. Dizziness and nausea. COMPARISON STUDY: MRI of the brain July 07, [address] August 29, 2016. TECHNIQUE: Utilizing a 1.5 [place] magnet and dedicated coil, multiplanar, multiecho imaging of the brain was performed pre and postcontrast administration. IV administration of 10 mL of Gadavist contrast was uneventful. FINDINGS: There are no areas of restricted diffusion to suggest acute infarct. No acute intracranial hemorrhage, midline shift or mass effect is present. Ventricular system is stable. Basilar cisterns are patent. There are no extra-axial collections. There are numerous old infarcts which are similar to MRI of July 07, 2016. Extensive white matter T2 hyperintensity is similar to prior exam as well. This suggest extensive small vessel disease. The appearance of the brain is unchanged. Postcontrast images are suboptimal due to motion artifact but no intracranial mass or pathologic enhancement is present. There is moderate mucosal thickening of the sinuses with a small air-fluid level within the right maxillary sinus. IMPRESSION: 1. No acute intracranial findings. 2. No change in appearance of the brain since MRI of July 07, 2016 with numerous old infarcts and extensive small vessel disease. 3. Moderate sinus mucosal thickening. An air-fluid level within the right maxillary sinus suggests acute sinusitis. Electronically signed by: Jacinto Grant M.D. 08/29/2016 10:24 PM Dictated Date/Time: 08/29/2016 10:18 PM Medical Emergencies . Who to Call and When: Medical Emergencies: Call 911 immediately if you experience any of the following warning signs and symptoms of Stroke: * Sudden numbness or weakness of the face, arm or leg, especially on one side of the body * Sudden confusion, trouble speaking or understanding * Sudden trouble seeing in one or both eyes * Sudden trouble walking, dizziness, loss of balance or coordination * Sudden severe headache with no cause Do not delay calling 911 if you experience any warning signs or symptoms of a stroke. Delay in seeking medical attention may affect what treatments can be given to you. . Non-Emergent Contact Non-Emergency issues call your: Primary Care Provider . . "Provider Documentation" section prepared by Mily Davenport. . Goring Cutter Recommendations Goring Cutter Recommendations: Keep well hydrated and avoid dehydration. Would continue aspirin and Plavix for the next 1-2 months. After which aspirin could reasonably be discontinued and patient could remain on Plavix monotherapy. T Recommend Holter monitor as an outpatient to rule out paroxysmal A. fib, as this would change the patient's medical management if she was found to have paroxysmal A. fib. Stroke risk factor modifications and recommendations: Blood pressure recommendations 130/80-110/70 Total cholesterol goal 100- 200 and LDL goal less than 100 Hemoglobin A1c goal less than 7 Encourage cardiovascular exercise at least 3 times a week for 30 minutes. Follow-up in neurology clinic for post stroke/TIA follow-up from March hospital admission. Stroke Core Measures Reason no t-PA for Stroke: Treatment not indicated Reason no antithrom by day 2: Treatment not indicated Reason no antithrom at D/C: Treatment not indicated Reason no statin at D/C: Treatment provided - N/A Reason no anticoag w/a fib: Treatment not indicated VTE Core Measure Inpt VTE Proph given/why not?: Unfractionated heparin SQ
--- NOTE | 2016-08-30 13:25 | Discharge Summary ---
Discharge Summary Date of Service Aug 30, 2016. (Mily Davenport MD) Discharge Summary Admission Date: Aug 29, 2016 at 16:10 Discharge Date: Aug 30, 2016 Discharge Disposition: Home Principal Diagnosis: strokelike symptoms, viral illness Immunizations: Have You Had Influenza Vaccine: Yes Influenza Vaccine Date: Jun 16, 2011 History of Tetanus Vaccine?: utd Tetanus Immunization Date: Jan 22, 2001 History of Pneumococcal: Yes Pneumococcal Date: Jun 16, 2003 History of Hepatitis B Vaccine: Unknown Consultations: Neurology (Mily Davenport MD) Medication Reconciliation Continued Medications: Aspirin (Aspirin EC Low Dose) 81 Mg Ectab 81 MG PO QAM for 30 Days Atorvastatin (Atorvastatin Calcium) 40 Mg Tab 40 MG PO HS for 30 Days, TAB Clopidogrel (Plavix) 75 Mg Tab 75 MG PO QAM, TAB Cyanocobalamin (B-12) 1,000 Mcg Cap 1000 MCG PO DAILY Cyclosporine (Ophth) (Restasis) 0.05 % Emu 1 DROP OP BID, BTL Escitalopram Oxalate (Lexapro) 10 Mg Tab 10 MG PO QAM, TAB Fluticasone Prop/Salmeterol (Advair Diskus 100/50 60 Dose) 1 Ea Aerp 1 PUFF INH BID, #180 Gabapentin (Neurontin) 100 Mg Cap 100 MG PO BID, CAP Hydrocortisone (Topical) (Hydrocortisone) 2.5 % Lot 1 APPLN TOP BID PRN for PRN for 10 Days, #60 ML Insulin Aspart (Novolog) 100 Units/Ml Inj INJ ACHS SLIDING SCALE Insulin Glargine (Lantus) 100 Unit/Ml Inj 20 SC AMPM, VIAL Levothyroxine Sodium (Levothyroxine Sodium) 75 Mcg Tab 75 MCG PO QAM for 90 Days, #90 TAB 3 Refills Metoprolol Tartrate (Lopressor) (Lopressor) 50 Mg Tab 50 MG PO BID, TAB Montelukast Sodium (Montelukast Sodium) 10 Mg Tab 1 TAB PO HS for 90 Days, TAB 3 Refills Multiple Vitamin (Multi Vitamin Daily) 1 Tab Tab 1 TAB PO QAM Nitroglycerin (Nitrostat) 0.4 Mg Tab 0.4 MG UT PRN, BTL Potassium Ext Rel (Klor-Con) 20 Meq Tabcr 20 MEQ PO DAILY, TAB Ramipril (Ramipril) 10 Mg Cap 1 CAP PO DAILY for 90 Days, #90 CAP 3 Refills Ranitidine (Zantac) 150 Mg Tab 150 MG PO BID, TAB Tolterodine Tartrate (Detrol LA) 4 Mg Capcr 1 CAP PO DAILY for 90 Days, #90 CAP 3 Refills Discharge Exam 80-year-old female with past medical history of stroke in 2014, TIA 07/21, hypertension, hypothyroidism, diabetes , asthma, spinal stenosis present at the ER with complaints of worsening dizziness which started last night. The patient has had a history of stroke and TIA as recently as July 2016 and her symptoms are concerning for TIA. She has also had diarrhea over the weekend and decreased oral intake which could also contribute to her dizziness or lightheadedness. She has been feeling better and her lightheadedness/dizziness had improved Denied any numbness /tingling, weakness, blurring of vision, slurring of speech. Review of Systems: Constitutional: No chills, No fever Eyes: No worsening of vision ENT: No hearing loss Respiratory: No cough, No sputum Cardiovascular: No chest pain Abdomen: + diarrhea, No nausea, No pain Genitourinary - Female: No dysuria Genitourinary - Male: No hematuria Neurologic: No memory loss Psychiatric: No depression symptoms Endocrine: No fatigue Hematologic / Lymphatic: No abnormal bleeding/bruising Physical Exam: General Appearance: WD/WN, no apparent distress Eyes: normal inspection ENT: normal ENT inspection, hearing grossly normal Neck: supple Respiratory/Chest: chest non-tender, lungs clear, normal breath sounds, no accessory muscle use Cardiovascular: regular rate, rhythm Abdomen / GI: normal bowel sounds, non tender Extremities: normal inspection, no calf tenderness Neurologic/Psychiatric: alert, normal mood/affect, oriented x 3 Skin: normal color (Mily Davenport MD) Hospital Course 80-year-old female with past medical history of stroke in 2014, TIA 07/21, hypertension, hypothyroidism, diabetes , asthma, spinal stenosis present at the ER with complaints of worsening dizziness which started last night. The patient has had a history of stroke and TIA as recently as July 2016 and her symptoms are concerning for TIA. She has also had diarrhea over the weekend and decreased oral intake which could also contribute to her dizziness or lightheadedness. TIA: - Head CT: IMPRESSION: 1. No acute intracranial findings 2. Multiple old bilateral infarcts 3. Inflammatory changes within the paranasal sinuses with bilateral maxillary sinus air-fluid levels - MRI brain - IMPRESSION: 1. No acute intracranial findings. 2. No change in appearance of the brain since MRI of July 07, 2016 with numerous old infarcts and extensive small vessel disease. 3. Moderate sinus mucosal thickening. An air-fluid level within the right maxillary sinus suggests acute sinusitis. - Imaging from recent admission: - Head CT (07/06/16): Senescent changes and remote infarcts. There is no hemorrhage, mass effect, or evidence of acute territorial ischemia by CT criteria. There has been no significant change from 06/17/2016 - Carotid Doppler (07/07/16): No evidence of significant stenosis by velocity criteria - Brain MRI (07/07/16) - No acute ischemic process, Considerable chronic small vessel change, multiple old infarcts bilaterally. - Neck MRA (07/07/16) - Considerable atherosclerotic change throughout the carotid and to lesser extent vertebral basilar systems, No evidence for significant or high-grade stenotic process. - Head MRA (07/07/16) - Unremarkable MR angiogram of the brain - EEG (07/07/16) - indicates a mild to moderate diffuse encephalopathy of nonspecific etiology - Echo (07/08/16): EF 60-65%, LV Systolic Function Normal, No regional wall abnormality, Moderate Concentric LVH, Grade 1 Diastolic Dysfunction, Small Pericardial Effusion - Speech eval - PT/OT - Neurology consult- Per neurology recommendations: - Would continue aspirin and Plavix for the next 1-2 months. After which aspirin could reasonably be discontinued and patient could remain on Plavix monotherapy. There is no good evidence that dual antiplatelet therapy with aspirin and Plavix is significantly helpful for secondary stroke prevention after 3 months compared to Plavix monotherapy. - Recommend Holter monitor as an outpatient to rule out paroxysmal A. fib, as this would change the patient's medical management if she was found to have paroxysmal A. fib. - Stroke risk factor modifications and recommendations: Blood pressure recommendations 130/80-110/70 Total cholesterol goal 100- 200 and LDL goal less than 100 Hemoglobin A1c goal less than 7 Encourage cardiovascular exercise at least 3 times a week for 30 minutes. Elevated troponins: - EKG: Normal sinus rhythm, Left axis deviation, Left anterior fascicular block Poor R wave progression, consider anterior VA vs. lead placement vs. LVH, No change since last EKG - Initial troponin: 0.059--->0.051-->0.058 - Echo (07/08/16): EF 60-65%, LV Systolic Function Normal, No regional wall abnormality, Moderate Concentric LVH, Grade 1 Diastolic Dysfunction, Small Pericardial Effusion Diarrhea: -C. difficile pending - Continue hydration with IV fluids Hypertension: - Continue ramipril, metoprolol Depression: - Continue Lexapro Neuropathy: - Continue gabapentin Hypothyroidism: - TSH WNL - Continue Synthroid Diabetes type 2: - Hemoglobin A1c 8.6 - Insulin sliding scale - Blood sugar this morning was at 51, morning Lantus had been held. Recommended to continue insulin as scheduled and monitor blood sugars. Hyperlipidemia: - Continue statin - Fasting lipids within normal limits Follow-up in neurology clinic for post stroke/TIA follow-up from July hospital admission. Follow-up with PCP in 2-3 days Total Time Spent: Greater than 30 minutes This includes examination of the patient, discharge planning, medication reconciliation, and communication with other providers. (Mily Davenport MD) Resident Physician Supervision Note: I was present with Dr. Davenport during the history and exam. I discussed the case with the resident and agree with the findings and plan as documented in the note. Any exceptions or clarifications are listed here: [None] Documented By: Delroy Becerra Total Time Spent: Less than 30 minutes (Delroy Becerra.,D.O.) Discharge Instructions Please refer to the electronic Patient Visit Report (Discharge Instructions) for additional information. (Mily Davenport MD) Follow-Up Follow-up in neurology clinic for post stroke/TIA follow-up from July hospital admission. Follow-up with PCP in 2-3 days (Mily Davenport MD) Additional Copies To Sae Arthur M.D. Resident Tracking Resident Involvement: Resident Care Provided Care Provided: Adult [facility] (Mily Davenport MD)
[2016-08-30 13:55] VITALS: BP 162/84; PULSE 65; TEMP 36.4; O2SAT 94
[2016-08-30 14:10] LABS: COMPLETE YES
--- NOTE | 2016-08-30 14:43 | Pharmacy Progress Note ---
Pharmacist Stroke Counseling Date of Service Aug 30, 2016. Scope Pharmacy has been consulted to provide medication discharge counseling for this patient admitted with possible transient ischemic attack as per the Pharmacist Discharge Counseling for Stroke Patients Protocol. Medications on Discharge Continued Medications: Aspirin (Aspirin EC Low Dose) 81 Mg Ectab 81 MG PO QAM for 30 Days Atorvastatin (Atorvastatin Calcium) 40 Mg Tab 40 MG PO HS for 30 Days, TAB Clopidogrel (Plavix) 75 Mg Tab 75 MG PO QAM, TAB Cyanocobalamin (B-12) 1,000 Mcg Cap 1000 MCG PO DAILY Cyclosporine (Ophth) (Restasis) 0.05 % Emu 1 DROP OP BID, BTL Escitalopram Oxalate (Lexapro) 10 Mg Tab 10 MG PO QAM, TAB Fluticasone Prop/Salmeterol (Advair Diskus 100/50 60 Dose) 1 Ea Aerp 1 PUFF INH BID, #180 Gabapentin (Neurontin) 100 Mg Cap 100 MG PO BID, CAP Hydrocortisone (Topical) (Hydrocortisone) 2.5 % Lot 1 APPLN TOP BID PRN for PRN for 10 Days, #60 ML Insulin Aspart (Novolog) 100 Units/Ml Inj INJ ACHS SLIDING SCALE Insulin Glargine (Lantus) 100 Unit/Ml Inj 20 SC AMPM, VIAL Levothyroxine Sodium (Levothyroxine Sodium) 75 Mcg Tab 75 MCG PO QAM for 90 Days, #90 TAB 3 Refills Metoprolol Tartrate (Lopressor) (Lopressor) 50 Mg Tab 50 MG PO BID, TAB Montelukast Sodium (Montelukast Sodium) 10 Mg Tab 1 TAB PO HS for 90 Days, TAB 3 Refills Multiple Vitamin (Multi Vitamin Daily) 1 Tab Tab 1 TAB PO QAM Nitroglycerin (Nitrostat) 0.4 Mg Tab 0.4 MG UT PRN, BTL Potassium Ext Rel (Klor-Con) 20 Meq Tabcr 20 MEQ PO DAILY, TAB Ramipril (Ramipril) 10 Mg Cap 1 CAP PO DAILY for 90 Days, #90 CAP 3 Refills Ranitidine (Zantac) 150 Mg Tab 150 MG PO BID, TAB Tolterodine Tartrate (Detrol LA) 4 Mg Capcr 1 CAP PO DAILY for 90 Days, #90 CAP 3 Refills I spoke with the patient and her daughter (not the one she lives with). The family organizes all her meds, and they have a detailed chart from [facility] of what she is taking. I cautioned against using omeprazole or esomeprazole while she's on Plavix (at least 2 more months.) Action The above medications, specifically ones for stroke treatment/prophylaxis, have been reviewed in detail with the patient and patient vendor representatives prior to discharge. This includes indication, common adverse reactions, drug interactions, and medication administration. Medication counseling has been employed using the teach-back method to ensure understanding. Outcome The patient and/or patient vendor representatives have demonstrated understanding of the medications. Please note, they are aware that the pharmacist will call them within 72 hours post-discharge to confirm that the appropriate medications are being taken and answer any further medication related questions the patient might have at that time. Contact information Individual to be contacted: Karen Relationship to patient (if applicable): daughter Phone number: [phone] Best time to call: any time Thank you for allowing pharmacy to be involved in the care of this patient. Please call [phone] with any additional questions
--- NOTE | 2016-09-01 12:38 | Pharmacy Progress Note ---
Pharmacist Post D/C Phone Note Medications Dose Route/Sig Max Daily Dose Days Date Category Dose Instructions Montelukast Sodium 10 Mg Tab 1 Tab PO HS 90 08/29/16 Reported Lopressor (Metoprolol Tartrate) 50 Mg Tab 50 Mg PO BID 08/29/16 Reported Zantac (Ranitidine HCl) 150 Mg Tab 150 Mg PO BID 08/29/16 Reported Klor-Con (Potassium Chloride) 20 Meq Tabcr 20 Meq PO DAILY 08/29/16 Reported B-12 (Cyanocobalamin) 1,000 Mcg Cap 1,000 Mcg PO DAILY 08/29/16 Reported Aspirin EC Low Dose (Aspirin) 81 Mg Ectab 81 Mg PO QAM 30 07/10/16 Rx Atorvastatin Calcium (Atorvastatin) 40 Mg Tab 40 Mg PO HS 30 07/10/16 Rx Lantus (Insulin Glargine) 100 Unit/Ml Inj 20 SC AMPM 07/06/16 Reported Ramipril 10 Mg Cap 1 Cap PO DAILY 90 06/17/16 Reported Detrol LA (Tolterodine Tartrate) 4 Mg Capcr 1 Cap PO DAILY 90 06/17/16 Reported Restasis (Cyclosporine (Ophth)) 0.05 % Emu 1 Drop OP BID 06/17/16 Reported Nitrostat (Nitroglycerin) 0.4 Mg Tab 0.4 Mg UT PRN 04/27/16 Reported Plavix (Clopidogrel Bisulfate) 75 Mg Tab 75 Mg PO QAM 04/27/16 Reported Novolog (Insulin Aspart) 100 Units/Ml Inj INJ ACHS 04/27/16 Reported SLIDING SCALE Levothyroxine Sodium 75 Mcg Tab 75 Mcg PO QAM 90 04/27/16 Reported Hydrocortisone (Hydrocortisone (Topical)) 2.5 % Lot 1 Appln TOP BID PRN 10 04/06/16 Reported Lexapro (Escitalopram Oxalate) 10 Mg Tab 10 Mg PO QAM 02/26/15 Reported Multi Vitamin Daily (Multiple Vitamin) 1 Tab Tab 1 Tab PO QAM 06/08/14 Reported Neurontin (Gabapentin) 100 Mg Cap 100 Mg PO BID 06/08/14 Reported Advair Diskus 100/50 60 Dose (Fluticasone Prop/Salmeterol) 1 Ea Aerp 1 Puff INH BID 06/08/14 Reported Date of phone call: Sep 01, 2016. Individual with whom pharmacist spoke to: Karen The following questions were reviewed during the phone call with responses listed below each: Can you tell me the medications that you are currently taking as well as when and how you take each medication? - does not have a list but reviewed medication list with pill bottles. When have you missed any doses of your medications? - missed no dose What side effects are you having from your medications? - no denies bruising/bleeding and hypoglycemia What questions do you have about your medications? - no What problems are you having obtaining your medications? - no When is your next appointment with your primary care doctor? - not sure other sister takes care of the appointments Additional comments: - patient's daughter was very friendly. She stated her mother was doing very well and was having no issues As per the Pharmacist Discharge Counseling for Stroke Patients Protocol, this phone call has been completed within 72 hours of discharge. Thank you for allowing us to be involved in the care of this patient.
[2016-10-08] MEDS ORDERED: CYCL0.052 OP (11:59)
[2016-10-08] MEDS ORDERED: RAMI10CA PO (11:59)
[2016-10-08] MEDS ORDERED: LEVO75TA5 PO (13:33)
[2016-10-08] MEDS ORDERED: NTRGSL/4 UT (13:43)
[2016-10-08] MEDS ORDERED: CYAN1CAP3 PO (13:48)
[2016-10-08] MEDS ORDERED: METO50TA16 PO (13:50)
--- NOTE | 2016-10-08 19:14 | EDITING REQUIRED CODING QUERY ---
CODING QUERY Dear Dr. Becerra, To promote full compliance with coding requirements relating to patient care, provider participation is requested in all cases of bleach machine operator uncertainty. Please assist us with the question(s) below: Coding Question(s): TIA ( ) TIA ( X ) TIA was ruled out ( ) Other: Please explain ( ) Unable to determine Medical documentation: The patient has had a history of stroke and TIA as recently as July 2016 and her symptoms are concerning for TIA. Physician's Response(s): Thank you or your time. Lizzy Bob [facility] Principal Diagnosis: "_that condition established after study, to be chiefly responsible for occasioning the admission of the patient to the hospital for care." Co-Existing Principal Diagnosis: "_when two or more diagnoses equally meet the criteria for principal diagnosis as determined by the circumstances of admission, diagnostic work up, and/or therapy provided, and the Alphabetic Index, Tabular List, or another coding guideline does not provide sequencing direction, any one of the diagnoses may be sequenced first." "When the physician has documented what appears to be a current diagnosis in the body of the record, but has not included the diagnosis in the final diagnostic statement, the physician should be asked whether the diagnosis should be added." (Source Coding [facility] 2 QTR90. p3-4)
== END 2016-08-30 14:48 | disposition home or self-care (01) | DRG 281 ==
LOC: ENRESERVDT → ENRESERVTM → C.EDB 13:08 → C.MED 16:10
PROVIDERS: ADMIT Family Medicine; ATTEND Family Medicine
DX: I21.09 ST elevation (STEMI) myocardial infarction involving other coronary artery of anterior wall (principal); I31.3 Pericardial effusion (noninflammatory); E03.9 Hypothyroidism, unspecified; J45.909 Unspecified asthma, uncomplicated; E11.40 Type 2 diabetes mellitus with diabetic neuropathy, unspecified; F32.9 Major depressive disorder, single episode, unspecified; R79.89 Other specified abnormal findings of blood chemistry; E11.39 Type 2 diabetes mellitus with other diabetic ophthalmic complication; I25.10 Atherosclerotic heart disease of native coronary artery without angina pectoris; E78.5 Hyperlipidemia, unspecified; Z66 Do not resuscitate; I48.91 Unspecified atrial fibrillation; I10 Essential (primary) hypertension; R15.9 Full incontinence of feces; E66.9 Obesity, unspecified; D64.9 Anemia, unspecified; L30.4 Erythema intertrigo; B34.9 Viral infection, unspecified; M19.90 Unspecified osteoarthritis, unspecified site; Z87.891 Personal history of nicotine dependence; Z68.39 Body mass index [BMI] 39.0-39.9, adult; Z98.1 Arthrodesis status; Z86.39 Personal history of other endocrine, nutritional and metabolic disease; Z79.82 Long term (current) use of aspirin; Z79.02 Long term (current) use of antithrombotics/antiplatelets; Z79.51 Long term (current) use of inhaled steroids; Z79.4 Long term (current) use of insulin; Z79.899 Other long term (current) drug therapy

== ENCOUNTER → 2016-09-19 | Outpatient (CLI) | payer OTHER, MEDICARE ==
[~2016-09-19] MED LIST changes: +ADVIN25/60 INH; +ASPI81TA28 PO; +ATOR-24 PO; +ATOR-26 PO; +CPR500 PO; +CYAN1CAP3 PO; +CYCL0.052 OP; +DIAZ5TAB3 PO; -DOCU-94 PO; +HYDR2.5L TOP; +INSDGIPEN SC; +LEVO75TA5 PO; +LSX20 PO; +LXP10 PO; +METO50TA16 PO; -MGNO400 PO; +MONT1TAB5 PO; +MULT-884 PO; +NRN100 PO; +NTRGSL/4 UT; +NVLGI/PEN SC; +ONDA4TAB10 SL; +PLV75 PO; +POTA-65 PO; +POTA20TA16 PO; +RAMI10CA PO; +SNG10 PO; +SULF800T23 PO; +TOLT1CAP3 PO; +VNTHFA/IN INH; +ZNTT/150 PO
[2016-09-19 12:52] LABS: BLOOD UREA NITROGEN 23 mg/dl (7-18); BUN/CREATININE RATIO 17.4 (10-20)
== END | disposition home or self-care (01) ==
LOC: C.LAB 10:44
PROVIDERS: ATTEND Urology
DX: N20.0 Calculus of kidney (principal); N39.0 Urinary tract infection, site not specified; R35.0 Frequency of micturition

== ENCOUNTER 2016-10-08 14:43 | Emergency (ER) | payer OTHER, MEDICARE ==
[~2016-10-08] VITALS: Ht 157.5 cm; Wt 100.3 kg
[~2016-10-08 14:43] MED LIST changes: -ADVIN25/60 INH; -ASPI81TA28 PO; -ATOR-24 PO; -ATOR-26 PO; -CPR500 PO; -DIAZ5TAB3 PO; -HYDR2.5L TOP; -INSDGIPEN SC; -LSX20 PO; -LXP10 PO; -MULT-884 PO; -NRN100 PO; -NVLGI/PEN SC; -ONDA4TAB10 SL; -PLV75 PO; -POTA-65 PO; -SNG10 PO; -SULF800T23 PO; -TOLT1CAP3 PO; -VNTHFA/IN INH
[2016-10-08 14:47] VITALS: Ht 157.5 cm; Wt 100.3 kg
[2016-10-08] MEDS ORDERED: INSDGIPEN SC (15:19)
[2016-10-08] MEDS ORDERED: ATOR-26 PO (15:19)
[2016-10-08] MEDS ORDERED: NRN100 PO (15:19)
[2016-10-08] MEDS ORDERED: LXP10 PO (15:19)
[2016-10-08] MEDS ORDERED: ADVIN25/60 INH (15:19)
[2016-10-08] MEDS ORDERED: SNG10 PO (15:19)
[2016-10-08] MEDS ORDERED: PLV75 PO (15:19)
[2016-10-08] MEDS ORDERED: POTA-65 PO (15:19)
[2016-10-08] MEDS ORDERED: VNTHFA/IN INH (15:19)
[2016-10-08] MEDS ORDERED: SODIUM CHLORIDE 0.9% 1000ML 1,000 ML IV STA ×2 (15:20→17:41)
--- NOTE | 2016-10-08 15:20 | EMERGENCY ROOM VISIT NOTE ---
History First contact with patient: 15:07 Chief Complaint: NAUSEA Stated Complaint: NAUSEA,DIZZY Nursing Triage Summary: pt to the ED with n/v today with dizziness unable to take home meds today History of Present Illness The patient is a 81 year old female who presents to the Emergency Room with complaints of nausea, headache and dizziness. She reports these symptoms started after her grandchild's birthday democrat yesterday. She was managing to eat and drink normally yesterday with the nausea but has not managed to keep anything down today and vomited once. She feels the dizziness is more lightheaded than the room spinning and is exacerbated when she stands up rather than head movement. Her headache is mild and across the front of her head. She reports some light sensitivity with the headache but no double vision. She denies any abdominal pain, constipation, diarrhea, blood in stool. No weakness, numbness, change in sensation, change in speech. Review of Systems See HPI for pertinent positives & negatives. A total of 10 systems reviewed and were otherwise negative. 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 (16) SIRS (systemic inflammatory response syndrome) (17) SPINAL STENOSIS-LUMBAR (18) TIA (transient ischemic attack) Surgical Problems: (1) H/O: hysterectomy (2) History of back surgery (3) History of cataract surgery (4) History of renal stent (5) Hx of cholecystectomy Family History Cancer Diabetes mellitus Gallbladder disease Heart disease Kidney disease Kidney stones Social History Smoking Status: Never Smoker Smokeless Tobacco Use: No Alcohol Use: none Drug Use: none Marital Status: Housing Status: lives with family (daughter) Occupation Status: retired Current/Historical Medications Scheduled Albuterol Hfa (Ventolin Hfa), 2 PUFFS INH UD Aspirin (Aspirin Ec), 81 MG PO QAM Atorvastatin (Lipitor), 80 MG PO HS Clopidogrel Bisulfate (Clopidogrel), 75 MG PO QAM Cyanocobalamin (B-12), 1,000 MCG PO DAILY Cyclosporine (Ophth) (Restasis), 1 DROP OP BID Escitalopram Oxalate (Escitalopram Oxalate), 10 MG PO QAM Fluticasone Prop/Salmeterol (Advair Diskus 250/50 60 Dose), 1 PUFF INH BID Furosemide (Furosemide), 20 MG PO DAILY Gabapentin (Gabapentin), 100 MG PO BID Insulin Aspart (Novolog Flexpen), 1 DOSE SC ACHS Insulin Glargine (Lantus Solostar), 20 UNITS SC AMPM Levothyroxine Sodium (Levothyroxine Sodium), 75 MCG PO QAM Metoprolol Tartrate (Lopressor) (Lopressor), 50 MG PO BID Montelukast Sod (Montelukast Sodium), 10 MG PO HS Multiple Vitamin (Multi Vitamin Daily), 1 TAB PO QAM Ondasetron Odt (Zofran Odt), 4 MG SL Q4 Potassium Chloride (Potassium Chloride ER), 20 MEQ PO QAM Ramipril (Ramipril), 10 MG PO DAILY Sulfa/Trimethoprim (Bactrim Ds 800MG/160MG), 1 TAB PO BID Tolterodine Tartrate (Tolterodine Tartrate ER), 4 MG PO DAILY Scheduled PRN Diazepam (Valium), 5 MG PO Q6 PRN for dizziness Hydrocortisone (Topical) (Hydrocortisone), 1 APPLN TOP BID PRN for PRN Nitroglycerin (Nitrostat), 0.4 MG UT UD PRN for Chest Pain Allergies Coded Allergies: Latex1 -Allergic Contact Dermititis (Verified Allergy, Mild, RASH, 08/29/16 ) Adhesives (Verified Allergy, Unknown, RASH, 08/29/16) Codeine (Verified Adverse Reaction, Unknown, N&V, 08/29/16) Morphine (Verified Adverse Reaction, Unknown, N&V, 08/29/16) Physical Exam Vital Signs Date Time Temp Pulse Resp B/P (MAP) Pulse Ox O2 Delivery O2 Flow Rate FiO2 10/08/16 20:33 64 18 114/111 99 Room Air 10/08/16 19:03 71 20 167/79 99 Room Air 10/08/16 18:00 70 16 188/90 100 Room Air 10/08/16 16:42 58 18 169/76 98 Room Air 10/08/16 14:47 66 20 167/82 99 Room Air Physical Exam VITAL SIGNS: were reviewed as above GENERAL:no acute distress, lying in bed, morbidly obese SKIN: Warm dry and pink, no rashes HEAD: Normocephalic and atraumatic EYES: extraocular muscles intact, pupils slightly unequal (right 3mm left 4mm) but both reactive to light OROPHARYNX: non erythematous, clear and moist NECK: Supple, no adenopathy or meningismus LUNGS: clear to auscultation, no accessory muscle use HEART: Regular rate and rhythm, heart sounds 1+2, no murmurs ABDOMEN: Soft and nontender, bowel sounds normal BACK: no CVA tenderness, no central spinal tenderness EXTREMITIES: Warm and well perfused, no calf tenderness/swelling, no pedal edema. NEUROLOGICALLY: Awake alert and oriented without focal deficit. Cranial nerves 2 -12 intact. Cerebellar testing is within normal limits. There is no nystagmus ( on reassessment she did have left gaze nystagmus with fast beat to left after head movements), denies double vision. There is no facial droop. Speech is clear. Vision is grossly normal. MUSCULOSKELETAL: Good muscle tone. No evidence of trauma Medical Decision & Procedures ER Provider Diagnostic Interpretation: HEAD CT NONCONTRAST CT DOSE: 537.48 mGy.cm HISTORY: vertigo, with nystagmus TECHNIQUE: Multiaxial CT images of the head were performed without the use of intravenous contrast. Automated exposure control was utilized for this study. Comparison: Head CT and brain MRI 08/29/2016. Findings: Mild mucosal thickening within the right sphenoid sinus. No fluid levels within the paranasal sinuses. The mastoid air cells are clear. The calvarium and skull base are intact. There is no mass, hematoma, midline shift, acute infarct. White matter hypodensity is nonspecific but suggestive of microvascular ischemic change. The ventricles and sulci demonstrate mild age-related involutional changes. Multiple old infarcts are not significantly changed. Impression: No significant change compared to the prior study. No acute intracranial abnormality. Multiple scattered old infarcts are again noted. Electronically signed by: Timothy Whitmore M.D. 10/08/2016 7:25 PM Dictated Date/Time: 10/08/2016 7:21 PM Laboratory Results 10/08/16 16:25 Red Blood Count 3.96, Mean Corpuscular Volume 96.2, Mean Corpuscular Hemoglobin 32.3, Mean Corpuscular Hemoglobin Concent 33.6, Mean Platelet Volume 9.7, Neutrophils (%) (Auto) 80.8, Lymphocytes (%) (Auto) 12.7, Monocytes (%) (Auto) 5.3, Eosinophils (%) (Auto) 0.7, Basophils (%) (Auto) 0.2, Neutrophils # (Auto) 8.26, Lymphocytes # (Auto) 1.30, Monocytes # (Auto) 0.54, Eosinophils # (Auto) 0.07, Basophils # (Auto) 0.02 10/08/16 16:25 Test 10/08/16 16:25 10/08/16 19:30 White Blood Count 10.22 K/uL (4.8-10.8) Red Blood Count 3.96 M/uL (4.2-5.4) Hemoglobin 12.8 g/dL (12.0-16.0) Hematocrit 38.1 % (37-47) Mean Corpuscular Volume 96.2 fL (80-100) Mean Corpuscular Hemoglobin 32.3 pg (25-34) Mean Corpuscular Hemoglobin Concent 33.6 g/dl (32-36) Platelet Count 264 K/uL (130-400) Mean Platelet Volume 9.7 fL (7.4-10.4) Neutrophils (%) (Auto) 80.8 % Lymphocytes (%) (Auto) 12.7 % Monocytes (%) (Auto) 5.3 % Eosinophils (%) (Auto) 0.7 % Basophils (%) (Auto) 0.2 % Neutrophils # (Auto) 8.26 K/uL (1.4-6.5) Lymphocytes # (Auto) 1.30 K/uL (1.2-3.4) Monocytes # (Auto) 0.54 K/uL (0.11-0.59) Eosinophils # (Auto) 0.07 K/uL (0-0.5) Basophils # (Auto) 0.02 K/uL (0-0.2) RDW Standard Deviation 45.3 fL (36.4-46.3) RDW Coefficient of Variation 13.2 % (11.5-14.5) Immature Granulocyte % (Auto) 0.3 % Immature Granulocyte # (Auto) 0.03 K/uL (0.00-0.02) Anion Gap 7.0 mmol/L (3-11) Est Creatinine Clear Calc Drug Dose 41.4 ml/min Estimated GFR () 49.4 Estimated GFR (Non- 42.7 BUN/Creatinine Ratio 16.0 (10-20) Calcium Level 8.4 mg/dl (8.5-10.1) Total Bilirubin 0.5 mg/dl (0.2-1) Direct Bilirubin mg/dl (0-0.2) Aspartate Amino Transf (AST/SGOT) 18 U/L (15-37) Alanine Aminotransferase (ALT/SGPT) 22 U/L (12-78) Alkaline Phosphatase 98 U/L (45-117) Total Protein 7.4 gm/dl (6.4-8.2) Albumin 3.5 gm/dl (3.4-5.0) Lipase 92 U/L (73-393) Urine Color YELLOW Urine Appearance CLOUDY (CLEAR) Urine pH 5.5 (4.5-7.5) Urine Specific [place] 1.010 (1.000-1.030) Urine Protein NEG (NEG) Urine Glucose (UA) NEG (NEG) Urine Ketones NEG (NEG) Urine Occult Blood TRACE (NEG) Urine Nitrite POS (NEG) Urine Bilirubin NEG (NEG) Urine Urobilinogen NEG (NEG) Urine Leukocyte Esterase MODERATE (NEG) Urine WBC (Auto) 10-30 /hpf (0-5) Urine RBC (Auto) 5-10 /hpf (0-4) Urine Hyaline Casts (Auto) 1-5 /lpf (0-5) Urine Epithelial Cells (Auto) >30 /lpf (0-5) Urine Bacteria (Auto) 3+ (NEG) Urine Yeast (Auto) PRESENT (NONE PRSENT) Medications Administered Medications (Trade) Dose Ordered Sig/Pio Route Start Time Stop Time Status Last Admin Dose Admin Sodium Chloride 1,000 ml @ 999 mls/hr Q1H1M STAT IV 10/08/16 15:20 10/08/16 16:20 DC 10/08/16 15:20 999 MLS/HR Ondansetron HCl (Zofran Odt) 4 mg NOW STAT PO 10/08/16 15:23 10/08/16 15:25 DC 10/08/16 16:35 4 MG Ondansetron HCl (Zofran Inj) 4 mg NOW STAT IV 10/08/16 17:00 10/08/16 17:01 DC 10/08/16 17:09 4 MG Acetaminophen (Tylenol Tab) 650 mg NOW STAT PO 10/08/16 17:41 10/08/16 17:43 DC 10/08/16 17:52 650 MG Sodium Chloride 1,000 ml @ 999 mls/hr Q1H1M STAT IV 10/08/16 17:41 10/08/16 18:41 DC 10/08/16 17:41 999 MLS/HR Aspirin (Ecotrin Tab) 81 mg NOW STAT PO 10/08/16 17:48 10/08/16 17:49 DC 10/08/16 17:58 81 MG Clopidogrel Bisulfate (plAVix TAB) 75 mg NOW STAT PO 10/08/16 17:48 10/08/16 17:49 DC 10/08/16 17:58 75 MG Ondansetron HCl (ZOFRAN ODT 4MG Home Pack) 1 homepack UD ONCE PO 10/08/16 18:15 10/08/16 18:16 DC 10/08/16 20:50 1 HOMEPACK Meclizine HCl (Antivert Tab) 25 mg NOW STAT PO 10/08/16 18:23 10/08/16 18:24 DC 10/08/16 20:05 25 MG Promethazine HCl 12.5 mg/Sodium Chloride 50.5 ml @ 204 mls/hr NOW STAT IV 10/08/16 19:13 10/08/16 19:27 DC 10/08/16 19:37 204 MLS/HR Diazepam (Valium Tab) 5 mg NOW STAT PO 10/08/16 20:38 10/08/16 20:40 DC 10/08/16 20:50 5 MG Trimethoprim/ Sulfamethoxazole (Septra Ds 800/ 160MG Tab) 1 tab NOW STAT PO 10/08/16 20:38 10/08/16 20:40 DC 10/08/16 20:50 1 TAB ED Course Patient seen and examined in room A3 at 15:10, patient having nausea and light- headedness with tension type headache consistent with gastroenteritis. Labs and NSS ordered. 16:55 reassessed with Zofran having mild effect on her nausea, therefore ordered additional dose, NSS 1L still running 17:35 reassessed nausea resolved but still having headache and dizziness. Second NSS 1L ordered and 18:15 reassessed and still having continued nausea, and dizziness. Dizziness now much more consistent with room spinning rather than light headedness, she tells me it is consistent with her previous TIA in July and August. No weakness or change in sensation. Re-examination showed some nystagmus on left gaze bilaterally with the fast phase towards the left side. CT head stat ordered with meclizine 25mg PO. Patient handed over to Dr Sutton. Medical Decision Prior records/ancillary studies reviewed. Triage Nursing notes reviewed. Additional history obtained from the family. The patient's history was concerning for nausea, vomiting and headache. Differential diagnosis: Etiologies such as gastroenteritis, food borne illness, infections, appendicitis , diverticulitis, inflammatory bowel disease, obstruction, GI bleed, biliary pathology, as well as others were entertained. Physical examination findings: As above. Vital signs showed mild hypertension only Initial history and evaluation consistent with dehydration and gastroenteritis and treated with Zofran and normal saline. Patient was slightly confused and has poor history recall which is consistent to previous evaluations. Labs were within normal limits and patient symptoms initially improved and nausea (her main symptom resolved). On reassessment however her symptoms are more consistent with vertigo and she does have some nystagmus after some head movement with fast phase to the right which was not seen on neurological consultation by Dr Beaulieu in August or July. CT head was ordered and was awaiting results when I handed over to Dr Sutton who continued management of this patient (please see separate note) Impression Primary Impression: UTI (urinary tract infection) Additional Impression: Vertigo Departure Information Dispostion Home / Self-Care Condition GOOD Prescriptions Ondasetron Odt (ZOFRAN ODT) 4 Mg Tab 4 MG SL Q4 for Nausea, #10 TAB Prov: Ronak Sutton M.D. 10/08/16 Sulfa/Trimethoprim (Bactrim Ds 800MG/160MG) Tab 1 TAB PO BID, #19 TAB Prov: Ronak Sutton M.D. 10/08/16 Diazepam (VALIUM) 5 Mg Tab 5 MG PO Q6 Y for dizziness, #20 TAB Prov: Ronak Sutton M.D. 10/08/16 Referrals Sae Arthur M.D. (PCP) Patient Instructions [facility] Resident Tracking Resident Involvement: Resident Care Provided Care Provided: Adult ED Problem Qualifiers
[2016-10-08] MEDS ORDERED: NVLGI/PEN SC (15:23)
[2016-10-08] MEDS ORDERED: ASPI81TA28 PO (15:23)
[2016-10-08] MEDS ORDERED: ONDANSETRON 4MG OD TAB PO STA (15:23)
[2016-10-08] MEDS ORDERED: TOLT1CAP3 PO (15:23)
[2016-10-08] MEDS ORDERED: LSX20 PO (15:37)
[2016-10-08 16:37] LABS: BASO % 0.2 %; BASO ABS # 0.02 K/uL (0-0.2); COMPLETE YES; EOS % 0.7 %; HEMATOCRIT 38.1 % (37-47); IG% 0.3 %; LYMPH % 12.7 %; MEAN CELL VOLUME 96.2 fL (80-100); MEAN CORPUSCULAR HEMOGLOBIN 32.3 pg (25-34); MEAN CORPUSCULAR HGB CONC 33.6 g/dl (32-36); MEAN PLATELET VOLUME 9.7 fL (7.4-10.4); MONO % 5.3 %; NEUT % 80.8 %; PLATELET COUNT 264 K/uL (130-400); RED BLOOD COUNT 3.96 M/uL (4.2-5.4); WHITE BLOOD COUNT 10.22 K/uL (4.8-10.8)
[2016-10-08] MEDS ORDERED: ONDANSETRON INJ 2 MG/ML 2 ML VIAL IV STA (17:00)
[2016-10-08 17:09] LABS: ALKALINE PHOSPHATASE 98 U/L (45-117); ALT/SGPT 22 U/L (12-78); AST/SGOT 18 U/L (15-37); BLOOD UREA NITROGEN 19 mg/dl (7-18); CALCIUM 8.4 mg/dl (8.5-10.1); CARBON DIOXIDE 29 mmol/L (21-32); CHLORIDE 107 mmol/L (98-107); GLUCOSE 134 mg/dl (70-99); POTASSIUM 4.4 mmol/L (3.5-5.1); SODIUM 143 mmol/L (136-145)
[2016-10-08] MEDS ORDERED: ACETAMINOPHEN 325 MG TAB PO STA (17:41)
[2016-10-08] MEDS ORDERED: ASPIRIN 81 MG ECTAB PO STA (17:48)
[2016-10-08] MEDS ORDERED: CLOPIDOGREL BISULFATE 75 MG TAB PO STA (17:48)
[2016-10-08] MEDS ORDERED: HYDR2.5L TOP (18:10)
[2016-10-08] MEDS ORDERED: ONDANSETRON HOME PACK 4MG OD TAB PO ONE (18:15)
[2016-10-08] MEDS ORDERED: MECLIZINE HCL 25 MG TAB PO STA (18:23)
--- NOTE | 2016-10-08 18:33 | EMERGENCY ROOM VISIT NOTE ---
ED Visit Note First contact with patient: 15:07 Resident Physician Supervision Note: I interviewed and examined the patient. Discussed with and agree with findings and plan as documented in the note. Any exceptions or clarifications are listed here: [None] The patient was reevaluated at 2030. The patient has a urinalysis consistent with UTI. The vertigo is slightly better. She will be sent home with home packs and prescriptions for Valium, Zofran and Bactrim. IMPRESSION: Dizziness Urinary tract infection Documented By: Roank Sutton
[2016-10-08] MEDS ORDERED: PROMETHAZINE HCL INJ 12.5 MG in SODIUM CHLORIDE 0.9% 50ML 50 ML IV STA (19:13)
--- NOTE | 2016-10-08 19:26 | DIAGNOSTIC IMAGING REPORT ---
HEAD CT NONCONTRAST CT DOSE: 537.48 mGy.cm HISTORY: vertigo, with nystagmus TECHNIQUE: Multiaxial CT images of the head were performed without the use of intravenous contrast. Automated exposure control was utilized for this study. Comparison: Head CT and brain MRI 08/29/2016. Findings: Mild mucosal thickening within the right sphenoid sinus. No fluid levels within the paranasal sinuses. The mastoid air cells are clear. The calvarium and skull base are intact. There is no mass, hematoma, midline shift, acute infarct. White matter hypodensity is nonspecific but suggestive of microvascular ischemic change. The ventricles and sulci demonstrate mild age-related involutional changes. Multiple old infarcts are not significantly changed. Impression: No significant change compared to the prior study. No acute intracranial abnormality. Multiple scattered old infarcts are again noted. Electronically signed by: Timothy Whitmore M.D. 10/08/2016 7:25 PM Dictated Date/Time: 10/08/2016 7:21 PM
[2016-10-08 20:00] LABS: URINE APPEARANCE CLOUDY (CLEAR); URINE BILIRUBIN NEG (NEG); URINE COLOR YELLOW; URINE EPITHELIAL CELL AUTO >30 /lpf (0-5); URINE NITRITE POS (NEG); URINE PH 5.5 (4.5-7.5); UROBILINOGEN NEG (NEG); ZZUR CULT IF INDIC CLEAN CATCH YES
[2016-10-08 20:16] LABS: MANUAL MICROSCOPIC REQUIRED? NO; REVIEW REQ? YES
[2016-10-08 20:33] VITALS: BP 114/111; PULSE 64; O2SAT 99
[2016-10-08] MEDS ORDERED: SULFAMETHOXAZOLE/TRIMETHOPRIM DS 800/160MG TAB PO STA (20:38)
[2016-10-08] MEDS ORDERED: DIAZEPAM 5MG TAB PO STA (20:38)
[2016-10-08] MEDS ORDERED: ONDA4TAB10 SL (20:43)
[2016-10-08] MEDS ORDERED: DIAZ5TAB3 PO (20:43)
[2016-10-08] MEDS ORDERED: SULF800T23 PO (20:43)
[2016-10-08] MEDS ORDERED: EMPTY 8 DRAM VIAL ONE (20:45)
[2016-10-08] MEDS ORDERED: ONDANSETRON HOME PACK 4MG OD TAB ONE (20:45)
[2016-10-08] MEDS ORDERED: MULT-884 PO (21:13)
--- NOTE | 2016-10-10 14:52 | Pharmacy Progress Note ---
ED Pharmacist Culture FollowUp Date of Service: Oct 10, 2016. Patient was sent home with a prescription for Bactrim, which should cover the E. coli growing from the patient's urine culture.
== END 2016-10-08 20:58 | disposition home or self-care (01) ==
LOC: C.EDB 14:45 → C.EDA 20:58
DX: N39.0 Urinary tract infection, site not specified (principal); R42 Dizziness and giddiness; J45.909 Unspecified asthma, uncomplicated; E11.9 Type 2 diabetes mellitus without complications; I10 Essential (primary) hypertension; E03.9 Hypothyroidism, unspecified; E66.9 Obesity, unspecified; M19.90 Unspecified osteoarthritis, unspecified site; M48.06 Spinal stenosis, lumbar region; G45.9 Transient cerebral ischemic attack, unspecified; Z83.3 Family history of diabetes mellitus; Z82.49 Family history of ischemic heart disease and other diseases of the circulatory system; Z79.82 Long term (current) use of aspirin; Z79.4 Long term (current) use of insulin

== ENCOUNTER → 2016-10-31 | Outpatient (CLI) | payer OTHER, MEDICARE ==
[~2016-10-31] MED LIST changes: -ADVIN10/60 INH; +ADVIN25/60 INH; -ASPEC81 PO; +ASPI81TA28 PO; +ATOR-26 PO; -CLOP1TAB15 PO; -DTRSR4 PO; -GABA-112 PO; +HYDR2.5L TOP; -INSDGI SC; +INSDGIPEN SC; -LPT40 PO; +LSX20 PO; -LXP/10 PO; +LXP10 PO; -MONT1TAB5 PO; +MULT-884 PO; +NRN100 PO; -NVLG INJ; +NVLGI/PEN SC; +ONDA4TAB10 SL; +PLV75 PO; +POTA-65 PO; -POTA20TA16 PO; +SNG10 PO; +SULF800T23 PO; +TOLT1CAP3 PO; +VNTHFA/IN INH; -ZNTT/150 PO
[2016-10-31 12:40] LABS: URINE APPEARANCE CLOUDY (CLEAR); URINE BILIRUBIN NEG (NEG); URINE COLOR YELLOW; URINE EPITHELIAL CELL AUTO >30 /lpf (0-5); URINE NITRITE NEG (NEG); URINE SPECIFIC GRAVITY 1.015 (1.000-1.030); UROBILINOGEN NEG (NEG); ZZUR CULT IF INDIC CLEAN CATCH YES
[2016-10-31 12:47] LABS: MANUAL MICROSCOPIC REQUIRED? NO; REVIEW REQ? YES
== END | disposition home or self-care (01) ==
LOC: C.LABBFT 09:28
PROVIDERS: ATTEND Internal Medicine
DX: R35.0 Frequency of micturition (principal)

== ENCOUNTER → 2016-12-18 | Outpatient (CLI) | payer OTHER, MEDICARE ==
[~2016-12-18] MED LIST changes: +ATOR-24 PO; +CPR500 PO; +ZNTT/150 PO
[2016-12-18 19:45] LABS: URINE APPEARANCE CLEAR (CLEAR); URINE BILIRUBIN NEG (NEG); URINE COLOR YELLOW; URINE NITRITE NEG (NEG); URINE PH 5.5 (4.5-7.5); URINE SPECIFIC GRAVITY 1.016 (1.000-1.030); UROBILINOGEN NEG (NEG)
[2016-12-18 19:56] LABS: MANUAL MICROSCOPIC REQUIRED? NO; REVIEW REQ? NO
== END ==
LOC: C.LABCC 12:00
PROVIDERS: ATTEND Internal Medicine
DX: R41.82 Altered mental status, unspecified (principal)

== ENCOUNTER → 2016-12-19 | Outpatient (CLI) | payer OTHER, MEDICARE ==
[2016-12-19 18:19] LABS: URINE APPEARANCE CLEAR (CLEAR); URINE BILIRUBIN NEG (NEG); URINE COLOR YELLOW; URINE NITRITE NEG (NEG); UROBILINOGEN NEG (NEG)
[2016-12-19 18:24] LABS: MANUAL MICROSCOPIC REQUIRED? NO; REVIEW REQ? NO
== END ==
LOC: C.LABCC 17:32
PROVIDERS: ATTEND Internal Medicine
DX: R41.82 Altered mental status, unspecified (principal)

== ENCOUNTER → 2017-01-10 | Outpatient (CLI) | payer OTHER, MEDICARE ==
[2017-01-10 09:40] LABS: ESTIMATED AVERAGE GLUCOSE 203 mg/dl; HA1C FLAG Normal (Normal)
== END ==
LOC: C.LABCC 08:20
PROVIDERS: ATTEND Internal Medicine
DX: E11.9 Type 2 diabetes mellitus without complications (principal)

== ENCOUNTER 2017-01-26 11:24 | Observation (INO) | payer OTHER, MEDICARE ==
[~2017-01-26] VITALS: Ht 165.1 cm; Wt 105.2 kg
[~2017-01-26 11:24] MED LIST changes: -ATOR-24 PO; -CPR500 PO; -ZNTT/150 PO
[2017-01-26] MEDS ORDERED: SODIUM CHLORIDE 0.9% 1000ML 1,000 ML IV SCH (12:18)
[2017-01-26] MEDS ORDERED: ATOR-24 PO (12:26)
[2017-01-26] MEDS ORDERED: ZNTT/150 PO (12:32)
[2017-01-26] MEDS ORDERED: INSDGIPEN SC (12:32)
[2017-01-26] MEDS ORDERED: CYCL0.052 OP (12:32)
[2017-01-26 12:33] LABS: BASO % 0.2 %; BASO ABS # 0.02 K/uL (0-0.2); COMPLETE YES; EOS % 0.8 %; HEMATOCRIT 35.6 % (37-47); IG% 0.2 %; LYMPH % 13.6 %; LYMPH ABS # 1.44 K/uL (1.2-3.4); MEAN CELL VOLUME 96.2 fL (80-100); MEAN CORPUSCULAR HEMOGLOBIN 31.9 pg (25-34); MEAN CORPUSCULAR HGB CONC 33.1 g/dl (32-36); MEAN PLATELET VOLUME 9.6 fL (7.4-10.4); MONO % 8.6 %; NEUT % 76.6 %; PLATELET COUNT 290 K/uL (130-400); WHITE BLOOD COUNT 10.58 K/uL (4.8-10.8)
[2017-01-26 12:38] LABS: PARTIAL THROMBOPLASTIN RATIO 1.1; PROTHROMBIN TIME (PATIENT) 10.5 SECONDS (9.0-12.0)
[2017-01-26 12:42] LABS: BUN/CREATININE RATIO 17.3 (10-20); CALCIUM 8.9 mg/dl (8.5-10.1); CREATININE 1.1 mg/dl (0.60-1.20); POTASSIUM 4.8 mmol/L (3.5-5.1)
[2017-01-26 12:51] LABS: CKMB/CK RATIO 1.1 (0-3.0)
--- NOTE | 2017-01-26 13:15 | DIAGNOSTIC IMAGING REPORT ---
SINGLE VIEW CHEST CLINICAL HISTORY: Strokelike symptoms. FINDINGS: An AP, portable, upright chest radiograph is compared to study dated 08/29/2016 and correlated with chest CT dated 05/31/2015. The examination is significantly degraded by portable technique, large body habitus, and patient rotation. The heart is enlarged and there is atherosclerotic calcification of the thoracic aorta. The pulmonary vasculature is noncongested. There is chronic elevation of the right hemidiaphragm and bibasilar atelectasis. No airspace consolidation is seen typical for pneumonia and there is no large pleural effusion. No pneumothorax is identified. The skeletal structures are osteopenic. Advanced degenerative changes noted in the thoracic spine. Fusion hardware is partially imaged in the upper lumbar region. Chronic posttraumatic deformity and postoperative change is noted in the right proximal humerus. IMPRESSION: 1. Cardiomegaly without radiographic evidence of congestive failure. 2. There is no airspace consolidation or large pleural effusion. Electronically signed by: Ender Grimaldo M.D. 01/26/2017 1:13 PM Dictated Date/Time: 01/26/2017 1:12 PM
[2017-01-26] MEDS ORDERED: OPTIRAY 320 IV PRN (13:45)
--- NOTE | 2017-01-26 13:48 | DIAGNOSTIC IMAGING REPORT ---
CT SCAN OF THE BRAIN WITHOUT IV CONTRAST CLINICAL HISTORY: Strokelike symptoms. COMPARISON STUDY: CT the brain dated 10/08/2016. TECHNIQUE: Unenhanced axial CT scan of the brain is performed from the vertex to the skull base. FINDINGS: Brain parenchyma: There is bifrontal and right occipital encephalomalacia consistent with remote infarcts. This is unchanged from previous. There are age-related involutional changes noting moderate to advanced subcortical and periventricular microangiopathic change. There is no hemorrhage, mass effect, or evidence of acute territorial ischemia by CT criteria. Chronic lacunar infarcts are identified in the left cerebellar hemisphere, left cedric, and the basal ganglia. Holden-white matter is preserved. No extra-axial fluid collection is seen. Ventricles, sulci, cisterns: Prominent secondary to involutional change. Intracranial vasculature: There is atherosclerotic calcification of the cavernous carotid and vertebral arteries. Calvarium: Unremarkable. Sinuses and mastoids: There is subtotal opacification of the right sphenoid sinus with an air-fluid level. The remaining Visualized paranasal sinuses are clear. The mastoid air cells are well pneumatized. Orbits: The bony orbits are grossly intact. There are bilateral ocular lens implants. IMPRESSION: 1. There is no hemorrhage, mass effect, or evidence of acute territorial ischemia by CT criteria. 2. Senescent changes and remote infarcts as above. Electronically signed by: Ender Grimaldo M.D. 01/26/2017 1:47 PM Dictated Date/Time: 01/26/2017 1:43 PM
--- NOTE | 2017-01-26 14:00 | DIAGNOSTIC IMAGING REPORT ---
CHEST COMBO ANGIOGRAPHY CLINICAL HISTORY: Altered mental status. Elevated troponin. Evaluate for dissection. COMPARISON STUDY: Chest CT May 31, 2015 and chest radiograph August 29, 2016. TECHNIQUE: Unenhanced and arterial phase imaging of the chest was performed. Injection 120 cc of Optiray 320 IV was uneventful. Sagittal and coronal reconstructions were viewed as well as maximal intensity projections on an independent 3-D workstation. FINDINGS: Mild dilatation of the ascending aorta measuring 4 cm at the level the main pulmonary artery is unchanged. There is no dissection or intramural hematoma within the thoracic aorta. The heart is moderately enlarged. No central pulmonary emboli are identified. There is extensive coronary artery calcification. A small pericardial effusion has decreased in size since abdominal CT of June 17, 2016. A moderate sized hiatal hernia is present. Numerous pulmonary nodules are unchanged from earlier studies. These are benign given stability. No pneumothorax or pleural effusion is present. Elevation of the right hemidiaphragm is unchanged with associated atelectasis. No pneumothorax or pleural effusion is present. A previous right humeral internal fixation is noted. IMPRESSION: 1. No thoracic aortic dissection. 2. Stable mild dilatation of the ascending aorta. 3. Moderate cardiomegaly with a small pericardial effusion which has decreased in size since abdominal CT of June 17, 2016. 4. No acute intrathoracic findings. 5. Moderate sized hiatal hernia. Electronically signed by: Jacinto Grant M.D. 01/26/2017 1:59 PM Dictated Date/Time: 01/26/2017 1:43 PM
[2017-01-26] MEDS ORDERED: ASPIRIN 81 MG CHEW PO STA (14:04)
[2017-01-26 14:35] LABS: URINE APPEARANCE CLOUDY (CLEAR); URINE BILIRUBIN NEG (NEG); URINE COLOR YELLOW; URINE NITRITE NEG (NEG); URINE PH 5.5 (4.5-7.5); URINE SPECIFIC GRAVITY 1.018 (1.000-1.030); UROBILINOGEN NEG (NEG); ZZURINE CULT IF INDIC CATH YES
[2017-01-26 14:37] LABS: REVIEW REQ? NO
[2017-01-26 14:38] LABS: MANUAL MICROSCOPIC REQUIRED? NO
[2017-01-26] MEDS ORDERED: ACETAMINOPHEN 325 MG TAB PO PRN (14:45)
[2017-01-26] MEDS ORDERED: ONDANSETRON INJ 2 MG/ML 2 ML VIAL IV PRN (14:45)
--- NOTE | 2017-01-26 15:10 | History and Physical ---
History & Physical Date & Time of Service: Jan 26, 2017 at 14:53 Chief Complaint: Altered Mental Status Primary Care Physician: Yani Deluna History of Present Illness Source: patient Pt is an 81 yo female resident of [facility] who presents to the ER with worsening confusion, chills and left upper extremity weakness this AM. Pt is a poor historian with hx of dementia so much of the hx is obtained from son and 2 daughters in room. Per daughter, pt was noted to have chills yesterday evening and this AM nursing staff also noted weakness in her left arm. Upon evaluation, weakness noted to be resolved. Pt oriented only to herself, which is baseline according to family. No noted distress. The patient' s family reports that the patient has a history of previous TIAs. Pt denies headache, change in vision, fevers, chest pain, shortness of breath, nausea, vomiting, diarrhea, pain with urination, weakness or numbness in her arms or legs, and melena. The history is limited secondary to the patient's dementia. Past Medical/Surgical History Medical Problems: (1) ASTHMA W/O STATUS ASTH, ACT EXACERBATION OR UNSPEC Status: Chronic (2) CHR LYMPHOCYT THYROIDIT Status: Chronic (3) CORON ATHEROSCLER NOS TYPE VESSEL, ANDREAFSKI OR GRAFT Status: Chronic (4) DIAB KOKI WO COMPL, TYPE I [JUVENILE TYPE], NOT UNCNTRLD Status: Chronic (5) DIAB W OPHTHAL MANIFEST TYPE II,OR NOS/NOT UNCONTR Status: Chronic (6) HYPERTENSION NOS Status: Chronic (7) HYPOTHYROIDISM NOS Status: Chronic (8) LUMBOSACRAL SPONDYLOSIS Status: Chronic (9) OBESITY, NOS Status: Chronic (10) OSTEOARTHROS NOS-UNSPEC Status: Chronic (11) POSTLAMINECT SYND-LUMBAR Status: Chronic (12) SPINAL STENOSIS-LUMBAR Status: Chronic (13) TIA (transient ischemic attack) Status: Resolved Surgical Problems: (1) H/O: hysterectomy Status: Resolved (2) History of back surgery Status: Resolved (3) History of cataract surgery Status: Resolved (4) Hx of cholecystectomy Status: Resolved Family History Cancer Diabetes mellitus Gallbladder disease Heart disease Kidney disease Kidney stones Social History Smoking Status: Never Smoker Drug Use: none Marital Status: Housing status: lives with family Occupational Status: retired Immunizations History of Influenza Vaccine: Yes Influenza Vaccine Date: Jun 16, 2011 History of Tetanus Vaccine?: utd Tetanus Immunization Date: Jan 22, 2001 History of Pneumococcal: Yes Pneumococcal Date: Jun 16, 2003 History of Hepatitis B Vaccine: Unknown Multi-Drug Resistant Organisms History of MDRO: No Allergies Coded Allergies: Latex1 -Allergic Contact Dermititis (Verified Allergy, Mild, RASH, 08/29/16 ) Adhesives (Verified Allergy, Unknown, RASH, 08/29/16) Codeine (Verified Adverse Reaction, Unknown, N&V, 08/29/16) Morphine (Verified Adverse Reaction, Unknown, N&V, 08/29/16) Home Medications Scheduled Albuterol Hfa (Ventolin Hfa), 2 PUFFS INH UD Aspirin (Aspirin Ec), 81 MG PO QAM Atorvastatin (Lipitor), 40 MG PO QPM Clopidogrel Bisulfate (Clopidogrel), 75 MG PO QAM Cyclosporine (Ophth) (Restasis), 1 DROP OP BID Escitalopram Oxalate (Escitalopram Oxalate), 10 MG PO QAM Fluticasone Prop/Salmeterol (Advair Diskus 250/50 60 Dose), 1 PUFF INH BID Gabapentin (Gabapentin), 100 MG PO BID Insulin Aspart (Novolog Flexpen), 1 DOSE SC ACHS Insulin Glargine (Lantus Solostar), 30 UNITS SC BID Levothyroxine Sodium (Levothyroxine Sodium), 75 MCG PO QAM Metoprolol Tartrate (Lopressor) (Lopressor), 50 MG PO BID Montelukast Sod (Montelukast Sodium), 10 MG PO QAM Multiple Vitamin (Multi Vitamin Daily), 1 TAB PO QAM Potassium Chloride (Potassium Chloride ER), 20 MEQ PO QAM Ramipril (Ramipril), 10 MG PO DAILY Ranitidine (Zantac), 150 MG PO BID Tolterodine Tartrate (Tolterodine Tartrate ER), 4 MG PO DAILY Scheduled PRN Nitroglycerin (Nitrostat), 0.4 MG UT UD PRN for Chest Pain Review of Systems Constitutional: + chills, + sweats, No fever, No weakness, No fatigue Respiratory: No cough, No sputum, No wheezing, No shortness of breath Cardiovascular: No chest pain, No orthopnea, No PND, No edema Abdomen: No pain, No nausea, No vomiting, No diarrhea Musculoskeletal: No joint pain, No muscle pain, No swelling, No calf pain Genitourinary - Female: No dysuria, No urinary frequency, No urinary urgency, No urinary incontinence Neurologic: No memory loss, No paralysis, No weakness, No numbness/tingling Psychiatric: No depression symptoms, No anhedonism, No anxiety, No insomnia Endocrine: No fatigue, No excessive thirst Integumentary: No rash, No itch Physical Exam Vital Signs Date Time Temp Pulse Resp B/P (MAP) Pulse Ox O2 Delivery O2 Flow Rate FiO2 01/26/17 13:40 74 20 140/84 99 Room Air 01/26/17 13:09 69 01/26/17 11:40 36.7 66 20 146/79 98 Room Air 01/26/17 11:32 97 Room Air General Appearance: WD/WN, no apparent distress Eyes: normal inspection, PERRL, EOMI, sclerae normal Neck: supple, no adenopathy, thyroid normal, no JVD Respiratory/Chest: chest non-tender, lungs clear, normal breath sounds, no respiratory distress Cardiovascular: no edema, no gallop, no JVD, no murmur Abdomen/GI: normal bowel sounds, non tender, soft, no organomegaly Extremities/Musculoskelatal: normal inspection, no calf tenderness, normal capillary refill, no pedal edema Neurologic/Psych: no motor/sensory deficits, alert, normal mood/affect, normal reflexes, + disoriented Skin: normal color, warm/dry, no rash Lymphatic: no adenopathy Diagnostics Laboratory Results Results Past 24 Hours Test 01/26/17 11:36 01/26/17 11:55 01/26/17 12:37 01/26/17 13:53 Range/Units Bedside Glucose 143 70-90 mg/dl White Blood Count 10.58 4.8-10.8 K/uL Red Blood Count 3.70 4.2-5.4 M/uL Hemoglobin 11.8 12.0-16.0 g/dL Hematocrit 35.6 37-47 % Mean Corpuscular Volume 96.2 80-100 fL Mean Corpuscular Hemoglobin 31.9 25-34 pg Mean Corpuscular Hemoglobin Concent 33.1 32-36 g/dl Platelet Count 290 130-400 K/uL Mean Platelet Volume 9.6 7.4-10.4 fL Neutrophils (%) (Auto) 76.6 % Lymphocytes (%) (Auto) 13.6 % Monocytes (%) (Auto) 8.6 % Eosinophils (%) (Auto) 0.8 % Basophils (%) (Auto) 0.2 % Neutrophils # (Auto) 8.11 1.4-6.5 K/uL Lymphocytes # (Auto) 1.44 1.2-3.4 K/uL Monocytes # (Auto) 0.91 0.11-0.59 K/uL Eosinophils # (Auto) 0.08 0-0.5 K/uL Basophils # (Auto) 0.02 0-0.2 K/uL RDW Standard Deviation 44.0 36.4-46.3 fL RDW Coefficient of Variation 12.5 11.5-14.5 % Immature Granulocyte % (Auto) 0.2 % Immature Granulocyte # (Auto) 0.02 0.00-0.02 K/uL Prothrombin Time 10.5 9.0-12.0 SECONDS Prothromb Time International Ratio 1.0 0.9-1.1 Activated Partial Thromboplast Time 28.2 21.0-31.0 SECONDS Partial Thromboplastin Ratio 1.1 Sodium Level 139 136-145 mmol/L Potassium Level 4.8 3.5-5.1 mmol/L Chloride Level 103 98-107 mmol/L Carbon Dioxide Level 28 21-32 mmol/L Anion Gap 8.0 3-11 mmol/L Blood Urea Nitrogen 19 7-18 mg/dl Creatinine 1.10 0.60-1.20 mg/dl Est Creatinine Clear Calc Drug Dose 49.3 ml/min Estimated GFR () 54.9 Estimated GFR (Non- 47.4 BUN/Creatinine Ratio 17.3 10-20 Random Glucose 174 70-99 mg/dl Calcium Level 8.9 8.5-10.1 mg/dl Total Bilirubin 0.6 0.2-1 mg/dl Direct Bilirubin 0.2 0-0.2 mg/dl Aspartate Amino Transf (AST/SGOT) 15 15-37 U/L Alanine Aminotransferase (ALT/SGPT) 22 12-78 U/L Alkaline Phosphatase 106 45-117 U/L Total Creatine Kinase 140 26-192 U/L Creatine Kinase MB 1.5 0.5-3.6 ng/ml Creatine Kinase MB Ratio 1.1 0-3.0 Troponin I 0.584 0-0.045 ng/ml Total Protein 6.8 6.4-8.2 gm/dl Albumin 3.2 3.4-5.0 gm/dl Lipase 100 73-393 U/L Bedside Prothrombin Time INR 1.1 0.9-1.1 Urine Color YELLOW Urine Appearance CLOUDY CLEAR Urine pH 5.5 4.5-7.5 Urine Specific Reading 1.018 1.000-1.030 Urine Protein NEG NEG Urine Glucose (UA) TRACE NEG Urine Ketones NEG NEG Urine Occult Blood NEG NEG Urine Nitrite NEG NEG Urine Bilirubin NEG NEG Urine Urobilinogen NEG NEG Urine Leukocyte Esterase SMALL NEG Urine WBC (Auto) 5-10 0-5 /hpf Urine RBC (Auto) 0-4 0-4 /hpf Urine Hyaline Casts (Auto) 0 0-5 /lpf Urine Epithelial Cells (Auto) 5-10 0-5 /lpf Urine Bacteria (Auto) 4+ NEG Microbiology Results 01/26/17 Urine Culture, Received Pending Impression Assessment and Plan 80 yo female with past medical history of stroke in 2015, hypertension, hypothyroidism, diabetes, asthma, presents to ER with chills, left upper ext weakness (currently resolved) Weakness/confusion likely metabolic encephalopathy in nature. Dehydrated on exam , will start on IV NS at 100 cc/hr, Will also obtain urine cx as UA may be indicative or UTI. No current urinary sx. CT head neg, Had MRI in july/august of this yr and will not repeat as there are no neuro deficits NSTEMI - Elev trops in the past. EKG demonstrates no ischemic changes. Cont to trend at this time Hypertension, stable, cont metoprolol, hold ramipril Depression, cont lexapro Neuropathy, cont gabapentin Hypothyroidism, continue Synthroid Diabetes type 2, Insulin sliding scale Hyperlipidemia, Continue statin DVT prophylaxis. Heparin subcutaneous DO NOT RESUSCITATE VTE Prophylaxis VTE Risk Assessment Done? Y/N: Yes Risk Level: Moderate
[2017-01-26] MEDS ORDERED: NITROGLYCERIN 0.4 MG SL PER TAB CHARGE UT PRN (15:15)
[2017-01-26] MEDS ORDERED: GLUCAGON FOR INJ 1 MG VIAL SQ PRN (15:15)
[2017-01-26] MEDS ORDERED: GLUCOSE 10 TABS/TUBE PO PRN (15:15)
[2017-01-26] MEDS ORDERED: ALBUTEROL HFA 8 GM INHALER INH SCH (15:15)
[2017-01-26] MEDS ORDERED: GLUCOSE 40% GEL 15 GM TUBE PO PRN (15:15)
[2017-01-26] MEDS ORDERED: DEXTROSE 50% 50 ML SYR IV PRN (15:15)
[2017-01-26] MEDS ORDERED: IV FLUIDS COMPLETED PRN (15:45)
--- NOTE | 2017-01-26 15:51 | EMERGENCY ROOM VISIT NOTE ---
History Report prepared by Galo: Jade Fisher Under the Supervision of: Dr. Carl Li D.O. First contact with patient: 11:43 Chief Complaint: STROKE SYMPTOMS Stated Complaint: ALTERED MENTAL STATUS History of Present Illness The patient is an 81 year old female who presents to the Emergency Room with increased altered mental status that began this morning. Per nursing staff, the patient has a history of dementia. The patient's family notes that the patient is typically not oriented to time, but is typically oriented to person. The patient's family notes that the patient had told another family member last evening that she was not feeling well. Per nursing staff, the patient was last known well at 0930 this morning. Per nursing staff, the patient could not move her left arm this morning. The patient's family reports that the patient has a history of previous TIAs. Pt denies headache, change in vision, fevers, chest pain, shortness of breath, nausea, vomiting, diarrhea, pain with urination , weakness or numbness in her arms or legs, and melena. The history is limited secondary to the patient's dementia. Source of History: patient, family, nursing staff History Limited By: dementia Onset: 0930 this morning Position: other (global) Quality: other (altered mental status) Timing: other (increased) Review of Systems The history and ROS are limited secondary to the patient's dementia. 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 (11) HYPERTENSION NOS (12) HYPOTHYROIDISM NOS (13) LUMBOSACRAL SPONDYLOSIS (14) OBESITY, NOS (15) OSTEOARTHROS NOS-UNSPEC (16) POSTLAMINECT SYND-LUMBAR (17) SIRS (systemic inflammatory response syndrome) (18) SPINAL STENOSIS-LUMBAR (19) TIA (transient ischemic attack) Surgical Problems: (1) H/O: hysterectomy (2) History of back surgery (3) History of cataract surgery (4) History of renal stent (5) Hx of cholecystectomy Family History Cancer Diabetes mellitus Gallbladder disease Heart disease Kidney disease Kidney stones Social History Smoking Status: Never Smoker Alcohol Use: none Drug Use: none Marital Status: Housing Status: lives with family Occupation Status: retired Current/Historical Medications Scheduled Albuterol Hfa (Ventolin Hfa), 2 PUFFS INH UD Aspirin (Aspirin Ec), 81 MG PO QAM Atorvastatin (Lipitor), 40 MG PO QPM Clopidogrel Bisulfate (Clopidogrel), 75 MG PO QAM Cyclosporine (Ophth) (Restasis), 1 DROP OP BID Escitalopram Oxalate (Escitalopram Oxalate), 10 MG PO QAM Fluticasone Prop/Salmeterol (Advair Diskus 250/50 60 Dose), 1 PUFF INH BID Gabapentin (Gabapentin), 100 MG PO BID Insulin Aspart (Novolog Flexpen), 1 DOSE SC ACHS Insulin Glargine (Lantus Solostar), 30 UNITS SC BID Levothyroxine Sodium (Levothyroxine Sodium), 75 MCG PO QAM Metoprolol Tartrate (Lopressor) (Lopressor), 50 MG PO BID Montelukast Sod (Montelukast Sodium), 10 MG PO QAM Multiple Vitamin (Multi Vitamin Daily), 1 TAB PO QAM Potassium Chloride (Potassium Chloride ER), 20 MEQ PO QAM Ramipril (Ramipril), 10 MG PO DAILY Ranitidine (Zantac), 150 MG PO BID Tolterodine Tartrate (Tolterodine Tartrate ER), 4 MG PO DAILY Scheduled PRN Nitroglycerin (Nitrostat), 0.4 MG UT UD PRN for Chest Pain Allergies Coded Allergies: Latex1 -Allergic Contact Dermititis (Verified Allergy, Mild, RASH, 08/29/16 ) Adhesives (Verified Allergy, Unknown, RASH, 08/29/16) Codeine (Verified Adverse Reaction, Unknown, N&V, 08/29/16) Morphine (Verified Adverse Reaction, Unknown, N&V, 08/29/16) Physical Exam Vital Signs Date Time Temp Pulse Resp B/P (MAP) Pulse Ox O2 Delivery O2 Flow Rate FiO2 01/26/17 15:39 60 16 148/88 95 01/26/17 14:54 67 22 143/81 96 Room Air 01/26/17 13:40 74 20 140/84 99 Room Air 01/26/17 13:09 69 01/26/17 11:40 36.7 66 20 146/79 98 Room Air 01/26/17 11:32 97 Room Air Physical Exam GENERAL: alert, sitting up in bed, disheveled, slightly confused, well appearing, well nourished, no distress, non-toxic EYE EXAM: normal conjunctiva, PERRL and EOM's intact OROPHARYNX: no exudate, no erythema, lips, buccal mucosa, and tongue normal and mucous membranes are moist NECK: supple, no nuchal rigidity, no adenopathy, non-tender LUNGS: Clear to auscultation. Normal chest wall mechanics HEART: no murmurs, S1 normal and S2 normal ABDOMEN: abdomen soft, non-tender, normo-active bowel sounds, no masses, no rebound or guarding. BACK: Back is symmetrical on inspection and there is no deformity, no midline tenderness, no CVA tenderness. SKIN: no rashes and no bruising UPPER EXTREMITIES: upper extremities are grossly normal. LOWER EXTREMITIES: No pitting edema. NEURO EXAM: Awake, alert, oriented to person, not year, and place. Cranial nerves II-XII are intact, no weakness of upper extremities, unable to perform drift and finger past pointing. Medical Decision & Procedures ER Provider Diagnostic Interpretation: Radiology results as stated below per my review and the radiologist's interpretation: SINGLE VIEW CHEST CLINICAL HISTORY: Strokelike symptoms. FINDINGS: An AP, portable, upright chest radiograph is compared to study dated 08/29/2016 and correlated with chest CT dated 05/31/2015. The examination is significantly degraded by portable technique, large body habitus, and patient rotation. The heart is enlarged and there is atherosclerotic calcification of the thoracic aorta. The pulmonary vasculature is noncongested. There is chronic elevation of the right hemidiaphragm and bibasilar atelectasis. No airspace consolidation is seen typical for pneumonia and there is no large pleural effusion. No pneumothorax is identified. The skeletal structures are osteopenic. Advanced degenerative changes noted in the thoracic spine. Fusion hardware is partially imaged in the upper lumbar region. Chronic posttraumatic deformity and postoperative change is noted in the right proximal humerus. IMPRESSION: 1. Cardiomegaly without radiographic evidence of congestive failure. 2. There is no airspace consolidation or large pleural effusion. Electronically signed by: Ender Grimaldo M.D. 01/26/2017 1:13 PM Dictated Date/Time: 01/26/2017 1:[address] SCAN OF THE BRAIN WITHOUT IV CONTRAST CLINICAL HISTORY: Strokelike symptoms. COMPARISON STUDY: CT the brain dated 10/08/2016. TECHNIQUE: Unenhanced axial CT scan of the brain is performed from the vertex to the skull base. FINDINGS: Brain parenchyma: There is bifrontal and right occipital encephalomalacia consistent with remote infarcts. This is unchanged from previous. There are age-related involutional changes noting moderate to advanced subcortical and periventricular microangiopathic change. There is no hemorrhage, mass effect, or evidence of acute territorial ischemia by CT criteria. Chronic lacunar infarcts are identified in the left cerebellar hemisphere, left cedric, and the basal ganglia. Holden-white matter is preserved. No extra-axial fluid collection is seen. Ventricles, sulci, cisterns: Prominent secondary to involutional change. Intracranial vasculature: There is atherosclerotic calcification of the cavernous carotid and vertebral arteries. Calvarium: Unremarkable. Sinuses and mastoids: There is subtotal opacification of the right sphenoid sinus with an air-fluid level. The remaining Visualized paranasal sinuses are clear. The mastoid air cells are well pneumatized. Orbits: The bony orbits are grossly intact. There are bilateral ocular lens implants. IMPRESSION: 1. There is no hemorrhage, mass effect, or evidence of acute territorial ischemia by CT criteria. 2. Senescent changes and remote infarcts as above. Electronically signed by: Ender Grimaldo M.D. 01/26/2017 1:47 PM Dictated Date/Time: 01/26/2017 1:43 PM CHEST COMBO ANGIOGRAPHY CLINICAL HISTORY: Altered mental status. Elevated troponin. Evaluate for dissection. COMPARISON STUDY: Chest CT May 31, 2015 and chest radiograph August 29, 2016. TECHNIQUE: Unenhanced and arterial phase imaging of the chest was performed. Injection 120 cc of Optiray 320 IV was uneventful. Sagittal and coronal reconstructions were viewed as well as maximal intensity projections on an independent 3-D workstation. FINDINGS: Mild dilatation of the ascending aorta measuring 4 cm at the level the main pulmonary artery is unchanged. There is no dissection or intramural hematoma within the thoracic aorta. The heart is moderately enlarged. No central pulmonary emboli are identified. There is extensive coronary artery calcification. A small pericardial effusion has decreased in size since abdominal CT of June 17, 2016. A moderate sized hiatal hernia is present. Numerous pulmonary nodules are unchanged from earlier studies. These are benign given stability. No pneumothorax or pleural effusion is present. Elevation of the right hemidiaphragm is unchanged with associated atelectasis. No pneumothorax or pleural effusion is present. A previous right humeral internal fixation is noted. IMPRESSION: 1. No thoracic aortic dissection. 2. Stable mild dilatation of the ascending aorta. 3. Moderate cardiomegaly with a small pericardial effusion which has decreased in size since abdominal CT of June 17, 2016. 4. No acute intrathoracic findings. 5. Moderate sized hiatal hernia. Electronically signed by: Jacinto Grant M.D. 01/26/2017 1:59 PM Dictated Date/Time: 01/26/2017 1:43 PM Laboratory Results 01/26/17 11:55 Red Blood Count 3.70, Mean Corpuscular Volume 96.2, Mean Corpuscular Hemoglobin 31.9, Mean Corpuscular Hemoglobin Concent 33.1, Mean Platelet Volume 9.6, Neutrophils (%) (Auto) 76.6, Lymphocytes (%) (Auto) 13.6, Monocytes (%) (Auto) 8.6, Eosinophils (%) (Auto) 0.8, Basophils (%) (Auto) 0.2, Neutrophils # (Auto) 8.11, Lymphocytes # (Auto) 1.44, Monocytes # (Auto) 0.91, Eosinophils # (Auto) 0.08, Basophils # (Auto) 0.02 01/26/17 11:55 Test 01/26/17 11:36 01/26/17 11:55 01/26/17 12:37 01/26/17 13:53 Bedside Glucose 143 mg/dl (70-90) White Blood Count 10.58 K/uL (4.8-10.8) Red Blood Count 3.70 M/uL (4.2-5.4) Hemoglobin 11.8 g/dL (12.0-16.0) Hematocrit 35.6 % (37-47) Mean Corpuscular Volume 96.2 fL (80-100) Mean Corpuscular Hemoglobin 31.9 pg (25-34) Mean Corpuscular Hemoglobin Concent 33.1 g/dl (32-36) Platelet Count 290 K/uL (130-400) Mean Platelet Volume 9.6 fL (7.4-10.4) Neutrophils (%) (Auto) 76.6 % Lymphocytes (%) (Auto) 13.6 % Monocytes (%) (Auto) 8.6 % Eosinophils (%) (Auto) 0.8 % Basophils (%) (Auto) 0.2 % Neutrophils # (Auto) 8.11 K/uL (1.4-6.5) Lymphocytes # (Auto) 1.44 K/uL (1.2-3.4) Monocytes # (Auto) 0.91 K/uL (0.11-0.59) Eosinophils # (Auto) 0.08 K/uL (0-0.5) Basophils # (Auto) 0.02 K/uL (0-0.2) RDW Standard Deviation 44.0 fL (36.4-46.3) RDW Coefficient of Variation 12.5 % (11.5-14.5) Immature Granulocyte % (Auto) 0.2 % Immature Granulocyte # (Auto) 0.02 K/uL (0.00-0.02) Prothrombin Time 10.5 SECONDS (9.0-12.0) Prothromb Time International Ratio 1.0 (0.9-1.1) Activated Partial Thromboplast Time 28.2 SECONDS (21.0-31.0) Partial Thromboplastin Ratio 1.1 Anion Gap 8.0 mmol/L (3-11) Est Creatinine Clear Calc Drug Dose 49.3 ml/min Estimated GFR () 54.9 Estimated GFR (Non- 47.4 BUN/Creatinine Ratio 17.3 (10-20) Calcium Level 8.9 mg/dl (8.5-10.1) Total Bilirubin 0.6 mg/dl (0.2-1) Direct Bilirubin 0.2 mg/dl (0-0.2) Aspartate Amino Transf (AST/SGOT) 15 U/L (15-37) Alanine Aminotransferase (ALT/SGPT) 22 U/L (12-78) Alkaline Phosphatase 106 U/L (45-117) Total Creatine Kinase 140 U/L (26-192) Creatine Kinase MB 1.5 ng/ml (0.5-3.6) Creatine Kinase MB Ratio 1.1 (0-3.0) Troponin I 0.584 ng/ml (0-0.045) Total Protein 6.8 gm/dl (6.4-8.2) Albumin 3.2 gm/dl (3.4-5.0) Lipase 100 U/L (73-393) Bedside Prothrombin Time INR 1.1 (0.9-1.1) Urine Color YELLOW Urine Appearance CLOUDY (CLEAR) Urine pH 5.5 (4.5-7.5) Urine Specific [place] 1.018 (1.000-1.030) Urine Protein NEG (NEG) Urine Glucose (UA) TRACE (NEG) Urine Ketones NEG (NEG) Urine Occult Blood NEG (NEG) Urine Nitrite NEG (NEG) Urine Bilirubin NEG (NEG) Urine Urobilinogen NEG (NEG) Urine Leukocyte Esterase SMALL (NEG) Urine WBC (Auto) 5-10 /hpf (0-5) Urine RBC (Auto) 0-4 /hpf (0-4) Urine Hyaline Casts (Auto) 0 /lpf (0-5) Urine Epithelial Cells (Auto) 5-10 /lpf (0-5) Urine Bacteria (Auto) 4+ (NEG) Laboratory results per my review. Medications Administered Medications (Trade) Dose Ordered Sig/Pio Route Start Time Stop Time Status Last Admin Dose Admin Sodium Chloride 1,000 ml @ 50 mls/hr Q20H IV 01/26/17 12:18 02/25/17 12:17 01/26/17 13:41 50 MLS/HR Aspirin (Aspirin Chew) 324 mg NOW STAT PO 01/26/17 14:04 01/26/17 14:05 DC 01/26/17 14:14 324 MG ECG Indication: altered mental status Rate (beats per minute): 64 Rhythm: sinus rhythm Findings: Q waves (Septal), left axis deviation ED Course ED COURSE: Vital signs were reviewed and showed hypertension The patients medical record was reviewed The above diagnostic studies were performed and reviewed. ED treatments and interventions as stated above. 1149: The patient was evaluated in room A2. A complete history and physical examination was performed. 1218: Ordered Sodium Chloride 1000 ml @ 50 mls/hr IV. 1404: Ordered Aspirin 324 mg PO. 1405: Upon reevaluation, the patient is resting comfortably.I discussed my findings with the patient's family and they understand and agree with the treatment plan. Based on the patients age, coexisting illnesses, exam and lab findings the decision to treat as an inpatient was made. The patient remained stable while under my care. The patient will be evaluated for further management. 1425: I discussed the patients case with KAY Delgadillo. He is going to evaluate the patient for further treatment. Medical Decision Differential diagnoses includes but is not limited to toxic, metabolic, infectious, traumatic, cardiac, neurologic, hematologic, psychiatric and inflammatory etiologies. Patient is an 81-year-old female who presents to ER brought in from [facility] for altered mental status associated with flaccid left upper extremity. Last known well was 930. On exam she has no focal deficit. She is slightly confused. CT head was unremarkable. CT chest/dissection study was performed as she had normal complaints with elevated troponin at 0.5. CBC shows hemoglobin of 11.8. BMP all LFTs was unremarkable. EKG is feeling unchanged. No urinary complaints. UA did show +4 bacteria small bowel whites and leukocytes. Question UTI. Patient was given fluids and aspirin. Admits internal medicine with elevated troponin she is markedly elevated off of her baseline which appears to be 0.05. Medication Reconcilliation Current Medication List: was personally reviewed by me Blood Pressure Screening Patient's blood pressure: Elevated blood pressure Blood pressure disposition: Elevated BP felt to be situational, Did not require urgent referral Consults Time Called: 1404 Consulting Physician: KAY Delgadillo Returned Call: [phone] I discussed the patients case with KAY Delgadillo. He is going to evaluate the patient for further treatment. Impression Primary Impression: Altered mental status Additional Impressions: Elevated troponin TIA (transient ischemic attack) Scribe Attestation The scribe's documentation has been prepared under my direction and personally reviewed by me in its entirety. I confirm that the note above accurately reflects all work, treatment, procedures, and medical decision making performed by me. Departure Information Dispostion Being Evaluated By Hospitalist [facility] Problem Qualifiers Primary Impression: Altered mental status Altered mental status type: unspecified Qualified Codes: R41.82 - Altered mental status, unspecified Additional Impressions: TIA (transient ischemic attack) Transient cerebral ischemia type: unspecified Qualified Codes: G45.9 - Transient cerebral ischemic attack, unspecified
[2017-01-26 15:55] VITALS: BP 138/81; PULSE 68; TEMP 36.7; O2SAT 97; Ht 165.1 cm; Wt 105.2 kg
[2017-01-26] MEDS: SODIUM CHLORIDE 0.9% 1000ML 1,000 ML IV SCH (15:55)
[2017-01-26] MEDS ORDERED: INFLUENZA ADMINISTRATION CHARGE ONE (17:30)
[2017-01-26] MEDS ORDERED: INFLUENZA VACCINE HIGH DOSE 65+ 0.5 ML SYR IM. ONE (17:30)
[2017-01-26] MEDS: INSULIN ASPART 100 UNITS/ML 3 ML PEN SC SCH ×2 (18:08→21:02)
[2017-01-26 20:05] VITALS: BP 102/72; PULSE 71; TEMP 36.6; O2SAT 98
[2017-01-26] MEDS: RANITIDINE HCL 150 MG TAB PO SCH (20:59)
[2017-01-26] MEDS: GABAPENTIN 100 MG CAP PO SCH (21:00)
[2017-01-26] MEDS: ATORVASTATIN 40 MG TAB PO SCH (21:00)
[2017-01-26] MEDS: METOPROLOL TARTRATE 50 MG TAB PO SCH (21:00)
[2017-01-26] MEDS: FLUTICASONE/SALMETEROL 250/50 (ADVAIR) 14 PUFF/1 INHALER INH SCH (21:00)
[2017-01-26] MEDS: HEPARIN SOD 5000 UNIT/0.5 ML CARP SQ SCH (21:03)
[2017-01-26] MEDS: INSULIN GLARGINE SOLOSTAR 100 UNITS/ML 3 ML PEN SC SCH (21:03)
[2017-01-26 23:09] VITALS: BP 137/71; PULSE 66; TEMP 36.6; O2SAT 92
[2017-01-27] MEDS: SODIUM CHLORIDE 0.9% 1000ML 1,000 ML IV SCH ×3 (01:04→22:58)
[2017-01-27 03:36] VITALS: BP 182/70; PULSE 66; TEMP 36.7; O2SAT 99
[2017-01-27] MEDS: LEVOTHYROXINE 75 MCG TAB PO SCH (06:05)
[2017-01-27] MEDS: HEPARIN SOD 5000 UNIT/0.5 ML CARP SQ SCH ×3 (06:06→21:16)
[2017-01-27 06:57] LABS: BASO % 0.3 %; BASO ABS # 0.02 K/uL (0-0.2); COMPLETE YES; EOS % 1.5 %; HEMATOCRIT 33.3 % (37-47); IG% 0.4 %; LYMPH % 22.1 %; LYMPH ABS # 1.61 K/uL (1.2-3.4); MEAN CELL VOLUME 93.8 fL (80-100); MEAN CORPUSCULAR HEMOGLOBIN 31.5 pg (25-34); MEAN CORPUSCULAR HGB CONC 33.6 g/dl (32-36); MEAN PLATELET VOLUME 9.4 fL (7.4-10.4); NEUT % 66.7 %; PLATELET COUNT 242 K/uL (130-400); RED BLOOD COUNT 3.55 M/uL (4.2-5.4)
[2017-01-27 07:31] LABS: BUN/CREATININE RATIO 19.7 (10-20); CALCIUM 8.3 mg/dl (8.5-10.1); POTASSIUM 4.1 mmol/L (3.5-5.1)
[2017-01-27 08:00] VITALS: BP 126/73; PULSE 63; TEMP 36.7; O2SAT 99
[2017-01-27] MEDS: FLUTICASONE/SALMETEROL 250/50 (ADVAIR) 14 PUFF/1 INHALER INH SCH ×2 (08:08→21:13)
[2017-01-27] MEDS: TOLTERODINE TARTRATE LA 4 MG CAPCR PO SCH (08:08)
[2017-01-27] MEDS: CLOPIDOGREL BISULFATE 75 MG TAB PO SCH (08:09)
[2017-01-27] MEDS: METOPROLOL TARTRATE 50 MG TAB PO SCH ×2 (08:09→21:13)
[2017-01-27] MEDS: MULTIVITAMIN TAB PO SCH (08:09)
[2017-01-27] MEDS: MONTELUKAST SOD 10 MG TAB PO SCH (08:09)
[2017-01-27] MEDS: RANITIDINE HCL 150 MG TAB PO SCH ×2 (08:09→21:12)
[2017-01-27] MEDS: GABAPENTIN 100 MG CAP PO SCH ×2 (08:09→21:13)
[2017-01-27] MEDS: ESCITALOPRAM OXALATE 10 MG TAB PO SCH (08:09)
[2017-01-27] MEDS: ASPIRIN 81 MG ECTAB PO SCH (08:10)
[2017-01-27] MEDS: INSULIN ASPART 100 UNITS/ML 3 ML PEN SC SCH ×4 (08:13→21:15)
[2017-01-27] MEDS: INSULIN GLARGINE SOLOSTAR 100 UNITS/ML 3 ML PEN SC SCH ×2 (08:14→21:15)
--- NOTE | 2017-01-27 08:32 | Hospitalist Progress Note ---
Hospitalist Progress Note Date of Service Jan 27, 2017. (Anyi Lundberg PA-C) Subjective Pt evaluation today including: conversation w/ patient, conversation w/ family , physical exam, chart review, lab review, review of studies Pain: None PO Intake: Good Voiding: incontinence The patient was seen and examined this morning. Pt reports doing ok this morning , just feels tired. She's not able to tell me where she is, date, or year. She is oriented to self. She has no acute complaints. I spoke with the patient's daughter, Sasha, over the phone and updated her and all her questions and concerns were answered. We are awaiting urine culture and another troponin as these trended up overnight which are concerning for an STEMI. Additional Comments: Constitutional: No fever, sweats or chills Eyes: No diplopia, no worsening or blurred vision ENT: normal hearing, no trouble swallowing Respiratory: No cough, sputum, dyspnea at rest or on exertion Cardiovascular: No chest pain, no chest pain with palpation, tightness or palpitations Abdomen: No pain, nausea, vomiting, diarrhea or constipation Musculoskeletal: No joint pain, calf pain, swelling Neurologic: No weakness, numbness/tingling, or balance problems (Anyi Lundberg PA-C) Objective Vital Signs Date Time Temp Pulse Resp B/P (MAP) Pulse Ox O2 Delivery O2 Flow Rate FiO2 01/27/17 04:00 Room Air 01/27/17 03:36 36.7 66 20 182/70 (107) 99 Room Air 01/27/17 00:00 Room Air 01/26/17 23:09 36.6 66 16 137/71 (93) 92 Room Air 01/26/17 20:05 36.6 71 18 102/72 (82) 98 Room Air 01/26/17 20:00 Room Air 01/26/17 15:55 36.7 68 18 138/81 97 Room Air 01/26/17 15:39 60 16 148/88 95 01/26/17 14:54 67 22 143/81 96 Room Air 01/26/17 13:40 74 20 140/84 99 Room Air 01/26/17 13:09 69 01/26/17 11:40 36.7 66 20 146/79 98 Room Air 01/26/17 11:32 97 Room Air (Anyi Lundberg PA-C) Physical Exam Notes: General: awake, alert, no apparent distress, + obese Head: Normocephalic, atraumatic ENT: PERRL, EOMI, no pharyngeal exudate, mucous membranes moist Chest: Clear to auscultation, on room air, no adventitious breath sounds Cardiac: Regular rate and rhythm, no murmur, no JVD, normal peripheral pulses, good capillary refill Abdominal: NABS x 4 quadrants, soft, nontender to palpation, no rebound, guarding or tenderness Extremities: Normal inspection, no peripheral edema or erythema, calfs nontender to palpation Psych: Normal mood and affect Neuro: Awake, disoriented to place and time, +strength intact bilaterally and related 5/5 in upper and lower extremities, no motor deficits, speech is clear, no peripheral sensory deficits (Anyi Lundberg PA-C) Laboratory Results Last 24 Hours Test 01/26/17 11:36 01/26/17 11:55 01/26/17 12:37 01/26/17 13:53 Bedside Glucose 143 mg/dl White Blood Count 10.58 K/uL Red Blood Count 3.70 M/uL Hemoglobin 11.8 g/dL Hematocrit 35.6 % Mean Corpuscular Volume 96.2 fL Mean Corpuscular Hemoglobin 31.9 pg Mean Corpuscular Hemoglobin Concent 33.1 g/dl Platelet Count 290 K/uL Mean Platelet Volume 9.6 fL Neutrophils (%) (Auto) 76.6 % Lymphocytes (%) (Auto) 13.6 % Monocytes (%) (Auto) 8.6 % Eosinophils (%) (Auto) 0.8 % Basophils (%) (Auto) 0.2 % Neutrophils # (Auto) 8.11 K/uL Lymphocytes # (Auto) 1.44 K/uL Monocytes # (Auto) 0.91 K/uL Eosinophils # (Auto) 0.08 K/uL Basophils # (Auto) 0.02 K/uL RDW Standard Deviation 44.0 fL RDW Coefficient of Variation 12.5 % Immature Granulocyte % (Auto) 0.2 % Immature Granulocyte # (Auto) 0.02 K/uL Prothrombin Time 10.5 SECONDS Prothromb Time International Ratio 1.0 Activated Partial Thromboplast Time 28.2 SECONDS Partial Thromboplastin Ratio 1.1 Sodium Level 139 mmol/L Potassium Level 4.8 mmol/L Chloride Level 103 mmol/L Carbon Dioxide Level 28 mmol/L Anion Gap 8.0 mmol/L Blood Urea Nitrogen 19 mg/dl Creatinine 1.10 mg/dl Est Creatinine Clear Calc Drug Dose 49.3 ml/min Estimated GFR () 54.9 Estimated GFR (Non- 47.4 BUN/Creatinine Ratio 17.3 Random Glucose 174 mg/dl Calcium Level 8.9 mg/dl Total Bilirubin 0.6 mg/dl Direct Bilirubin 0.2 mg/dl Aspartate Amino Transf (AST/SGOT) 15 U/L Alanine Aminotransferase (ALT/SGPT) 22 U/L Alkaline Phosphatase 106 U/L Total Creatine Kinase 140 U/L Creatine Kinase MB 1.5 ng/ml Creatine Kinase MB Ratio 1.1 Troponin I 0.584 ng/ml Total Protein 6.8 gm/dl Albumin 3.2 gm/dl Lipase 100 U/L Bedside Prothrombin Time INR 1.1 Urine Color YELLOW Urine Appearance CLOUDY Urine pH 5.5 Urine Specific [place] 1.018 Urine Protein NEG Urine Glucose (UA) TRACE Urine Ketones NEG Urine Occult Blood NEG Urine Nitrite NEG Urine Bilirubin NEG Urine Urobilinogen NEG Urine Leukocyte Esterase SMALL Urine WBC (Auto) 5-10 /hpf Urine RBC (Auto) 0-4 /hpf Urine Hyaline Casts (Auto) 0 /lpf Urine Epithelial Cells (Auto) 5-10 /lpf Urine Bacteria (Auto) 4+ Test 01/26/17 15:58 01/26/17 17:00 01/26/17 20:15 01/26/17 22:19 Bedside Glucose 160 mg/dl 268 mg/dl Influenza Type A Antigen Neg for Influ A Influenza Type B Antigen Neg for Influ B Troponin I 0.694 ng/ml Test 01/27/17 06:21 01/27/17 06:26 Bedside Glucose 115 mg/dl White Blood Count 7.30 K/uL Red Blood Count 3.55 M/uL Hemoglobin 11.2 g/dL Hematocrit 33.3 % Mean Corpuscular Volume 93.8 fL Mean Corpuscular Hemoglobin 31.5 pg Mean Corpuscular Hemoglobin Concent 33.6 g/dl Platelet Count 242 K/uL Mean Platelet Volume 9.4 fL Neutrophils (%) (Auto) 66.7 % Lymphocytes (%) (Auto) 22.1 % Monocytes (%) (Auto) 9.0 % Eosinophils (%) (Auto) 1.5 % Basophils (%) (Auto) 0.3 % Neutrophils # (Auto) 4.87 K/uL Lymphocytes # (Auto) 1.61 K/uL Monocytes # (Auto) 0.66 K/uL Eosinophils # (Auto) 0.11 K/uL Basophils # (Auto) 0.02 K/uL RDW Standard Deviation 42.4 fL RDW Coefficient of Variation 12.4 % Immature Granulocyte % (Auto) 0.4 % Immature Granulocyte # (Auto) 0.03 K/uL Sodium Level 141 mmol/L Potassium Level 4.1 mmol/L Chloride Level 107 mmol/L Carbon Dioxide Level 26 mmol/L Anion Gap 8.0 mmol/L Blood Urea Nitrogen 20 mg/dl Creatinine 1.00 mg/dl Est Creatinine Clear Calc Drug Dose 53.3 ml/min Estimated GFR () 61.6 Estimated GFR (Non- 53.2 BUN/Creatinine Ratio 19.7 Random Glucose 106 mg/dl Calcium Level 8.3 mg/dl Troponin I 0.763 ng/ml (Anyi Lundberg, PAPilar) Assessment and Plan 80 yo female with past medical history of stroke in 2015, hypertension, hypothyroidism, diabetes, asthma, presents to ER with chills, left upper ext weakness (currently resolved) Weakness/confusion likely metabolic encephalopathy in nature. - start on IV NS at 100 cc/hr - Urine cx in process as UA appears slightly UTI. No current urinary sx the patient is disoriented to date, time, year. At baseline she is oriented to self and place as I discussed this with her daughter Lidia. - CT of the head negative NSTEMI - Elev trops in the past--> trended overnight upwards to 0.76, await next troponin at 1400. 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 - Cont asa and plavix - Will check a 2-D echo, last Echo (07/08/16): EF 60-65%, LV Systolic Function Normal, No regional wall abnormality, Moderate Concentric LVH, Grade 1 Diastolic Dysfunction, Small Pericardial Effusion Hypertension - cont metoprolol 50 BID, hold ramipril for now Depression - cont lexapro 10 mg daily Neuropathy - cont gabapentin 100 mg BID Hypothyroidism - continue Synthroid Diabetes type 2 - Insulin sliding scale with accuchecks ACHS - Lantus 30 U BID - Hgb A1C= 8.7 on 01/10 Hyperlipidemia - Continue statin DVT ppx: Heparin subq, teds, scds CODE STATUS: DNR Disposition: From [facility], discharge when medically stable - possibly tomorrow. (Anyi Lundberg, EZRA) PA Physician Supervision Note: I interviewed and examined the patient. Discussed with Anyi Lundberg PAC and agree with findings and plan as documented in the note. Any exceptions or clarifications are listed here: None This patient is admitted with the metabolic encephalopathy from urinary tract infection patient present on admission. She also has elevated troponins but no EKG changes. Patient remains pleasantly confused poorly at her baseline she is oriented to self which she is currently oriented to that same level Vital signs are stable Heart is regular with a systolic murmur lungs are clear no wheezes or crackles abdomen normoactive bowel sounds soft nontender extremities are with trace but pedal edema She is not noted day of the week month of the year the president & ceo States Metabolic encephalopathy from gram-negative urinary tract infection will continue IV antibiotics Elevated troponin likely supply demand mismatch will continue to trend Diabetes on basal bolus insulin coverage We'll consider PT OT eval before going home Documented By: Ruben Roth (Ruben Roth M.D.)
[2017-01-27 11:45] VITALS: BP 131/84; PULSE 60; TEMP 36.4; O2SAT 96
[2017-01-27] MEDS ORDERED: CEFTRIAXONE SOD INJ 1 GM in DEXTROSE 5% ADD-VANTAGE 50ML 50 ML IV SCH (13:00)
[2017-01-27 15:18] VITALS: BP 137/71; PULSE 66; TEMP 36.8; O2SAT 97
--- NOTE | 2017-01-27 16:37 | ECHOCARDIOGRAM REPORT ---
*NOTICE TO RECEIVING LIBERTARIAN AGENCY This information is strictly Confidential and protected under [place] law. [place] law prohibits you from making any further disclosure of this information unless further disclosure is expressly permitted by the written consent of the person to whom it pertains or is authorized by law. A general authorization for the release of medical or other information is not sufficient for this purpose. Hospital accepts no responsibility if the information is made available to any other person, INCLUDING THE PATIENT. Interpretation Summary * Name: NINI CLAIRE Study Date: 01/27/2017 12:30 PM BP: 126/73 mmHg * Patient Location: C.2T\S\S243\S\1 HR: 63 * : 1935 (M/d/yyyy) Gender: Female Height: 65 in * Age: 81 yrs Ethnicity: CA Weight: 225 lb * Ordering Physician: Anyi Lundberg * Referring Physician: Yani Deluna * Performed By: Merari Cesar RDCS * * Reason For Study: CHF * BSA: 2.1 m2 * -- Conclusions -- * 1. Normal left ventricular size with hyperdynamic systolic function. EF 65-70%. No regional wall motion abnormalities. Severe concentric left ventricular hypertrophy. * 2. Moderate to severe left atrial dilation. * 3. Aortic valve sclerosis mild, without significant aortic valvular stenosis. * 4. There is severe mitral annular calcification. Large calcification along the posterior mitral annulus, possibly calcified mitral apparatus. * 5. There is mild mitral regurgitation. * 6. There is mild mitral stenosis. (HR 59 bpm) * 7. Normal estimated right ventricular systolic pressure; RVSP 32 mmHg. * 8. Compared to prior study on 07/08/16, pericardial effusion now appears trace. Procedure Details * A complete two-dimensional transthoracic echocardiogram was performed (2D, M-mode, Doppler and color flow Doppler). Left Ventricle * Normal left ventricular size with hyperdynamic systolic function. EF 65-70%. No regional wall motion abnormalities. Severe concentric left ventricular hypertrophy. Right Ventricle * The right ventricle is normal in size and function. * The right ventricular systolic function is normal as assessed by tricuspid annular plane systolic excursion (TAPSE) (normal >1.5 cm). Atria * Moderate to severe left atrial dilation. * Right atrial size is normal. * There is no evidence of atrial septal defect, but resolution does not allow assessment for a patent foramen ovale. Mitral Valve * There is severe mitral annular calcification. * Large calcification along the posterior mitral annulus, possibly calcified mitral apparatus. * There is mild mitral stenosis. * There is mild mitral regurgitation. Tricuspid Valve * The tricuspid valve is not well visualized, but is grossly normal. * There is no tricuspid stenosis. * There is trace tricuspid regurgitation. Aortic Valve * The aortic valve is trileaflet. * Aortic valve sclerosis mild, without significant aortic valvular stenosis. * Trace aortic regurgitation. Pulmonic Valve * The pulmonic valve is not well seen, but is grossly normal. * There is no pulmonic valvular stenosis. * Trace pulmonic valvular regurgitation. Great Vessels * The aortic root is normal size. * Ascending aorta of normal dimension Pericardium/Pleural * Trace pericardial effusion. Great Vessels * Normal IVC size with mildly reduced inspiratory collapse. MMode 2D Measurements and Calculations IVSd 1.5 cm LVIDd 4.1 cm LVIDs 2.2 cm LVPWd 1.6 cm IVS/LVPW 0.95 FS 46.5 % EDV(Teich) 75.9 ml ESV(Teich) 16.4 ml EF(Teich) 78.3 % EDV(cubed) 70.9 ml ESV(cubed) 10.8 ml EF(cubed) 84.7 % LV mass(C)d 265.8 grams LV mass(C)dI 127.8 grams/m\S\2 SV(Teich) 59.5 ml SI(Teich) 28.6 ml/m\S\2 SV(cubed) 60.1 ml SI(cubed) 28.9 ml/m\S\2 Ao root diam 3.8 cm Ao root area 11.4 cm\S\2 ACS 1.9 cm LA dimension 3.5 cm asc Aorta Diam 3.6 cm LA/Ao 0.92 LVOT diam 2.0 cm LVOT area 3.1 cm\S\2 LVAd ap4 17.8 cm\S\2 LVLd ap4 5.9 cm EDV(MOD-sp4) 44.3 ml EDV(sp4-el) 45.8 ml LVAs ap4 9.0 cm\S\2 LVLs ap4 4.8 cm ESV(MOD-sp4) 14.5 ml ESV(sp4-el) 14.1 ml EF(MOD-sp4) 67.2 % EF(sp4-el) 69.2 % LVAd ap2 18.0 cm\S\2 LVLd ap2 5.5 cm EDV(MOD-sp2) 47.8 ml EDV(sp2-el) 49.7 ml LVAs ap2 9.1 cm\S\2 LVLs ap2 4.9 cm ESV(MOD-sp2) 14.4 ml ESV(sp2-el) 14.2 ml EF(MOD-sp2) 69.8 % EF(sp2-el) 71.3 % LVLd %diff -6.51 % EDV(MOD-bp) 46.2 ml LVLs %diff 1.6 % ESV(MOD-bp) 14.7 ml EF(MOD-bp) 68.2 % SV(MOD-sp4) 29.8 ml SI(MOD-sp4) 14.3 ml/m\S\2 SV(MOD-sp2) 33.4 ml SI(MOD-sp2) 16.0 ml/m\S\2 SV(MOD-bp) 31.5 ml SI(MOD-bp) 15.2 ml/m\S\2 SV(sp4-el) 31.7 ml SI(sp4-el) 15.2 ml/m\S\2 SV(sp2-el) 35.4 ml SI(sp2-el) 17.0 ml/m\S\2 Doppler Measurements and Calculations MV E max price 145.7 cm/sec MV A max price 162.2 cm/sec MV E/A 0.90 MV V2 max 169.7 cm/sec MV max PG 11.5 mmHg MV V2 mean 104.1 cm/sec MV mean PG 4.9 mmHg MV V2 VTI 66.3 cm MV P1/2t max price 149.3 cm/sec MV P1/2t 133.1 msec MVA(P1/2t) 1.7 cm\S\2 MV dec slope 328.6 cm/sec\S\2 MV dec time 0.51 sec Ao V2 max 118.8 cm/sec Ao max PG 5.6 mmHg Ao max PG (full) 2.6 mmHg DEIRDRE(V,A) 2.3 cm\S\2 DEIRDRE(V,D) 2.3 cm\S\2 LV V1 max PG 3.0 mmHg LV V1 max 86.9 cm/sec PA V2 max 76.0 cm/sec PA max PG 2.3 mmHg PA acc slope 688.8 cm/sec\S\2 PA acc time 0.10 sec TR max price 245.7 cm/sec RVSP(TR) 32.1 mmHg RAP systole 8.0 mmHg PA pr(Accel) 36.2 mmHg
[2017-01-27 19:31] VITALS: BP 122/70; PULSE 62; TEMP 36.5; O2SAT 96
[2017-01-27] MEDS: ATORVASTATIN 40 MG TAB PO SCH (21:13)
[2017-01-27 23:23] VITALS: BP 167/83; PULSE 67; TEMP 36.5; O2SAT 97
[2017-01-28 03:50] VITALS: BP 138/76; PULSE 60; TEMP 36.6; O2SAT 95
[2017-01-28] MEDS: LEVOTHYROXINE 75 MCG TAB PO SCH (06:23)
[2017-01-28] MEDS: HEPARIN SOD 5000 UNIT/0.5 ML CARP SQ SCH (06:24)
[2017-01-28 06:57] VITALS: BP 162/83; PULSE 63; TEMP 36.5; O2SAT 96
[2017-01-28 07:04] LABS: BASO % 0.4 %; BASO ABS # 0.03 K/uL (0-0.2); COMPLETE YES; HEMATOCRIT 36.2 % (37-47); IG% 0.1 %; LYMPH % 17.3 %; LYMPH ABS # 1.22 K/uL (1.2-3.4); MEAN CELL VOLUME 94.8 fL (80-100); MEAN CORPUSCULAR HEMOGLOBIN 31.4 pg (25-34); MEAN CORPUSCULAR HGB CONC 33.1 g/dl (32-36); MEAN PLATELET VOLUME 9.2 fL (7.4-10.4); MONO % 8.8 %; NEUT % 71.4 %; PLATELET COUNT 255 K/uL (130-400); RED BLOOD COUNT 3.82 M/uL (4.2-5.4); WHITE BLOOD COUNT 7.04 K/uL (4.8-10.8)
[2017-01-28] MEDS ORDERED: CPR500 PO (07:28)
[2017-01-28 07:34] LABS: BUN/CREATININE RATIO 15.6 (10-20); CALCIUM 8.7 mg/dl (8.5-10.1); CREATININE 0.93 mg/dl (0.60-1.20); POTASSIUM 4.1 mmol/L (3.5-5.1)
--- NOTE | 2017-01-28 07:45 | Discharge Instructions ---
Discharge Instructions Date of Service Jan 28, 2017. Admission Reason for Admission: Elevated Troponin Discharge Discharge Diagnosis / Problem: Urinary Tract infection, NSTEMI Discharge Goals Goal(s): Decrease discomfort, Improve function, Increase independence, Improve disease control Activity Recommendations Activity Limitations: resume your previous activity . Instructions / Follow-Up Instructions / Follow-Up You were admitted to [facility] with altered mental status and diagnosed with urinary tract infection and elevated troponin (cardiac marker) secondary to physiological stress and demand supply mismatch. During your stay here you were treated with intravenous antibiotics and other supportive care. Imaging studies which were completed include echocardiogram (ultrasound of the heart) which were abnormal with hyperdynamic systolic function. EF 65-70%. No regional wall motion abnormalities. Severe concentric left ventricular hypertrophy. Medications: Take ciprofloxacin 500 mg BID x 6 more days to complete a 7 day course. Continue taking your other medications as prescribed. Appointments: Follow up with your Primary Care Provider within 24-48 hours upon arrival. Current Hospital Diet Patient's current hospital diet: Diabetes Type 2 Diet Discharge Diet Recommended Diet: Diabetes Type 2 Diet Procedures Procedures Performed: Echocardiogram Pending Studies Studies pending at discharge: no Laboratory Results Hemoglobin A1c Test 01/10/17 07:13 Range/Units Estimated Average Glucose 203 mg/dl Hemoglobin A1c 8.7 H 4.5-5.6 % Medical Emergencies . Who to Call and When: Medical Emergencies: If at any time you feel your situation is an emergency, please call 911 immediately. . Non-Emergent Contact Non-Emergency issues call your: Primary Care Provider Call Non-Emergent contact if: temperature is above 100.5, your pain is not controlled, your pain is worsening, you have any medication questions other concerns with your health. Call 911 or go directly to the Emergency Department if you experience any of the following: Chest pain, chest tightness, shortness of breath, abdominal pain , lightheadedness, dizziness, gastrointestinal bleeding, or have any other concerns regarding your health. . . "Provider Documentation" section prepared by Marilyn Lundberg. . VTE Core Measure Inpt VTE Proph given/why not?: Unfractionated heparin SQ, T.E.D. Stockings, SCD 's
[2017-01-28] MEDS: FLUTICASONE/SALMETEROL 250/50 (ADVAIR) 14 PUFF/1 INHALER INH SCH (08:45)
[2017-01-28] MEDS: TOLTERODINE TARTRATE LA 4 MG CAPCR PO SCH (08:45)
[2017-01-28] MEDS: SODIUM CHLORIDE 0.9% 1000ML 1,000 ML IV SCH (08:45)
[2017-01-28] MEDS: MULTIVITAMIN TAB PO SCH (08:45)
[2017-01-28] MEDS: GABAPENTIN 100 MG CAP PO SCH (08:45)
[2017-01-28] MEDS: RANITIDINE HCL 150 MG TAB PO SCH (08:46)
[2017-01-28] MEDS: ESCITALOPRAM OXALATE 10 MG TAB PO SCH (08:46)
[2017-01-28] MEDS: ASPIRIN 81 MG ECTAB PO SCH (08:46)
[2017-01-28] MEDS: MONTELUKAST SOD 10 MG TAB PO SCH (08:46)
[2017-01-28] MEDS: METOPROLOL TARTRATE 50 MG TAB PO SCH (08:46)
[2017-01-28] MEDS: CLOPIDOGREL BISULFATE 75 MG TAB PO SCH (08:46)
[2017-01-28] MEDS: INSULIN ASPART 100 UNITS/ML 3 ML PEN SC SCH (08:47)
[2017-01-28] MEDS: INSULIN GLARGINE SOLOSTAR 100 UNITS/ML 3 ML PEN SC SCH (09:01)
[2017-01-28 10:46] VITALS: BP 156/78; PULSE 57; TEMP 36.5; O2SAT 96
--- NOTE | 2017-01-28 11:39 | Discharge Summary ---
Discharge Summary Date of Service Jan 28, 2017. (Anyi Lundberg PA-C) Discharge Summary Admission Date: Jan 26, 2017 at 14:40 Discharge Date: Jan 28, 2017 [facility]charge Disposition: [facility] Principal Diagnosis: Klebsiella pneumoniae Urinary Tract Infection Problems/Secondary Diagnoses: stroke in 2015, hypertension, hypothyroidism, diabetes, asthma, presents to ER with chills, left upper ext weakness (currently resolved), elevated troponin secondary to demand ischemia and supply mismatch Immunizations: Have You Had Influenza Vaccine: Yes Influenza Vaccine Date: Jun 16, 2011 History of Tetanus Vaccine?: utd Tetanus Immunization Date: Jan 22, 2001 History of Pneumococcal: Yes Pneumococcal Date: Jun 16, 2003 History of Hepatitis B Vaccine: Unknown Procedures: CT SCAN OF THE BRAIN WITHOUT IV CONTRAST CLINICAL HISTORY: Strokelike symptoms. COMPARISON STUDY: CT the brain dated 10/08/2016. TECHNIQUE: Unenhanced axial CT scan of the brain is performed from the vertex to the skull base. FINDINGS: Brain parenchyma: There is bifrontal and right occipital encephalomalacia consistent with remote infarcts. This is unchanged from previous. There are age-related involutional changes noting moderate to advanced subcortical and periventricular microangiopathic change. There is no hemorrhage, mass effect, or evidence of acute territorial ischemia by CT criteria. Chronic lacunar infarcts are identified in the left cerebellar hemisphere, left cedric, and the basal ganglia. Holden-white matter is preserved. No extra-axial fluid collection is seen. Ventricles, sulci, cisterns: Prominent secondary to involutional change. Intracranial vasculature: There is atherosclerotic calcification of the cavernous carotid and vertebral arteries. Calvarium: Unremarkable. Sinuses and mastoids: There is subtotal opacification of the right sphenoid sinus with an air-fluid level. The remaining Visualized paranasal sinuses are clear. The mastoid air cells are well pneumatized. Orbits: The bony orbits are grossly intact. There are bilateral ocular lens implants. IMPRESSION: 1. There is no hemorrhage, mass effect, or evidence of acute territorial ischemia by CT criteria. 2. Senescent changes and remote infarcts as above. Electronically signed by: Ender Grimaldo M.D. 01/26/2017 1:47 PM Dictated Date/Time: 01/26/2017 1:43 PM The status of this report is Signed. SINGLE VIEW CHEST CLINICAL HISTORY: Strokelike symptoms. FINDINGS: An AP, portable, upright chest radiograph is compared to study dated 08/29/2016 and correlated with chest CT dated 05/31/2015. The examination is significantly degraded by portable technique, large body habitus, and patient rotation. The heart is enlarged and there is atherosclerotic calcification of the thoracic aorta. The pulmonary vasculature is noncongested. There is chronic elevation of the right hemidiaphragm and bibasilar atelectasis. No airspace consolidation is seen typical for pneumonia and there is no large pleural effusion. No pneumothorax is identified. The skeletal structures are osteopenic. Advanced degenerative changes noted in the thoracic spine. Fusion hardware is partially imaged in the upper lumbar region. Chronic posttraumatic deformity and postoperative change is noted in the right proximal humerus. IMPRESSION: 1. Cardiomegaly without radiographic evidence of congestive failure. 2. There is no airspace consolidation or large pleural effusion. Electronically signed by: Ender Grimaldo M.D. 01/26/2017 1:13 PM Dictated Date/Time: 01/26/2017 1:12 PM The status of this report is Signed. CHEST COMBO ANGIOGRAPHY CLINICAL HISTORY: Altered mental status. Elevated troponin. Evaluate for dissection. COMPARISON STUDY: Chest CT May 31, 2015 and chest radiograph August 29, 2016. TECHNIQUE: Unenhanced and arterial phase imaging of the chest was performed. Injection 120 cc of Optiray 320 IV was uneventful. Sagittal and coronal reconstructions were viewed as well as maximal intensity projections on an independent 3-D workstation. FINDINGS: Mild dilatation of the ascending aorta measuring 4 cm at the level the main pulmonary artery is unchanged. There is no dissection or intramural hematoma within the thoracic aorta. The heart is moderately enlarged. No central pulmonary emboli are identified. There is extensive coronary artery calcification. A small pericardial effusion has decreased in size since abdominal CT of June 17, 2016. A moderate sized hiatal hernia is present. Numerous pulmonary nodules are unchanged from earlier studies. These are benign given stability. No pneumothorax or pleural effusion is present. Elevation of the right hemidiaphragm is unchanged with associated atelectasis. No pneumothorax or pleural effusion is present. A previous right humeral internal fixation is noted. IMPRESSION: 1. No thoracic aortic dissection. 2. Stable mild dilatation of the ascending aorta. 3. Moderate cardiomegaly with a small pericardial effusion which has decreased in size since abdominal CT of June 17, 2016. 4. No acute intrathoracic findings. 5. Moderate sized hiatal hernia. Electronically signed by: Jacinto Grant M.D. 01/26/2017 1:59 PM Dictated Date/Time: 01/26/2017 1:43 PM The status of this report is Signed. Consultations: None (Anyi Lundberg PA-C) Medication Reconciliation New Medications: Ciprofloxacin (Ciprofloxacin HCl) 500 Mg Tab 500 MG PO BID for 6 Days, #12 TAB Continued Medications: Albuterol Hfa (Ventolin Hfa) 200 Puffs/45943 Mcg Aers 2 PUFFS INH UD Aspirin (Aspirin Ec) 81 Mg Tab 81 MG PO QAM Atorvastatin (Lipitor) 40 Mg Tab 40 MG PO QPM, TAB Clopidogrel Bisulfate (Clopidogrel) 75 Mg Tab 75 MG PO QAM Cyclosporine (Ophth) (Restasis) 0.05 % Emu 1 DROP OP BID, BTL Escitalopram Oxalate (Escitalopram Oxalate) 10 Mg Tab 10 MG PO QAM Fluticasone Prop/Salmeterol (Advair Diskus 250/50 60 Dose) 1 Ea Aerp 1 PUFF INH BID Gabapentin (Gabapentin) 100 Mg Cap 100 MG PO BID Insulin Aspart (Novolog Flexpen) 100 Units/Ml Inj 1 DOSE SC ACHS COVERAGE DIRECTED BY SLIDING SCALE Insulin Glargine (Lantus Solostar) 100 Unit/Ml Inj 30 UNITS SC BID, PEN Levothyroxine Sodium (Levothyroxine Sodium) 75 Mcg Tab 75 MCG PO QAM, TAB Metoprolol Tartrate (Lopressor) (Lopressor) 50 Mg Tab 50 MG PO BID, TAB Montelukast Sod (Montelukast Sodium) 10 Mg Tab 10 MG PO QAM Multiple Vitamin (Multi Vitamin Daily) 1 Tab Tab 1 TAB PO QAM Nitroglycerin (Nitrostat) 0.4 Mg Tab 0.4 MG UT UD PRN for Chest Pain, BTL Potassium Chloride (Potassium Chloride ER) 20 Meq Tab 20 MEQ PO QAM Ramipril (Ramipril) 10 Mg Cap 10 MG PO DAILY, CAP Ranitidine (Zantac) 150 Mg Tab 150 MG PO BID, TAB Tolterodine Tartrate (Tolterodine Tartrate ER) 4 Mg Cap 4 MG PO DAILY Discharge Exam The patient was seen and examined this morning. Pt reports doing well, she feels much better today compared to yesterday. She is able to tell me her name , children's names, and knows where she currently is. She is unable to name where she lives, but does recognize [facility]. ROS: Constitutional: No fever, sweats or chills Eyes: No diplopia, no worsening or blurred vision ENT: normal hearing, no trouble swallowing Respiratory: No cough, sputum, dyspnea at rest or on exertion Cardiovascular: No chest pain, no chest pain with palpation, tightness or palpitations Abdomen: No pain, nausea, vomiting, diarrhea or constipation Musculoskeletal: No joint pain, calf pain, swelling Neurologic: No weakness, numbness/tingling, or balance problems PE: General: awake, alert, no apparent distress, + obese, sitting up in bedside chair Head: Normocephalic, atraumatic ENT: PERRL, EOMI, no pharyngeal exudate, mucous membranes moist Chest: Clear to auscultation, on room air, no adventitious breath sounds Cardiac: Regular rate and rhythm, no murmur, no JVD, normal peripheral pulses, good capillary refill Abdominal: NABS x 4 quadrants, soft, nontender to palpation, no rebound, guarding or tenderness Extremities: Normal inspection, no peripheral edema or erythema, calfs nontender to palpation Psych: Normal mood and affect Neuro: Awake, disoriented to place and time, +strength intact bilaterally and related 5/5 in upper and lower extremities, no motor deficits, speech is clear, no peripheral sensory deficits (Anyi Lundberg, EZRA) Hospital Course History of Present Illness Source: patient Pt is an 81 yo female resident of [facility] who presents to the ER with worsening confusion, chills and left upper extremity weakness this AM. Pt is a poor historian with hx of dementia so much of the hx is obtained from son and 2 daughters in room. Per daughter, pt was noted to have chills yesterday evening and this AM nursing staff also noted weakness in her left arm. Upon evaluation, weakness noted to be resolved. Pt oriented only to herself, which is baseline according to family. No noted distress. The patient' s family reports that the patient has a history of previous TIAs. Pt denies headache, change in vision, fevers, chest pain, shortness of breath, nausea, vomiting, diarrhea, pain with urination, weakness or numbness in her arms or legs, and melena. The history is limited secondary to the patient's dementia. Physical Exam Vital Signs Date Time Temp Pulse Resp B/P (MAP) Pulse Ox O2 Delivery O2 Flow Rate FiO2 01/26/17 13:40 74 20 140/84 99 Room Air 01/26/17 13:09 69 01/26/17 11:40 36.7 66 20 146/79 98 Room Air 01/26/17 11:32 97 Room Air General Appearance: WD/WN, no apparent distress Eyes: normal inspection, PERRL, EOMI, sclerae normal Neck: supple, no adenopathy, thyroid normal, no JVD Respiratory/Chest: chest non-tender, lungs clear, normal breath sounds, no respiratory distress Cardiovascular: no edema, no gallop, no JVD, no murmur Abdomen/GI: normal bowel sounds, non tender, soft, no organomegaly Extremities/Musculoskelatal: normal inspection, no calf tenderness, normal capillary refill, no pedal edema Neurologic/Psych: no motor/sensory deficits, alert, normal mood/affect, normal reflexes, + disoriented Skin: normal color, warm/dry, no rash Lymphatic: no adenopathy Hospital Course: 80 yo female with past medical history of stroke in 2015, hypertension, hypothyroidism, diabetes, asthma, presents to ER with chills, left upper ext weakness (currently resolved) Weakness/confusion likely metabolic encephalopathy in nature. UTI kleb pneumonia - Urine cx + K. pneumonia pacheco sensitive. - Was started on ceftriaxone in the hospital, got 24 hours of antibiotics, will start prescription for Cipro 500 mg BID x 6 more days to complete a 1 week course of antibiotics. Start first dose tonight. Last dose of antibiotics morning of 02/02. - CT of the head as part of initial workup for encephalopathy was negative. 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 - Cont asa and plavix - 2-D echo 01/27 completed showing: -- Conclusions -- * 1. Normal left ventricular size with hyperdynamic systolic function. EF 65-70%. No regional wall motion abnormalities. Severe concentric left ventricular hypertrophy. * 2. Moderate to severe left atrial dilation. * 3. Aortic valve sclerosis mild, without significant aortic valvular stenosis. * 4. There is severe mitral annular calcification. Large calcification along the posterior mitral annulus, possibly calcified mitral apparatus. * 5. There is mild mitral regurgitation. * 6. There is mild mitral stenosis. (HR 59 bpm) * 7. Normal estimated right ventricular systolic pressure; RVSP 32 mmHg. * 8. Compared to prior study on 07/08/16, pericardial effusion now appears trace. Hypertension - cont metoprolol 50 BID, resume ramipril on discharge Depression - cont lexapro 10 mg daily Neuropathy - cont gabapentin 100 mg BID Hypothyroidism - continue Synthroid Diabetes type 2 - Insulin sliding scale with accuchecks ACHS - Lantus 30 U BID - Hgb A1C= 8.7 on 01/10 Hyperlipidemia - Continue statin DVT ppx: Heparin subq, teds, scds CODE STATUS: DNR Disposition: From [facility], discharge today. Discussion was held with her daughter, Yi, over the phone at 11:15 am with updates and plan for discharge. Total Time Spent: Greater than 30 minutes This includes examination of the patient, discharge planning, medication reconciliation, and communication with other providers. (Anyi Lundberg PA-C) MARTELL Physician Supervision Note: I interviewed and examined the patient. Discussed with Anyi Lundberg PAC and agree with findings and plan as documented in the note. Any exceptions or clarifications are listed here: None This patient was seen on 2 occasions every discharge 1 earlier in the morning and 1 after she had a minor choking episode with lunch. Family was present during lunch and felt she was eating too fast. After examination the patient was in her normal state was having no pulmonary distress or abnormal breath sounds vital signs are stable Lungs are clear to all saavedra good air movement no focal air loss heart was regular neurologic exam finds be mildly confused the patient will continue to be discharged with continued treatment for urinary tract infection encephalopathy present on admission Documented By: Ruben Roth (Ruben Roth M.D.) Discharge Instructions Please refer to the electronic Patient Visit Report (Discharge Instructions) for additional information. (Anyi Lundberg PA-C) Follow-Up Follow up with your Primary Care Provider within 24-48 hours of arrival at [facility]. (Anyi Lundberg, EZRA) Additional Copies To [place], [place]
[2017-01-28 12:06] VITALS: BP 156/78; PULSE 57; TEMP 36.5; O2SAT 96
--- NOTE | 2017-01-28 12:13 | Discharge Instructions ---
Discharge Instructions Date of Service Jan 28, 2017. Admission Reason for Admission: Elevated Troponin Discharge Discharge Diagnosis / Problem: uti poa, encephalopathy elevated troponin Discharge Goals Goal(s): Diagnostic testing, Therapeutic intervention Activity Recommendations Activity Level: Assistance Required Therapies: Speech Therapy . Additional Information Patient informed of condition: Yes Advance Directives: Yes DNR: Yes Level of Care: Skilled Communicable Disease: Yes Prognosis: Stable Chandra Catheter: No Current Hospital Diet Patient's current hospital diet: Diabetes Type 2 Diet Discharge Diet Recommended Diet: Diabetes Type 2 Diet (dental soft) Procedures Procedures Performed: Echocardiogram Pending Studies Studies pending at discharge: no Laboratory Results Hemoglobin A1c Test 01/10/17 07:13 Range/Units Estimated Average Glucose 203 mg/dl Hemoglobin A1c 8.7 H 4.5-5.6 % Medical Emergencies . Who to Call and When: Medical Emergencies: If at any time you feel your situation is an emergency, please call 911 immediately. . Non-Emergent Contact Non-Emergency issues call your: Primary Care Provider Call Non-Emergent contact if: temperature is above 101, your pain is unusual for you . . "Provider Documentation" section prepared by Ruben Roth. . Core Measure Problem Core Measures: None
== END 2017-01-28 12:29 ==
LOC: EDBD 11:24 → C.EDA 11:25 → C.2T 14:40 → ENRESERV 14:58
PROVIDERS: ADMIT Hospitalist; ATTEND Hospitalist
DX: J15.0 Pneumonia due to Klebsiella pneumoniae (principal); N39.0 Urinary tract infection, site not specified; F03.90 Unspecified dementia, unspecified severity, without behavioral disturbance, psychotic disturbance, mood disturbance, and anxiety; I25.10 Atherosclerotic heart disease of native coronary artery without angina pectoris; E10.39 Type 1 diabetes mellitus with other diabetic ophthalmic complication; E11.40 Type 2 diabetes mellitus with diabetic neuropathy, unspecified; E78.5 Hyperlipidemia, unspecified; J45.909 Unspecified asthma, uncomplicated; E06.3 Autoimmune thyroiditis; E03.9 Hypothyroidism, unspecified; E66.9 Obesity, unspecified; M48.06 Spinal stenosis, lumbar region; M47.816 Spondylosis without myelopathy or radiculopathy, lumbar region; M96.1 Postlaminectomy syndrome, not elsewhere classified; M19.90 Unspecified osteoarthritis, unspecified site; F32.9 Major depressive disorder, single episode, unspecified; Z86.73 Personal history of transient ischemic attack (TIA), and cerebral infarction without residual deficits; Z79.4 Long term (current) use of insulin; Z79.82 Long term (current) use of aspirin; Z79.899 Other long term (current) drug therapy

== ENCOUNTER → 2017-05-31 | Outpatient (CLI) | payer OTHER, MEDICARE ==
[~2017-05-31] MED LIST changes: +ATOR-24 PO; -ATOR-26 PO; +CPR500 PO; -CYAN1CAP3 PO; -HYDR2.5L TOP; -LSX20 PO; -ONDA4TAB10 SL; -SULF800T23 PO; +ZNTT/150 PO
== END ==
LOC: C.LABCC 22:00
PROVIDERS: ATTEND Internal Medicine
DX: M54.9 Dorsalgia, unspecified (principal)

== ENCOUNTER → 2017-06-29 | Outpatient (CLI) | payer OTHER, MEDICARE ==
[~2017-06-29] MED LIST changes: +RANI150T85 PO; -ZNTT/150 PO
[2017-06-29 08:57] LABS: ALBUMIN 3.1 gm/dl (3.4-5.0); ALT/SGPT 20 U/L (12-78); BLOOD UREA NITROGEN 19 mg/dl (7-18); CALCIUM 8.3 mg/dl (8.5-10.1); CARBON DIOXIDE 25 mmol/L (21-32); CHOLESTEROL 102 mg/dl (0-200); CREATININE 1.14 mg/dl (0.60-1.20); GLUCOSE 76 mg/dl (70-99); POTASSIUM 4.3 mmol/L (3.5-5.1); SODIUM 138 mmol/L (136-145)
[2017-06-29 09:07] LABS: ALKALINE PHOSPHATASE 77 U/L (45-117); AST/SGOT 15 U/L (15-37); LDL CHOLESTEROL CALCULATED 32 mg/dl; TOTAL PROTEIN 6.8 gm/dl (6.4-8.2)
[2017-06-29 09:19] LABS: HEMOGLOBIN A1C 7.4 % (4.5-5.6)
== END ==
LOC: C.LABCC 07:47
PROVIDERS: ATTEND Internal Medicine
DX: E11.9 Type 2 diabetes mellitus without complications (principal); E03.9 Hypothyroidism, unspecified; E78.5 Hyperlipidemia, unspecified

== ENCOUNTER → 2017-09-12 | Outpatient (CLI) | payer OTHER ==
--- NOTE | 2017-09-12 08:59 | DIAGNOSTIC IMAGING REPORT ---
LUMBAR SPINE MRI HISTORY: DDD L5 S1,BACK BILATERAL LEG PAIN TECHNIQUE: Multiplanar multisequence MRI of the lumbar spine was performed without the use of contrast. COMPARISON: Lumbar spine MRI 11/28/2012. FINDINGS: For the purpose of the report the L5-S1 disc space will be located on axial image . Alignment and curvature are intact. No fracture or subluxation. There is posterior decompression and fusion from T12 through L3 with pedicle screws and rods. There is also posterior decompression at L4-L5 with associated disc spacers. Linear increased signal within the L5-S1 disc space with minimal endplate edema at the inferior aspect of L5. This favors degenerative disc disease. No significant loss of height at the L5-S1 disc space. There are also disc spacers at L1-L2, L2-L3, L3-L4 which appear to be partially fused. The conus terminates at the L1-L2 disc space level. The visualized retroperitoneal and paraspinal soft tissues are unremarkable. T12-L1: No significant central canal or neural foraminal narrowing. L1-L2: No significant central canal or neural foraminal narrowing. L2-L3: No significant central canal narrowing. Mild right-sided neural foraminal narrowing due to focal protrusion of the bony fusion of the right posterior vertebral bodies. This area of bony protrusion also results in right-sided subarticular narrowing and appears to abut the transiting right L3 nerve root. This is similar to the prior study. L3-L4: No significant central canal or neural foraminal narrowing. L4-L5: No significant central canal or left-sided neural foraminal narrowing. Mild right neural foraminal narrowing, unchanged. L5-S1: Minimal central canal narrowing due to the facet hypertrophy. There is also a small right paracentral focal disc protrusion which abuts the transiting right S1 nerve root. There is mild to moderate bilateral neural foraminal narrowing which appear to slightly impinge upon the exiting L5 nerve roots.. IMPRESSION: 1. Postoperative changes as described above identified from T12 through L5. 2. Minimal central canal narrowing at L5-S1, unchanged. 3. Mild to moderate bilateral neural foraminal narrowing at L5-S1. 4. Small right focal central disc protrusion at L5-S1 which appears to be new from the prior study. This abuts the transiting right S1 nerve root. 5. Bilateral neural foraminal narrowing as described above most pronounced at the L5-S1 level. Electronically signed by: Timothy Whitmore M.D. 09/12/2017 8:58 AM Dictated Date/Time: 09/12/2017 8:40 AM
== END | disposition home or self-care (01) ==
LOC: C.MRI 07:41
PROVIDERS: ATTEND Physician Assistant Medical
DX: M54.9 Dorsalgia, unspecified (principal); M51.27 Other intervertebral disc displacement, lumbosacral region

== ENCOUNTER → 2017-12-09 | Outpatient (CLI) | payer OTHER | LOC: C.LABCC 22:15 | PROVIDERS: ATTEND Internal Medicine | DX: R41.0 Disorientation, unspecified (principal); R10.9 Unspecified abdominal pain ==

== ENCOUNTER 2019-08-23 12:57 | Inpatient (IN) ==
[2019-08-23] MEDS ORDERED: fentaNYL citrate 100 MCG/2 ML VIAL IV STA (13:03)
[2019-08-23] MEDS ORDERED: ONDANSETRON INJ 2 MG/ML 2 ML VIAL IV STA (13:03)
--- NOTE | 2019-08-23 13:11 | Emergency Department Note ---
History of Present Illness General Chief complaint: Hip Pain Stated complaint: Left Hip Fracture Time Seen by Provider: 08/23/19 12:57 Source: patient and EMS Mode of arrival: EMS History of Present Illness Provider complaint: Left hip pain Onset (ago): day(s) (Last night) Location: lower extremity and left Radiation: non-radiation Severity: moderate Quality: + sharp Exacerbated By: + movement Associated symptoms: no chest pain, no cough, no fever/chills, no headaches, no malaise, no nausea/vomiting and no shortness of breath This is an 83-year-old female who presents with left hip pain after fall. The patient lives at [facility]. According to staff the patient fell out of bed last night. They did an x-ray this morning and noted that she has a fracture to the left hip. The patient complains of pain to the left hip. She describes it as sharp. It is worse with movement. No other associated symptoms such as chest discomfort, shortness of breath, cough or cold symptoms, fever, headache, abdominal pain or back pain. She does not remember falling. The fall was unwitnessed. History was obtained from EMS as well as the charge nurse who spoke to [facility]. I also obtained history from patient regarding her symptoms. Home Medications Home Medications Medication Instructions Recorded Confirmed Type aspirin [Aspirin Low Dose] 81 mg PO DAILY 08/23/19 08/23/19 History atorvastatin 40 mg PO QPM 08/23/19 08/23/19 History clopidogrel 75 mg PO QAM 08/23/19 08/23/19 History cyclosporine [Restasis] 1 drp OPB BID 08/23/19 08/23/19 History famotidine 20 mg PO BID 08/23/19 08/23/19 History fluticasone propion-salmeterol 1 inh INHALATION Q12H 08/23/19 08/23/19 History [Advair Diskus] gabapentin 100 mg PO TID 08/23/19 08/23/19 History insulin aspart U-100 [Novolog 0 unit SUBCUT UD 08/23/19 08/23/19 History U-100 Insulin aspart] insulin detemir U-100 [Levemir 10 unit SUBCUT QPM 08/23/19 08/23/19 History U-100 Insulin] insulin detemir U-100 [Levemir 20 unit SUBCUT QAM 08/23/19 08/23/19 History U-100 Insulin] levothyroxine 88 mcg PO DAILY 08/23/19 08/23/19 History montelukast 10 mg PO DAILY 08/23/19 08/23/19 History multivitamin [Daily-Lainey] 1 tab PO DAILY 08/23/19 08/23/19 History nitrofurantoin monohyd/m-cryst 100 mg PO BID 08/23/19 08/23/19 History [Macrobid] nitroglycerin 0.4 mg SUBLINGUAL UD PRN 08/23/19 08/23/19 History oxycodone 5 mg PO BID PRN 08/23/19 08/23/19 History polyethylene glycol 3350 [Miralax] 17 g PO DAILY 08/23/19 08/23/19 History potassium chloride 20 meq PO QAM 08/23/19 08/23/19 History ramipril 10 mg PO QAM 08/23/19 08/23/19 History tramadol 50 mg PO Q6H PRN 08/23/19 08/23/19 History venlafaxine 150 mg PO QAM 08/23/19 08/23/19 History Allergies Allergy/AdvReac Type Severity Reaction Status Date / Time latex Allergy Mild RASH Verified 08/23/19 14:04 adhesive Allergy Unknown RASH Verified 08/23/19 14:04 codeine AdvReac Unknown N&V Verified 08/23/19 14:04 morphine AdvReac Unknown N&V Verified 08/23/19 14:04 Past Med/Surg History Medical History (Updated 08/23/19 @ 15:01 by Ruben Naranjo MD) Diabetes (Acute) Hypothyroid (Acute) TIA (transient ischemic attack) (Resolved) Surgical History (Updated 08/23/19 @ 13:08 by Ruben Naranjo MD) H/O: hysterectomy (Resolved) Hx of cholecystectomy (Resolved) Social History (Updated 08/23/19 @ 13:09 by Ruben Naranjo MD) Current Living Situation: Residential Feels Safe at Home: Yes Smoking Status: Never smoker Review of Systems See HPI for pertinent positives & negatives. and A total of 10 systems reviewed and were otherwise negative Physical Exam Vital Signs Vital Signs - 24 hr 08/23/19 13:09 08/23/19 14:12 08/23/19 14:41 Temperature 36.9 C Temperature Source Oral Pulse Rate 102 H Pulse Rate [Apical] 99 H 94 H Respiratory Rate 16 20 20 Blood Pressure 129/76 Blood Pressure [Right Arm] 151/86 H 167/97 H Blood Pressure Mean 93 Blood Pressure Mean [Right Arm] 107 120 Pulse Oximetry 93 95 97 Oxygen Delivery Method Room Air Nasal Cannula Nasal Cannula Oxygen Flow Rate 3 3 Sepsis Recent Fever Within 48 Hours No Sepsis New/Unexplained Change in Mental Status No Sepsis Action Taken by Nursing No Action Required Constitutional: Vital signs reviewed. Eyes: Pupils are equal round reactive to light. Conjunctiva are noninjected. ENT: Pharynx is clear without erythema or exudate. Mucous membranes are moist. Neck supple without meningeal signs. No midline tenderness to the cervical spine. Respiratory: Clear to auscultation bilaterally. Breath sounds are equal bilaterally. Cardiovascular: Regular rate and rhythm. No rubs or gallops. GI: Soft, nondistended and nontender. Bowel sounds are present. Musculoskeletal: Tenderness to the left hip without shortening. Neurovascularly intact distally. Integumentary: No cyanosis. or jaundice. Neurological: The patient is awake and alert. No focal deficits. Psychiatric: Normal affect. Not anxious appearing. Course Administered Medications Discontinued Medications Fentanyl Citrate (Fentanyl Citrate) 25 mcg IV NOW STA Stop: 08/23/19 13:04 Last Admin: 08/23/19 13:43 Dose: 25 mcg Documented by: [id number] Ondansetron HCl (Zofran) 4 mg IV NOW STA Stop: 08/23/19 13:04 Last Admin: 08/23/19 13:43 Dose: 4 mg Documented by: [id number] Medical Decision Making Differential Diagnosis Hip fracture, dislocation, contusion, syncope, ICH Medical Records Attestation: I reviewed the patient's medical records. I did perform a limited focused review of portions of the patient's old chart o n the electronic medical record. The patient has had no recent pertinent visits to this hospital. Home Medications Current Medication List: was personally reviewed by me Laboratory Data Attestation: I reviewed the patient's lab results. Result diagrams: 08/23/19 13:26 08/23/19 13:26 Lab Results 08/23/19 08/23/19 08/23/19 Range/Units 13:26 13:26 13:26 WBC 15.66 H (4.8-10.8) K/uL RBC 3.52 L (4.2-5.4) M/uL Hgb 11.4 L (12.0-16.0) g/dL Hct 35.0 L (37-47) % MCV 99.4 (80-100) fL MCH 32.4 (25-34) pg MCHC 32.6 (32-36) g/dL RDW Std Deviation 49.2 H (36.4-46.3) fL RDW Coeff of Carmen 13.7 (11.5-14.5) % Plt Count 282 (130-400) K/uL MPV 9.4 (7.4-10.4) fL Immature Gran % (Auto) 0.3 % Neut % (Auto) 88.2 % Lymph % (Auto) 4.9 % [place] % (Auto) 5.9 % Eos % (Auto) 0.6 % Baso % (Auto) 0.1 % Immature Gran # (Auto) 0.05 H (0.00-0.02) K/uL Neut # (Auto) 13.81 H (1.4-6.5) K/uL Lymph # (Auto) 0.77 L (1.2-3.4) K/uL [place] # (Auto) 0.92 H (0.11-0.59) K/uL Eos # (Auto) 0.09 (0-0.5) K/uL Baso # (Auto) 0.02 (0-0.2) K/uL PT (9.0-12.0) Seconds INR (0.9-1.1) APTT (21.0-31.0) Seconds PTT Ratio Sodium 139 (136-145) mmol/L Potassium 4.3 (3.5-5.1) mmol/L Chloride 108 H (98-107) mmol/L Carbon Dioxide 25 (21-32) mmol/L Anion Gap 6.0 (3-11) BUN 21 H (7-18) mg/dl Creatinine 1.13 (0.6-1.2) mg/dl Est Cr Clr Drug Dosing 46.7 ml/min Est GFR ( Amer) 52.4 Est GFR (Non-Af Amer) 45.2 BUN/Creatinine Ratio 18.1 (10-20) Glucose 255 H (70-99) mg/dl Calcium 8.6 (8.5-10.1) mg/dl Troponin I 0.215 H* (0-0.045) ng/ml Blood Type A Positive Antibody Screen NEGATIVE 08/23/19 Range/Units 13:26 WBC (4.8-10.8) K/uL RBC (4.2-5.4) M/uL Hgb (12.0-16.0) g/dL Hct (37-47) % MCV (80-100) fL MCH (25-34) pg MCHC (32-36) g/dL RDW Std Deviation (36.4-46.3) fL RDW Coeff of Carmen (11.5-14.5) % Plt Count (130-400) K/uL MPV (7.4-10.4) fL Immature Gran % (Auto) % Neut % (Auto) % Lymph % (Auto) % [place] % (Auto) % Eos % (Auto) % Baso % (Auto) % Immature Gran # (Auto) (0.00-0.02) K/uL Neut # (Auto) (1.4-6.5) K/uL Lymph # (Auto) (1.2-3.4) K/uL [place] # (Auto) (0.11-0.59) K/uL Eos # (Auto) (0-0.5) K/uL Baso # (Auto) (0-0.2) K/uL PT 11.2 (9.0-12.0) Seconds INR 1.1 (0.9-1.1) APTT 29.2 (21.0-31.0) Seconds PTT Ratio 1.0 Sodium (136-145) mmol/L Potassium (3.5-5.1) mmol/L Chloride (98-107) mmol/L Carbon Dioxide (21-32) mmol/L Anion Gap (3-11) BUN (7-18) mg/dl Creatinine (0.6-1.2) mg/dl Est Cr Clr Drug Dosing ml/min Est GFR ( Amer) Est GFR (Non-Af Amer) BUN/Creatinine Ratio (10-20) Glucose (70-99) mg/dl Calcium (8.5-10.1) mg/dl Troponin I (0-0.045) ng/ml Blood Type Antibody Screen Imaging Data Radiologist's Impression: EFT HIP 2 VIEWS CLINICAL HISTORY: Fall. Left hip injury. FINDINGS: AP and crosstable portable views of the left hip are compared to study dated 07/02/2012. The skeletal structures are osteopenic. There is a comminuted, angulated, and mildly distracted intertrochanteric fracture of the left femur wi th overlying soft tissue edema. The visualized left hemipelvis appears intact. Degenerative joint space narrowing is noted in the left hip. There is degenerative sclerosis of the left sacroiliac joint. Atherosclerotic calcification is noted in the left femoral artery. IMPRESSION: Intertrochanteric left hip fracture as above. Electronically signed by: Ender Grimaldo M.D. 08/23/2019 2:[address] SCAN OF THE BRAIN WITHOUT IV CONTRAST CLINICAL HISTORY: Fall. COMPARISON STUDY: CT of the brain dated 01/26/2017. TECHNIQUE: Unenhanced axial CT scan of the brain is performed from the vertex to the skull base. A dose lowering technique was utilized adhering to the principles of ALARA. CT DOSE: 638.84 mGy.cm FINDINGS: Brain parenchyma: Foci of bifrontal and right occipital encephalomalacia are unchanged and consistent with remote infarcts. There are age-related involutional changes noting advanced confluent subcortical and periventricular microangiopathic change. There is no hemorrhage, mass effect, or evidence of acute territorial ischemia by CT criteria. Chronic lacunar infarcts are identified in the left cerebellar hemisphere, the left cedric, and the basal ganglia. Holden-white matter differentiation is preserved. No extra-axial fluid collection is seen. Ventricles, sulci, cisterns: Prominent secondary to involutional change. Intracranial vasculature: There is atherosclerotic calcification of the cavernous carotid and vertebral arteries. Calvarium: The skeletal structures are osteopenic. There is no depressed calvarial fracture. Sinuses and mastoids: The visualized paranasal sinuses are clear. The mastoid air cells are well pneumatized. Orbits: The bony orbits are grossly intact. There are bilateral ocular lens implants. IMPRESSION: 1. There is no hemorrhage, mass effect, or evidence of acute territorial ischemia by CT criteria. 2. Senescent change and remote infarcts as above. ACT 112: Negative or not required by law. Electronically signed by: Ender Grimaldo M.D. 08/23/2019 2:01 PM SINGLE VIEW CHEST CLINICAL HISTORY: Hip fracture. FINDINGS: 2 AP, portable, supine chest radiographs are compared to study dated 01/26/2017. The examination is degraded by portable technique and patient rotation. The heart is top normal for projection. The pulmonary vasculature is noncongested. The mitral annulus is densely calcified. There is chronic elevati on of the right hemidiaphragm and bibasilar atelectasis. No airspace consolidation or large pleural effusion is identified. No pneumothorax is seen. The skeletal structures are osteopenic. There is chronic posttraumatic deformity with postoperative change is seen in the right proximal humerus. Arthritic changes seen in both shoulders. Fusion hardware is partially imaged in the lumbar spine. IMPRESSION: No active disease in the chest. ACT 112: Negative or not required by law. Electronically signed by: Ender Grimaldo M.D. 08/23/2019 2:29 PM ECG Data Attestation: I personally reviewed and interpreted this ECG as follows: Indication: + other (fall) Rate (beats per minute): 102 Rhythm: + sinus tachycardia ECG Intervals/blocks: + Left anterior fascicular block ECG ST segments: no ST elevation ECG Findings: no PVCs Blood Pressure Blood Pressure Findings: Elevated blood pressure Blood Pressure Disposition: Referred to patients primary care provider MDM Narrative I did evaluate the patient as noted above. I did obtain history from the patient, EMS as well as the charge nurse who spoke to [facility]. IV access was established. I did treat the patient with IV fentanyl and Zofran. I did order and personally review the patient's 12-lead EKG as described above. Twelve-lead EKG shows no acute ischemic changes. I did order and personally reviewed the images of the patient's chest, pelvis and hip x-rays as described above. She has an intertrochanteric fracture of the left hip. No acute abnormality on chest x-ray. I did order a urine analysis. I did order and review the patient's blood work as noted in the electronic medical record. Her white count is elevated. She does have anemia. Glucose is elevated to 55. Troponin is elevated 0.215. I did order a CT of the head. I did review the images myself as well as the radiology report as described above. There is no evidence of acute abnormality. I did reassess the patient. Her pain is under control. I did discuss the test results with her. She continues to deny having any type of chest discomfort or pain or shortness of breath. I did discuss the case with Dr. Dagoberto Miranda who admitted patient and consulted orthopedics. I discussed the case with the casework supervisor. Impression & Plan Closed fracture of left hip, Fall, Elevated troponin I level, Acute hyperglycemia Discharge Plan Visit Data Chief Complaint: Hip Pain Stated Complaint: Left Hip Fracture ED Provider: Ruben Naranjo Discharge Problem: Closed fracture of left hip, Fall, Elevated troponin I level, Acute hyperglycemia Patient Disposition: Being Evaluated by Hospitalist Condition: Good Forms Stand Alone Forms: My [facility] Prescriptions Prescriptions: No Action multivitamin [Daily-Lainey] Tablet 1 tab PO DAILY RF: 0 atorvastatin 40 mg tablet 40 mg PO QPM RF: 0 fluticasone propion-salmeterol [Advair Diskus] 250-50 mcg/dose blister with device 1 inh inhalation Q12H RF: 0 venlafaxine 150 mg capsule,extended release 24hr 150 mg PO QAM RF: 0 clopidogrel 75 mg tablet 75 mg PO QAM RF: 0 aspirin [Aspirin Low Dose] 81 mg Tablet,Delayed Release (Dr/Ec) 81 mg PO DAILY RF: 0 tramadol 50 mg tablet 50 mg PO Q6H PRN (Reason: Pain) RF: 0 levothyroxine 88 mcg tablet 88 mcg PO DAILY RF: 0 potassium chloride 20 mEq tablet,ER particles/crystals 20 meq PO QAM RF: 0 famotidine 20 mg Tablet 20 mg PO BID RF: 0 insulin aspart U-100 [Novolog U-100 Insulin aspart] 100 unit/mL solution 0 unit subcut UD RF: 0 nitroglycerin 0.4 mg Tablet, Sublingual 0.4 mg sublingual UD PRN (Reason: Chest Pain) RF: 0 montelukast 10 mg tablet 10 mg PO DAILY RF: 0 gabapentin 100 mg capsule 100 mg PO TID RF: 0 polyethylene glycol 3350 [Miralax] 17 gram/dose Powder 17 g PO DAILY RF: 0 ramipril 10 mg capsule 10 mg PO QAM RF: 0 oxycodone 5 mg tablet 5 mg PO BID PRN (Reason: Pain) RF: 0 Restasis 0.05 % dropperette 1 drp OPB BID RF: 0 nitrofurantoin monohyd/m-cryst [Macrobid] 100 mg Capsule 100 mg PO BID RF: 0 Levemir U-100 Insulin 100 unit/mL solution 20 unit SUBCUT QAM RF: 0 Levemir U-100 Insulin 100 unit/mL solution 10 unit SUBCUT QPM RF: 0 Referrals Referrals: Yani Deluna [Primary Care Provider] -
--- NOTE | 2019-08-23 13:37 | Electrocardiogram Report ---
Test Reason : Blood Pressure : / mmHG Vent. Rate : 102 BPM Atrial Rate : 102 BPM P-R Int : 180 ms QRS Dur : 108 ms QT Int : 374 ms P-R-T Axes : 059 -73 070 degrees QTc Int : 487 ms Sinus tachycardia Left atrial enlargement Left anterior fascicular block Abnormal ECG When compared with ECG of 28-JAN-2017 09:10, Vent. rate has increased BY 40 BPM Otherwise no significant change Confirmed by Yong Velazquez ([id number]) on 08/23/2019 1:37:23 PM Referred By: Confirmed By:Yong Velazquez
[2019-08-23 13:48] LABS: Basophils # (auto) 0.02 K/uL (0-0.2); Basophils % (auto) 0.1 %; Eosinophils # (auto) 0.09 K/uL (0-0.5); Eosinophils % (auto) 0.6 %; Hemoglobin 11.4 g/dL (12.0-16.0); Immature Granulocytes # (auto) 0.05 K/uL (0.00-0.02); Immature Granulocytes % (auto) 0.3 %; Lymphocytes # (auto) 0.77 K/uL (1.2-3.4); Lymphocytes % (auto) 4.9 %; Mean Corpuscular Hemoglobin 32.4 pg (25-34); Mean Corpuscular Hgb Conc 32.6 g/dL (32-36); Mean Corpuscular Volume 99.4 fL (80-100); Mean Platelet Volume 9.4 fL (7.4-10.4); Monocytes # (auto) 0.92 K/uL (0.11-0.59); Monocytes % (auto) 5.9 %; Neutrophils # (auto) 13.81 K/uL (1.4-6.5); Neutrophils % (auto) 88.2 %; Platelet Count 282 K/uL (130-400); RDW Coefficient of Variation 13.7 % (11.5-14.5); RDW Standard Deviation 49.2 fL (36.4-46.3); Red Blood Count 3.52 M/uL (4.2-5.4); White Blood Count 15.66 K/uL (4.8-10.8)
[2019-08-23 13:58] LABS: INR 1.1 (0.9-1.1); Partial Thromboplastin Time 29.2 Seconds (21.0-31.0); Prothrombin Time 11.2 Seconds (9.0-12.0)
--- NOTE | 2019-08-23 14:02 | CT Scan Report ---
CT SCAN OF THE BRAIN WITHOUT IV CONTRAST CLINICAL HISTORY: Fall. COMPARISON STUDY: CT of the brain dated 01/26/2017. TECHNIQUE: Unenhanced axial CT scan of the brain is performed from the vertex to the skull base. A do se lowering technique was utilized adhering to the principles of ALARA. CT DOSE: 638.84 mGy.cm FINDINGS: Brain parenchyma: Foci of bifrontal and right occipital encephalomalacia are unchanged and consistent with remote infarcts. There are age-related involutional changes noting advanced confluent subcorti irasema and periventricular microangiopathic change. There is no hemorrhage, mass effect, or evidence of acute territorial ischemia by CT criteria. Chronic lacunar infarcts are identified in the left cereb ellar hemisphere, the left cedric, and the basal ganglia. Holden-white matter differentiation is preserve d. No extra-axial fluid collection is seen. Ventricles, sulci, cisterns: Prominent secondary to involutional change. Intracranial vasculature: There is atherosclerotic calcification of the cavernous carotid and vertebr al arteries. Calvarium: The skeletal structures are osteopenic. There is no depressed calvarial fracture. Sinuses and mastoids: The visualized paranasal sinuses are clear. The mastoid air cells are well pneu matized. Orbits: The bony orbits are grossly intact. There are bilateral ocular lens implants. IMPRESSION: 1. There is no hemorrhage, mass effect, or evidence of acute territorial ischemia by CT criteria. 2. Senescent change and remote infarcts as above. ACT 112: Negative or not required by law. Electronically signed by: Ender Grimaldo M.D. 08/23/2019 2:01 PM
[2019-08-23 14:04] LABS: BUN Creatinine Ratio 18.1 (10-20); Calcium 8.6 mg/dl (8.5-10.1); Creatinine Clr Calc Pharmacy 46.7 ml/min; Est GFR (African American) 52.4; Est GFR (Non-African American) 45.2; Potassium 4.3 mmol/L (3.5-5.1)
[2019-08-23 14:16] LABS: Troponin I 0.215 ng/ml (0-0.045)
--- NOTE | 2019-08-23 14:28 | XRay Report ---
LEFT HIP 2 VIEWS CLINICAL HISTORY: Fall. Left hip injury. FINDINGS: AP and crosstable portable views of the left hip are compared to study dated 07/02/2012. The skeletal structures are osteopenic. There is a comminuted, angulated, and mildly distracted intertro chanteric fracture of the left femur with overlying soft tissue edema. The visualized left hemipelvis appears intact. Degenerative joint space narrowing is noted in the left hip. There is degenerative s clerosis of the left sacroiliac joint. Atherosclerotic calcification is noted in the left femoral art ivan. IMPRESSION: Intertrochanteric left hip fracture as above. Electronically signed by: Ender Grimaldo M.D. 08/23/2019 2:27 PM
--- NOTE | 2019-08-23 14:30 | XRay Report ---
SINGLE VIEW CHEST CLINICAL HISTORY: Hip fracture. FINDINGS: 2 AP, portable, supine chest radiographs are compared to study dated 01/26/2017. The examina tion is degraded by portable technique and patient rotation. The heart is top normal for projection . The pulmonary vasculature is noncongested. The mitral annulus is densely calcified. There is chroni c elevation of the right hemidiaphragm and bibasilar atelectasis. No airspace consolidation or large pleural effusion is identified. No pneumothorax is seen. The skeletal structures are osteopenic. Ther e is chronic posttraumatic deformity with postoperative change is seen in the right proximal humerus. Arthritic changes seen in both shoulders. Fusion hardware is partially imaged in the lumbar spine. IMPRESSION: No active disease in the chest. ACT 112: Negative or not required by law. Electronically signed by: Ender Grimaldo M.D. 08/23/2019 2:29 PM
--- NOTE | 2019-08-23 15:27 | History & Physical Report ---
Date of Service August 23, 2019 Assessment & Plan (1) Closed fracture of left hip: hip fracture order set utilized consult Dr. Boykin for recommendations - he spoke with family, will plan for IM nailing tomorrow pain control with Oxycodone, has allergy listed to Morphine LR at 80cc/hr, keep patient NPO after midnight no ischemic changes on EKG, troponin is up slightly, does not c/o chest pain check resting echo to help risk stratify will consult anesthesiology for pre op assessment (2) Fall: unwitnessed, happened at [facility] suffered left hip fracture no hematoma on head CT (3) Elevated troponin I level: will repeat in 6 hours if stable or going down then no further work up check echo (4) Acute hyperglycemia: Levemir ordered at half typical dosing as she is going to be NPO will order Novolog q6 with correction factor of 30, adjust as needed (5) Diabetes: as above, Levemir and Novolog ordered once she can eat will give a diabetic diet (6) Hypothyroid: hold Synthroid for now (7) TIA (transient ischemic attack): hold aspirin and Plavix with possible surgical intervention resume post op when okay with orthopedics (8) DVT prophylaxis: heparin SC History of Present Illness Chief Complaint: my leg hurts Primary Care Provider: [facility] 83 yo female who lives at [facility] due to h/o dementia, strokes presents to the ED after she fell last evening at [facility]. She cannot give me any details of the fall, she just remembers that "yesterday was not a good day." She admits to pain in her left hip and it hurts more when she moves, hurts less if she lays still. She denies chest pain, dyspnea, cough, fever/chills. In the ED she was found to have a left intertrochanteric fracture. She was given Fentanyl IV for the pain. CXR was unremarkable. WBC up slightly, troponin 0.2 but patient denies chest pain and EKG normal. Cr is stable. Dr. Boykin spoke with patient's family and they would like to proceed with IM nailing of left hip tomorrow. Allergies Allergy/AdvReac Type Severity Reaction Status Date / Time latex Allergy Mild RASH Verified 08/23/19 14:04 adhesive Allergy Unknown RASH Verified 08/23/19 14:04 codeine AdvReac Unknown N&V Verified 08/23/19 14:04 morphine AdvReac Unknown N&V Verified 08/23/19 14:04 Home Medications Home Medications Medication Instructions Recorded Confirmed Type aspirin [Aspirin Low Dose] 81 mg PO DAILY 08/23/19 08/23/19 History atorvastatin 40 mg PO QPM 08/23/19 08/23/19 History clopidogrel 75 mg PO QAM 08/23/19 08/23/19 History cyclosporine [Restasis] 1 drp OPB BID 08/23/19 08/23/19 History famotidine 20 mg PO BID 08/23/19 08/23/19 History fluticasone propion-salmeterol 1 inh INHALATION Q12H 08/23/19 08/23/19 History [Advair Diskus] gabapentin 100 mg PO TID 08/23/19 08/23/19 History insulin aspart U-100 [Novolog 0 unit SUBCUT UD 08/23/19 08/23/19 History U-100 Insulin aspart] insulin detemir U-100 [Levemir 10 unit SUBCUT QPM 08/23/19 08/23/19 History U-100 Insulin] insulin detemir U-100 [Levemir 20 unit SUBCUT QAM 08/23/19 08/23/19 History U-100 Insulin] levothyroxine 88 mcg PO DAILY 08/23/19 08/23/19 History montelukast 10 mg PO DAILY 08/23/19 08/23/19 History multivitamin [Daily-Lainey] 1 tab PO DAILY 08/23/19 08/23/19 History nitrofurantoin monohyd/m-cryst 100 mg PO BID 08/23/19 08/23/19 History [Macrobid] nitroglycerin 0.4 mg SUBLINGUAL UD PRN 08/23/19 08/23/19 History oxycodone 5 mg PO BID PRN 08/23/19 08/23/19 History polyethylene glycol 3350 [Miralax] 17 g PO DAILY 08/23/19 08/23/19 History potassium chloride 20 meq PO QAM 08/23/19 08/23/19 History ramipril 10 mg PO QAM 08/23/19 08/23/19 History tramadol 50 mg PO Q6H PRN 08/23/19 08/23/19 History venlafaxine 150 mg PO QAM 08/23/19 08/23/19 History Past Med/Surg History Medical History (Updated 08/23/19 @ 18:36 by Dagoberto Miranda DO) Diabetes (Acute) Hypothyroid (Acute) TIA (transient ischemic attack) (Resolved) Surgical History (Updated 08/23/19 @ 13:08 by Ruben Naranjo MD) H/O: hysterectomy (Resolved) Hx of cholecystectomy (Resolved) Family History (Updated 08/23/19 @ 18:33 by Dagoberto Miranda DO) Other Diabetes Social History (Updated 08/23/19 @ 13:09 by Ruben Naranjo MD) Current Living Situation: Long Term Feels Safe at Home: Yes Smoking Status: Never smoker Review of Systems Review of Systems: All systems reviewed & are unremarkable except as noted in HPI & below Constitutional: + fatigue and + weakness; no fever, no chills and no sweats Respiratory: no cough, no dyspnea and no wheezing Cardiovascular: no chest pain, no palpitations and no edema Gastrointestinal: no abdominal pain, no nausea, no vomiting, no constipation and no diarrhea/loose stools Musculoskeletal: + joint pain (severe pain in left hip) Physical Exam Constitutional: WD/WN, vitals as above no acute distress Eyes: PERRL, conjunctivae normal, anicteric sclerae ENMT: external ear and nose normal, oropharynx normal Neck: trachea midline, no thyromegaly Respiratory: normal respiratory effort, lungs clear to auscultation Cardiovascular: RRR, no murmur, no edema Gastrointestinal (Abdomen): normal bowel sounds, soft, nontender, no hepatosplenomegaly Musculoskeletal: Head/Neck/Chest: normocephalic and head atraumatic Spine: thoracic spine normal to inspection and lumbar spine normal to inspection Extremities: + limited ROM of extremities (cannot move left hip due to pain) and + abnormal strength (weak in left leg due to pain limitations); no cyanosis, no clubbing and no petechiae Skin: no rashes, warm and dry Neurologic: patellar DTR's 2+ bilat, sensation intact and PERRL, EOMI, accommodation nl, no face palsy, no dysarthria Psychiatric: Orientation: alert, oriented to person and cooperative; + not oriented to place and + not oriented to time Lymphatic: no cervical or axillary lymphadenopathy Results & Data Results & Data ([facility]) Vital Signs (Past 12 Hours) Vital Signs Temp Pulse Pulse Resp BP BP BP 08/23/19 15:10 92 H 21 117/62 08/23/19 15:01 96 H 18 08/23/19 14:41 94 H 20 167/97 H 08/23/19 14:12 99 H 20 151/86 H 08/23/19 13:09 36.9 C 102 H 16 129/76 Pulse Ox 08/23/19 15:10 98 08/23/19 15:01 97 08/23/19 14:41 97 08/23/19 14:12 95 08/23/19 13:09 93 Laboratory Results Laboratory Results - last 24 hr 08/23/19 08/23/19 08/23/19 13:26 13:26 13:26 WBC 15.66 H RBC 3.52 L Hgb 11.4 L Hct 35.0 L MCV 99.4 MCH 32.4 MCHC 32.6 RDW Std Deviation 49.2 H RDW Coeff of Carmen 13.7 Plt Count 282 MPV 9.4 Immature Gran % (Auto) 0.3 Neut % (Auto) 88.2 Lymph % (Auto) 4.9 [place] % (Auto) 5.9 Eos % (Auto) 0.6 Baso % (Auto) 0.1 Immature Gran # (Auto) 0.05 H Neut # (Auto) 13.81 H Lymph # (Auto) 0.77 L [place] # (Auto) 0.92 H Eos # (Auto) 0.09 Baso # (Auto) 0.02 PT INR APTT PTT Ratio Sodium 139 Potassium 4.3 Chloride 108 H Carbon Dioxide 25 Anion Gap 6.0 BUN 21 H Creatinine 1.13 Est Cr Clr Drug Dosing 46.7 Est GFR ( Amer) 52.4 Est GFR (Non-Af Amer) 45.2 BUN/Creatinine Ratio 18.1 Glucose 255 H Calcium 8.6 Troponin I 0.215 H* Urine Color Urine Appearance Urine pH Ur Specific Victor Urine Protein Urine Glucose (UA) Urine Ketones Urine Blood Urine Nitrite Urine Bilirubin Urine Urobilinogen Ur Leukocyte Esterase Blood Type A Positive Antibody Screen NEGATIVE 08/23/19 08/23/19 13:26 14:25 WBC RBC Hgb Hct MCV MCH MCHC RDW Std Deviation RDW Coeff of Carmen Plt Count MPV Immature Gran % (Auto) Neut % (Auto) Lymph % (Auto) [place] % (Auto) Eos % (Auto) Baso % (Auto) Immature Gran # (Auto) Neut # (Auto) Lymph # (Auto) [place] # (Auto) Eos # (Auto) Baso # (Auto) PT 11.2 INR 1.1 APTT 29.2 PTT Ratio 1.0 Sodium Potassium Chloride Carbon Dioxide Anion Gap BUN Creatinine Est Cr Clr Drug Dosing Est GFR ( Amer) Est GFR (Non-Af Amer) BUN/Creatinine Ratio Glucose Calcium Troponin I Urine Color Pending Urine Appearance Pending Urine pH Pending Ur Specific Victor Pending Urine Protein Pending Urine Glucose (UA) Pending Urine Ketones Pending Urine Blood Pending Urine Nitrite Pending Urine Bilirubin Pending Urine Urobilinogen Pending Ur Leukocyte Esterase Pending Blood Type Antibody Screen Diagnostic Findings LEFT HIP 2 VIEWS CLINICAL HISTORY: Fall. Left hip injury. FINDINGS: AP and crosstable portable views of the left hip are compared to study dated 07/02/2012. The skeletal structures are osteopenic. There is a comminuted, angulated, and mildly distracted intertrochanteric fracture of the left femur with overlying soft tissue edema. The visualized left hemipelvis appears intact. Degenerative joint space narrowing is noted in the left hip. There is degenerative sclerosis of the left sacroiliac joint. Atherosclerotic calcification is noted in the left femoral artery. IMPRESSION: Intertrochanteric left hip fracture as above. CT head IMPRESSION: 1. There is no hemorrhage, mass effect, or evidence of acute territorial isch emia by CT criteria. 2. Senescent change and remote infarcts as above. CXR IMPRESSION: No active disease in the chest. Code Status & VTE Plan VTE Prophylaxis Plan VTE Prophylaxis will be ordered: Yes PG Care Time/CCT Total # of Minutes Spent Total Time Spent with Patient: Total time spent is greater than 50% in coordination of care (as documented) at patient's floor/unit and/or counseling patient: Coding Level of Care Code 13281 Initial Inpt Care Lvl 3 Diagnoses Closed fracture of left hip S72.002A Encounter type: initial encounter Fall W19.XXXA Encounter type: initial encounter Elevated troponin I level R79.89 Acute hyperglycemia R73.9 Diabetes E11.9 Hypothyroid E03.9 TIA (transient ischemic attack) G45.9 DVT prophylaxis Z29.9 (1) Fall Encounter type: initial encounter Qualified Code(s): W19.XXXA - Unspecified fall, initial encounter (2) Closed fracture of left hip Encounter type: initial encounter Qualified Code(s): S72.002A - Fracture of unspecified part of neck of left femur, initial encounter for closed fracture
[2019-08-23 15:29] LABS: Appearance Urine Clear (Clear); Bacteria Urine Automated Negative (Negative); Bilirubin Urine Negative (Negative); Blood Urine Negative (Negative); Color Urine Dark Yellow; Epithelial Cell Urine Auto >30 /lpf (0-5); Glucose Urine UA 3+ (Negative); Ketones Urine Trace (Negative); Leukocyte Esterase Urine Trace (Negative); Nitrite Urine Negative (Negative); Protein Urine Negative (Negative); RBC Urine Automated 0-4 /hpf (0-4); Specific Gravity Urine 1.025 (1.000-1.030); Urobilinogen Urine Negative (Negative); WBC Urine Automated >30 /hpf (0-5)
[2019-08-23] MEDS ORDERED: NALOXONE HCL 0.4 MG/1 ML VIAL/CARP IV PRN (16:10)
[2019-08-23] MEDS ORDERED: MAGNESIUM HYDROXIDE SUSP 30 ML UDC PO PRN (16:10)
[2019-08-23] MEDS ORDERED: bisacodyL 10 MG SUPP PR PRN (16:10)
[2019-08-23] MEDS ORDERED: MoRPHine SULFATE 2 MG/ML CARP IV PRN (16:10)
[2019-08-23] MEDS ORDERED: MoRPHine SULFATE 4 MG/ML 1 ML CARP\\VIAL IV PRN (16:10)
[2019-08-23] MEDS: LACTATED RINGER'S 1,000 ML IV SCH (16:28)
[2019-08-23] MEDS ORDERED: Nursing to Pharmacy Communication ONE (17:42)
[2019-08-23] MEDS ORDERED: INSULIN ASPART 100 UNITS/ML 3 ML PEN SC SCH (18:00)
[2019-08-23] MEDS ORDERED: CEFAZOLIN 2000MG 2,000 MG/15 ML SYR IV ONE (18:26)
[2019-08-23] MEDS ORDERED: HydrALAZINE HCL 20 MG/ML VIAL IV PRN (18:40)
[2019-08-23] MEDS ORDERED: cefTRIAXone SODIUM 2,000 MG in DEXTROSE 5% 50 ML IV SCH (19:00)
[2019-08-23] MEDS: ONDANSETRON INJ 2 MG/ML 2 ML VIAL IV PRN (19:29)
[2019-08-23] MEDS: INSULIN ASPART 100 UNITS/ML 3 ML PEN SC SCH ×2 (19:38→21:30)
[2019-08-23] MEDS: GABAPENTIN 100 MG CAP PO SCH (20:18)
[2019-08-23] MEDS: DOCUSATE SODIUM/SENNA 50/8.6MG TAB PO SCH (20:19)
[2019-08-23] MEDS ORDERED: INSULIN DETEMIR FLEXPEN/FLEX TOUCH 100 UNITS/ML 3ML SC SCH (21:00)
[2019-08-23] MEDS: HEPARIN SOD 5,000 UNIT/0.5 ML VIAL SQ SCH (21:31)
[2019-08-24 05:03] LABS: Hematocrit (blood only) 32.8 % (37-47); Hemoglobin 10.6 g/dL (12.0-16.0); Mean Corpuscular Hemoglobin 32.7 pg (25-34); Mean Corpuscular Hgb Conc 32.3 g/dL (32-36); Mean Corpuscular Volume 101.2 fL (80-100); Mean Platelet Volume 9.2 fL (7.4-10.4); Platelet Count 268 K/uL (130-400); RDW Coefficient of Variation 13.8 % (11.5-14.5); RDW Standard Deviation 51.3 fL (36.4-46.3); Red Blood Count 3.24 M/uL (4.2-5.4)
[2019-08-24 05:21] LABS: BUN Creatinine Ratio 18.5 (10-20); Calcium 8.1 mg/dl (8.5-10.1); Creatinine Clr Calc Pharmacy 46.7 ml/min; Est GFR (African American) 52.4; Est GFR (Non-African American) 45.2; Potassium 4.5 mmol/L (3.5-5.1)
[2019-08-24] MEDS: HEPARIN SOD 5,000 UNIT/0.5 ML VIAL SQ SCH ×3 (05:30→21:09)
[2019-08-24] MEDS: LACTATED RINGER'S 1,000 ML IV SCH ×2 (05:39→18:14)
[2019-08-24] MEDS: INSULIN ASPART 100 UNITS/ML 3 ML PEN SC SCH ×5 (05:45→21:08)
[2019-08-24] MEDS ORDERED: CEFAZOLIN 2000MG 2,000 MG/15 ML SYR IV SCH (06:00)
[2019-08-24] MEDS ORDERED: LACTATED RINGER'S 500 ML IV ONE (06:02)
[2019-08-24] MEDS ORDERED: Nursing to Pharmacy Communication ONE (06:46)
[2019-08-24] MEDS ORDERED: EPINEPHrine INJ 1 MG/ML AMP ONE (06:57)
[2019-08-24] MEDS ORDERED: BUPIVACAINE 0.5 % 5 MG/1 ML MPF 30ML VIAL ONE (06:57)
[2019-08-24] MEDS ORDERED: LACTATED RINGER'S 250 ML IV ONE (07:00)
--- NOTE | 2019-08-24 07:21 | Anesthesiology Consultation ---
Date of Service August 24, 2019 Assessment & Plan (1) Encounter for pre-operative examination: Chart Review Chart Review: Acceptable Risk for Surgery Consults Requested none ASA ASA4 Proposed Anesthesia Anesthesia Type: General Risk / Benefits Reviewed With: PT / POA / Parent / Guardian, Accepts Plan and Informed Consent Obtained History Surgery Operation Date: 08/24/19 08:00 Proposed Procedures p Intramedullary Rj Femur - Sae Boykin MD Height/Weight Height: 5 ft 5 in Weight: 107 kg Allergies Allergy/AdvReac Type Severity Reaction Status Date / Time latex Allergy Mild RASH Verified 08/23/19 14:04 adhesive Allergy Unknown RASH Verified 08/23/19 14:04 codeine AdvReac Unknown N&V Verified 08/23/19 14:04 morphine AdvReac Unknown N&V Verified 08/23/19 14:04 Medications Home Medications Medication Instructions Recorded Confirmed Last Taken aspirin [Aspirin Low Dose] 81 mg PO DAILY 08/23/19 08/23/19 08/23/19 atorvastatin 40 mg PO QPM 08/23/19 08/23/19 08/22/19 clopidogrel 75 mg PO QAM 08/23/19 08/23/19 08/23/19 cyclosporine [Restasis] 1 drp OPB BID 08/23/19 08/23/19 08/23/19 famotidine 20 mg PO BID 08/23/19 08/23/19 08/23/19 fluticasone propion-salmeterol 1 inh INHALATION Q12H 08/23/19 08/23/19 08/23/19 [Advair Diskus] gabapentin 100 mg PO TID 08/23/19 08/23/19 08/23/19 insulin aspart U-100 [Novolog 0 unit SUBCUT UD 08/23/19 08/23/19 08/23/19 U-100 Insulin aspart] insulin detemir U-100 [Levemir 10 unit SUBCUT QPM 08/23/19 08/23/19 08/22/19 U-100 Insulin] insulin detemir U-100 [Levemir 20 unit SUBCUT QAM 08/23/19 08/23/19 08/23/19 U-100 Insulin] levothyroxine 88 mcg PO DAILY 08/23/19 08/23/19 08/23/19 montelukast 10 mg PO DAILY 08/23/19 08/23/19 08/23/19 multivitamin [Daily-Lainey] 1 tab PO DAILY 08/23/19 08/23/19 08/23/19 nitrofurantoin monohyd/m-cryst 100 mg PO BID 08/23/19 08/23/19 08/23/19 [Macrobid] nitroglycerin 0.4 mg SUBLINGUAL UD PRN 08/23/19 08/23/19 Unknown oxycodone 5 mg PO BID PRN 08/23/19 08/23/19 08/23/19 08:30 polyethylene glycol 3350 [Miralax] 17 g PO DAILY 08/23/19 08/23/19 08/23/19 potassium chloride 20 meq PO QAM 08/23/19 08/23/19 08/23/19 ramipril 10 mg PO QAM 08/23/19 08/23/19 08/23/19 tramadol 50 mg PO Q6H PRN 08/23/19 08/23/19 08/23/19 12:05 venlafaxine 150 mg PO QAM 08/23/19 08/23/19 08/23/19 Active Medications Generic Name Dose Route Start Last Admin Trade Name Freq PRN Reason Stop Dose Admin Gabapentin 100 mg 08/23/19 21:00 08/23/19 20:18 Neurontin PO 09/22/19 20:59 100 mg TID MARYJANE Administration Heparin Sodium (Porcine) 5,000 units 08/23/19 22:00 08/24/19 05:30 Heparin Sodium (Porcine) SQ 09/22/19 21:59 Not Given Q8 MARYJANE Lactated Ringer's 1,000 mls @ 80 mls/hr 08/23/19 16:10 08/24/19 05:39 Lr IV 09/22/19 16:09 80 mls/hr .[id number] MARYJANE Administration Ceftriaxone Sodium 2,000 mg/ 70 mls @ 100 mls/hr 08/23/19 19:00 08/23/19 20:18 Dextrose IV 08/28/19 18:59 Infused Q24H [facility] Infusion Protocol Insulin Aspart 0 units 08/24/19 06:00 08/24/19 05:45 Novolog Flexpen SC 09/23/19 05:59 1 units Q6 MARYJANE Administration Insulin Detemir 5 units 08/23/19 21:00 08/23/19 21:29 Levemir Flextouch SC 09/22/19 20:59 5 units QPM MARYJANE Administration Miscellaneous 1 ea 08/23/19 21:00 08/23/19 20:21 Order Awaiting Action N/A 09/22/19 20:59 Not Given BID MARYJANE Ondansetron HCl 4 mg 08/23/19 16:10 08/23/19 19:29 Zofran IV 09/22/19 16:09 4 mg Q6H PRN Administration Nausea And Vomiting Senna/Docusate Sodium 2 tab 08/23/19 21:00 08/23/19 20:19 Senokot S PO 09/22/19 20:59 2 tab HS MARYJANE Administration NPO Date Last Intake of Fluids: 08/23/19 Time Last Intake of Fluids: 23:25 Date Last Intake of Solids: 08/23/19 Past Medical History Medical History Diabetes (Acute) Hypothyroid (Acute) TIA (transient ischemic attack) (Resolved) Exercise / Class Metabolic Activity III < 4 Walking/Shop/Light housework Past Family History Family History Other Diabetes Past Surgical History Surgical History H/O: hysterectomy (Resolved) Hx of cholecystectomy (Resolved) Past Anesthesia History No Hx of Anesthesia Complications and No Family Hx of Anesthesia Complications History of PONV No Hx of PONV and No Hx of Motion Sickness Social History Smoking Status: Never smoker Physical Exam Vital Signs Last Vital Signs Temp 97.7 F 08/23/19 23:30 Pulse 102 H 08/23/19 23:30 Resp 20 08/23/19 23:30 BP 99/67 L 08/23/19 23:30 Pulse Ox 96 08/23/19 23:30 ENMT Mouth: no dentition abnormality Thyromental Distance: > or= 3.5 Finger Breadths Mallampati Class: II Neck normal visual inspection Respiratory normal respiratory effort Auscultation: lungs clear to auscultation bilaterally Cardiovascular Rate/Rhythm: regular rate and regular rhythm Testing Laboratory Results 08/24/19 04:49 08/24/19 04:49 PT 11.2 Seconds (9.0-12.0) 08/23/19 13: INR 1.1 (0.9-1.1) 08/23/19 13:26 APTT 29.2 Seconds (21.0-31.0) 08/23/19 13:26 Urine Color Dark Yellow 08/23/19 14:25 Urine Appearance Clear (Clear) 08/23/19 14:25 Urine pH 5.0 (4.5-7.5) 08/23/19 14:25 Ur Specific [place] 1.025 (1.000-1.030) 08/23/19 14:25 Urine Protein Negative (Negative) 08/23/19 14:25 Urine Glucose (UA) 3+ (Negative) H 08/23/19 14:25 Urine Ketones Trace (Negative) H 08/23/19 14:25 Urine Nitrite Negative (Negative) 08/23/19 14:25 Ur Leukocyte Esterase Trace (Negative) H 08/23/19 14:25 Urine WBC (Auto) >30 /hpf (0-5) H 08/23/19 14:25 Urine RBC (Auto) 0-4 /hpf (0-4) 08/23/19 14:25 U Hyaline Cast (Auto) 5-10 /lpf (0-5) H 08/23/19 14:25 U Epithel Cells (Auto) >30 /lpf (0-5) H 08/23/19 14:25 Urine Bacteria (Auto) Negative (Negative) 08/23/19 14:25 Blood Type A Positive 08/23/19 13:26 Antibody Screen NEGATIVE 08/23/19 13:26 08/24/19 08/23/19 05:42 21:22 POC Glucose 189 H 198 H Electrocardiogram Date: 08/23/19 Sinus tachycardia Left atrial enlargement Left anterior fascicular block Abnormal ECG When compared with ECG of 28-JAN-2017 09:10, Vent. rate has increased BY 40 BPM Otherwise no significant change Confirmed by Yong Velazquez ([id number]) on 08/23/2019 1:37:23 PM Chest X-Ray Date: 08/23/19 Findings: + NAD Echocardiogram Date: 01/27/17 EF 65-70% Normal LV size and hyperdynamic systolic function Mod-severe left atrial dilation Mild AV sclerosis Severe mitral annular calcification Mild MR Mild MS Normal estimated RVSP Compared to prior study on 07/08/16, pericardial effusion now appears trace Other Testing CT head 08/23/19 FINDINGS: Brain parenchyma: Foci of bifrontal and right occipital encephalomalacia are unchanged and consistent with remote infarcts. There are age-related involutional changes noting advanced confluent subcortical and periventricular microangiopathic change. There is no hemorrhage, mass effect, or evidence of acute territorial ischemia by CT criteria. Chronic lacunar infarcts are identified in the left cerebellar hemisphere, the left cedric, and the basal ganglia. Holden-white matter differentiation is preserved. No extra-axial fluid collection is seen. Ventricles, sulci, cisterns: Prominent secondary to involutional change. Intracranial vasculature: There is atherosclerotic calcification of the cavernous carotid and vertebral arteries. Calvarium: The skeletal structures are osteopenic. There is no depressed calvarial fracture. Sinuses and mastoids: The visualized paranasal sinuses are clear. The mastoid air cells are well pneumatized. Orbits: The bony orbits are grossly intact. There are bilateral ocular lens implants. IMPRESSION: 1. There is no hemorrhage, mass effect, or evidence of acute territorial ischemia by CT criteria. 2. Senescent change and remote infarcts as above.
[2019-08-24] MEDS ORDERED: fentaNYL citrate 100 MCG/2 ML VIAL ONE ×3 (07:22→09:42)
--- NOTE | 2019-08-24 07:25 | Orthopedic Consultation ---
Date of Consultation August 24, 2019 Assessment & Plan (1) Closed fracture of left hip: The patient has a left intertrochanteric hip fracture. I discussed the fracture with the patient's daughter who is her power of document review attorney. Given the nature of the injury and the fact that she was an ambulator prior to the injury my recommendation is for open reduction trial fixation. Risks, benefits, alternatives including but not limited to pain, stiffness, infection, DVT, PE, were discussed with the patient's mother and she wishes to proceed. Verbal consent was given. History of Present Illness Reason for Consultation: Left hip fracture Attending Physician: Dagoberto Miranda DO History of Present Illness An 83-year-old female who sustained a fall. She is a resident at [facility]. X-rays were obtained as demonstrated a hip fracture. She is socially transferred emergency room for further evaluation treatment. Currently complaining of pain in the left hip. She is oriented to place person only Allergies Allergy/AdvReac Type Severity Reaction Status Date / Time latex Allergy Mild RASH Verified 08/23/19 14:04 adhesive Allergy Unknown RASH Verified 08/23/19 14:04 codeine AdvReac Unknown N&V Verified 08/23/19 14:04 morphine AdvReac Unknown N&V Verified 08/23/19 14:04 Home Medications Home Medications Medication Instructions Recorded Confirmed Type aspirin [Aspirin Low Dose] 81 mg PO DAILY 08/23/19 08/23/19 History atorvastatin 40 mg PO QPM 08/23/19 08/23/19 History clopidogrel 75 mg PO QAM 08/23/19 08/23/19 History cyclosporine [Restasis] 1 drp OPB BID 08/23/19 08/23/19 History famotidine 20 mg PO BID 08/23/19 08/23/19 History fluticasone propion-salmeterol 1 inh INHALATION Q12H 08/23/19 08/23/19 History [Advair Diskus] gabapentin 100 mg PO TID 08/23/19 08/23/19 History insulin aspart U-100 [Novolog 0 unit SUBCUT UD 08/23/19 08/23/19 History U-100 Insulin aspart] insulin detemir U-100 [Levemir 10 unit SUBCUT QPM 08/23/19 08/23/19 History U-100 Insulin] insulin detemir U-100 [Levemir 20 unit SUBCUT QAM 08/23/19 08/23/19 History U-100 Insulin] levothyroxine 88 mcg PO DAILY 08/23/19 08/23/19 History montelukast 10 mg PO DAILY 08/23/19 08/23/19 History multivitamin [Daily-Lainey] 1 tab PO DAILY 08/23/19 08/23/19 History nitrofurantoin monohyd/m-cryst 100 mg PO BID 08/23/19 08/23/19 History [Macrobid] nitroglycerin 0.4 mg SUBLINGUAL UD PRN 08/23/19 08/23/19 History oxycodone 5 mg PO BID PRN 08/23/19 08/23/19 History polyethylene glycol 3350 [Miralax] 17 g PO DAILY 08/23/19 08/23/19 History potassium chloride 20 meq PO QAM 08/23/19 08/23/19 History ramipril 10 mg PO QAM 08/23/19 08/23/19 History tramadol 50 mg PO Q6H PRN 08/23/19 08/23/19 History venlafaxine 150 mg PO QAM 08/23/19 08/23/19 History Patient History Medical History Diabetes (Acute) Hypothyroid (Acute) TIA (transient ischemic attack) (Resolved) Surgical History H/O: hysterectomy (Resolved) Hx of cholecystectomy (Resolved) Family History Other Diabetes Social History (Updated 08/23/19 @ 13:09 by Ruben Naranjo MD) Preferred Language: Persian Communication Ability Comment: Poor historian, cognitive deficit, unable to complete admissions assessment Survey Technologist Required: No Current Living Situation: Correction Current Living Situation Comment: Poor historian, cognitive deficit, unable to complete admissions assessment Other Information That Helps Us Care for You: No Feels Safe at Home: Yes Smoking Status: Never smoker Physical Exam Constitutional: WD/WN, vitals as above Neck: normal visual inspection Respiratory: normal respiratory effort Cardiovascular: Rate/Rhythm: regular rate Extremities: normal capillary refill Musculoskeletal: Left lower extremity: Light touch sensation is intact. She is able to move the toes freely. Pain with internal/external rotation of the hip. She is tenderness palpation of the hip. Results & Data ([facility]) Vital Signs (Past 12 Hours) Vital Signs Temp Pulse Resp BP Pulse Ox 08/23/19 23:30 36.5 C 102 H 20 99/67 L 96 08/23/19 21:27 102 H 14 92 (1) Closed fracture of left hip Encounter type: initial encounter Qualified Code(s): S72.002A - Fracture of unspecified part of neck of left femur, initial encounter for closed fracture
[2019-08-24] MEDS ORDERED: ATROPINE SULFATE 0.1 MG/ML 10ML SYR IV PRN (07:47)
[2019-08-24] MEDS ORDERED: ePHEDrine sulfate 50 MG/ML AMP IV PRN (07:47)
[2019-08-24] MEDS ORDERED: ONDANSETRON INJ 2 MG/ML 2 ML VIAL IV PRN ×2 (07:47→09:28)
[2019-08-24] MEDS ORDERED: ENALAPRIL MALEATE 10 MG TAB PO SCH (09:00)
[2019-08-24] MEDS ORDERED: INSULIN DETEMIR FLEXPEN/FLEX TOUCH 100 UNITS/ML 3ML SC SCH ×2 (09:00→21:00)
--- NOTE | 2019-08-24 09:23 | Operative Report ---
Post Operative Report Pre & Post Diagnosis Operation Date: 08/24/19 08:00 Pre-Op Diagnosis: Left hip fracture. Post-Op Diagnosis: Left hip fracture. I identified the patient and participated in the time-out.: Yes Procedure Operation Date: 08/24/19 08:00 Actual Procedures p Intramedullary Rj Femur Left.(Left) - Sae Boykin MD Surgeon Sae Boykin MD Under Trimmer None Estimated Blood Loss 100 Findings Consistent with Post-Op Diagnosis Specimens none Drains none Anesthesia Type General Complications none Disposition Accompanied Patient To Recovery: No Disposition: Recovery Room Indications The patient is a 83-year-old female who typically ambulates with a walker. She is a resident at [facility]. She sustained a fall. X-rays demonstrated a left intertrochanteric hip fracture. Given the nature of the injury I recommended a reduction trial fixation of the intramedullary nail. This was discussed with the patient's daughter and she wishes to proceed Description of Procedure Risks benefits and alternatives of surgery including but not limited to infection, DVT, PE, pain, stiffness, need for surgery, damage to blood vessels, damage to nerves or risks of anesthesia, were discussed with the patient and her family and they wished to proceed. Patient was identified in the laterality was confirmed and marked. They received a preoperative antibiotic. The patient was transferred to the fracture table. The operative limb was placed in traction and the well leg was placed in a well leg gonzalez that was well-padded. The arms were well-padded and placed out of the way of the surgical field. I confirmed reduction of the fracture with fluoroscopy with the patient's fracture table and made adjustments to fracture table alignment is necessary to reduce the fracture appropriately. The hip was then prepped and draped in the usual standard manner with ChloraPrep. I made a longitudinal incision proximal to the greater trochanter. I sharply incised through the skin and then used Bovie electrocautery to achieve hemostasis. I incised through the fascia and then bluntly dissected down to the tip of the greater trochanter. Under fluoroscopic guidance I placed a guide pin into the greater trochanter and ensured proper placement on both AP and lateral fluoroscopy views. Once I was satisfied with the position of the guide. I advanced this distally. I then overreamed with the 17 mm proximal reamer. I then placed a Synthes trochanteric fixation nail into position. The size of the nail was a short nail. Then I placed the guide arm onto the nail insertion device made a stab incision more distally and then placed the drill guide for the helical blade. I adjusted the position of the nail as necessary to ensure that the guidepin was center center in the femoral head. Once I was satisfied with the position of the pin advanced it to the appropriate position of the femoral head. I then measured and then reamed the lateral cortex and then reamed down into the femoral head. I then inserted a size [address] I then locked the set screw proximally and then compressed the fracture. Then through a stab incision I placed a interlocking screw through the drill guide. I confirmed hardware placement and maintenance of reduction on AP and lateral fluoroscopy views. Wounds were then thoroughly irrigated. The fascia was closed with interrupted #1 Vicryl suture. Subcutaneous tissues closed with interrupted 2-0 Vicryl suture and the skin with junior. Sterile dressings applied. All needle and sponge counts were correct at the end of the procedure the patient was transferred to the PACU in stable condition without apparent complication. I attest to the content of the Intraoperative Record and any orders documented therein. Any exceptions are noted below.
[2019-08-24] MEDS ORDERED: NALOXONE HCL 0.4 MG/1 ML VIAL/CARP IV PRN ×2 (09:25→09:28)
[2019-08-24] MEDS ORDERED: METOCLOPRAMIDE HCL INJ 5 MG/ML 2 ML VIAL IV PRN (09:28)
[2019-08-24] MEDS ORDERED: MAGNESIUM HYDROXIDE SUSP 30 ML UDC PO PRN (09:28)
[2019-08-24] MEDS ORDERED: bisacodyL 10 MG SUPP PR PRN (09:28)
--- NOTE | 2019-08-24 09:29 | Fluoroscopy Report ---
FL hip LT 2-3V HISTORY: 83 years-old Female LT TROCH NAIL intratrochanteric nail the left femur COMPARISON: Left hip radiographs 08/23/2019 TECHNIQUE: 4 spot fluoroscopic images of the left hip were obtained utilizing 84.1 seconds fluoroscop y time FINDINGS: Status post placement of an intratrochanteric nail with medullary claudia fixating the previously describ ed acute intertrochanteric fracture. There is satisfactory alignment. The hardware appears intact. No dislocation. Expected postsurgical soft tissue swelling. IMPRESSION: Fluoroscopic assistance as above. Please see operative report for further details. ACT 112: Negative or not required by law. The above report was generated using voice recognition software. It may contain grammatical, syntax o r spelling errors. Electronically signed by: Wesly Montes De Oca M.D. 08/24/2019 9:28 AM
[2019-08-24] MEDS ORDERED: SODIUM CHLORIDE 0.9% 1000ML 1,000 ML IV SCH (09:30)
[2019-08-24] MEDS ORDERED: CEFAZOLIN 250 MG/ML 1 GM VIAL ONE (09:35)
[2019-08-24] MEDS ORDERED: ONDANSETRON INJ 2 MG/ML 2 ML VIAL ONE (09:42)
[2019-08-24] MEDS: fentaNYL citrate 100 MCG/2 ML VIAL IV PRN ×2 (09:45→09:50)
--- NOTE | 2019-08-24 09:54 | Anesthesiology Progress Note ---
Date of Service August 24, 2019 Anesthesia Post Procedure Vital Signs Vital Signs: Temp Pulse Pulse Pulse Resp BP BP 08/24/19 09:50 105 H 16 136/87 08/24/19 09:40 107 H 16 160/86 H 08/24/19 09:31 98.2 F 108 H 16 118/104 H 08/23/19 23:30 97.7 F 102 H 20 99/67 L 08/23/19 21:27 102 H 14 08/23/19 16:03 97.9 F 93 H 18 08/23/19 15:34 92 H 13 112/66 08/23/19 15:10 92 H 21 117/62 08/23/19 15:01 96 H 18 08/23/19 14:41 94 H 20 08/23/19 14:12 99 H 20 08/23/19 13:09 98.4 F 102 H 16 129/76 BP Pulse Ox 08/24/19 09:50 100 08/24/19 09:40 100 08/24/19 09:31 100 08/23/19 23:30 96 08/23/19 21:27 92 08/23/19 16:03 141/82 H 99 08/23/19 15:34 99 08/23/19 15:10 98 08/23/19 15:01 97 08/23/19 14:41 167/97 H 97 08/23/19 14:12 151/86 H 95 08/23/19 13:09 93 Pain Intensity Left Hip: Pain Intensity: 6 Transfer of Care Handoff Completed per policy Notes Mental Status: alert / awake / arousable and participated in evaluation Patient Amnestic to Procedure: Yes Nausea / Vomiting: adequately controlled Pain: adequately controlled Airway Patency, RR, SpO2: stable & adequate BP & HR: stable & adequate Hydration State: stable & adequate Anesthetic Complications: no major complications apparent and Pt Satisfied with anesthetic care
--- NOTE | 2019-08-24 12:44 | Hospitalist Progress Note ---
Date of Service August 24, 2019 Assessment & Plan (1) Closed fracture of left hip: hip fracture order set utilized consult Dr. Boykin for recommendations - recommended surgical stabilization s/p IM nailing left femur on 08/23, tolerated well pain control with Oxycodone LR at 80cc/hr for today, can stop tomorrow PT/OT, d/c planning with CM involved from [facility], could likely return there for rehab once medically recovered from surgery (2) Fall: unwitnessed, happened at SNF suffered left hip fracture no hematoma on head CT (3) Elevated troponin I level: 0.2 and then 0.19 on repeat 6 hours later patient denies chest pain, EKG without ischemic changes check echo - completed, report still pending (4) Acute hyperglycemia: resolved continue Levemir and Novolog (5) Diabetes: as above, Levemir back up to home doses now that she is eating, Novolog ordered ACHS diabetic diet no hypoglycemic episodes (6) Hypothyroid: resume Synthroid (7) TIA (transient ischemic attack): held aspirin and Plavix for surgical intervention resume tomorrow (8) DVT prophylaxis: heparin SC Admission and Anticipated Discharge Date Admission Date: August 23, 2019 Subjective patient underwent successful IM nailing of left femur this morning no immediate complications, tolerated well, transferred back to room patient sleeping soundly this morning when I first visited with her later in the day she would wake up, denied any chest pain or dyspnea, admitted to some pain in left hip reviewed labs, WBC 12k, hb 10, plts 268 BUN 21 and Cr 1.1, electrolytes stable urine culture growing yeast NOT Vita albicans, stop Rocephin, give Diflucan sugars running slightly high, now that she is post op will resume Levemir at home dosing, make Novolog ACHS Plavix already ordered to resume by ortho Review of Systems Review of Systems: All systems reviewed & are unremarkable except as noted in HPI & below Musculoskeletal: + joint pain (left hip) Physical Exam Constitutional: WD/WN, vitals as above + lethargic (sleepy after anesthesia); no acute distress Eyes: PERRL, conjunctivae normal, anicteric sclerae ENMT: external ear and nose normal, oropharynx normal Neck: trachea midline, no thyromegaly Respiratory: normal respiratory effort, lungs clear to auscultation Cardiovascular: RRR, no murmur, no edema Gastrointestinal (Abdomen): normal bowel sounds, soft, nontender, no hepatosplenomegaly Musculoskeletal: Head/Neck/Chest: normocephalic and head atraumatic Spine: thoracic spine normal to inspection and lumbar spine normal to inspection Extremities: + limited ROM of extremities (cannot move left hip due to pain) and + abnormal strength (weak in left leg due to pain limitations); no cyanosis, no clubbing and no petechiae Skin: no rashes, warm and dry Neurologic: patellar DTR's 2+ bilat, sensation intact and PERRL, EOMI, accommodation nl, no face palsy, no dysarthria Psychiatric: Orientation: alert, oriented to person and cooperative; + not oriented to place and + not oriented to time Lymphatic: no cervical or axillary lymphadenopathy Results & Data Results & Data ([facility]) Vital Signs (Past 12 Hours) Vital Signs Temp Pulse Pulse Resp BP Pulse Ox 08/24/19 12:33 105 H 18 111/75 93 08/24/19 11:21 97 H 20 119/75 97 08/24/19 10:51 36.4 C L 104 H 20 123/73 95 08/24/19 10:20 36.9 C 104 H 18 139/78 97 08/24/19 10:00 36.8 C 103 H 16 142/79 H 98 08/24/19 09:50 105 H 16 136/87 100 08/24/19 09:40 107 H 16 160/86 H 100 08/24/19 09:31 36.8 C 108 H 16 118/104 H 100 Laboratory Results Laboratory Results - last 24 hr 08/23/19 08/23/19 08/23/19 13:26 13:26 13:26 WBC 15.66 H RBC 3.52 L Hgb 11.4 L Hct 35.0 L MCV 99.4 MCH 32.4 MCHC 32.6 RDW Std Deviation 49.2 H RDW Coeff of Carmen 13.7 Plt Count 282 MPV 9.4 Immature Gran % (Auto) 0.3 Neut % (Auto) 88.2 Lymph % (Auto) 4.9 [place] % (Auto) 5.9 Eos % (Auto) 0.6 Baso % (Auto) 0.1 Immature Gran # (Auto) 0.05 H Neut # (Auto) 13.81 H Lymph # (Auto) 0.77 L [place] # (Auto) 0.92 H Eos # (Auto) 0.09 Baso # (Auto) 0.02 PT INR APTT PTT Ratio Sodium 139 Potassium 4.3 Chloride 108 H Carbon Dioxide 25 Anion Gap 6.0 BUN 21 H Creatinine 1.13 Est Cr Clr Drug Dosing 46.7 Est GFR ( Amer) 52.4 Est GFR (Non-Af Amer) 45.2 BUN/Creatinine Ratio 18.1 Glucose 255 H POC Glucose Calcium 8.6 Troponin I 0.215 H* Urine Color Urine Appearance Urine pH Ur Specific [place] Urine Protein Urine Glucose (UA) Urine Ketones Urine Blood Urine Nitrite Urine Bilirubin Urine Urobilinogen Ur Leukocyte Esterase Urine WBC (Auto) Urine RBC (Auto) U Hyaline Cast (Auto) U Epithel Cells (Auto) Urine Bacteria (Auto) Ur Renal Epithelial Cell Urine Yeast Blood Type A Positive Antibody Screen NEGATIVE 08/23/19 08/23/19 08/23/19 13:26 14:25 17:47 WBC RBC Hgb Hct MCV MCH MCHC RDW Std Deviation RDW Coeff of Carmen Plt Count MPV Immature Gran % (Auto) Neut % (Auto) Lymph % (Auto) [place] % (Auto) Eos % (Auto) Baso % (Auto) Immature Gran # (Auto) Neut # (Auto) Lymph # (Auto) [place] # (Auto) Eos # (Auto) Baso # (Auto) PT 11.2 INR 1.1 APTT 29.2 PTT Ratio 1.0 Sodium Potassium Chloride Carbon Dioxide Anion Gap BUN Creatinine Est Cr Clr Drug Dosing Est GFR ( Amer) Est GFR (Non-Af Amer) BUN/Creatinine Ratio Glucose POC Glucose 162 H Calcium Troponin I Urine Color Dark Yellow Urine Appearance Clear Urine pH 5.0 Ur Specific [place] 1.025 Urine Protein Negative Urine Glucose (UA) 3+ H Urine Ketones Trace H Urine Blood Negative Urine Nitrite Negative Urine Bilirubin Negative Urine Urobilinogen Negative Ur Leukocyte Esterase Trace H Urine WBC (Auto) >30 H Urine RBC (Auto) 0-4 U Hyaline Cast (Auto) 5-10 H U Epithel Cells (Auto) >30 H Urine Bacteria (Auto) Negative Ur Renal Epithelial Cell Not Reportable Urine Yeast Budding w/ Hyphae A Blood Type Antibody Screen 08/23/19 08/23/19 08/24/19 20:07 21:22 04:49 WBC 12.30 H RBC 3.24 L Hgb 10.6 L Hct 32.8 L MCV 101.2 H MCH 32.7 MCHC 32.3 RDW Std Deviation 51.3 H RDW Coeff of Carmen 13.8 Plt Count 268 MPV 9.2 Immature Gran % (Auto) Neut % (Auto) Lymph % (Auto) [place] % (Auto) Eos % (Auto) Baso % (Auto) Immature Gran # (Auto) Neut # (Auto) Lymph # (Auto) [place] # (Auto) Eos # (Auto) Baso # (Auto) PT INR APTT PTT Ratio Sodium Potassium Chloride Carbon Dioxide Anion Gap BUN Creatinine Est Cr Clr Drug Dosing Est GFR ( Amer) Est GFR (Non-Af Amer) BUN/Creatinine Ratio Glucose POC Glucose 198 H Calcium Troponin I 0.195 H* Urine Color Urine Appearance Urine pH Ur Specific [place] Urine Protein Urine Glucose (UA) Urine Ketones Urine Blood Urine Nitrite Urine Bilirubin Urine Urobilinogen Ur Leukocyte Esterase Urine WBC (Auto) Urine RBC (Auto) U Hyaline Cast (Auto) U Epithel Cells (Auto) Urine Bacteria (Auto) Ur Renal Epithelial Cell Urine Yeast Blood Type Antibody Screen 08/24/19 08/24/19 08/24/19 04:49 05:42 09:35 WBC RBC Hgb Hct MCV MCH MCHC RDW Std Deviation RDW Coeff of Carmen Plt Count MPV Immature Gran % (Auto) Neut % (Auto) Lymph % (Auto) [place] % (Auto) Eos % (Auto) Baso % (Auto) Immature Gran # (Auto) Neut # (Auto) Lymph # (Auto) [place] # (Auto) Eos # (Auto) Baso # (Auto) PT INR APTT PTT Ratio Sodium 138 Potassium 4.5 Chloride 109 H Carbon Dioxide 26 Anion Gap 3.0 BUN 21 H Creatinine 1.13 Est Cr Clr Drug Dosing 46.7 Est GFR ( Amer) 52.4 Est GFR (Non-Af Amer) 45.2 BUN/Creatinine Ratio 18.5 Glucose 203 H POC Glucose 189 H 192 H Calcium 8.1 L Troponin I Urine Color Urine Appearance Urine pH Ur Specific [place] Urine Protein Urine Glucose (UA) Urine Ketones Urine Blood Urine Nitrite Urine Bilirubin Urine Urobilinogen Ur Leukocyte Esterase Urine WBC (Auto) Urine RBC (Auto) U Hyaline Cast (Auto) U Epithel Cells (Auto) Urine Bacteria (Auto) Ur Renal Epithelial Cell Urine Yeast Blood Type Antibody Screen 08/24/19 11:51 WBC RBC Hgb Hct MCV MCH MCHC RDW Std Deviation RDW Coeff of Carmen Plt Count MPV Immature Gran % (Auto) Neut % (Auto) Lymph % (Auto) [place] % (Auto) Eos % (Auto) Baso % (Auto) Immature Gran # (Auto) Neut # (Auto) Lymph # (Auto) [place] # (Auto) Eos # (Auto) Baso # (Auto) PT INR APTT PTT Ratio Sodium Potassium Chloride Carbon Dioxide Anion Gap BUN Creatinine Est Cr Clr Drug Dosing Est GFR ( Amer) Est GFR (Non-Af Amer) BUN/Creatinine Ratio Glucose POC Glucose 219 H Calcium Troponin I Urine Color Urine Appearance Urine pH Ur Specific [place] Urine Protein Urine Glucose (UA) Urine Ketones Urine Blood Urine Nitrite Urine Bilirubin Urine Urobilinogen Ur Leukocyte Esterase Urine WBC (Auto) Urine RBC (Auto) U Hyaline Cast (Auto) U Epithel Cells (Auto) Urine Bacteria (Auto) Ur Renal Epithelial Cell Urine Yeast Blood Type Antibody Screen Medications Administered Current Inpatient Medications Aspirin (Ecotrin Ectab) 81 mg PO DAILY [facility] Stop: 09/24/19 08:59 Atropine Sulfate (Atropine Sulfate) 0.5 mg IV Q1M PRN PRN Reason: PACU Use-HR<40 &/or Bradycardi Stop: 08/24/19 15:47 Bisacodyl (Dulcolax) 10 mg WI DAILY PRN PRN Reason: Constipation Stop: 09/23/19 09:27 Clopidogrel Bisulfate (Plavix) 75 mg PO QAM [facility] Stop: 09/24/19 08:59 Docusate Sodium (Colace) 100 mg PO BID [facility] Stop: 09/23/19 20:59 Ephedrine Sulfate (Ephedrine Sulfate) 5 mg IV Q5M PRN PRN Reason: PACU Use Only-SBP<90 mmHg Stop: 08/24/19 15:47 Fentanyl Citrate (Fentanyl Citrate) 25 mcg IV Q5M PRN PRN Reason: PACU Use Only-Pain Stop: 08/24/19 15:47 Last Admin: 08/24/19 09:50 Dose: 25 mcg Documented by: Fluticasone/Vilanterol (Breo Ellipta 100/25 Mcg Inh) 1 puffs INH DAILY [facility] Stop: 09/23/19 08:59 Gabapentin (Neurontin) 100 mg PO TID [facility] Stop: 09/22/19 20:59 Last Admin: 08/23/19 20:18 Dose: 100 mg Documented by: Heparin Sodium (Porcine) (Heparin Sodium (Porcine)) 5,000 units SQ Q8 MARYJANE Stop: 09/22/19 21:59 Last Admin: 08/24/19 05:30 Dose: Not Given Documented by: Hydralazine HCl (Hydralazine Hcl) 10 mg IV Q6 PRN PRN Reason: Blood Pressure - High Stop: 09/22/19 18:39 Hydromorphone HCl (Dilaudid) 0.5 mg IV Q4 PRN PRN Reason: Severe Pain Stop: 09/06/19 18:37 Lactated Ringer's (Lr) 1,000 mls @ 80 mls/hr IV .[id number] [facility] Stop: 09/22/19 16:09 Last Admin: 08/24/19 05:39 Dose: 80 mls/hr Documented by: Cefazolin Sodium (Ancef 2000mg) 2,000 mg in 15 mls @ 3.75 mls/min IV PREOP [facility]; Protocol Stop: 08/24/19 18:00 Cefazolin Sodium (Ancef 2000mg) 2,000 mg in 15 mls @ 3.75 mls/min IV Q8H MARYJANE; Protocol Stop: 08/25/19 02:03 Fluconazole (Diflucan) 100 mg in 50 mls @ 100 mls/hr IV UD MARYJANE; Protocol Stop: 08/29/19 12:59 Insulin Aspart (Novolog Flexpen) 0 units SC ACHS [facility] Stop: 09/23/19 16:29 Insulin Detemir (Levemir Flextouch) 10 units SC QPM MARYJANE Stop: 09/23/19 20:59 Insulin Detemir (Levemir Flextouch) 20 units SC QAM [facility] Stop: 09/24/19 08:59 Magnesium Hydroxide (Milk Of Magnesia) 30 ml PO Q6H PRN PRN Reason: Constipation Stop: 09/23/19 09:27 Metoclopramide HCl (Reglan) 10 mg IV Q6H PRN PRN Reason: Nausea And Vomiting Stop: 09/23/19 09:27 Miscellaneous (Order Awaiting Action) 1 ea N/A BID [facility] Stop: 09/22/19 20:59 Last Admin: 08/23/19 20:21 Dose: Not Given Documented by: Multivitamins (Multivitamin Tab) 1 tab PO QAM [facility] Stop: 09/24/19 08:59 Naloxone HCl (Narcan) 0.1 mg IV Q5M PRN PRN Reason: Oversedation/Resp Depression Stop: 09/23/19 09:27 Ondansetron HCl (Zofran) 4 mg IV Q6H PRN PRN Reason: Nausea And Vomiting Stop: 09/22/19 16:09 Last Admin: 08/23/19 19:29 Dose: 4 mg Documented by: Ondansetron HCl (Zofran) 4 mg IV ONCE PRN PRN Reason: PACU Use Only-Nausea/Vomiting Stop: 08/24/19 15:48 Last Admin: 08/24/19 09:45 Dose: 4 mg Documented by: Oxycodone HCl (Roxicodone Immediate Rel) 5 mg PO Q4H PRN PRN Reason: MODERATE Pain (Scale 4,5,6) Stop: 09/06/19 16:09 Polyethylene Glycol (Miralax Powder Packet) 17 gm PO DAILY [facility] Stop: 09/23/19 08:59 Potassium Chloride (Klor-Con M20) 20 meq PO QAM [facility] Stop: 09/23/19 08:59 Senna/Docusate Sodium (Senokot S) 2 tab PO HS [facility] Stop: 09/22/19 20:59 Last Admin: 08/23/19 20:19 Dose: 2 tab Documented by: Sennosides (Senokot) 17.2 mg PO HS [facility] Stop: 09/23/19 20:59 Venlafaxine HCl (Effexor Extended Release) 150 mg PO QAM [facility] Stop: 09/23/19 08:59 PG Care Time/CCT Total # of Minutes Spent Total Time Spent with Patient: Total time spent is greater than 50% in coordination of care (as documented) at patient's floor/unit and/or counseling patient: Coding Level of Care Code 11849 Subseq Hosp Care Lvl 3 Diagnoses Closed fracture of left hip S72.002A Encounter type: initial encounter Fall W19.XXXA Encounter type: initial encounter Elevated troponin I level R79.89 Acute hyperglycemia R73.9 Diabetes E11.9 Hypothyroid E03.9 TIA (transient ischemic attack) G45.9 DVT prophylaxis Z29.9 (1) Fall Encounter type: initial encounter Qualified Code(s): W19.XXXA - Unspecified fall, initial encounter (2) Closed fracture of left hip Encounter type: initial encounter Qualified Code(s): S72.002A - Fracture of unspecified part of neck of left femur, initial encounter for closed fracture
[2019-08-24] MEDS: POLYETHYLENE (MIRALAX) 17 GM PACK PO SCH (13:05)
[2019-08-24] MEDS: FLUTICASONE/VILANTEROL 100/25MCG 14 PUFFS/INHALER INH SCH (13:06)
[2019-08-24] MEDS: POTASSIUM CHLORIDE 20 MEQ TABCR PO SCH (13:06)
[2019-08-24] MEDS: VENLAFAXINE HCL XR 150 MG CAPXR PO SCH (13:06)
[2019-08-24] MEDS: GABAPENTIN 100 MG CAP PO SCH ×3 (13:07→21:06)
[2019-08-24] MEDS: FLUCONAZOLE 100 MG/50 ML BAG IV SCH (13:23)
[2019-08-24] MEDS: HYDROmorphone INJ 0.5 MG/0.5 ML SYR IV PRN ×2 (14:34→23:34)
--- NOTE | 2019-08-24 16:58 | XCELERA ---
[id number] \\[email or web address]\[id number]
[2019-08-24] MEDS: ONDANSETRON INJ 2 MG/ML 2 ML VIAL IV PRN (18:15)
[2019-08-24] MEDS: CEFAZOLIN 2000MG 2,000 MG/15 ML SYR IV SCH (18:38)
[2019-08-24] MEDS: SENNA 8.6 MG TAB PO SCH (21:06)
[2019-08-24] MEDS: DOCUSATE SODIUM/SENNA 50/8.6MG TAB PO SCH (21:06)
[2019-08-24] MEDS: DOCUSATE SODIUM 100 MG CAP PO SCH (21:06)
[2019-08-24] MEDS: FAMOTIDINE 20 MG TAB PO SCH (21:06)
[2019-08-25] MEDS: CEFAZOLIN 2000MG 2,000 MG/15 ML SYR IV SCH (01:36)
[2019-08-25] MEDS: HYDROmorphone INJ 0.5 MG/0.5 ML SYR IV PRN (03:48)
[2019-08-25 05:05] LABS: Basophils # (auto) 0.02 K/uL (0-0.2); Basophils % (auto) 0.1 %; Eosinophils # (auto) 0.15 K/uL (0-0.5); Eosinophils % (auto) 1.1 %; Hematocrit (blood only) 30.7 % (37-47); Hemoglobin 9.7 g/dL (12.0-16.0); Immature Granulocytes # (auto) 0.04 K/uL (0.00-0.02); Immature Granulocytes % (auto) 0.3 %; Lymphocytes # (auto) 0.87 K/uL (1.2-3.4); Lymphocytes % (auto) 6.5 %; Mean Corpuscular Hemoglobin 32.2 pg (25-34); Mean Corpuscular Hgb Conc 31.6 g/dL (32-36); Mean Platelet Volume 9.7 fL (7.4-10.4); Monocytes # (auto) 1.35 K/uL (0.11-0.59); Monocytes % (auto) 10.1 %; Neutrophils # (auto) 10.99 K/uL (1.4-6.5); Neutrophils % (auto) 81.9 %; Platelet Count 249 K/uL (130-400); RDW Coefficient of Variation 13.8 % (11.5-14.5); RDW Standard Deviation 51.5 fL (36.4-46.3); Red Blood Count 3.01 M/uL (4.2-5.4); White Blood Count 13.42 K/uL (4.8-10.8)
[2019-08-25 05:37] LABS: BUN Creatinine Ratio 17.5 (10-20); Creatinine Clr Calc Pharmacy 39.1 ml/min; Est GFR (African American) 42.3; Est GFR (Non-African American) 36.5; Potassium 4.4 mmol/L (3.5-5.1)
[2019-08-25] MEDS: HEPARIN SOD 5,000 UNIT/0.5 ML VIAL SQ SCH ×3 (05:56→21:27)
[2019-08-25] MEDS: LEVOTHYROXINE SODIUM 88 MCG TABLET PO SCH (05:57)
[2019-08-25] MEDS: LACTATED RINGER'S 1,000 ML IV SCH (07:09)
--- NOTE | 2019-08-25 07:34 | Hospitalist Progress Note ---
Date of Service August 25, 2019 Assessment & Plan (1) Closed fracture of left hip: hip fracture order set utilized upon presentation Dr. Boykin s/p IM nailing left femur on 08/23, tolerated well pain control with Oxycodone will eliminate Dilaudid due to concerns for confusion PT/OT, d/c planning with CM involved from [facility], could likely return there for rehab once medically recovered from surgery, anticipate patient may be able to return in the next 1 to 2 days (2) Fall: unwitnessed, happened at SNF suffered left hip fracture no hematoma on head CT (3) Elevated troponin I level: 0.2 and then 0.19 on repeat 6 hours later patient denies chest pain, EKG without ischemic changes Echo 08/23 shows preserved EF, LVH, Elevated right heart pressures and progression of mitral valve disease both MS and MR (4) Acute hyperglycemia: resolved continue Levemir but will increase Levemir dose to twice daily dosing 20 units 08/24 and Novolog, glucoses up slightly from stressors cover with SSI (5) Diabetes: as above, no hypoglycemic episodes (6) Hypothyroid: resume Synthroid (7) TIA (transient ischemic attack): held aspirin and Plavix for surgical intervention resume 08/24 (8) DVT prophylaxis: heparin SC (9) Urinary tract infection: Patient has greater than 100,000 colonies of Vita will start on fluconazole on 08/23 for overall lethargy and malaise may be somewhat metabolic encephalopathy from this infection however given some dyspnea will check a chest x-ray to evaluate for postoperative pneumonia also (10) Dyspnea: Patient has resting dyspnea so coarse breath sounds no JVD to consider fluid overload and no IV fluids. We will check a chest x-ray to evaluate for volume overload or even postoperative pneumonia as she is at high risk given her debilitated state [facility] Admission and Anticipated Discharge Date Admission Date: August 23, 2019 Subjective Patient is somewhat lethargic and confused today, she did have some pain medicine earlier in the morning, she is slightly tachypneic Review of Systems Review of Systems: All systems reviewed & are unremarkable except as noted in HPI & below Constitutional: + sweats, + body aches, + malaise and + weakness Respiratory: + dyspnea (but no hypoxia) Musculoskeletal: pt has some pain at surgical site but not significant Physical Exam Constitutional: well developed and average body habitus Eyes: no conjunctival abnormality and no scleral abnormality Neck: normal visual inspection and trachea midline Respiratory: normal respiratory effort; no respiratory distress Auscultation: lungs clear to auscultation bilaterally Cardiovascular: RRR, no murmur, no edema Gastrointestinal (Abdomen): normal bowel sounds, soft, nontender, no hepatosplenomegaly Musculoskeletal: Ankle: + ankle abnormal to inspection Patient only with minor tenderness to her left hip area. Results & Data Results & Data ([facility]) Vital Signs (Past 12 Hours) Vital Signs Temp Pulse Pulse Resp BP BP Pulse Ox 08/25/19 07:19 99.0 F 110 H 16 122/74 92 08/25/19 03:52 117 H 08/25/19 02:56 98 08/25/19 02:48 97.9 F 115 H 18 139/75 88 L 08/24/19 23:02 97.9 F 112 H 16 96/58 L 93 PG Care Time/CCT Total # of Minutes Spent Total Time Spent with Patient: Total time spent is greater than 50% in coordination of care (as documented) at patient's floor/unit and/or counseling patient: Coding Level of Care Code 42566 Subseq Hosp Care Lvl 3 Diagnoses Closed fracture of left hip S72.002A Encounter type: initial encounter Fall W19.XXXA Encounter type: initial encounter Elevated troponin I level R79.89 Acute hyperglycemia R73.9 Diabetes E11.9 Hypothyroid E03.9 TIA (transient ischemic attack) G45.9 DVT prophylaxis Z29.9 Urinary tract infection N39.0 Dyspnea R06.00 (1) Fall Encounter type: initial encounter Qualified Code(s): W19.XXXA - Unspecified fall, initial encounter (2) Closed fracture of left hip Encounter type: initial encounter Qualified Code(s): S72.002A - Fracture of unspecified part of neck of left femur, initial encounter for closed fracture
[2019-08-25] MEDS: ONDANSETRON INJ 2 MG/ML 2 ML VIAL IV PRN (08:25)
[2019-08-25] MEDS: INSULIN ASPART 100 UNITS/ML 3 ML PEN SC SCH ×4 (08:26→21:27)
[2019-08-25] MEDS: FLUTICASONE/VILANTEROL 100/25MCG 14 PUFFS/INHALER INH SCH (08:28)
[2019-08-25] MEDS: INSULIN DETEMIR FLEXPEN/FLEX TOUCH 100 UNITS/ML 3ML SC SCH ×2 (08:28→21:26)
[2019-08-25] MEDS: DOCUSATE SODIUM 100 MG CAP PO SCH ×2 (10:17→21:31)
[2019-08-25] MEDS: VENLAFAXINE HCL XR 150 MG CAPXR PO SCH (10:18)
[2019-08-25] MEDS: ASPIRIN 81 MG ECTAB PO SCH (10:18)
[2019-08-25] MEDS: POLYETHYLENE (MIRALAX) 17 GM PACK PO SCH (10:19)
[2019-08-25] MEDS: MULTIVITAMIN TAB PO SCH (10:19)
[2019-08-25] MEDS: POTASSIUM CHLORIDE 20 MEQ TABCR PO SCH (10:19)
[2019-08-25] MEDS: GABAPENTIN 100 MG CAP PO SCH ×3 (10:20→21:37)
[2019-08-25] MEDS: FAMOTIDINE 20 MG TAB PO SCH ×2 (10:20→21:37)
[2019-08-25] MEDS: MONTELUKAST SODIUM 10 MG TABLET PO SCH (10:21)
[2019-08-25] MEDS: CLOPIDOGREL BISULFATE 75 MG TAB PO SCH (10:21)
--- NOTE | 2019-08-25 11:07 | Orthopedic Progress Note ---
Date of Service August 25, 2019 Assessment & Plan (1) Closed fracture of left hip: POD 1 s/p left TFN PT/OT Protocols. WBAT DVT prophylaxis - Heparin SQ/ Clopidogrel/ SCD's Pain management as written Admission and Anticipated Discharge Date Admission Date: August 23, 2019 Subjective Pt currently lying in bed. Awake. Alert. Answering questions appropriately. Having some pain in the hip this AM. Denies SOB,CP,LH. Physical Exam Physical Exam: Dressings C/D/I. Calves soft, NT. Thigh soft,N/T. NV intact. Results & Data ([facility]) Vital Signs (Past 12 Hours) Vital Signs Temp Pulse Pulse Resp BP BP Pulse Ox 08/25/19 08:23 106 H 98 08/25/19 07:19 37.2 C 110 H 16 122/74 92 08/25/19 03:52 117 H 08/25/19 02:56 98 08/25/19 02:48 36.6 C 115 H 18 139/75 88 L Laboratory Results Laboratory Results WBC 13.42 K/uL (4.8-10.8) H 08/25/19 04:35 RBC 3.01 M/uL (4.2-5.4) L 08/25/19 04:35 Hgb 9.7 g/dL (12.0-16.0) L 08/25/19 04:35 Hct 30.7 % (37-47) L 08/25/19 04:35 MCV 102.0 fL (80-100) H 08/25/19 04:35 MCH 32.2 pg (25-34) 08/25/19 04:35 MCHC 31.6 g/dL (32-36) L 08/25/19 04:35 RDW Std Deviation 51.5 fL (36.4-46.3) H 08/25/19 04:35 RDW Coeff of Carmen 13.8 % (11.5-14.5) 08/25/19 04:35 Plt Count 249 K/uL (130-400) 08/25/19 04:35 MPV 9.7 fL (7.4-10.4) 08/25/19 04:35 Immature Gran % (Auto) 0.3 % 08/25/19 04:35 Neut % (Auto) 81.9 % 08/25/19 04:35 Lymph % (Auto) 6.5 % 08/25/19 04:35 [place] % (Auto) 10.1 % 08/25/19 04:35 Eos % (Auto) 1.1 % 08/25/19 04:35 Baso % (Auto) 0.1 % 08/25/19 04:35 Immature Gran # (Auto) 0.04 K/uL (0.00-0.02) H 08/25/19 04:35 Neut # (Auto) 10.99 K/uL (1.4-6.5) H 08/25/19 04:35 Lymph # (Auto) 0.87 K/uL (1.2-3.4) L 08/25/19 04:35 [place] # (Auto) 1.35 K/uL (0.11-0.59) H 08/25/19 04:35 Eos # (Auto) 0.15 K/uL (0-0.5) 08/25/19 04:35 Baso # (Auto) 0.02 K/uL (0-0.2) 08/25/19 04:35 PT 11.2 Seconds (9.0-12.0) 08/23/19 13:26 INR 1.1 (0.9-1.1) 08/23/19 13:26 APTT 29.2 Seconds (21.0-31.0) 08/23/19 13:26 PTT Ratio 1.0 08/23/19 13:26 Sodium 136 mmol/L (136-145) 08/25/19 04:35 Potassium 4.4 mmol/L (3.5-5.1) 08/25/19 04:35 Chloride 107 mmol/L (98-107) 08/25/19 04:35 Carbon Dioxide 24 mmol/L (21-32) 08/25/19 04:35 Anion Gap 5.0 (3-11) 08/25/19 04:35 BUN 24 mg/dl (7-18) H 08/25/19 04:35 Creatinine 1.35 mg/dl (0.6-1.2) H 08/25/19 04:35 Est Cr Clr Drug Dosing 39.1 ml/min 08/25/19 04:35 Est GFR ( Amer) 42.3 08/25/19 04:35 Est GFR (Non-Af Amer) 36.5 08/25/19 04:35 BUN/Creatinine Ratio 17.5 (10-20) 08/25/19 04:35 Glucose 257 mg/dl (70-99) H 08/25/19 04:35 POC Glucose 288 mg/dl (70-99) H 08/25/19 08:01 Calcium 8.0 mg/dl (8.5-10.1) L 08/25/19 04:35 Troponin I 0.195 ng/ml (0-0.045) H* 08/23/19 20:07 Urine Color Dark Yellow 08/23/19 14:25 Urine Appearance Clear (Clear) 08/23/19 14:25 Urine pH 5.0 (4.5-7.5) 08/23/19 14:25 Ur Specific [place] 1.025 (1.000-1.030) 08/23/19 14:25 Urine Protein Negative (Negative) 08/23/19 14:25 Urine Glucose (UA) 3+ (Negative) H 08/23/19 14:25 Urine Ketones Trace (Negative) H 08/23/19 14:25 Urine Blood Negative (Negative) 08/23/19 14:25 Urine Nitrite Negative (Negative) 08/23/19 14:25 Urine Bilirubin Negative (Negative) 08/23/19 14:25 Urine Urobilinogen Negative (Negative) 08/23/19 14:25 Ur Leukocyte Esterase Trace (Negative) H 08/23/19 14:25 Urine WBC (Auto) >30 /hpf (0-5) H 08/23/19 14:25 Urine RBC (Auto) 0-4 /hpf (0-4) 08/23/19 14:25 U Hyaline Cast (Auto) 5-10 /lpf (0-5) H 08/23/19 14:25 U Epithel Cells (Auto) >30 /lpf (0-5) H 08/23/19 14:25 Urine Bacteria (Auto) Negative (Negative) 08/23/19 14:25 Ur Renal Epithelial Cell Not Reportable 08/23/19 14:25 Urine Yeast Budding w/ Hyphae (None Prsent) A 08/23/19 14:25 Blood Type A Positive 08/23/19 13:26 Antibody Screen NEGATIVE 08/23/19 13:26 (1) Closed fracture of left hip Encounter type: initial encounter Qualified Code(s): S72.002A - Fracture of unspecified part of neck of left femur, initial encounter for closed fracture
--- NOTE | 2019-08-25 14:02 | XRay Report ---
XR chest 1V portable CLINICAL HISTORY: 83 years-old Female presenting with shortness of breath with recent hip fx, ? pnx. TECHNIQUE: Portable upright AP view of the chest was obtained. COMPARISON: 08/23/2019. FINDINGS: The patient is FRANCISCO rotated. Cardiac silhouette enlarged as on prior. Mild pulmonary vascular prominen ce. Low lung volumes with elevation of the right hemidiaphragm. No focal opacity. No large effusion o r pneumothorax. Partially visualized lumbar fusion hardware. Degenerative changes of the spine. Inter nal fixation hardware of the right humerus. Osteopenia may be present. Upper abdomen normal. IMPRESSION: 1. Low lung volumes as on prior exam. 2. Mild volume overload is new from prior. 3. Patient rotation degrades evaluation. ACT 112: Negative or not required by law. Electronically signed by: Sae Tijerina M.D. 08/25/2019 2:00 PM
[2019-08-25] MEDS: FLUCONAZOLE 100 MG/50 ML BAG IV SCH (14:25)
[2019-08-25] MEDS ORDERED: HALOPERIDOL LACTATE 5 MG/ML 1 ML VIAL IM ONE (16:30)
[2019-08-25] MEDS ORDERED: FUROSEMIDE 20 MG in SYRINGE 0 ML IV ONE (16:30)
[2019-08-25] MEDS: SENNA 8.6 MG TAB PO SCH (21:31)
[2019-08-25] MEDS: MELATONIN 3 MG TAB PO SCH (21:32)
[2019-08-25] MEDS: ACETAMINOPHEN 500 MG TAB PO SCH (21:32)
[2019-08-25] MEDS: DOCUSATE SODIUM/SENNA 50/8.6MG TAB PO SCH (21:32)
[2019-08-26 05:01] LABS: Hematocrit (blood only) 27.3 % (37-47); Hemoglobin 8.8 g/dL (12.0-16.0); Mean Corpuscular Hemoglobin 32.7 pg (25-34); Mean Corpuscular Hgb Conc 32.2 g/dL (32-36); Mean Corpuscular Volume 101.5 fL (80-100); Mean Platelet Volume 9.4 fL (7.4-10.4); Platelet Count 235 K/uL (130-400); RDW Coefficient of Variation 13.7 % (11.5-14.5); RDW Standard Deviation 50.9 fL (36.4-46.3); Red Blood Count 2.69 M/uL (4.2-5.4); White Blood Count 11.67 K/uL (4.8-10.8)
[2019-08-26] MEDS: LEVOTHYROXINE SODIUM 88 MCG TABLET PO SCH (05:36)
[2019-08-26] MEDS: HEPARIN SOD 5,000 UNIT/0.5 ML VIAL SQ SCH ×4 (05:36→21:18)
--- NOTE | 2019-08-26 07:43 | Hospitalist Progress Note ---
Date of Service August 26, 2019 Assessment & Plan (1) Closed fracture of left hip: hip fracture order set utilized upon presentation Dr. Boykin s/p IM nailing left femur on 08/23, tolerated well pain control with Oxycodone will eliminate Dilaudid due to concerns for confusion PT/OT, d/c planning with CM involved from [facility], could likely return there for rehab once medically recovered from surgery, anticipate patient may be able to return 08/26 (2) Fall: unwitnessed, happened at SNF suffered left hip fracture no hematoma on head CT (3) Elevated troponin I level: 0.2 and then 0.19 on repeat suspect demand ischemia not an nSTEMI patient denies chest pain, EKG without ischemic changes Echo 08/23 shows preserved EF, LVH, Elevated right heart pressures and progression of mitral valve disease both MS and MR (4) Acute hyperglycemia: elevated glucoses, did increase Levemir dose to twice daily dosing 20 units 08/24 and Novolog, glucoses up slightly from stressors cover with SSI did tighten SSI scale on 08/24 (5) Diabetes: as above, basal bolus insulin no hypoglycemic episodes (6) Hypothyroid: resume Synthroid clinically is euthyroid (7) TIA (transient ischemic attack): held aspirin and Plavix for surgical intervention resumed 08/24 (8) DVT prophylaxis: heparin SC (9) Urinary tract infection: Patient has greater than 100,000 colonies of Vita will start on fluconazole on 08/23 for overall lethargy and malaise may be somewhat metabolic encephalopathy from this infection, chest x-ray negative for infection transition fluconazole to oral tablets on 08/26 (10) Dyspnea: Chest x-ray consistent with fluid overload from perioperative volume shifts improved 1 dose of Lasix Admission and Anticipated Discharge Date Admission Date: August 23, 2019 Review of Systems Review of Systems: Mild distress and fatigue no headache, blurry or double vision no speech or swallowing issues no chest pain, pressure or palpitations no shortness of breath, cough or wheezes no abdominal pain, nausea or vomiting, diarrhea or constipation no dysuria, hematuria or frequency Much less left pain still with minor swelling no back pain, CVA tenderness or radicular pain no bruising, bleeding or rashes no focal signs of weakness or numbness or altered sensation Resolved complaints of anxiety Physical Exam Physical Exam: The patient appeared well nourished and normally developed. Vital signs as documented. Head exam is unremarkable. No scleral icterus Neck is without JVD, thyromegaly, or carotid bruits. Lungs are clear to auscultation and percussion. Cardiac exam, Rhythm is regular.. No murmurs, rubs or gallops. Abdominal exam reveals normal bowel sounds, no masses, no organomegaly and no aortic enlargement Extremities are trace edematous and both pedal pulses are normal. Neurologic exam is alert and oriented, no focal loss of strength or sensation Skin is without bruises or rashes Psychologically is without concerns for anxiety or depression Neck: normal visual inspection and trachea midline Results & Data Results & Data ([facility]) Vital Signs (Past 12 Hours) Vital Signs Temp Pulse Resp BP BP Pulse Ox 08/26/19 07:19 97.7 F 91 H 16 136/81 97 08/26/19 04:01 93 H 16 94 08/26/19 00:23 97.9 F 92 H 16 131/70 96 PG Care Time/CCT Total # of Minutes Spent Total Time Spent with Patient: Total time spent is greater than 50% in coordination of care (as documented) at patient's floor/unit and/or counseling patient: Coding Level of Care Code 16731 Subseq Hosp Care Lvl 3 Diagnoses Closed fracture of left hip S72.002A Encounter type: initial encounter Fall W19.XXXA Encounter type: initial encounter Elevated troponin I level R79.89 Acute hyperglycemia R73.9 Diabetes E11.9 Hypothyroid E03.9 TIA (transient ischemic attack) G45.9 DVT prophylaxis Z29.9 Urinary tract infection N39.0 Dyspnea R06.00 (1) Fall Encounter type: initial encounter Qualified Code(s): W19.XXXA - Unspecified fall, initial encounter (2) Closed fracture of left hip Encounter type: initial encounter Qualified Code(s): S72.002A - Fracture of unspecified part of neck of left femur, initial encounter for closed fracture
[2019-08-26] MEDS: DOCUSATE SODIUM 100 MG CAP PO SCH ×2 (09:33→20:18)
[2019-08-26] MEDS: FLUTICASONE/VILANTEROL 100/25MCG 14 PUFFS/INHALER INH SCH (09:33)
[2019-08-26] MEDS: ASPIRIN 81 MG ECTAB PO SCH (09:33)
[2019-08-26] MEDS: POLYETHYLENE (MIRALAX) 17 GM PACK PO SCH (09:34)
[2019-08-26] MEDS: POTASSIUM CHLORIDE 20 MEQ TABCR PO SCH (09:34)
[2019-08-26] MEDS: VENLAFAXINE HCL XR 150 MG CAPXR PO SCH (09:34)
[2019-08-26] MEDS: MULTIVITAMIN TAB PO SCH (09:35)
[2019-08-26] MEDS: GABAPENTIN 100 MG CAP PO SCH ×4 (09:35→21:17)
[2019-08-26] MEDS: FAMOTIDINE 20 MG TAB PO SCH ×3 (09:36→21:18)
[2019-08-26] MEDS: ACETAMINOPHEN 500 MG TAB PO SCH ×3 (09:36→21:18)
[2019-08-26] MEDS: MONTELUKAST SODIUM 10 MG TABLET PO SCH (09:36)
[2019-08-26] MEDS: CLOPIDOGREL BISULFATE 75 MG TAB PO SCH (09:36)
[2019-08-26] MEDS: INSULIN ASPART 100 UNITS/ML 3 ML PEN SC SCH ×5 (09:38→21:17)
[2019-08-26] MEDS: INSULIN DETEMIR FLEXPEN/FLEX TOUCH 100 UNITS/ML 3ML SC SCH ×3 (09:39→21:16)
--- NOTE | 2019-08-26 10:30 | Orthopedic Progress Note ---
Date of Service August 26, 2019 Assessment & Plan (1) Closed fracture of left hip: POD 2 s/p left TFN PT/OT Protocols. WBAT DVT prophylaxis - Heparin SQ/ Clopidogrel/ SCD's -will need to continue heparin SQ versus Lovenox SQ for at least 2 weeks. Up to 4 weeks if she is minimally ambulating. Pain management as written DC planning -currently has bed on hold at [facility]. Plan for transfer back to shelter facility when medically stable. Discharge instructions placed in the EHR. Admission and Anticipated Discharge Date Admission Date: August 23, 2019 Subjective Patient sleeping upon arrival. She is arousable and answering questions appropriately but goes back to sleep easily. States she is feeling a little better today. Not as much pain at rest. Currently pain appears controlled. Other complaints at this time. Physical Exam Physical Exam: Original dressing has been removed. No erythema noted. Clean dressing has been applied with Tegaderm covering. Calves are soft and nontender. Vascular is intact. He has good dorsiflexion and plantarflexion of the left foot. Results & Data ([facility]) Vital Signs (Past 12 Hours) Vital Signs Temp Pulse Resp BP BP Pulse Ox 08/26/19 07:19 36.5 C 91 H 16 136/81 97 08/26/19 04:01 93 H 16 94 08/26/19 00:23 36.6 C 92 H 16 131/70 96 Laboratory Results Laboratory Results WBC 11.67 K/uL (4.8-10.8) H 08/26/19 04:32 RBC 2.69 M/uL (4.2-5.4) L 08/26/19 04:32 Hgb 8.8 g/dL (12.0-16.0) L 08/26/19 04:32 Hct 27.3 % (37-47) L 08/26/19 04:32 MCV 101.5 fL (80-100) H 08/26/19 04:32 MCH 32.7 pg (25-34) 08/26/19 04:32 MCHC 32.2 g/dL (32-36) 08/26/19 04:32 RDW Std Deviation 50.9 fL (36.4-46.3) H 08/26/19 04:32 RDW Coeff of Carmen 13.7 % (11.5-14.5) 08/26/19 04:32 Plt Count 235 K/uL (130-400) 08/26/19 04:32 MPV 9.4 fL (7.4-10.4) 08/26/19 04:32 Immature Gran % (Auto) 0.3 % 08/25/19 04:35 Neut % (Auto) 81.9 % 08/25/19 04:35 Lymph % (Auto) 6.5 % 08/25/19 04:35 [place] % (Auto) 10.1 % 08/25/19 04:35 Eos % (Auto) 1.1 % 08/25/19 04:35 Baso % (Auto) 0.1 % 08/25/19 04:35 Immature Gran # (Auto) 0.04 K/uL (0.00-0.02) H 08/25/19 04:35 Neut # (Auto) 10.99 K/uL (1.4-6.5) H 08/25/19 04:35 Lymph # (Auto) 0.87 K/uL (1.2-3.4) L 08/25/19 04:35 [place] # (Auto) 1.35 K/uL (0.11-0.59) H 08/25/19 04:35 Eos # (Auto) 0.15 K/uL (0-0.5) 08/25/19 04:35 Baso # (Auto) 0.02 K/uL (0-0.2) 08/25/19 04:35 PT 11.2 Seconds (9.0-12.0) 08/23/19 13:26 INR 1.1 (0.9-1.1) 08/23/19 13:26 APTT 29.2 Seconds (21.0-31.0) 08/23/19 13:26 PTT Ratio 1.0 08/23/19 13:26 Sodium 136 mmol/L (136-145) 08/25/19 04:35 Potassium 4.4 mmol/L (3.5-5.1) 08/25/19 04:35 Chloride 107 mmol/L (98-107) 08/25/19 04:35 Carbon Dioxide 24 mmol/L (21-32) 08/25/19 04:35 Anion Gap 5.0 (3-11) 08/25/19 04:35 BUN 24 mg/dl (7-18) H 08/25/19 04:35 Creatinine 1.35 mg/dl (0.6-1.2) H 08/25/19 04:35 Est Cr Clr Drug Dosing 39.1 ml/min 08/25/19 04:35 Est GFR ( Amer) 42.3 08/25/19 04:35 Est GFR (Non-Af Amer) 36.5 08/25/19 04:35 BUN/Creatinine Ratio 17.5 (10-20) 08/25/19 04:35 Glucose 257 mg/dl (70-99) H 08/25/19 04:35 POC Glucose 139 mg/dl (70-99) H 08/26/19 08:19 Calcium 8.0 mg/dl (8.5-10.1) L 08/25/19 04:35 Troponin I 0.195 ng/ml (0-0.045) H* 08/23/19 20:07 Urine Color Dark Yellow 08/23/19 14:25 Urine Appearance Clear (Clear) 08/23/19 14:25 Urine pH 5.0 (4.5-7.5) 08/23/19 14:25 Ur Specific [place] 1.025 (1.000-1.030) 08/23/19 14:25 Urine Protein Negative (Negative) 08/23/19 14:25 Urine Glucose (UA) 3+ (Negative) H 08/23/19 14:25 Urine Ketones Trace (Negative) H 08/23/19 14:25 Urine Blood Negative (Negative) 08/23/19 14:25 Urine Nitrite Negative (Negative) 08/23/19 14:25 Urine Bilirubin Negative (Negative) 08/23/19 14:25 Urine Urobilinogen Negative (Negative) 08/23/19 14:25 Ur Leukocyte Esterase Trace (Negative) H 08/23/19 14:25 Urine WBC (Auto) >30 /hpf (0-5) H 08/23/19 14:25 Urine RBC (Auto) 0-4 /hpf (0-4) 08/23/19 14:25 U Hyaline Cast (Auto) 5-10 /lpf (0-5) H 08/23/19 14:25 U Epithel Cells (Auto) >30 /lpf (0-5) H 08/23/19 14:25 Urine Bacteria (Auto) Negative (Negative) 08/23/19 14:25 Ur Renal Epithelial Cell Not Reportable 08/23/19 14:25 Urine Yeast Budding w/ Hyphae (None Prsent) A 08/23/19 14:25 Blood Type A Positive 08/23/19 13:26 Antibody Screen NEGATIVE 08/23/19 13:26 (1) Closed fracture of left hip Encounter type: initial encounter Qualified Code(s): S72.002A - Fracture of unspecified part of neck of left femur, initial encounter for closed fracture
[2019-08-26] MEDS: FLUCONAZOLE 100 MG TAB PO SCH (13:57)
[2019-08-26] MEDS: MELATONIN 3 MG TAB PO SCH ×2 (20:17→21:17)
[2019-08-26] MEDS: DOCUSATE SODIUM/SENNA 50/8.6MG TAB PO SCH ×2 (20:17→21:18)
[2019-08-26] MEDS: SENNA 8.6 MG TAB PO SCH (20:18)
[2019-08-27] MEDS: LEVOTHYROXINE SODIUM 88 MCG TABLET PO SCH (06:09)
[2019-08-27] MEDS: OXYCODONE HCL IR 5 MG TAB (IMMEDIATE RELEASE) PO PRN ×3 (06:13→16:19)
[2019-08-27] MEDS: HEPARIN SOD 5,000 UNIT/0.5 ML VIAL SQ SCH ×2 (06:15→14:25)
[2019-08-27] MEDS: ACETAMINOPHEN 500 MG TAB PO SCH (08:34)
[2019-08-27] MEDS: INSULIN ASPART 100 UNITS/ML 3 ML PEN SC SCH ×2 (08:41→13:21)
[2019-08-27] MEDS: INSULIN DETEMIR FLEXPEN/FLEX TOUCH 100 UNITS/ML 3ML SC SCH (08:42)
[2019-08-27] MEDS: FLUCONAZOLE 100 MG TAB PO SCH (08:46)
[2019-08-27] MEDS: FLUTICASONE/VILANTEROL 100/25MCG 14 PUFFS/INHALER INH SCH ×2 (08:46→08:59)
[2019-08-27] MEDS: DOCUSATE SODIUM 100 MG CAP PO SCH (08:47)
[2019-08-27] MEDS: VENLAFAXINE HCL XR 150 MG CAPXR PO SCH (08:47)
[2019-08-27] MEDS: ASPIRIN 81 MG ECTAB PO SCH (08:48)
[2019-08-27] MEDS: POTASSIUM CHLORIDE 20 MEQ TABCR PO SCH (08:48)
[2019-08-27] MEDS: POLYETHYLENE (MIRALAX) 17 GM PACK PO SCH (08:48)
[2019-08-27] MEDS: FAMOTIDINE 20 MG TAB PO SCH (08:49)
[2019-08-27] MEDS: MULTIVITAMIN TAB PO SCH (08:49)
[2019-08-27] MEDS: GABAPENTIN 100 MG CAP PO SCH ×2 (08:49→14:25)
[2019-08-27] MEDS: CLOPIDOGREL BISULFATE 75 MG TAB PO SCH (08:50)
[2019-08-27] MEDS: MONTELUKAST SODIUM 10 MG TABLET PO SCH (08:50)
--- NOTE | 2019-08-27 11:43 | Orthopedic Progress Note ---
Date of Service August 27, 2019 Assessment & Plan (1) Closed fracture of left hip: POD 3 s/p left TFN PT/OT Protocols. WBAT DVT prophylaxis - Heparin SQ/ Clopidogrel/ SCD's -will need to continue heparin SQ versus Lovenox SQ for at least 2 weeks. Up to 4 weeks if she is minimally ambulating. Pain management as written DC planning -currently has bed on hold at [facility]. Plan for transfer back to half-way facility when medically stable. Discharge instructions placed in the EHR. Orthopedics will sign off at this time. Please call us with any questions or concerns. Discharge instructions placed in the EHR. Admission and Anticipated Discharge Date Admission Date: August 23, 2019 Subjective Patient lying in bed. She is sleeping but arousable. She does go back to sleep easily. Complaint of pain in the left hip mainly when trying to get out of bed. No other complaints at this time. Physical Exam Physical Exam: Dressings clean, dry, and intact. Calves are soft nontender. Neurovascular intact. Toes are mobile. No erythema surrounding the wound areas on the left thigh Results & Data ([facility]) Vital Signs (Past 12 Hours) Vital Signs Temp Pulse Resp BP Pulse Ox 08/27/19 07:28 36.7 C 88 16 144/84 H 95 Laboratory Results Laboratory Results WBC 11.67 K/uL (4.8-10.8) H 08/26/19 04:32 RBC 2.69 M/uL (4.2-5.4) L 08/26/19 04:32 Hgb 8.8 g/dL (12.0-16.0) L 08/26/19 04:32 Hct 27.3 % (37-47) L 08/26/19 04:32 MCV 101.5 fL (80-100) H 08/26/19 04:32 MCH 32.7 pg (25-34) 08/26/19 04:32 MCHC 32.2 g/dL (32-36) 08/26/19 04:32 RDW Std Deviation 50.9 fL (36.4-46.3) H 08/26/19 04:32 RDW Coeff of Carmen 13.7 % (11.5-14.5) 08/26/19 04:32 Plt Count 235 K/uL (130-400) 08/26/19 04:32 MPV 9.4 fL (7.4-10.4) 08/26/19 04:32 Immature Gran % (Auto) 0.3 % 08/25/19 04:35 Neut % (Auto) 81.9 % 08/25/19 04:35 Lymph % (Auto) 6.5 % 08/25/19 04:35 [place] % (Auto) 10.1 % 08/25/19 04:35 Eos % (Auto) 1.1 % 08/25/19 04:35 Baso % (Auto) 0.1 % 08/25/19 04:35 Immature Gran # (Auto) 0.04 K/uL (0.00-0.02) H 08/25/19 04:35 Neut # (Auto) 10.99 K/uL (1.4-6.5) H 08/25/19 04:35 Lymph # (Auto) 0.87 K/uL (1.2-3.4) L 08/25/19 04:35 [place] # (Auto) 1.35 K/uL (0.11-0.59) H 08/25/19 04:35 Eos # (Auto) 0.15 K/uL (0-0.5) 08/25/19 04:35 Baso # (Auto) 0.02 K/uL (0-0.2) 08/25/19 04:35 PT 11.2 Seconds (9.0-12.0) 08/23/19 13:26 INR 1.1 (0.9-1.1) 08/23/19 13:26 APTT 29.2 Seconds (21.0-31.0) 08/23/19 13:26 PTT Ratio 1.0 08/23/19 13:26 Sodium 136 mmol/L (136-145) 08/25/19 04:35 Potassium 4.4 mmol/L (3.5-5.1) 08/25/19 04:35 Chloride 107 mmol/L (98-107) 08/25/19 04:35 Carbon Dioxide 24 mmol/L (21-32) 08/25/19 04:35 Anion Gap 5.0 (3-11) 08/25/19 04:35 BUN 24 mg/dl (7-18) H 08/25/19 04:35 Creatinine 1.35 mg/dl (0.6-1.2) H 08/25/19 04:35 Est Cr Clr Drug Dosing 39.1 ml/min 08/25/19 04:35 Est GFR ( Amer) 42.3 08/25/19 04:35 Est GFR (Non-Af Amer) 36.5 08/25/19 04:35 BUN/Creatinine Ratio 17.5 (10-20) 08/25/19 04:35 Glucose 257 mg/dl (70-99) H 08/25/19 04:35 POC Glucose 160 mg/dl (70-99) H 08/27/19 08:05 Calcium 8.0 mg/dl (8.5-10.1) L 08/25/19 04:35 Troponin I 0.195 ng/ml (0-0.045) H* 08/23/19 20:07 Urine Color Dark Yellow 08/23/19 14:25 Urine Appearance Clear (Clear) 08/23/19 14:25 Urine pH 5.0 (4.5-7.5) 08/23/19 14:25 Ur Specific [place] 1.025 (1.000-1.030) 08/23/19 14:25 Urine Protein Negative (Negative) 08/23/19 14:25 Urine Glucose (UA) 3+ (Negative) H 08/23/19 14:25 Urine Ketones Trace (Negative) H 08/23/19 14:25 Urine Blood Negative (Negative) 08/23/19 14:25 Urine Nitrite Negative (Negative) 08/23/19 14:25 Urine Bilirubin Negative (Negative) 08/23/19 14:25 Urine Urobilinogen Negative (Negative) 08/23/19 14:25 Ur Leukocyte Esterase Trace (Negative) H 08/23/19 14:25 Urine WBC (Auto) >30 /hpf (0-5) H 08/23/19 14:25 Urine RBC (Auto) 0-4 /hpf (0-4) 08/23/19 14:25 U Hyaline Cast (Auto) 5-10 /lpf (0-5) H 08/23/19 14:25 U Epithel Cells (Auto) >30 /lpf (0-5) H 08/23/19 14:25 Urine Bacteria (Auto) Negative (Negative) 08/23/19 14:25 Ur Renal Epithelial Cell Not Reportable 08/23/19 14:25 Urine Yeast Budding w/ Hyphae (None Prsent) A 08/23/19 14:25 Blood Type A Positive 08/23/19 13:26 Antibody Screen NEGATIVE 08/23/19 13:26 (1) Closed fracture of left hip Encounter type: initial encounter Qualified Code(s): S72.002A - Fracture of unspecified part of neck of left femur, initial encounter for closed fracture
--- NOTE | 2019-08-27 16:00 | Discharge Summary ---
Date of Service August 27, 2019 Admission HPI Per Admitting Provider 83 yo female who lives at [facility] due to h/o dementia, strokes presents to the ED after she fell last evening at [facility]. She cannot give me any details of the fall, she just remembers that "yesterday was not a good day." She admits to pain in her left hip and it hurts more when she moves, hurts less if she lays still. She denies chest pain, dyspnea, cough, fever/chills. In the ED she was found to have a left intertrochanteric fracture. She was given Fentanyl IV for the pain. CXR was unremarkable. WBC up slightly, troponin 0.2 but patient denies chest pain and EKG normal. Cr is stable. Dr. Boykin spoke with patient's family and they would like to proceed with IM nailing of left hip tomorrow. Principal Diagnosis Left hip fracture secondary to mechanical fall Acute diastolic heart failure secondary to perioperative fluid shifts Postoperative anemia not requiring transfusion Discharge Exam The patient appeared well nourished and normally developed. Vital signs as documented. Head exam is unremarkable. No scleral icterus Neck is without JVD, thyromegaly, or carotid bruits. Lungs are clear to auscultation and percussion. Cardiac exam, Rhythm is regular..systolic murmur is present. Abdominal exam reveals normal bowel sounds, no masses, no organomegaly and no aortic enlargement Extremities are trace edema, wound from left hip fracture repair are clean and dry, and both pedal pulses are normal. Neurologic exam is alert and oriented, no focal loss of strength or sensation Skin is without bruises or rashes, other than the surgical site Discharge Data Allergies Allergy/AdvReac Type Severity Reaction Status Date / Time latex Allergy Mild RASH Verified 08/23/19 14:04 adhesive Allergy Unknown RASH Verified 08/23/19 14:04 codeine AdvReac Unknown N&V Verified 08/23/19 14:04 morphine AdvReac Unknown N&V Verified 08/23/19 14:04 Consultations 08/23/19 14:33 ED Decision to Admit Stat 08/23/19 16:10 Consult Case Management - Discharge Planning Routine Consult Orthopedic Surgery Routine 08/23/19 18:38 Consult Anesthesiology Routine 08/24/19 09:25 Consult Case Management - Discharge Planning Routine 08/24/19 09:30 Consult Case Management - Discharge Planning Routine Procedures Performed Operation Date: 08/24/19 08:00 Actual Procedures p Intramedullary Rj Femur Left.(Left) - Sae Boykin MD Ordered Studies 08/23/19 13:03 CT head/brain wo con Stat 08/24/19 07:00 FL fluoroscopy <1hr Routine FL hip LT 2-3V Routine Hospital Course (1) Closed fracture of left hip: hip fracture order set utilized upon presentation Dr. Boykin s/p IM nailing left femur on 08/23, tolerated well pain control with Oxycodone (2) Fall: unwitnessed, happened at [facility] suffered left hip fracture no hematoma on head CT (3) Elevated troponin I level: 0.2 and then 0.19 on repeat suspect demand ischemia not an nSTEMI patient denies chest pain, EKG without ischemic changes Echo 08/23 shows preserved EF, LVH, Elevated right heart pressures and progression of mitral valve disease both MS and MR (4) Acute hyperglycemia: resume outpt diabetic regimen (5) Diabetes: basal bolus insulin no hypoglycemic episodes (6) Hypothyroid: resume Synthroid clinically is euthyroid (7) TIA (transient ischemic attack): held aspirin and Plavix for surgical intervention resumed 08/24 (8) DVT prophylaxis: heparin SC, orthopedic surgery feels should be on heparin for additional 2-4 weeks depending on the patients ambulation (9) Urinary tract infection: Patient has greater than 100,000 colonies of Vita will start on fluconazole on 08/23 for overall lethargy and malaise may be somewhat metabolic encephalopathy from this infection, chest x-ray negative for infection did receive 3 days of treatment (10) Dyspnea: Chest x-ray consistent with fluid overload from perioperative volume shifts improved 1 dose of Lasix, this patient was treated for HFPef or acute diastolic heart failure secondary to perioperative ivf (11) Acute blood loss anemia: Patient did not require transfusion during her hospital stay Total Time Total Time Spent Total Time Spent (In Minutes): It required greater than 30 minutes to prepare this patient for discharge Discharge Plan Discharge Items Patient Disposition[facility] Reason For Visit: Left Hip Fracture Discharge Diagnosis: left hip fracture Condition on Discharge: Good Activity: Per Instructions section Activity Comment: PT/OT WBAT Weightbearing: Left weightbearing Weightbearing Comment: as tolerated with walker Non-emergency contact: Primary Care Provider and Surgeon Call non-emergency contact if: your pain is not controlled, your temperature is above 101.5, your wound has increased redness and your wound has increased drainage Follow-up/Referrals: Bellaire,Yani [Primary Care Provider] - Diet: Carb Consistent or DM2 Addtl Attending Provider Instructions: pt is at risk for DVT, orthopedics prefers 2-4 weeks of sub cutaneous heparin or lovenox while at [email or web address] the duration depends on her level of activity Addtl District Fire Chief Provider Instructions: [facility] DISCHARGE INSTRUCTIONS: HIP FRACTURE SELF CARE INSTRUCTIONS: A. You are to ambulate with a walker or crutches for approximately 6 weeks. B. You are WEIGHT BEARING TOLERATED on your operative lower extremity for at least 6 weeks. C. Wear low heeled shoes with non-slip soles D. Be sure that your floors are free of things that could trip you throw rugs, electrical cords, and small objects. Avoid wet and waxed floors, especially with crutches/walker/cane. E. Try to walk several times a day with rest periods between. F. You may shower 48 hours after surgery and get the incision area wet, but DO NOT soak or submerge incision area in water. (No baths, swimming pools, hot tubs) G. Daily dressing changes. If the wound is dry, you can change it every other day. If incision is leaking through the dressing, please call the office . H. Do NOT apply soap or any ointment/lotions directly over incision. I. You may use ice as needed to operative site. SPECIAL CARE INSTRUCTIONS: VERY IMPORTANT TO READ AND REVIEW A. You may be at risk for phlebitis or blood clots. a. Wear surgical stockings (KELLE hose) for 2 weeks after surgery to improve circulation and reduce swelling. b. Take Heparin SQ BID or Lovenox daily for 4 weeks or as directed. This is your blood thinner. B. There are a few signs you need to watch for after you are home. Call [facility] [place] at [phone] if you experience any of the following: a. If you have a temperature of 101 degrees or higher. b. Sudden increase in pain in your hip not relieved by rest or pain medication. c. Any fluid or drainage from the incision; redness of the incision. d. Shortness of breath or chest pain. C. Call your physician if: a. Temperature is greater than 101 degrees (F). b. Pain is not relieved by prescribed pain medications. c. Increase drainage or redness from incision. d. Unanswered questions or concerns. D. Pain Medication: a. You will be prescribed pain medication upon discharge that should last till your first post-operative appointment. b. If you experience nausea and/or skin rash, discontinue this medication and contact our office for an alternative medication. c. Caution- narcotic pain medication can cause constipation. FOLLOW UP VISIT: Please call [facility] [place] at [phone] to schedule a follow up appointment 10-14 days from the date of your surgery date. Please call for an appointment. Pending Studies at Discharge: No Stand-Alone Forms: [facility] Skilled Items Patient informed of condition?: No DNR: Yes Discharge Level of Care: Skilled Communicable Disease: No Discharge Prognosis: Improving Lines: None Urinary Catheter: No Medications and DC Order Prescriptions: New sennosides-docusate sodium [Senokot-S] 8.6-50 mg Tablet 2 tab PO HS Qty: 60 RF: 0 acetaminophen 500 mg Tablet 1,000 mg PO BID Qty: 60 RF: 0 heparin, porcine (PF) 5,000 unit/0.5 mL Syringe 5,000 unit subcut Q12 Qty: 56 RF: 0 Continued multivitamin [Daily-Lainey] Tablet 1 tab PO DAILY RF: 0 atorvastatin 40 mg tablet 40 mg PO QPM RF: 0 fluticasone propion-salmeterol [Advair Diskus] 250-50 mcg/dose blister with device 1 inh inhalation Q12H RF: 0 venlafaxine 150 mg capsule,extended release 24hr 150 mg PO QAM RF: 0 clopidogrel 75 mg tablet 75 mg PO QAM RF: 0 aspirin [Aspirin Low Dose] 81 mg Tablet,Delayed Release (Dr/Ec) 81 mg PO DAILY RF: 0 levothyroxine 88 mcg tablet 88 mcg PO DAILY RF: 0 potassium chloride 20 mEq tablet,ER particles/crystals 20 meq PO QAM RF: 0 famotidine 20 mg Tablet 20 mg PO BID RF: 0 insulin aspart U-100 [Novolog U-100 Insulin aspart] 100 unit/mL solution 0 unit subcut UD RF: 0 nitroglycerin 0.4 mg Tablet, Sublingual 0.4 mg sublingual UD PRN (Reason: Chest Pain) RF: 0 montelukast 10 mg tablet 10 mg PO DAILY RF: 0 gabapentin 100 mg capsule 100 mg PO TID RF: 0 polyethylene glycol 3350 [Miralax] 17 gram/dose Powder 17 g PO DAILY RF: 0 ramipril 10 mg capsule 10 mg PO QAM RF: 0 Restasis 0.05 % dropperette 1 drp OPB BID RF: 0 Levemir U-100 Insulin 100 unit/mL solution 20 unit SUBCUT QAM RF: 0 Levemir U-100 Insulin 100 unit/mL solution 10 unit SUBCUT QPM RF: 0 tramadol 50 mg tablet 50 mg PO Q6H PRN (Reason: Pain) Qty: 30 RF: 0 oxycodone 5 mg tablet 5 mg PO BID PRN (Reason: Pain) Qty: 30 RF: 0 Discontinued nitrofurantoin monohyd/m-cryst [Macrobid] 100 mg Capsule 100 mg PO BID RF: 0 Discharge Orders: Discharge Order (Routine); Ordered 08/27/19 Ordered By: Ruben Roth Admission Data Admit Date/Time: 08/23/19 14:50 Attending Provider: Ruben Roth Admit Provider: Dagoberto Miranda Primary Care Provider: Yani Deluna Other Providers: Dagoberto Miranda ; Sae Boykin Jordan J. ; Yani Deluna Other Interventions: Discharge Summary Assessment (RN) Last Done: 08/27/19 14:33 Coding Level of Care Code D/C Day Management >30 mins Diagnoses Closed fracture of left hip S72.002A Encounter type: initial encounter Fall W19.XXXA Encounter type: initial encounter Elevated troponin I level R79.89 Acute hyperglycemia R73.9 Diabetes E11.9 Hypothyroid E03.9 TIA (transient ischemic attack) G45.9 DVT prophylaxis Z29.9 Urinary tract infection N39.0 Dyspnea R06.00 Acute blood loss anemia D62
== END 2019-08-27 17:09 | DRG 480 ==
LOC: ED 12:57 → SUATTDRO 14:50 → 3E 14:50

== ENCOUNTER 2020-01-15 11:31 | Inpatient (IN) ==
[2020-01-15] MEDS ORDERED: SODIUM CHLORIDE 0.9% 1000ML 1,000 ML IV SCH (12:30)
[2020-01-15 12:36] LABS: Basophils # (auto) 0.03 K/uL (0-0.2); Basophils % (auto) 0.3 %; Eosinophils # (auto) 0.37 K/uL (0-0.5); Hematocrit (blood only) 33.5 % (37-47); Hemoglobin 10.3 g/dL (12.0-16.0); Immature Granulocytes # (auto) 0.02 K/uL (0.00-0.02); Immature Granulocytes % (auto) 0.2 %; Lymphocytes # (auto) 1.21 K/uL (1.2-3.4); Lymphocytes % (auto) 13.1 %; Mean Corpuscular Hemoglobin 29.2 pg (25-34); Mean Corpuscular Hgb Conc 30.7 g/dL (32-36); Mean Corpuscular Volume 94.9 fL (80-100); Mean Platelet Volume 9.8 fL (7.4-10.4); Monocytes # (auto) 0.78 K/uL (0.11-0.59); Monocytes % (auto) 8.4 %; Neutrophils # (auto) 6.86 K/uL (1.4-6.5); Platelet Count 349 K/uL (130-400); RDW Coefficient of Variation 14.8 % (11.5-14.5); RDW Standard Deviation 50.8 fL (36.4-46.3); Red Blood Count 3.53 M/uL (4.2-5.4); White Blood Count 9.27 K/uL (4.8-10.8)
--- NOTE | 2020-01-15 12:49 | XRay Report ---
XR chest 1V portable HISTORY: 84 years-old Female weakness acute weakness COMPARISON: Chest radiograph 08/25/2019 TECHNIQUE: Portable AP view of the chest FINDINGS: Cardiac silhouette is enlarged, unchanged. Chronic right hemidiaphragmatic elevation. No pneumothorax , pleural effusion, airspace consolidation or overt pulmonary edema. Degenerative changes of the shou lders and spine. ORIF changes of the right humerus. Partially imaged fusion hardware of the lumbar sp ine. IMPRESSION: Chronic findings as above without acute process. ACT 112: Negative or not required by law. The above report was generated using voice recognition software. It may contain grammatical, syntax o r spelling errors. Electronically signed by: Wesly Montes De Oca M.D. 01/15/2020 12:48 PM
--- NOTE | 2020-01-15 12:59 | CT Scan Report ---
CT SCAN OF THE BRAIN WITHOUT IV CONTRAST CLINICAL HISTORY: Generalized weakness. COMPARISON STUDY: CT of the brain dated 08/23/2019. TECHNIQUE: Unenhanced axial CT scan of the brain is performed from the vertex to the skull base. A do se lowering technique was utilized adhering to the principles of ALARA. CT DOSE: 614.27 mGy.cm FINDINGS: Brain parenchyma: There are age-related involutional changes noting advanced confluent subcortical a nd periventricular microangiopathic change. Foci of bifrontal and right occipital encephalomalacia ar e consistent with remote insults. There is no hemorrhage, mass effect, or evidence of acute territori al ischemia by CT criteria. Holden-white matter differentiation is preserved. No extra-axial fluid salima ection is seen. Ventricles, sulci, cisterns: Prominent secondary to involutional change. Intracranial vasculature: There is atherosclerotic calcification of the cavernous carotid and vertebr al arteries. Calvarium: Unremarkable. Sinuses and mastoids: There is an air-fluid level in the right sphenoid sinus. The remaining visualiz ed paranasal sinuses are clear. The mastoid air cells are well pneumatized. Orbits: The bony orbits are grossly intact. There are bilateral ocular lens implants. IMPRESSION: 1 There is no hemorrhage, mass effect, or evidence of acute territorial ischemia by CT criteria. 2. Senescent change and remote infarct as above. ACT 112: Negative or not required by law. Electronically signed by: Ender Grimaldo M.D. 01/15/2020 12:58 PM
[2020-01-15 13:01] LABS: Alanine Aminotransferase 20 U/L (12-78); BUN Creatinine Ratio 21.9 (10-20); Blood Urea Nitrogen 24 mg/dl (7-18); Calcium 8.6 mg/dl (8.5-10.1); Carbon Dioxide 24 mmol/L (21-32); Chloride 106 mmol/L (98-107); Est GFR (African American) 53.2; Est GFR (Non-African American) 45.9; Glucose 232 mg/dl (70-99); Sodium 138 mmol/L (136-145)
--- NOTE | 2020-01-15 13:04 | Emergency Department Note ---
Impression & Plan Syncope, AMS (altered mental status), Hypotension ED Provider Note INFORMANT: Patient ED PROVIDER(S): Malachi Rivera MD CHIEF COMPLAINT: Altered mental status PLAN: Disposition: Admitted Condition: Good MEDICAL DECISION MAKING: Patient presented due to reports from [facility] of hypotension. She also had a syncopal episode. They had concerns for possible pneumonia or sepsis. Daughter is present and helps with the history. She was also concerned about possible UTI as she has multiple episodes of these in the past. Patient underwent a work-up. Head CT and chest x-ray did not reveal any acute process. The patient had a mildly elevated troponin. Her chemistry panel was unremarkable otherwise. The patient's urinalysis does show signs of infection. She was started on IV Rocephin. The patient was gently hydrated. ECG did not reveal any acute findings. Given the problems she will need further management in the hospital. Daughter was in agreement. [facility] The patient was [facility] for further management. Triage Nursing notes reviewed and agree them. Additional history obtained from patient's daughter Vital Signs: reviewed and remarkable for no significant abnormalities Differential diagnosis: Infection, dehydration, metabolic abnormality, hypo/hyperglycemia, electrolyte disturbance, anemia, hypoxia, cardiac sources, intracerebral event, toxicologic, neurologic, as well as other pathologies. Diagnostics interpreted by me: ECG: Twelve-lead ECG reveals a normal sinus rhythm at 80 bpm. There is left an terior fascicular block. Incomplete right bundle branch block. Normal axis. No ST elevation or depression. No PVCs or PACs. Cardiac Monitoring:Cardiac monitoring ordered by me: The patient was placed on continuous cardiac monitoring and observed. It revealed a normal sinus rhythm at 82 beats per minute without ectopy or evidence of dysrhythmia. Imaging studies: Chest x-ray reveals elevation of right hemidiaphragm. No evidence of focal cons olidation. CT PE study:1. Exam significantly compromised by respiratory motion. No central or lobar pulmonary emboli. 2. Moderate cardiomegaly. Extensive coronary artery calcification. 3 Moderate sized hiatal hernia. 4. Numerous pulmonary nodules which are suboptimally assessed on this exam but probably similar to CT of January 26, 2017. A benign etiology is favored however a follow-up chest CT in 6 months is recommended. 5. Low lung volumes with stable elevation of the right hemidiaphragm. No consolidation identified. Mild groundglass opacities within the lungs. Consultation(s): [facility] hospitalist service, Dr. Sutton and Marilyn Lundberg PA-C HPI: The patient is a 84 year old female who presents to the Emergency Room with episodes of hypotension and altered mental status. This started yesterday and is persisting. The [facility] notes the patient had several blood pressures in the 70s to 80s systolic. The patient also notes were noted some increased confusion. Patient's daughter is present and helps with the history as the patient does have dementia. Daughter is concerned about possible UTI as the patient has had multiple episodes in the past. The patient has been given no medication for relieving factors. Current pain is rated as 0/10. Pt denies LOC, headache, fevers, chills, visual changes, neck pain, chest pain, breathing difficulties, nausea, vomiting, abdominal pain, back pain, numbness or weakness or other complaints. History is somewhat limited secondary to dementia. ROS: See above HPI for pertinent positives & negatives. Limited secondary to dementia. PAST MEDICAL HISTORY:See Below, UTI, dementia, diabetes PAST SURGICAL HISTORY:See Below, hysterectomy, cholecystectomy FAMILY HISTORY:See Below SOCIAL HISTORY:See Below, resides in a [facility] MEDICATIONS:See Below ALLERGIES:See Below VITALS:See Below PHYSICAL EXAMINATION: GENERAL: Awake, tired-appearing, in no distress HENT: Normocephalic, atraumatic. Oropharynx unremarkable. EYES: Normal conjunctiva. Sclera non-icteric. NECK: Inspection normal. Non-tender. Supple. No nuchal rigidity. FROM. No masses. RESPIRATORY: Clear to auscultation except for a few crackles on the right. Normal respiratory effort. CARDIAC: Normal rate. Normal rhythm. No murmurs. No rubs. Extremities warm and well perfused. Pulses equal. No JVD. GI: Soft, non-distended. No tenderness to palpation. No rebound or guarding. No masses. RECTAL: Deferred. MUSCULOSKELETAL: Atraumatic. Chest examination reveals no tenderness. The back is symmetrical on inspection without obvious abnormality. There is no CVA tenderness to palpation. No joint edema. LOWER EXTREMITIES: Calves are equal size bilaterally and non-tender. 1+ edema. No discoloration. NEURO: Mildly demented but otherwise normal sensorium. No focal sensory or motor deficits noted. SKIN: No rash or jaundice noted. Malachi Rivera MD Past Med/Surg History Medical History Hypothyroid TIA (transient ischemic attack) Surgical History H/O: hysterectomy Hx of cholecystectomy Family History Other Diabetes Social History (Updated 08/23/19 @ 13:09 by Ruben Naranjo MD) Smoking Status: Former smoker Hx Alcohol Use: No Hx Substance Use: No Preferred Language: Mongolian Communication Ability: Effective Vascular Nurse Required: No Beliefs That Will Affect Care: None marital status: / Current Living Situation: Longterm Current Living Situation Comment: Poor historian, cognitive deficit, unable to complete admissions assessment Other Information That Helps Us Care for You: No Feels Safe at Home: Yes Safety Concerns: Feels Safe At This Time Allergies Allergies Allergy/AdvReac Type Severity Reaction Status Date / Time latex Allergy Mild RASH Verified 01/15/20 13:40 adhesive Allergy Unknown RASH Verified 01/15/20 13:40 codeine AdvReac Unknown N&V Verified 01/15/20 13:40 morphine AdvReac Unknown N&V Verified 01/15/20 13:40 Home Meds Home Medications Medication Instructions Recorded Confirmed Levemir U-100 Insulin 15 unit SUBCUT QPM 08/23/19 01/15/20 Restasis 1 drp OPB BID 08/23/19 01/15/20 aspirin [Aspirin Low Dose] 81 mg PO DAILY 08/23/19 01/15/20 atorvastatin 40 mg PO QPM 08/23/19 01/15/20 clopidogrel 75 mg PO QAM 08/23/19 01/15/20 famotidine 20 mg PO BID 08/23/19 01/15/20 fluticasone propion-salmeterol 1 inh INHALATION Q12H 08/23/19 01/15/20 [Advair Diskus] gabapentin 200 mg PO TID 08/23/19 01/15/20 insulin aspart U-100 [Novolog 0 unit SUBCUT UD 08/23/19 01/15/20 U-100 Insulin aspart] levothyroxine 88 mcg PO DAILY 08/23/19 01/15/20 montelukast 10 mg PO DAILY 08/23/19 01/15/20 multivitamin [Daily-Lainey] 1 tab PO DAILY 08/23/19 01/15/20 nitroglycerin 0.4 mg SUBLINGUAL UD PRN 08/23/19 01/15/20 polyethylene glycol 3350 [Miralax] 17 g PO DAILY 08/23/19 01/15/20 potassium chloride 20 meq PO QAM 08/23/19 01/15/20 ramipril 10 mg PO QAM 08/23/19 01/15/20 fentanyl 1 patch TRANSDERMAL .Q3DAYS 01/15/20 01/15/20 omeprazole 20 mg PO DAILY 01/15/20 01/15/20 venlafaxine 225 mg PO DAILY 01/15/20 01/15/20 Previous Rx's Medication Instructions Recorded acetaminophen 1,000 mg PO BID #60 tab 08/27/19 tramadol 50 mg PO Q6H PRN #30 tab 08/27/19 Results & Data (ED) Vital Signs Vital Signs - 24 hr 01/15/20 11:39 01/15/20 11:44 01/15/20 12:00 Temperature 36.8 C Temperature Source Oral Pulse Rate 90 92 H 87 Pulse Rate from SpO2 Sensor 90 92 H 87 Respiratory Rate 20 14 18 Blood Pressure 160/70 H 160/70 H 155/90 H Blood Pressure Mean 104 100 114 Pulse Oximetry 98 97 97 Oxygen Delivery Method Room Air Room Air Room Air Sepsis Recent Fever Within 48 Hours No Sepsis New/Unexplained Change in Mental Status No Sepsis Action Taken by Nursing No Action Required 01/15/20 12:01 01/15/20 12:22 01/15/20 12:30 Temperature Temperature Source Pulse Rate 91 H 89 Pulse Rate from SpO2 Sensor 92 H 85 Respiratory Rate 22 24 Blood Pressure Blood Pressure Mean Pulse Oximetry 97 99 Oxygen Delivery Method Room Air Room Air Sepsis Recent Fever Within 48 Hours Sepsis New/Unexplained Change in Mental Status Sepsis Action Taken by Nursing 01/15/20 12:31 01/15/20 12:32 01/15/20 13:00 Temperature Temperature Source Pulse Rate 87 87 87 Pulse Rate from SpO2 Sensor 87 86 88 Respiratory Rate 17 20 21 Blood Pressure 178/69 H Blood Pressure Mean 106 Pulse Oximetry 97 97 97 Oxygen Delivery Method Room Air Room Air Room Air Sepsis Recent Fever Within 48 Hours Sepsis New/Unexplained Change in Mental Status Sepsis Action Taken by Nursing 01/15/20 13:01 01/15/20 13:30 Temperature Temperature Source Pulse Rate 88 85 Pulse Rate from SpO2 Sensor 89 84 Respiratory Rate 21 21 Blood Pressure 160/75 H Blood Pressure Mean 108 Pulse Oximetry 98 97 Oxygen Delivery Method Room Air Room Air Sepsis Recent Fever Within 48 Hours Sepsis New/Unexplained Change in Mental Status Sepsis Action Taken by Nursing Laboratory Data Result diagrams: 01/15/20 11:54 01/15/20 13:33 Lab Results 01/15/20 01/15/20 01/15/20 Range/Units 11:54 11:54 13:33 WBC 9.27 (4.8-10.8) K/uL RBC 3.53 L (4.2-5.4) M/uL Hgb 10.3 L (12.0-16.0) g/dL Hct 33.5 L (37-47) % MCV 94.9 (80-100) fL MCH 29.2 (25-34) pg MCHC 30.7 L (32-36) g/dL RDW Std Deviation 50.8 H (36.4-46.3) fL RDW Coeff of Carmen 14.8 H (11.5-14.5) % Plt Count 349 (130-400) K/uL MPV 9.8 (7.4-10.4) fL Immature Gran % (Auto) 0.2 % Neut % (Auto) 74.0 % Lymph % (Auto) 13.1 % [place] % (Auto) 8.4 % Eos % (Auto) 4.0 % Baso % (Auto) 0.3 % Neut # (Auto) 6.86 H (1.4-6.5) K/uL Lymph # (Auto) 1.21 (1.2-3.4) K/uL [place] # (Auto) 0.78 H (0.11-0.59) K/uL Eos # (Auto) 0.37 (0-0.5) K/uL Baso # (Auto) 0.03 (0-0.2) K/uL Immature Gran # (Auto) 0.02 (0.00-0.02) K/uL Sodium 138 (136-145) mmol/L Potassium 4.7 (3.5-5.1) mmol/L Chloride 106 (98-107) mmol/L Carbon Dioxide 24 (21-32) mmol/L Anion Gap 8.0 (3-11) BUN 24 H (7-18) mg/dl Creatinine 1.11 (0.6-1.2) mg/dl Est Cr Clr Drug Dosing Not Reportable Est GFR ( Amer) 53.2 Est GFR (Non-Af Amer) 45.9 BUN/Creatinine Ratio 21.9 H (10-20) Glucose 232 H (70-99) mg/dl Calcium 8.6 (8.5-10.1) mg/dl Magnesium 1.9 (1.8-2.4) mg/dl Total Bilirubin 0.3 (0.2-1) mg/dl AST 14 L (15-37) U/L ALT 20 (12-78) U/L Alkaline Phosphatase 118 H (45-117) U/L Troponin I 0.171 H* (0-0.045) ng/ml Total Protein 6.6 (6.4-8.2) gm/dl Albumin 3.0 L (3.4-5.0) gm/dl Globulin 3.6 (2.5-4.0) gm/dl Albumin/Globulin Ratio 0.8 L (0.9-2) TSH 2.880 (0.300-4.500) uIu/ml Administered Medications Discontinued Medications Sodium Chloride (Nss 1000ml) 1,000 mls @ 125 mls/hr IV .Q8H MARYJAEN Stop: 01/15/20 20:29 Last Infusion: 01/15/20 16:32 Dose: 0 mls/hr Documented by: [id number] Admin: 01/15/20 12:57 Dose: 125 mls/hr Documented by: [id number] Ceftriaxone Sodium (Rocephin) 1,000 mg in 50 mls @ 100 mls/hr IV NOW STA Stop: 01/15/20 13:42 Last Infusion: 01/15/20 13:58 Dose: 0 mls/hr Documented by: [id number] Admin: 01/15/20 13:28 Dose: 100 mls/hr Documented by: [id number] Ioversol (Optiray 320 125ml) 116 ml IV ONCE ONE Stop: 01/15/20 15:28 Last Admin: 01/15/20 15:28 Dose: 116 ml Documented by: [id number] Discharge Plan Visit Data Chief Complaint: Altered Mental Status ED Provider: Malachi Rivera Discharge Problem: Syncope, AMS (altered mental status), Hypotension Patient Disposition: Admitted As Inpatient Discharge Instructions Interventions: ED Discharge Assessment Last Done: 01/15/20 15:14
[2020-01-15 13:07] LABS: Albumin Globulin Ratio 0.8 (0.9-2); Alkaline Phosphatase 118 U/L (45-117); Bilirubin,Total 0.3 mg/dl (0.2-1); Globulin 3.6 gm/dl (2.5-4.0); Total Protein 6.6 gm/dl (6.4-8.2); Troponin I 0.171 ng/ml (0-0.045)
[2020-01-15 13:08] LABS: Appearance Urine Cloudy (Clear); Bacteria Urine Automated 4+ (Negative); Bilirubin Urine Negative (Negative); Blood Urine Negative (Negative); Color Urine Dark Yellow; Epithelial Cell Urine Auto 20-30 /lpf (0-5); Glucose Urine UA 1+ (Negative); Ketones Urine Negative (Negative); Leukocyte Esterase Urine 1+ (Negative); Nitrite Urine Negative (Negative); Protein Urine Negative (Negative); RBC Urine Automated 0-4 /hpf (0-4); Specific Gravity Urine 1.025 (1.000-1.030); Urobilinogen Urine Negative (Negative)
[2020-01-15] MEDS ORDERED: cefTRIAXone SODIUM 1,000 MG/50 ML BAG IV STA (13:13)
--- NOTE | 2020-01-15 13:45 | History & Physical Report ---
Date of Service January 15, 2020 Assessment & Plan (1) AMS (altered mental status): -Admit to med surg with telemetry -Has dementia at baseline, daughter reports good and bad days, at baseline can identify her children which she is unable to do on admission -Possible UTI with history of frequent UTIs growing out E. coli, will continue on antibiotics for now and follow cultures for sensitivities -check CT of the abdomen/pelvis for concerns for intra-abdominal infection, specifically diverticulitis with LLQ pain, has history of constipation, r/o -CXR without significant findings. Will order incentive spirometry and flutter for diminished breath sounds, patient without respiratory symptoms, no visitor policy at [facility], no known exposure to COVID-19. -Continue on Rocephin, add Flagyl IV -PT/OT consults (2) Abdominal pain: -LLQ tenderness with palpation, will check CT of the abdomen/pelvis for concerns for intra-abdominal infection, specifically diverticulitis. Patient also with history of constipation, will rule out -Ceftriaxone and Flagyl IV for now -Allow HH/DM diet for now with DM II, no n/v/d. (3) Syncope: -Occurred at [facility] prior to transfer, hypotensive at SNF, however is hypertensive with all BP readings since being in the ER -CT PE being conducted by ER, follow for results- no tachycardia, afebrile, o2 sats 99% on RA. -Consider 2D echo -EKG reviewed-NSR, no chest pain, flutter, palpitation, likely vasovagal with going from sit to standing position and while using the bathroom -Given NSS x 1 L in ER, will continue 125 ml/hr x 1 d -Continue on ramipril 10 mg QPM and atorvastatin 10 mg HS (4) Diabetes mellitus: - Hx of such - ISS with accuchecks achs, and Levemir 15 U subcut QPM, allow diet. If improved appetite then can turn off fluids. - AC1 = 7.9 on 07/17/19 - Fluids as above, change to fluids with dextrose if make npo. (5) Cerebrovascular accident: - hx of such - Cont statin therapy (6) Hypothyroid: - Cont levothyroxine 88 mcg (7) Elevated troponin: -hx of such, today 0.171, elevated minimally today on admission compared to in the past -EKG reviewed, not concerning for ACS (8) DVT prophylaxis: - fatou rodriguez subq CODE: DNR/DNI Dispo: From home, likely to remain in the hospital x 2 days. History of Present Illness Primary Care Provider: [facility] This is an 84-year-old female with PMHx of DM type II, elevated troponin, history of TIA, hypothyroidism, recent left hip fracture status post intramedullary nailing in August, hypothyroidism who presents with altered mental status. The patient has severe dementia therefore cannot recall the specific events which occurred this morning or in the last few days. Her daughter is present at bedside and supports the history. Daughter notes family spoke to pt yesterday over the phone and that she was yelling "help me, help me"and was not saying anything else. They called the nursing station at [facility] and reported that she was not acting quite correct. This morning, nursing staff reported the patient being hypotensive with walking to the bathroom, and that the patient nearly had a syncopal episode. Daughter denies LOC or fall. The PA-C within the facility evaluated the patient, and had concerns for hypotension, worsening breath sounds and change in mental status therefore sent her to the ER. Interestingly on 01/12, daughter reports that the patient was found sitting on the floor in the center of the hallway at [facility] with a walker beside her as if she had fallen, however the patient cannot recall this. She does typically ambulate with walker at baseline. Daughter also notes that the patient has a history of UTIs; pt has had 2-3 over the last few months, and normally grows out E. coli. Daughter cannot recall that she has had issues with drug resistant organisms in the past. She does not know the last time the patient was on an antibiotic. Here in the ER the patient is found to be hypertensive, received fluids, urine is suspicious for urinary tract infection and was started on ceftriaxone IV. On exam the patient reports tenderness in the LLQ with light and deep palpation. Patient does have history of issues with constipation, unknown last bowel movement. She denies urinary symptoms such as burning or increased frequency. Daughter reports that the patient's mental status gets worse and that the patient becomes more irritated/mean whenever she has any type of infection. Allergies Allergy/AdvReac Type Severity Reaction Status Date / Time latex Allergy Mild RASH Verified 01/15/20 13:40 adhesive Allergy Unknown RASH Verified 01/15/20 13:40 codeine AdvReac Unknown N&V Verified 01/15/20 13:40 morphine AdvReac Unknown N&V Verified 01/15/20 13:40 Home Medications Home Medications Medication Instructions Recorded Confirmed Type Levemir U-100 Insulin 15 unit SUBCUT QPM 08/23/19 01/15/20 History Restasis 1 drp OPB BID 08/23/19 01/15/20 History aspirin [Aspirin Low Dose] 81 mg PO DAILY 08/23/19 01/15/20 History atorvastatin 40 mg PO QPM 08/23/19 01/15/20 History clopidogrel 75 mg PO QAM 08/23/19 01/15/20 History famotidine 20 mg PO BID 08/23/19 01/15/20 History fluticasone propion-salmeterol 1 inh INHALATION Q12H 08/23/19 01/15/20 History [Advair Diskus] gabapentin 200 mg PO TID 08/23/19 01/15/20 History insulin aspart U-100 [Novolog 0 unit SUBCUT UD 08/23/19 01/15/20 History U-100 Insulin aspart] levothyroxine 88 mcg PO DAILY 08/23/19 01/15/20 History montelukast 10 mg PO DAILY 08/23/19 01/15/20 History multivitamin [Daily-Lainey] 1 tab PO DAILY 08/23/19 01/15/20 History nitroglycerin 0.4 mg SUBLINGUAL UD PRN 08/23/19 01/15/20 History polyethylene glycol 3350 [Miralax] 17 g PO DAILY 08/23/19 01/15/20 History potassium chloride 20 meq PO QAM 08/23/19 01/15/20 History ramipril 10 mg PO QAM 08/23/19 01/15/20 History acetaminophen 1,000 mg PO BID #60 tab 08/27/19 01/15/20 Rx tramadol 50 mg PO Q6H PRN #30 tab 08/27/19 01/15/20 Rx fentanyl 1 patch TRANSDERMAL .Q3DAYS 01/15/20 01/15/20 History omeprazole 20 mg PO DAILY 01/15/20 01/15/20 History venlafaxine 225 mg PO DAILY 01/15/20 01/15/20 History cyanocobalamin (vitamin B-12) 500 mcg PO QAM #30 tab 01/17/20 Rx docusate sodium 100 mg PO BID #60 cap 01/17/20 Rx ertapenem 1 g IV DAILY 8 Days #8 ea 01/17/20 Rx Past Med/Surg History Medical History (Updated 01/18/20 @ 00:03 by Hannah Bradley) Anemia Cerebral infarction, watershed distribution, bilateral, acute Cerebrovascular accident Chronic back pain Chronic, continuous use of opioids Dementia History of diabetic ulcer of foot HTN (hypertension), benign Hypothyroid Left leg weakness Loss of sensation LVH (left ventricular hypertrophy) Mitral regurgitation and mitral stenosis Pulmonary nodules TIA (transient ischemic attack) Uncontrolled diabetes mellitus (06/09/14) Surgical History (Updated 01/16/20 @ 11:10 by Sarah Miranda MD) H/O: hysterectomy History of back surgery History of cataract surgery History of renal stent Hx of cholecystectomy Family History Other Diabetes Social History (Updated 08/23/19 @ 13:09 by Ruben Naranjo MD) Smoking Status: Former smoker Hx Alcohol Use: No Hx Substance Use: No Preferred Language: Maldivian Communication Ability: Effective Medical Billing Manager Required: No Beliefs That Will Affect Care: None marital status: / Current Living Situation: Assisted Current Living Situation Comment: Poor historian, cognitive deficit, unable to complete admissions assessment Feels Safe at Home: Yes Review of Systems Review of Systems: Constitutional: No fever, + sweats, no chills Eyes: No diplopia, no worsening or blurred vision ENT: normal hearing, no trouble swallowing Respiratory: No cough, sputum, dyspnea at rest or on exertion Cardiovascular: No chest pain, tightness or palpitations Abdomen: + Left LQ pain, no nausea, vomiting, diarrhea, + history of constipation Musculoskeletal: No joint pain, calf pain, + swelling in legs Neurologic: No weakness, numbness/tingling, or balance problems Psychiatric: + Anxiety and depression Skin: No rash or itch Physical Exam Physical Exam: General: awake, alert, no apparent distress Head: Normocephalic, atraumatic ENT: PERRL, EOMI, no pharyngeal exudate, mucous membranes moist, + endentulous Chest: + Diminished breath sounds at bases bilaterally, faint crackles, on room air. Cardiac: Regular rate and rhythm, no murmur, no JVD, normal peripheral pulses, good capillary refill Abdominal: NABS x 4 quadrants, soft, nondistended, + tenderness in LLQ with light and deep palpation, otherwise nontender to palpation, no rebound or guarding Extremities: Normal inspection, 1+ peripheral edema BLE, worse in LLE compared to RLE, no erythema, calfs nontender to palpation Psych: Normal mood and affect Neuro: AA oriented to self, thinks she is in a hospital, unable to identify her daughter at bedside. No gross motor deficits, speech is clear, no peripheral sensory deficits Results & Data Results & Data ([facility]) Vital Signs (Past 12 Hours) Vital Signs Temp Pulse Resp BP Pulse Ox 01/15/20 13:30 85 21 97 01/15/20 13:01 88 21 160/75 H 98 01/15/20 13:00 87 21 97 01/15/20 12:32 87 20 97 01/15/20 12:31 87 17 178/69 H 97 01/15/20 12:30 89 24 01/15/20 12:22 99 01/15/20 12:01 91 H 22 97 01/15/20 12:00 87 18 155/90 H 97 01/15/20 11:44 36.8 C 92 H 14 160/70 H 97 01/15/20 11:39 90 20 160/70 H 98 Diagnostic Findings XR chest 1V portable HISTORY: 84 years-old Female weakness acute weakness COMPARISON: Chest radiograph 08/25/2019 TECHNIQUE: Portable AP view of the chest FINDINGS: Cardiac silhouette is enlarged, unchanged. Chronic right hemidiaphragmatic elevation. No pneumothorax, pleural effusion, airspace consolidation or overt pulmonary edema. Degenerative changes of the shoulders and spine. ORIF changes of the right humerus. Partially imaged fusion hardware of the lumbar spine. IMPRESSION: Chronic findings as above without acute process. CT SCAN OF THE BRAIN WITHOUT IV CONTRAST CLINICAL HISTORY: Generalized weakness. COMPARISON STUDY: CT of the brain dated 08/23/2019. TECHNIQUE: Unenhanced axial CT scan of the brain is performed from the vertex to the skull base. A dose lowering technique was utilized adhering to the principles of ALARA. CT DOSE: 614.27 mGy.cm FINDINGS: Brain parenchyma: There are age-related involutional changes noting advanced confluent subcortical and periventricular microangiopathic change. Foci of bifrontal and right occipital encephalomalacia are consistent with remote insults. There is no hemorrhage, mass effect, or evidence of acute territorial ischemia by CT criteria. Holden-white matter differentiation is preserved. No extra-axial fluid collection is seen. Ventricles, sulci, cisterns: Prominent secondary to involutional change. Intracranial vasculature: There is atherosclerotic calcification of the c avernous carotid and vertebral arteries. Calvarium: Unremarkable. Sinuses and mastoids: There is an air-fluid level in the right sphenoid sinus. The remaining visualized paranasal sinuses are clear. The mastoid air cells are well pneumatized. Orbits: The bony orbits are grossly intact. There are bilateral ocular lens implants. IMPRESSION: 1 There is no hemorrhage, mass effect, or evidence of acute territorial ischemia by CT criteria. 2. Senescent change and remote infarct as above. ECG Additional Comments: 15-JAN-2020 11:49:52 [facility]-EDSTAT ROUTINE RETRIEVAL Normal sinus rhythm Possible Left atrial enlargement Incomplete right bundle branch block Left anterior fascicular block Abnormal ECG When compared with ECG of 23-AUG-2019 13:05, No significant change was found 25mm/s 10mm/mV 150Hz 9.0.9 12SL 241 TIANA: 15 Referred by: [facility] Unconfirmed Vent. rate 88 BPM NM interval 176 ms QRS duration 112 ms QT/QTc 402/486 ms P-R-T axes 43 -49 82 Code Status & VTE Plan Code Status DNR/DNI-discussed with daughter at bedside Supervising Physician Co-Signing Physician Notes During my face to face encounter with the patient, I obtained a history and physical examination on the patient. I discussed plan of care with patient and Marilyn Lundberg and answered patient's questions. I reviewed above note and agree with it. In regards to altered mental staus, will recommend to continue with IV antibiotics to treat possible Urinary tract infection. PG Care Time/CCT Total # of Minutes Spent Total Time Spent with Patient: Total time spent is greater than 50% in coordination of care (as documented) at patient's floor/unit and/or counseling patient: Coding Level of Care Code 52485 Initial Inpt Care Lvl 3 Diagnoses AMS (altered mental status) R41.82 Abdominal pain R10.9 Syncope R55 Diabetes mellitus E11.9 Cerebrovascular accident I63.9 Hypothyroid E03.9 Elevated troponin R74.8 DVT prophylaxis Z29.9
[2020-01-15 14:03] LABS: Potassium 4.7 mmol/L (3.5-5.1)
[2020-01-15 14:08] LABS: Magnesium 1.9 mg/dl (1.8-2.4)
[2020-01-15] MEDS ORDERED: metroNIDAZOLE 500 MG/100 ML BAG IV SCH ×2 (14:31→16:30)
[2020-01-15] MEDS ORDERED: OPTIRAY 320 125ml IV ONE (15:27)
--- NOTE | 2020-01-15 15:52 | CT Scan Report ---
CT ANGIOGRAPHY OF THE CHEST, PULMONARY EMBOLUS PROTOCOL CLINICAL HISTORY: HYPOTENSION, SYNCOPE, ELEVATED TROPONIN COMPARISON STUDY: Chest CT January 31, 2017. Chest radiograph performed earlier today. TECHNIQUE: Following IV administration of 116 mL of Optiray-320, helical axial images of the chest we re obtained utilizing the pulmonary embolus protocol. Maximal intensity projections and sagittal and coronal reformats were viewed on an independent 3D workstation. IV contrast was administered withou t complication. Automated exposure control was utilized for the study. A dose lowering technique wa s utilized adhering to the principles of ALARA. FINDINGS: This exam is significantly compromised by respiratory motion artifact. No central or lobar pulmonary embolus is identified. Remainder of the pulmonary arteries are suboptimally assessed on th is exam. Moderate cardiomegaly is noted. There is extensive coronary artery calcification. Extensive mitral annular calcification is noted. There is no pericardial effusion. Mild dilatation of the ascen ding aorta, measuring 4 cm, is unchanged. Opacification of the thoracic aorta is suboptimal but there is no evidence for dissection. There is moderate plaque of the thoracic aorta. Elevation of the righ t hemidiaphragm is unchanged. Lungs are suboptimally assessed given respiratory motion. There is no l obar consolidation. Numerous small pulmonary nodules are noted. These are suboptimally assessed on th is exam but likely similar to prior CT. Mild groundglass opacities within the lungs are noted. There is no pneumothorax or pleural effusion. Moderate sized hiatal hernia is noted. Abdomen and pelvis orville l be reported separately. IMPRESSION: 1. Exam significantly compromised by respiratory motion. No central or lobar pulmonary emboli. 2. Moderate cardiomegaly. Extensive coronary artery calcification. 3. Moderate sized hiatal hernia. 4. Numerous pulmonary nodules which are suboptimally assessed on this exam but probably similar to CT of January 26, 2017. A benign etiology is favored however a follow-up chest CT in 6 months is javy mmended. 5. Low lung volumes with stable elevation of the right hemidiaphragm. No consolidation identified. Mi ld groundglass opacities within the lungs. ACT 112: Negative or not required by law. Electronically signed by: Jacinto Grant M.D. 01/15/2020 3:51 PM
--- NOTE | 2020-01-15 15:57 | CT Scan Report ---
ABDOMEN AND PELVIS CT WITH IV CONTRAST CT DOSE: 2677.83 mGy.cm HISTORY: Left lower quadrant pain. TECHNIQUE: Multiaxial CT images of the abdomen and pelvis were performed following the use of intrave nous contrast. A dose lowering technique was utilized adhering to the principles of ALARA. COMPARISON STUDY: Abdomen and pelvis CT 06/17/2016. FINDINGS: The subcentimeter bilateral pulmonary nodules are better appreciated on the same day chest CT. Mild elevation of the right hemidiaphragm. Dense calcifications within the mitral annulus and lef t ventricle, unchanged. Moderate hiatus hernia, unchanged. No pneumoperitoneum. No pneumatosis. Prior internal fixation of an old left femoral fracture. Posterior decompression and fusion within the lum bar spine is again noted. Prior cholecystectomy. Mild central intrahepatic bile duct dilatation, unch anged. This is likely due to the patient's post cholecystectomy state. The spleen, adrenal glands, an d pancreas are within normal limits. There is a 2 cm diverticulum at the second portion of the duoden um. Moderate bilateral cortical renal thinning/scarring. A 1 cm hypodense lesion within the lower marlene e of the right kidney. This favors a cyst. No ureteral stones. No hydronephrosis. Calcified plaque wi thin the normal caliber abdominal and iliac arteries. The bladder is unremarkable. The uterus is surg ically absent. Mild presacral edema/fat stranding. This also mild fat stranding posterior to the dist al sacrum/coccyx. No bony destruction to suggest osteomyelitis. No retroperitoneal or pelvic lymphade nopathy. Moderate stool within the rectum. The bladder is unremarkable. No bowel wall thickening or o bstruction. Normal appendix. Colonic diverticulosis. No evidence for acute diverticulitis. There is a lso moderate well-formed stool within the colon. IMPRESSION: 1. No bowel wall thickening or obstruction. 2. Normal appendix. 3. Colonic diverticulosis. No evidence for acute diverticulitis. 4. Moderate hiatus hernia, unchanged. 5. Postoperative changes as described above. 6. Moderate well-formed stool within the colon and rectum. 7. Mild presacral edema/fat stranding. This also mild fat stranding posterior to the distal sacrum/co ccyx. No bony destruction to suggest osteomyelitis. Therefore, this could be secondary to dependent e savage or possibly a cellulitis. Direct visualization recommended to exclude the possibility of a devel oping sacral decubitus ulcer. 8. Please refer to the same day chest CT for further evaluation of the pulmonary nodules. 9. Additional findings as described above. ACT 112: Negative or not required by law. Electronically signed by: Timothy Whitmore M.D. 01/15/2020 3:55 PM
[2020-01-15] MEDS ORDERED: NITROGLYCERIN SL 0.4 MG/TAB TAB SL PRN (15:58)
[2020-01-15] MEDS ORDERED: ONDANSETRON INJ 2 MG/ML 2 ML VIAL IV PRN (15:58)
[2020-01-15] MEDS ORDERED: TRAMADOL HCL 50 MG TABLET PO PRN (15:58)
[2020-01-15] MEDS ORDERED: CARBOHYDRATES FOR HYPOGLYCEMIA PO PRN (16:30)
[2020-01-15] MEDS ORDERED: DEXTROSE 50% 50 ML SYRINGE IV PRN (16:30)
[2020-01-15] MEDS ORDERED: GLUCOSE 40% GEL 15 GM TUBE PO PRN (16:30)
[2020-01-15] MEDS ORDERED: GLUCOSE 10 TABS/TUBE PO PRN (16:30)
[2020-01-15] MEDS ORDERED: GLUCAGON FOR INJ 1 MG VIAL IM PRN (16:30)
[2020-01-15] MEDS: metroNIDAZOLE 500 MG/100 ML BAG IV SCH ×2 (17:10→23:28)
[2020-01-15] MEDS: SODIUM CHLORIDE 0.9% 1000ML 1,000 ML IV SCH ×2 (17:10→23:58)
[2020-01-15] MEDS: GABAPENTIN 100 MG CAP PO SCH ×2 (17:11→20:16)
[2020-01-15] MEDS: ENOXAPARIN INJ 40 MG/0.4 ML SYR SQ SCH (17:12)
[2020-01-15] MEDS: INSULIN ASPART 100 UNITS/ML 3 ML PEN SC SCH ×2 (17:15→20:20)
--- NOTE | 2020-01-15 19:05 | Electrocardiogram Report ---
Test Reason : Blood Pressure : / mmHG Vent. Rate : 088 BPM Atrial Rate : 088 BPM P-R Int : 176 ms QRS Dur : 112 ms QT Int : 402 ms P-R-T Axes : 043 -49 082 degrees QTc Int : 486 ms Normal sinus rhythm Possible Left atrial enlargement Incomplete right bundle branch block Left anterior fascicular block Abnormal ECG When compared with ECG of 23-AUG-2019 13:05, No significant change was found Confirmed by Dariel Esqueda ([id number]) on 01/15/2020 7:04:33 PM Referred By: [facility] Confirmed By:Yohannes Esqueda
[2020-01-15] MEDS: FLUTICASONE/VILANTEROL 200/25MCG 14 PUFFS/INHALER INH SCH (20:15)
[2020-01-15] MEDS: ATORVASTATIN 40 MG TAB PO SCH (20:16)
[2020-01-15] MEDS: ACETAMINOPHEN 500 MG TAB PO SCH (20:16)
[2020-01-15] MEDS: FAMOTIDINE 20 MG TAB PO SCH (20:17)
[2020-01-15] MEDS: INSULIN DETEMIR FLEXPEN/FLEX TOUCH 100 UNITS/ML 3ML SC SCH (20:19)
[2020-01-15] MEDS: CHECK FENTANYL PATCH PLACEMENT SCH (22:37)
[2020-01-16] MEDS: SODIUM CHLORIDE 0.9% 1000ML 1,000 ML IV SCH ×2 (01:10→09:40)
[2020-01-16] MEDS: LEVOTHYROXINE SODIUM 88 MCG TABLET PO SCH (05:25)
[2020-01-16] MEDS: metroNIDAZOLE 500 MG/100 ML BAG IV SCH (07:55)
[2020-01-16] MEDS: CHECK FENTANYL PATCH PLACEMENT SCH ×2 (07:55→15:07)
[2020-01-16] MEDS ORDERED: PIPERACILL/TAZOBAC CONSULT ACTIVE PRN (08:42)
[2020-01-16] MEDS: INSULIN ASPART 100 UNITS/ML 3 ML PEN SC SCH ×4 (08:44→20:18)
[2020-01-16] MEDS ORDERED: PIPERACILLIN/TAZOBACTAM 3.375 GM in DEXTROSE 5% 100 ML IV SCH (08:45)
[2020-01-16] MEDS: FAMOTIDINE 20 MG TAB PO SCH ×2 (08:51→20:19)
[2020-01-16] MEDS: ENALAPRIL MALEATE 10 MG TAB PO SCH (08:52)
[2020-01-16] MEDS: POTASSIUM CHLORIDE 20 MEQ TABCR PO SCH (08:52)
[2020-01-16] MEDS: CLOPIDOGREL BISULFATE 75 MG TAB PO SCH (08:53)
[2020-01-16] MEDS: MULTIVITAMIN TAB PO SCH (08:53)
[2020-01-16] MEDS: ASPIRIN 81 MG ECTAB PO SCH (08:53)
[2020-01-16] MEDS: ACETAMINOPHEN 500 MG TAB PO SCH ×2 (08:53→20:21)
[2020-01-16] MEDS: GABAPENTIN 100 MG CAP PO SCH ×3 (08:53→20:18)
[2020-01-16] MEDS: VENLAFAXINE HCL XR 75 MG CAPXR PO SCH (08:54)
[2020-01-16] MEDS: MONTELUKAST SODIUM 10 MG TABLET PO SCH (08:54)
[2020-01-16] MEDS: ENOXAPARIN INJ 40 MG/0.4 ML SYR SQ SCH ×2 (08:55→20:17)
[2020-01-16] MEDS: POLYETHYLENE (MIRALAX) 17 GM PACK PO SCH (08:55)
[2020-01-16] MEDS: PANTOprazole 40 MG TAB PO SCH (08:55)
[2020-01-16] MEDS ORDERED: fentaNYL 25 MCG/HR TDSY TD SCH (09:00)
[2020-01-16] MEDS ORDERED: PIPERACILLIN/TAZOBACTAM 4.5 GM in DEXTROSE 5% 100 ML IV ONE (09:15)
--- NOTE | 2020-01-16 11:10 | Hospitalist Progress Note ---
Date of Service January 16, 2020 Assessment & Plan (1) Acute metabolic encephalopathy: Admitted due to altered mental status, [facility] With ESBL E. coli in a recent urine culture-unclear if was ever treated with IV antibiotics. -Has dementia at baseline, daughter reports progressively worsening a lot in the last 6 months, but has been present for 5 years -Likely with UTI as per urinalysis, but urine culture is growing mixed organisms as UA was contaminated - CT of the abdomen/pelvis checked for concerns for intra-abdominal infection but showed constipation only -CXR without significant findings Now sedated from tramadol use and also uses fentanyl patch for chronic back pain (2) Near syncope: Reported blood pressure of 70 systolic at [facility] prior to admission likely secondary to UTI and early sepsis? However, all blood pressures have been hypertensive since admission Receiving IV fluids and will continue until more awake and taking p.o. -CT PE negative for PE -EKG reviewed-NSR, no ischemic changes, troponin mildly positive likely myocardial demand ischemia -Continue on VAUGHN inhibitor (3) UTI due to extended-spectrum beta lactamase (ESBL) producing Escherichia coli: As above, with numerous urine cultures in the past with ESBL E. coli as well as some Klebsiella infections We will change antibiotics from ceftriaxone to IV Zosyn as the ESBL E. coli is sensitive to this There is no evidence of stone or renal obstruction on imaging Recommend 10 days of IV antibiotics total Repeat UA today to try to obtain a better sample is now sterile and will not be reliable for culture (4) Abdominal pain: -LLQ tenderness with palpation upon admission which is now resolved. CT of the abdomen/pelvis negative for infection but does show constipation Has now moved her bowels on 01/15 Continue bowel regimen , No need for Flagyl-discontinued (5) Diabetes mellitus: - Hx of such - ISS with accuchecks achs, and Levemir 15 U subcut QPM - A1C = 7.9 on 07/17/19 (6) Elevated troponin: -hx of such, was 0.171 on admission and now only minimally further elevated at 0.2 on repeat check Likely myocardial demand ischemia given history of severe LVH on recent echocardiogram. Also with moderate mitral stenosis, mitral regurgitation, and severe left atrial enlargement. No further evaluation needed ECG without ischemia (7) Anemia: Hemoglobin mildly low at 10.1, Normocytic -Check iron studies, B12, folate in the morning TSH is normal (8) Hypotension: Prior to admission, noted as above and is the cause of the near syncope Possibly related to her UTI (9) Diabetic peripheral neuropathy associated with type 2 diabetes mellitus: Noted by daughters to have peripheral neuropathy Neuropathy precautions Waffle boots and take pressure off heels (10) Decubitus ulcer, heel: Using waffle boots, seen by wound care (11) Dementia: Severe in nature, progressively worsening over the last 6 months Lives in a [facility] Supportive care (12) Pulmonary nodules: Seen on CT of the abdomen/pelvis Could follow as an outpatient if desired by family (13) Mitral regurgitation and mitral stenosis: Moderate MR and MS seen on echocardiogram 08/2019 No acute issues (14) LVH (left ventricular hypertrophy): Severe, noted on echocardiogram 08/2019 (15) Hypothyroid: TSH here is normal - Cont levothyroxine 88 mcg (16) Cerebrovascular accident: - hx of such - Cont aspirin and statin therapy (17) Chronic back pain: Continue home fentanyl patch and tramadol PRN Continue docusate for bowel regimen (18) Chronic, continuous use of opioids: As above and chronic low back pain (19) HTN (hypertension), benign: Blood pressures are elevated here Continue VAUGHN inhibitor (20) DVT prophylaxis: - fatuo rodriguez subq CODE: DNR/DNI Dispo: From [facility], will need IV antibiotics upon discharge for total of 10 days, may be ready for discharge in the next 1 to 2 days Admission and Anticipated Discharge Date Admission Date: January 15, 2020 Subjective Patient received tramadol shortly before I saw her and was quite drowsy but did open her eyes at times to verbal and tactile stimulus. Her 2 daughters were at the bedside. They report that the patient's dementia has significantly progressed in the last 6 months to the point where she sometimes does not recognize who her own daughters are on the phone or in person. They report that they do not know if she is received IV antibiotics at the [facility] for her recent ESBL E. coli UTIs, but do not think she has. Patient does not answer any questions for me. Nursing reports that earlier patient seemed like she was in a lot of pain and daughters confirm that she has chronic back pain and has been on fentanyl patch since October and takes tramadol at the [facility] as needed for breakthrough pain. She seems stable. Telemetry with normal sinus rhythm and rate 70s to 80s Review of Systems Review of Systems: Unobtainable due to cognitive status Physical Exam Constitutional: WD/WN, vitals as above + obese Eyes: + anicteric sclerae Neck: trachea midline, no thyromegaly Respiratory: normal respiratory effort, lungs clear to auscultation Cardiovascular: RRR, no murmur, no edema Chest (Breasts): Chest: normal inspection of chest Gastrointestinal (Abdomen): normal bowel sounds, soft, nontender, no hepatosplenomegaly Musculoskeletal: Extremities: extremities normal to inspection; no cyanosis and no clubbing Skin: no rashes, warm and dry + wound (Left heel with very small s uperficial stage II ulcer) Neurologic: moves all extremities; + not awake (Very drowsy) Results & Data Results & Data ([facility]) Vital Signs (Past 12 Hours) Vital Signs Temp Pulse Pulse Resp BP Pulse Ox 01/16/20 07:27 36.5 C 93 H 18 145/77 H 94 01/16/20 04:00 36 C L 82 20 126/67 99 01/16/20 00:00 78 01/15/20 23:30 36.9 C 84 18 166/74 H 98 Laboratory Results 01/16/20 01/16/20 01/16/20 Range/Units 19:55 16:32 11:38 WBC (4.8-10.8) K/uL RBC (4.2-5.4) M/uL Hgb (12.0-16.0) g/dL Hct (37-47) % MCV (80-100) fL MCH (25-34) pg MCHC (32-36) g/dL RDW Std Deviation (36.4-46.3) fL RDW Coeff of Carmen (11.5-14.5) % Plt Count (130-400) K/uL MPV (7.4-10.4) fL Sodium (136-145) mmol/L Potassium (3.5-5.1) mmol/L Chloride (98-107) mmol/L Carbon Dioxide (21-32) mmol/L Anion Gap (3-11) BUN (7-18) mg/dl Creatinine (0.6-1.2) mg/dl Est Cr Clr Drug Dosing ml/min Est GFR ( Amer) Est GFR (Non-Af Amer) BUN/Creatinine Ratio (10-20) Glucose (70-99) mg/dl POC Glucose 186 H 167 H 127 H (70-99) mg/dl Calcium (8.5-10.1) mg/dl Total Bilirubin (0.2-1) mg/dl AST (15-37) U/L ALT (12-78) U/L Alkaline Phosphatase (45-117) U/L Troponin I (0-0.045) ng/ml Total Protein (6.4-8.2) gm/dl Albumin (3.4-5.0) gm/dl Globulin (2.5-4.0) gm/dl Albumin/Globulin Ratio (0.9-2) Urine Color Urine Appearance (Clear) Urine pH (4.5-7.5) Ur Specific Sundown (1.000-1.030) Urine Protein (Negative) Urine Glucose (UA) (Negative) Urine Ketones (Negative) Urine Blood (Negative) Urine Nitrite (Negative) Urine Bilirubin (Negative) Urine Urobilinogen (Negative) Ur Leukocyte Esterase (Negative) 01/16/20 01/16/20 01/16/20 Range/Units 11:27 11:27 11:27 WBC 8.74 (4.8-10.8) K/uL RBC 3.45 L (4.2-5.4) M/uL Hgb 10.1 L (12.0-16.0) g/dL Hct 32.0 L (37-47) % MCV 92.8 (80-100) fL MCH 29.3 (25-34) pg MCHC 31.6 L (32-36) g/dL RDW Std Deviation 49.5 H (36.4-46.3) fL RDW Coeff of Carmen 14.7 H (11.5-14.5) % Plt Count 314 (130-400) K/uL MPV 9.3 (7.4-10.4) fL Sodium 142 (136-145) mmol/L Potassium 4.9 (3.5-5.1) mmol/L Chloride 112 H (98-107) mmol/L Carbon Dioxide 22 (21-32) mmol/L Anion Gap 8.0 (3-11) BUN 14 (7-18) mg/dl Creatinine 0.74 D (0.6-1.2) mg/dl Est Cr Clr Drug Dosing 66.2 ml/min Est GFR ( Amer) 86.8 Est GFR (Non-Af Amer) 74.9 BUN/Creatinine Ratio 19.3 (10-20) Glucose 127 H (70-99) mg/dl POC Glucose (70-99) mg/dl Calcium 7.7 L (8.5-10.1) mg/dl Total Bilirubin 0.4 (0.2-1) mg/dl AST 14 L (15-37) U/L ALT 14 (12-78) U/L Alkaline Phosphatase 104 (45-117) U/L Troponin I Cancelled 0.232 H* (0-0.045) ng/ml Total Protein 5.9 L (6.4-8.2) gm/dl Albumin 2.5 L (3.4-5.0) gm/dl Globulin 3.4 (2.5-4.0) gm/dl Albumin/Globulin Ratio 0.7 L (0.9-2) Urine Color Urine Appearance (Clear) Urine pH (4.5-7.5) Ur Specific Sundown (1.000-1.030) Urine Protein (Negative) Urine Glucose (UA) (Negative) Urine Ketones (Negative) Urine Blood (Negative) Urine Nitrite (Negative) Urine Bilirubin (Negative) Urine Urobilinogen (Negative) Ur Leukocyte Esterase (Negative) 01/16/20 01/16/20 Range/Units 11:10 07:40 WBC (4.8-10.8) K/uL RBC (4.2-5.4) M/uL Hgb (12.0-16.0) g/dL Hct (37-47) % MCV (80-100) fL MCH (25-34) pg MCHC (32-36) g/dL RDW Std Deviation (36.4-46.3) fL RDW Coeff of Carmen (11.5-14.5) % Plt Count (130-400) K/uL MPV (7.4-10.4) fL Sodium (136-145) mmol/L Potassium (3.5-5.1) mmol/L Chloride (98-107) mmol/L Carbon Dioxide (21-32) mmol/L Anion Gap (3-11) BUN (7-18) mg/dl Creatinine (0.6-1.2) mg/dl Est Cr Clr Drug Dosing ml/min Est GFR ( Amer) Est GFR (Non-Af Amer) BUN/Creatinine Ratio (10-20) Glucose (70-99) mg/dl POC Glucose 83 (70-99) mg/dl Calcium (8.5-10.1) mg/dl Total Bilirubin (0.2-1) mg/dl AST (15-37) U/L ALT (12-78) U/L Alkaline Phosphatase (45-117) U/L Troponin I (0-0.045) ng/ml Total Protein (6.4-8.2) gm/dl Albumin (3.4-5.0) gm/dl Globulin (2.5-4.0) gm/dl Albumin/Globulin Ratio (0.9-2) Urine Color Yellow Urine Appearance Clear (Clear) Urine pH 7.0 (4.5-7.5) Ur Specific Sundown 1.017 (1.000-1.030) Urine Protein Negative (Negative) Urine Glucose (UA) Negative (Negative) Urine Ketones Negative (Negative) Urine Blood Negative (Negative) Urine Nitrite Negative (Negative) Urine Bilirubin Negative (Negative) Urine Urobilinogen Negative (Negative) Ur Leukocyte Esterase Negative (Negative) PG Care Time/CCT Total # of Minutes Spent Total Time Spent with Patient: Total time spent is greater than 50% in coordina tion of care (as documented) at patient's floor/unit and/or counseling patient: Coding Level of Care Code 24674 Subseq Hosp Care Lvl 3 Diagnoses Acute metabolic encephalopathy G93.41 Near syncope R55 UTI due to extended-spectrum beta lactamase (ESBL) producing Escherichia coli N39.0; B96.29; Z16.12 Abdominal pain R10.9 Diabetes mellitus E11.9 Elevated troponin R74.8 Anemia D64.9 Hypotension I95.9 Diabetic peripheral neuropathy associated with type 2 diabetes mellitus E11.42 Decubitus ulcer, heel L89.609 Dementia F03.90 Pulmonary nodules R91.8 Mitral regurgitation and mitral stenosis I05.2 LVH (left ventricular hypertrophy) I51.7 Hypothyroid E03.9 Cerebrovascular accident I63.9 Chronic back pain M54.9; G89.29 Chronic, continuous use of opioids F11.90 HTN (hypertension), benign I10 DVT prophylaxis Z29.9
[2020-01-16 11:53] LABS: Hemoglobin 10.1 g/dL (12.0-16.0); Mean Corpuscular Hemoglobin 29.3 pg (25-34); Mean Corpuscular Hgb Conc 31.6 g/dL (32-36); Mean Corpuscular Volume 92.8 fL (80-100); Mean Platelet Volume 9.3 fL (7.4-10.4); Platelet Count 314 K/uL (130-400); RDW Coefficient of Variation 14.7 % (11.5-14.5); RDW Standard Deviation 49.5 fL (36.4-46.3); Red Blood Count 3.45 M/uL (4.2-5.4); White Blood Count 8.74 K/uL (4.8-10.8)
[2020-01-16 12:25] LABS: Albumin Level 2.5 gm/dl (3.4-5.0); BUN Creatinine Ratio 19.3 (10-20); Calcium 7.7 mg/dl (8.5-10.1); Creatinine Clr Calc Pharmacy 66.2 ml/min; Est GFR (African American) 86.8; Est GFR (Non-African American) 74.9; Potassium 4.9 mmol/L (3.5-5.1)
[2020-01-16 12:27] LABS: Appearance Urine Clear (Clear); Bilirubin Urine Negative (Negative); Blood Urine Negative (Negative); Color Urine Yellow; Glucose Urine UA Negative (Negative); Ketones Urine Negative (Negative); Leukocyte Esterase Urine Negative (Negative); Nitrite Urine Negative (Negative); Protein Urine Negative (Negative); Specific Gravity Urine 1.017 (1.000-1.030); Urobilinogen Urine Negative (Negative)
[2020-01-16 12:27] LABS: Albumin Globulin Ratio 0.7 (0.9-2); Bilirubin,Total 0.4 mg/dl (0.2-1); Globulin 3.4 gm/dl (2.5-4.0); Total Protein 5.9 gm/dl (6.4-8.2); Troponin I 0.232 ng/ml (0-0.045)
[2020-01-16] MEDS ORDERED: cefTRIAXone SODIUM 2,000 MG in DEXTROSE 5% 50 ML IV SCH (13:00)
[2020-01-16] MEDS: PIPERACILLIN/TAZOBACTAM 4.5 GM in DEXTROSE 5% 100 ML IV SCH ×2 (15:06→21:45)
[2020-01-16] MEDS: DOCUSATE SODIUM 100 MG CAP PO SCH ×2 (15:07→20:16)
[2020-01-16] MEDS: FLUTICASONE/VILANTEROL 200/25MCG 14 PUFFS/INHALER INH SCH (20:13)
[2020-01-16] MEDS: INSULIN DETEMIR FLEXPEN/FLEX TOUCH 100 UNITS/ML 3ML SC SCH (20:16)
[2020-01-16] MEDS: ATORVASTATIN 40 MG TAB PO SCH (20:17)
[2020-01-17] MEDS: CHECK FENTANYL PATCH PLACEMENT SCH ×3 (00:01→15:30)
[2020-01-17] MEDS: LEVOTHYROXINE SODIUM 88 MCG TABLET PO SCH (05:39)
[2020-01-17] MEDS: PIPERACILLIN/TAZOBACTAM 4.5 GM in DEXTROSE 5% 100 ML IV SCH ×2 (05:39→13:35)
[2020-01-17 08:23] LABS: Hematocrit (blood only) 32.1 % (37-47); Hemoglobin 10.2 g/dL (12.0-16.0); Mean Corpuscular Hemoglobin 29.5 pg (25-34); Mean Corpuscular Hgb Conc 31.8 g/dL (32-36); Mean Corpuscular Volume 92.8 fL (80-100); Mean Platelet Volume 9.1 fL (7.4-10.4); Platelet Count 319 K/uL (130-400); RDW Coefficient of Variation 14.5 % (11.5-14.5); RDW Standard Deviation 49.1 fL (36.4-46.3); Red Blood Count 3.46 M/uL (4.2-5.4)
[2020-01-17] MEDS: INSULIN ASPART 100 UNITS/ML 3 ML PEN SC SCH ×2 (08:42→12:09)
[2020-01-17 08:56] LABS: Folate (Folic Acid) 12.84 ng/ml (>5.38)
[2020-01-17] MEDS: MONTELUKAST SODIUM 10 MG TABLET PO SCH (09:24)
[2020-01-17] MEDS: FAMOTIDINE 20 MG TAB PO SCH (09:24)
[2020-01-17] MEDS: ASPIRIN 81 MG ECTAB PO SCH (09:24)
[2020-01-17] MEDS: PANTOprazole 40 MG TAB PO SCH (09:24)
[2020-01-17] MEDS: POTASSIUM CHLORIDE 20 MEQ TABCR PO SCH (09:24)
[2020-01-17 09:25] LABS: Albumin Globulin Ratio 0.8 (0.9-2); Albumin Level 2.7 gm/dl (3.4-5.0); BUN Creatinine Ratio 15.6 (10-20); Bilirubin,Total 0.4 mg/dl (0.2-1); Calcium 7.9 mg/dl (8.5-10.1); Creatinine Clr Calc Pharmacy 64.7 ml/min; Est GFR (African American) 85.4; Est GFR (Non-African American) 73.7; Ferritin 27.3 ng/ml (8-388); Globulin 3.3 gm/dl (2.5-4.0); Potassium 3.7 mmol/L (3.5-5.1)
[2020-01-17] MEDS: ENOXAPARIN INJ 40 MG/0.4 ML SYR SQ SCH (09:25)
[2020-01-17] MEDS: ENALAPRIL MALEATE 10 MG TAB PO SCH (09:25)
[2020-01-17] MEDS: CLOPIDOGREL BISULFATE 75 MG TAB PO SCH (09:25)
[2020-01-17] MEDS: VENLAFAXINE HCL XR 75 MG CAPXR PO SCH (09:25)
[2020-01-17] MEDS: MULTIVITAMIN TAB PO SCH (09:25)
[2020-01-17] MEDS: GABAPENTIN 100 MG CAP PO SCH ×2 (09:26→13:34)
[2020-01-17] MEDS ORDERED: CYANOCOBALAMIN 1000 MCG/ML VIAL IM SCH (09:45)
[2020-01-17] MEDS: ACETAMINOPHEN 500 MG TAB PO SCH (10:29)
[2020-01-17] MEDS: DOCUSATE SODIUM 100 MG CAP PO SCH (10:29)
[2020-01-17] MEDS: POLYETHYLENE (MIRALAX) 17 GM PACK PO SCH (10:30)
--- NOTE | 2020-01-17 11:42 | Discharge Summary ---
Date of Service January 17, 2020 Admission HPI Per Admitting Provider This is an 84-year-old female with PMHx of DM type II, elevated troponin, history of TIA, hypothyroidism, recent left hip fracture status post intramedullary nailing in August, hypothyroidism who presents with altered mental status. The patient has severe dementia therefore cannot recall the specific events which occurred this morning or in the last few days. Her daughter is present at bedside and supports the history. Daughter notes family spoke to pt yesterday over the phone and that she was yelling "help me, help me"and was not saying anything else. They called the nursing station at [facility] and reported that she was not acting quite correct. This morning, nursing staff reported the patient being hypotensive with walking to the bathroom, and that the patient nearly had a syncopal episode. Daughter d enies LOC or fall. The PA-C within the facility evaluated the patient, and had concerns for hypotension, worsening breath sounds and change in mental status therefore sent her to the ER. Interestingly on 01/12, daughter reports that the patient was found sitting on the floor in the center of the hallway at [facility] with a walker beside her as if she had fallen, however the patient cannot recall this. She does typically ambulate with walker at baseline. Daughter also notes that the patient has a history of UTIs; pt has had 2-3 over the last few months, and normally grows out E. coli. Daughter cannot recall that she has had issues with drug resistant organisms in the past. She does not know the last time the patient was on an antibiotic. Here in the ER the patient is found to be hypertensive, received fluids, urine is suspicious for urinary tract infection and was started on ceftriaxone IV. On exam the patient reports tenderness in the LLQ with light and deep palpation. Patient does have history of issues with constipation, unknown last bowel movement. She denies urinary symptoms such as burning or increased frequency. Daughter reports that the patient's mental status gets worse and that the patient becomes more irritated/mean whenever she has any type of infection. Principal Diagnosis ESBL E. coli UTI Acute metabolic encephalopathy Discharge Exam Constitutional WD/WN, vitals as above + obese Eyes + anicteric sclerae ENMT external ear and nose normal, oropharynx normal Neck trachea midline, no thyromegaly Respiratory normal respiratory effort, lungs clear to auscultation Cardiovascular RRR, no murmur, no edema Chest (Breasts) Chest: normal inspection of chest Gastrointestinal (Abdomen) normal bowel sounds, soft, nontender, no hepatosplenomegaly Musculoskeletal Extremities: extremities normal to inspection; no cyanosis and no clubbing Skin no rashes, warm and dry + wound (Left heel with very small superficial stage II ulcer) Neurologic moves all extremities and awake Speech / Cognition: + abnormal cognition; normal speech Psychiatric Orientation: alert, oriented to person and cooperative Eye Contact: good eye contact Speech: normal rate/rhythm/volume of speech Affect: euthymic affect Lymphatic no lymphedema Discharge Data Allergies Allergy/AdvReac Type Severity Reaction Status Date / Time latex Allergy Mild RASH Verified 01/15/20 13:40 adhesive Allergy Unknown RASH Verified 01/15/20 13:40 codeine AdvReac Unknown N&V Verified 01/15/20 13:40 morphine AdvReac Unknown N&V Verified 01/15/20 13:40 Consultations 01/15/20 13:22 ED Decision to Admit Stat 01/15/20 15:58 Consult Case Management - Discharge Planning Routine Ordered Studies 01/15/20 12:18 CT head/brain wo con Stat 01/15/20 13:12 CT angio chest PE protocol Stat 01/15/20 15:29 CT abd pelvis IV con only Stat Chest x-ray Hospital Course (1) Acute metabolic encephalopathy: Admitted due to altered mental status, [facility]. With ESBL E. coli in a recent urine culture-unclear if was ever treated with IV antibiotics. -Has dementia at baseline, daughter reports progressively worsening a lot in the last 6 months, but has been present for 5 years -Likely with UTI as per urinalysis, but urine culture is growing mixed organisms as UA was contaminated - CT of the abdomen/pelvis checked for concerns for intra-abdominal infection but showed constipation only -CXR without significant findings Completely resolved on the day of discharge and was awake and alert and pleasant and answering simple questions. We will finish out treatment for UTI as below (2) Near syncope: Reported blood pressure of 70 systolic [facility] prior to admission likely secondary to UTI and early sepsis? However, all blood pressures have been hypertensive since admission Received IV fluids and was tolerating -CT PE negative for PE -EKG reviewed-NSR, no ischemic changes, troponin mildly positive likely myocardial demand ischemia -Continue on VAUGHN inhibitor (3) UTI due to extended-spectrum beta lactamase (ESBL) producing Escherichia coli: As above, with numerous urine cultures in the past with ESBL E. coli as well as some Klebsiella infections-unclear if has been treated at the prison but daughters do not think she is had any IV antibiotics recently Treated with IV Zosyn as the ESBL E. coli is sensitive to this, but converted to ertapenem for discharge for once daily administration-finish out 10-day course of this There is no evidence of stone or renal obstruction on imaging Recommend 10 days of IV antibiotics total (4) Abdominal pain: -LLQ tenderness with palpation upon admission which is now resolved after having a large bowel movement. CT of the abdomen/pelvis negative for infection but does show constipation Has now moved her bowels on 01/15 Continue bowel regimen (5) Diabetes mellitus: - Hx of such - ISS with accuchecks achs, and Levemir 15 U subcut QPM - A1C = 7.9 on 07/17/19 (6) Elevated troponin: -hx of such, was 0.171 on admission and now only minimally further elevated at 0.2 on repeat check Likely myocardial demand ischemia given history of severe LVH on recent echocardiogram. Also with moderate mitral stenosis, mitral regurgitation, and severe left atrial enlargement. No further evaluation needed ECG without ischemia (7) Anemia: Hemoglobin mildly low at 10.1, Normocytic -Checked iron studies, B12, folate-iron studies with borderline low ferritin at 27 but iron saturation 19%. However, B12 is low at 183, folate normal at 12 TSH is normal -Start vitamin B12 1000 mcg IM x1 here and then continue p.o. 1000 mcg once daily upon discharge (8) Hypotension: Prior to admission, noted as above and is the cause of the near syncope Possibly related to her UTI Resolved (9) Diabetic peripheral neuropathy associated with type 2 diabetes mellitus: Noted by daughters to have peripheral neuropathy Neuropathy precautions Waffle boots and take pressure off heels (10) Decubitus ulcer, heel: Using waffle boots, seen by wound care (11) Dementia: Severe in nature, progressively worsening over the last 6 months [facility] a [facility] -Replacing vitamin B12 as above (12) Pulmonary nodules: Seen on CT of the abdomen/pelvis Could follow as an outpatient if desired by family (13) Mitral regurgitation and mitral stenosis: Moderate MR and MS seen on echocardiogram 08/2019 No acute issues (14) LVH (left ventricular hypertrophy): Severe, noted on echocardiogram 08/2019 (15) Hypothyroid: TSH here is normal - Cont levothyroxine 88 mcg (16) Cerebrovascular accident: - hx of such - Cont aspirin and statin therapy (17) Chronic back pain: Continue home fentanyl patch and tramadol PRN Continue docusate for bowel regimen (18) Chronic, continuous use of opioids: As above and chronic low back pain (19) HTN (hypertension), benign: Blood pressures are elevated here Continue VAUGHN inhibitor (20) DVT prophylaxis: - fatou rodriguez subq CODE: DNR/DNI Dispo: From prison, will need IV antibiotics upon discharge for total of 10 days, is ready for discharge Total Time Total Time Spent Total Time Spent (In Minutes): 45 minutes Total Time Includes: Examination of the Patient, Discharge Planning and Medication Reconciliation Discharge Plan Discharge Items Patient Disposition: Transfer Assisted Fac Reason For Visit: SYNCOPAL EPISODE, AMS Discharge Diagnosis: Hypotension, Acute encephalopathy related to ESBL E. coli UTI Condition on Discharge: Good Activity: Resume your previous activity Bathing: No limitations Bathing Comment: Keep PIV site dry Exercise/Sports: As tolerated Non-emergency contact: Primary Care Provider Call non-emergency contact if: you have any medication questions and your symptoms worsen Follow-up/Referrals: Yani Deluna [Primary Care Provider] - Diet: Carb Consistent or DM2 and Heart Healthy Addtl Attending Provider Instructions: Please finish out 8 more days of Ertapenem 1000mg IV q24h for the ESBL E. coli UTI. Otherwise continue usual care. Please check CBC, CMP in 1 week. Pending Studies at Discharge: No Stand-Alone Forms: My [facility] Skilled Items Patient informed of condition?: Yes DNR: Yes Discharge Level of Care: Skilled Communicable Disease: No Discharge Prognosis: Improving Lines: Peripheral IV Urinary Catheter: No Medications and DC Order Prescriptions: New cyanocobalamin (vitamin B-12) 500 mcg Tablet 500 mcg PO QAM Qty: 30 RF: 0 docusate sodium 100 mg Capsule 100 mg PO BID Qty: 60 RF: 0 Continued omeprazole 20 mg Capsule,Delayed Release(Dr/Ec) 20 mg PO DAILY RF: 0 fentanyl 25 mcg/hr patch 72 hour 1 patch transdermal .Q3DAYS RF: 0 venlafaxine 225 mg Tablet Extended Release 24hr 225 mg PO DAILY RF: 0 multivitamin [Daily-Lainey] Tablet 1 tab PO DAILY RF: 0 atorvastatin 40 mg tablet 40 mg PO QPM RF: 0 fluticasone propion-salmeterol [Advair Diskus] 250-50 mcg/dose blister with device 1 inh inhalation Q12H RF: 0 clopidogrel 75 mg tablet 75 mg PO QAM RF: 0 aspirin [Aspirin Low Dose] 81 mg Tablet,Delayed Release (Dr/Ec) 81 mg PO DAILY RF: 0 levothyroxine 88 mcg tablet 88 mcg PO DAILY RF: 0 potassium chloride 20 mEq tablet,ER particles/crystals 20 meq PO QAM RF: 0 famotidine 20 mg Tablet 20 mg PO BID RF: 0 insulin aspart U-100 [Novolog U-100 Insulin aspart] 100 unit/mL solution 0 unit subcut UD RF: 0 nitroglycerin 0.4 mg Tablet, Sublingual 0.4 mg sublingual UD PRN (Reason: Chest Pain) RF: 0 montelukast 10 mg tablet 10 mg PO DAILY RF: 0 gabapentin 100 mg capsule 200 mg PO TID RF: 0 polyethylene glycol 3350 [Miralax] 17 gram/dose Powder 17 g PO DAILY RF: 0 ramipril 10 mg capsule 10 mg PO QAM RF: 0 Restasis 0.05 % dropperette 1 drp OPB BID RF: 0 Levemir U-100 Insulin 100 unit/mL solution 15 unit SUBCUT QPM RF: 0 acetaminophen 500 mg Tablet 1,000 mg PO BID Qty: 60 RF: 0 tramadol 50 mg tablet 50 mg PO Q6H PRN (Reason: Pain) Qty: 30 RF: 0 Discharge Orders: Discharge Order (Routine); Ordered 01/17/20 Ordered By: Sarah Miranda Admission Data Admit Date/Time: 01/15/20 13:57 Attending Provider: Sarah Miranda Admit Provider: Miki Sutton Primary Care Provider: Yani Deluna Other Interventions: Discharge Summary Assessment (RN) Last Done: 01/17/20 13:26 Coding Level of Care Code D/C Day Management >30 mins Diagnoses Acute metabolic encephalopathy G93.41 Near syncope R55 UTI due to extended-spectrum beta lactamase (ESBL) producing Escherichia coli N39.0; B96.29; Z16.12 Abdominal pain R10.9 Diabetes mellitus E11.9 Elevated troponin R74.8 Anemia D64.9 Hypotension I95.9 Diabetic peripheral neuropathy associated with type 2 diabetes mellitus E11.42 Decubitus ulcer, heel L89.609 Dementia F03.90 Pulmonary nodules R91.8 Mitral regurgitation and mitral stenosis I05.2 LVH (left ventricular hypertrophy) I51.7 Hypothyroid E03.9 Cerebrovascular accident I63.9 Chronic back pain M54.9; G89.29 Chronic, continuous use of opioids F11.90 HTN (hypertension), benign I10 DVT prophylaxis Z29.9
[2020-01-20] MEDS ORDERED: CYANOCOBALAMIN 500 MCG TABLET (VITAMIN B-12) PO SCH (09:00)
== END 2020-01-17 15:30 | DRG 689 ==
LOC: ED 11:31 → SUATTDRO 13:57 → 2W 13:57
DX: I05.2 Rheumatic mitral stenosis with insufficiency; L89.629 Pressure ulcer of left heel, unspecified stage; Z79.4 Long term (current) use of insulin; I24.8 Other forms of acute ischemic heart disease; E03.9 Hypothyroidism, unspecified; Z79.891 Long term (current) use of opiate analgesic; E11.42 Type 2 diabetes mellitus with diabetic polyneuropathy; B96.20 Unspecified Escherichia coli [E. coli] as the cause of diseases classified elsewhere; I11.9 Hypertensive heart disease without heart failure; Z79.899 Other long term (current) drug therapy; D64.9 Anemia, unspecified; Z16.12 Extended spectrum beta lactamase (ESBL) resistance; F03.90 Unspecified dementia, unspecified severity, without behavioral disturbance, psychotic disturbance, mood disturbance, and anxiety; N39.0 Urinary tract infection, site not specified; Z79.890 Hormone replacement therapy; Z87.891 Personal history of nicotine dependence; Z87.440 Personal history of urinary (tract) infections; Z88.5 Allergy status to narcotic agent; G89.29 Other chronic pain; Z79.82 Long term (current) use of aspirin; M54.9 Dorsalgia, unspecified; Z86.73 Personal history of transient ischemic attack (TIA), and cerebral infarction without residual deficits; Z91.048 Other nonmedicinal substance allergy status; Z79.02 Long term (current) use of antithrombotics/antiplatelets; Z79.1 Long term (current) use of non-steroidal anti-inflammatories (NSAID); G93.41 Metabolic encephalopathy; K59.00 Constipation, unspecified; I95.1 Orthostatic hypotension; Z66 Do not resuscitate; R91.8 Other nonspecific abnormal finding of lung field; Z91.040 Latex allergy status